=== PATIENT | male | born 1965 ===

== ENCOUNTER → 2020-06-17 10:59 | Outpatient (BNVA) | payer OTHER, SELFPAY | PROVIDERS: PCP Family Medicine; Visit Provider Surgery | DX: Z76.89 Persons encountering health services in other specified circumstances (principal) ==

== ENCOUNTER 2020-08-02 07:59 | Outpatient (RCR) | payer OTHER, SELFPAY ==
[2020-08-02 11:36] LABS: MANUAL DIFF FLAG NO
[2020-08-02 11:57] LABS: Anion Gap 15 (12-20); Blood Urea Nitrogen 18 mg/dL (9-16); C Reactive Protein 10.82 mg/dL (< or = 0.50); Calcium 9.8 mg/dL (8.4-10.2); Carbon Dioxide 27 mmol/L (22-29); Chloride 98 mmol/L (96-108); Estimated Glomerular Filt Rate > 60; Glucose Fasting 235 mg/dL (60-99); Potassium 5.6 mmol/l (3.3-5.1); Sodium 134 mmol/L (135-145)
[2020-08-02 12:23] LABS: Basophils Percent Auto 0.1 % (0-2); Eosinophils Percent Auto 0.1 % (0-4); Hematocrit 43.4 % (42-52); Imm Gran Pct Auto 0.5 % (0.0-0.4); Lymphocytes Absolute Auto 1.5 X10*3/uL (1.2-4.9); Mean Corpuscular HGB Conc 32.3 g/dl (31.0-36.0); Mean Corpuscular Hemoglobin 27.7 pg (27.0-33.0); Mean Corpuscular Volume 85.9 fL (80-98); Mean Platelet Volume 12.1 fL (9.4-12.4); Monocytes Absolute Auto 1.2 X10*3/uL (0.1-1.2); Monocytes Percent Auto 6.3 % (2-11); Neutrophils Absolute Auto 16.2 X10*3/uL (2.0-8.3); Platelet Count 342 X10*3/uL (160-400); Red Blood Count 5.05 X10*6/uL (4.60-5.80); Red Cell Distribution Width 12.3 % (11.0-16.0); White Blood Count 19.1 X10*3/uL (4.8-10.8)
[2020-08-02 12:36] LABS: Erythrocyte Sedimentation Rate 66 MM/HR (0-15)
== END 2021-06-10 12:26 | disposition home or self-care (01) ==
LOC: HO.WCC 07:59
PROVIDERS: PCP Family Medicine; Visit Provider Surgery
DX: E11.621 Type 2 diabetes mellitus with foot ulcer (principal); L97.512 Non-pressure chronic ulcer of other part of right foot with fat layer exposed; E11.40 Type 2 diabetes mellitus with diabetic neuropathy, unspecified; E11.610 Type 2 diabetes mellitus with diabetic neuropathic arthropathy; E11.69 Type 2 diabetes mellitus with other specified complication; M86.371 Chronic multifocal osteomyelitis, right ankle and foot; I10 Essential (primary) hypertension; Z89.421 Acquired absence of other right toe(s); Z79.2 Long term (current) use of antibiotics
CPT/HCPCS: 10061; 11042; 11043; 11044; 11045; 11046; 15275; 36415; 80048; 84134; 85025; 85652; 86140; 87071; 87077; 87147; 87186; 87205; 97605; 99183; 99212; 99213; 99214; Q4106

== ENCOUNTER 2020-08-02 10:05 | Outpatient (REF) | payer OTHER, SELFPAY ==
--- NOTE | 2020-08-02 10:40 | XR_ITS ---
EXAMINATION: XR FOOT, RIGHT CLINICAL INFORMATION: Fifth tarsal rule out osteomyelitis. Diabetic foot ulcer. COMPARISON: MRI of 02/17/2020 and plain film study of 02/16/2020. TECHNIQUE: AP, lateral, and oblique views of the right foot. FINDINGS: Since previous study, patient is status post transmetatarsal amputation of the 4th toe. There is large amount soft tissue swelling about the foot as well as ulceration along the lateral aspect of the tarsal bones. There appears to be progression in appearance of Charcot joint with more joint space narrowing and destruction involving the tarsometatarsal joints. There appears to be fracture/dislocation of the 2nd cuneiform. This can be seen with a combination of traumatic Charcot joint as well as osteomyelitis. There is now also noted to be increase in lucency with poorly seen joint space involving the 2nd tarsometatarsal joint. There appears to be more lucent region involving the lateral aspect of the cuboid as well as what appears to be dislocation base of the 5th tarsometatarsal joint. It is difficult to tell what may be gas within the soft tissues versus gas related to the ulcer. XR/XR foot RT min 3V IMPRESSION: Interval transmetatarsal amputation of the 4th toe. Progression of Charcot joint as described with what appears to be some superimposed osteomyelitis along the lateral aspect possibly involving the cuboid as well as possibly involving the 2nd cuneiform and base of the 2nd metatarsal.
== END 2020-08-02 10:06 | disposition home or self-care (01) ==
LOC: HO.XRAY 10:05
PROVIDERS: PCP Family Medicine; Visit Provider Physician Assistant
DX: E11.621 Type 2 diabetes mellitus with foot ulcer (principal)
CPT/HCPCS: 73630

== ENCOUNTER → 2020-08-09 10:54 | Outpatient (BNVA) | payer OTHER, SELFPAY | PROVIDERS: Visit Provider Internal Medicine | DX: Z76.89 Persons encountering health services in other specified circumstances (principal) ==

== ENCOUNTER → 2020-08-23 10:59 | Outpatient (BNVA) | payer OTHER, SELFPAY | PROVIDERS: Visit Provider Internal Medicine | DX: Z76.89 Persons encountering health services in other specified circumstances (principal) ==

== ENCOUNTER 2020-09-06 10:09 | Outpatient (REF) | payer OTHER, SELFPAY ==
[2020-09-06 11:58] LABS: MANUAL DIFF FLAG NO
[2020-09-06 12:22] LABS: Anion Gap 21 (12-20); Blood Urea Nitrogen 22 mg/dL (9-16); C Reactive Protein 0.99 mg/dL (< or = 0.50); Calcium 9.3 mg/dL (8.4-10.2); Carbon Dioxide 21 mmol/L (22-29); Chloride 100 mmol/L (96-108); Estimated Glomerular Filt Rate > 60; Glucose Random 250 mg/dL (60-115); Potassium 4.6 mmol/l (3.3-5.1); Sodium 137 mmol/L (135-145)
[2020-09-06 12:27] LABS: Estimated Average Glucose 174 mg/dL; Hemoglobin A1c % 7.7 %
[2020-09-06 12:40] LABS: Basophils Percent Auto 0.3 % (0-2); Eosinophils Percent Auto 0.2 % (0-4); Hematocrit 42.9 % (42-52); Hemoglobin 14.1 g/dl (14.0-18.0); Imm Gran Abs Auto 0.02 X10*3/uL (0.00-0.03); Imm Gran Pct Auto 0.2 % (0.0-0.4); Lymphocytes Absolute Auto 1.8 X10*3/uL (1.2-4.9); Lymphocytes Percent Auto 19.9 % (20-40); Mean Corpuscular HGB Conc 32.9 g/dl (31.0-36.0); Mean Corpuscular Hemoglobin 28.1 pg (27.0-33.0); Mean Corpuscular Volume 85.5 fL (80-98); Mean Platelet Volume 11.5 fL (9.4-12.4); Monocytes Absolute Auto 0.7 X10*3/uL (0.1-1.2); Monocytes Percent Auto 7.1 % (2-11); Neutrophils Absolute Auto 6.6 X10*3/uL (2.0-8.3); Neutrophils Percent Auto 72.3 % (45-73); Platelet Count 155 X10*3/uL (160-400); Red Blood Count 5.02 X10*6/uL (4.60-5.80); Red Cell Distribution Width 13.7 % (11.0-16.0); White Blood Count 9.2 X10*3/uL (4.8-10.8)
[2020-09-06 13:16] LABS: Erythrocyte Sedimentation Rate 14 MM/HR (0-15)
== END 2020-09-06 10:10 | disposition home or self-care (01) ==
LOC: HO.LAB 10:09
PROVIDERS: Absent Provider Physician Assistant; PCP Family Medicine; Visit Provider Internal Medicine
DX: Z01.812 Encounter for preprocedural laboratory examination (principal); Z87.39 Personal history of other diseases of the musculoskeletal system and connective tissue
CPT/HCPCS: 36415; 80048; 83036; 84134; 85025; 85652; 86140

== ENCOUNTER 2020-09-07 09:12 | Outpatient (REF) | payer OTHER, SELFPAY ==
--- NOTE | 2020-09-07 09:18 | XR_ITS ---
EXAMINATION: XR CHEST CLINICAL INFORMATION: Preprocedure. COMPARISON: None TECHNIQUE: 2 views of the chest were obtained. FINDINGS: The lungs are well-expanded and clear of acute process. The heart size and pulmonary vascularity is normal. There is moderate spondylosis dorsal spine. No lytic process. XR/XR chest 2V IMPRESSION: Unremarkable chest examination.
== END 2020-09-07 09:13 | disposition home or self-care (01) ==
LOC: HO.XRAY 09:12
PROVIDERS: PCP Family Medicine; Visit Provider Physician Assistant
DX: Z01.818 Encounter for other preprocedural examination (principal)
CPT/HCPCS: 71046

== ENCOUNTER 2020-10-14 10:37 | Outpatient (REF) | payer OTHER, SELFPAY ==
[2020-10-14 12:23] LABS: Blood Urea Nitrogen 32 mg/dL (9-16); Estimated Glomerular Filt Rate 50
== END 2020-10-14 10:38 | disposition home or self-care (01) ==
LOC: HO.LAB 10:37
PROVIDERS: PCP Family Medicine; Visit Provider Physician Assistant
DX: S91.301A Unspecified open wound, right foot, initial encounter (principal); X58.XXXA Exposure to other specified factors, initial encounter; Y93.9 Activity, unspecified; Y92.9 Unspecified place or not applicable; Y99.9 Unspecified external cause status
CPT/HCPCS: 36415; 82565; 84520

== ENCOUNTER 2020-11-05 09:35 | Outpatient (REF) | payer OTHER, SELFPAY ==
--- NOTE | ~2020-11-05 | CT_ITS ---
EXAMINATION: CT FOOT WITH CONTRAST, RIGHT CLINICAL INFORMATION: Abscess right foot. COMPARISON: Radiographs dated 08/02/2020 TECHNIQUE: Multidetector volumetric imaging was obtained through the right foot following intravenous administration of 85 mL Omnipaque 350. This CT examination was performed using dose optimization techniques as appropriate, variously including the following: *Automated exposure control *Adjustment of mA and/or kV according to patient size (this includes techniques or standardized protocols for targeted exams where dose is matched to indication/reason for exam; i.e. extremities or head) *Use of iterative reconstruction technique DLP: 152 mGy-cm FINDINGS: Marked Charcot arthropathy is again seen in the right midfoot centered at the tarsometatarsal joints with marked osseous fragmentation, articular cortical osteolysis, bone loss, and dorsal subluxation of the metatarsals relative to the cuneiforms. There is dorsal subluxation of the 1st metatarsal by 1.3 cm relative to the medial cuneiform. A prominent 2 cm bone fragment from the medial cuneiform projects dorsally toward the skin surface. There is an adjacent skin wound at the dorsomedial aspect of the midfoot near the 1st metatarsal base, filled with dense material and gas. The dense material is of uncertain etiology. There is a hypodense, peripherally enhancing collection within the medial soft tissues at the 1st TMT joint and medial cuneiform measuring 1.5 x 1 x 2 cm, concerning for abscess or septic arthritis. There is a prominent wound at the plantar aspect of the midfoot measuring 4.4 x 5 cm in area, deep to the cuboid and 4th and 5th metatarsals. No underlying fluid collections are identified. There is underlying cortical irregularity and osteolysis at the cuboid and 5th metatarsal which may be due to osteomyelitis, though is age-indeterminate. There is generalized soft tissue swelling, subcutaneous edema, and skin thickening at the foot. Additional wounds may be present at the dorsal/lateral aspect of the forefoot. The 4th and 5th toes are absent along with the majority of the 4th and 5th metatarsals. The talus and calcaneus are intact. There is [id number] osteoarthritis at the talonavicular joint. Enthesopathic spurs are present of the calcaneus. Ankle joint appears relatively well preserved. Subcutaneous edema and soft tissue swelling extend proximally into the ankle. The tibialis anterior tendon is thickened distally and likely torn or partially disrupted. Medial flexor and peroneal tendons are unremarkable on these images. CT/CT foot RT w con IMPRESSION: 1. Extensive changes of Charcot arthropathy at the midfoot. Superimposed osteomyelitis and septic arthritis are possible, particularly at the level of the cuboid and 4th and 5th metatarsal bases. 2. A skin wound at the dorsomedial aspect of the midfoot at the level of the 1st metatarsal base. Dense material and foci of gas are present within this wound and of uncertain etiology, potentially related to wound care. There is an adjacent fluid collection at the medial margin of the fragmented medial cuneiform, concerning for an abscess or septic arthritis. 3. Large wound at the plantar/lateral aspect of the midfoot without an appreciable underlying abscess.
== END 2020-11-05 09:36 | disposition home or self-care (01) ==
LOC: HO.CT 09:35
PROVIDERS: Visit Provider Physician Assistant
DX: M86.371 Chronic multifocal osteomyelitis, right ankle and foot (principal)
CPT/HCPCS: 73701; Q9967

== ENCOUNTER 2020-12-10 09:42 | Outpatient (REF) | payer OTHER, SELFPAY ==
[2020-12-10 10:24] LABS: MANUAL DIFF FLAG NO
[2020-12-10 10:45] LABS: Anion Gap 15 (12-20); Blood Urea Nitrogen 17 mg/dL (9-16); Calcium 9.6 mg/dL (8.4-10.2); Carbon Dioxide 24 mmol/L (22-29); Chloride 103 mmol/L (96-108); Estimated Average Glucose 134 mg/dL; Estimated Glomerular Filt Rate > 60; Glucose Random 213 mg/dL (60-115); Hemoglobin A1c % 6.3 %; Potassium 4.9 mmol/L (3.3-5.1); Sodium 137 mmol/L (135-145)
[2020-12-10 10:56] LABS: Basophils Percent Auto 0.2 % (0-2); Eosinophils Percent Auto 0.4 % (0-4); Hematocrit 44.6 % (42-52); Hemoglobin 14.4 g/dl (14.0-18.0); Imm Gran Abs Auto 0.03 X10*3/uL (0.00-0.03); Imm Gran Pct Auto 0.3 % (0.0-0.4); Lymphocytes Absolute Auto 1.9 X10*3/uL (1.2-4.9); Lymphocytes Percent Auto 18.9 % (20-40); Mean Corpuscular HGB Conc 32.3 g/dl (31.0-36.0); Mean Corpuscular Hemoglobin 28.1 pg (27.0-33.0); Mean Corpuscular Volume 86.9 fL (80-98); Mean Platelet Volume 11.5 fL (9.4-12.4); Monocytes Absolute Auto 0.7 X10*3/uL (0.1-1.2); Monocytes Percent Auto 6.9 % (2-11); Neutrophils Absolute Auto 7.3 X10*3/uL (2.0-8.3); Neutrophils Percent Auto 73.3 % (45-73); Platelet Count 230 X10*3/uL (160-400); Red Blood Count 5.13 X10*6/uL (4.60-5.80); Red Cell Distribution Width 14.8 % (11.0-16.0); White Blood Count 9.9 X10*3/uL (4.8-10.8)
[2020-12-10 11:09] LABS: Erythrocyte Sedimentation Rate 19 MM/HR (0-15)
== END 2020-12-10 09:43 | disposition home or self-care (01) ==
LOC: HO.LAB 09:42
PROVIDERS: PCP Family Medicine; Visit Provider Physician Assistant
DX: E11.621 Type 2 diabetes mellitus with foot ulcer (principal); L97.519 Non-pressure chronic ulcer of other part of right foot with unspecified severity; L02.611 Cutaneous abscess of right foot; Z79.899 Other long term (current) drug therapy; Z87.39 Personal history of other diseases of the musculoskeletal system and connective tissue
CPT/HCPCS: 36415; 80048; 83036; 84134; 85025; 85652; 86140

== ENCOUNTER → 2021-01-05 12:59 | Outpatient (BNVA) | payer OTHER, SELFPAY | PROVIDERS: PCP Family Medicine; Visit Provider Internal Medicine ==

== ENCOUNTER → 2021-01-18 10:22 | Outpatient (BNVA) | payer OTHER, SELFPAY | PROVIDERS: PCP Family Medicine; Visit Provider Internal Medicine ==

== ENCOUNTER 2021-03-15 08:04 | Inpatient (IN) | payer OTHER, SELFPAY ==
[2021-03-15] VITALS (13 sets, daily range): BP systolic 102–186; BP diastolic 35–75; PULSE 65–131; RESP 16–30; TEMP 35.9–39.6; O2SAT 96–99; BMI 47.5
--- NOTE | ~2021-03-15 | XR_ITS ---
EXAMINATION: XR CHEST CLINICAL INFORMATION: Fever. COMPARISON: None TECHNIQUE: Frontal view of the chest was obtained. FINDINGS: The lungs are well-expanded and clear. The heart size and pulmonary vascularity is normal. There is moderate spondylosis of dorsal spine. No lytic process. XR/XR chest 1V IMPRESSION: Unremarkable chest exam.
--- NOTE | ~2021-03-15 | CT_ITS ---
EXAMINATION: CT FOOT WITHOUT CONTRAST, RIGHT CLINICAL INFORMATION: Osteomyelitis versus abscess COMPARISON: Previous x-ray from earlier the same day and CT of the foot October 2020 TECHNIQUE: Axial images through the right foot without contrast. Sagittal and coronal reconstructions on the technologist workstation were performed. This CT examination was performed using dose optimization techniques as appropriate, variously including the following: *Automated exposure control *Adjustment of mA and/or kV according to patient size (this includes techniques or standardized protocols for targeted exams where dose is matched to indication/reason for exam; i.e. extremities or head) *Use of iterative reconstruction technique DLP: 127 mGy-cm FINDINGS: There are Charcot changes in the foot with fracture or dislocation tarsal metatarsal joints. There is are areas of osteomyelitis is bone destruction and fragmentation of the base of the first second third metatarsal bones, the cuneiform bone. This appears increased from previous exam. There is been prior metatarsal amputation of the fourth and fifth toes. There is collapse of the midfoot with rocker-bottom deformity. There is a large defect in the soft tissues over the lateral foot extending to the cuboid bone. There are small air pockets surrounding the cuboid bone and in the cuboid bone itself. There is increasing ostial lysis/bone destruction of the cuboid bone. Findings are suggestive of osteomyelitis. There is also increasing soft tissue swelling over the lateral foot at the tarsal metatarsal region with air air in the soft tissues adjacent to the remaining third metatarsal bone and lateral cuneiform bone, increasing ostial lysis and bone loss also questionable for osteomyelitis. There is increased soft tissue swelling and small amount of air adjacent to the remaining base of the third metatarsal bone and metatarsal cuneiform joint also worrisome for osteomyelitis. There is diffuse soft tissue swelling, subcutaneous edema and skin thickening. There are large calcaneal spurs. The hindfoot and ankle joint are unremarkable.. The previously identified small fluid collection adjacent to the first metatarsal cuneiform joint appears improved. CT/CT foot RT wo con IMPRESSION: Increasing Charcot changes/fracture or dislocation of the foot. Large soft tissue defect over the lateral plantar foot extending to the cuboid bone with air in the cuboid bone and around the cuboid bone suggestive of osteomyelitis. There is also increasing air in the soft tissues and soft tissue swelling adjacent to the base of the third metatarsal bone and cuneiform bone suggestive of soft tissue abscess and possible osteomyelitis. Findings on previous exam adjacent to the first MTP joint appears improved.
--- NOTE | ~2021-03-15 | XR_ITS ---
EXAMINATION: XR FOOT, RIGHT CLINICAL INFORMATION: Rule out osteomyelitis COMPARISON: Previous x-ray July 2020 TECHNIQUE: AP, lateral, and oblique views of the right foot. FINDINGS: There are Charcot changes of the foot with Lisfranc fracture dislocation at the tarsometatarsal joints. Compared to recent exam there is increasing ostial lysis and cortical thickening and sclerotic changes. There is rocker-bottom deformity. There are amputations of the fourth and fifth toes and metatarsal bones. There is a large plantar calcaneal spur. Soft tissues are otherwise unremarkable. XR/XR foot RT min 3V IMPRESSION: Increasing Charcot changes or Lisfranc fracture dislocation at the tarsometatarsal joints and bone osteolyses and cortical thickening. No definite evidence of osteomyelitis seen.
[2021-03-15 08:54] LABS: Basophils Percent Auto 0.1 % (0-2); Hematocrit 39.2 % (42-52); Hemoglobin 13.7 g/dl (14.0-18.0); Imm Gran Abs Auto 0.23 X10*3/uL (0.00-0.03); Imm Gran Pct Auto 0.8 % (0.0-0.4); Lymphocytes Absolute Auto 0.9 X10*3/uL (1.2-4.9); Lymphocytes Percent Auto 3.3 % (20-40); MANUAL DIFF FLAG SCAN; Mean Corpuscular HGB Conc 34.9 g/dl (31.0-36.0); Mean Corpuscular Hemoglobin 30.2 pg (27.0-33.0); Mean Corpuscular Volume 86.3 fL (80-98); Mean Platelet Volume 9.8 fL (9.4-12.4); Monocytes Absolute Auto 1.1 X10*3/uL (0.1-1.2); Monocytes Percent Auto 4.2 % (2-11); Neutrophils Absolute Auto 24.8 X10*3/uL (2.0-8.3); Neutrophils Percent Auto 91.6 % (45-73); Platelet Count 412 X10*3/uL (160-400); Red Blood Count 4.54 X10*6/uL (4.60-5.80); Red Cell Distribution Width 16.2 % (11.0-16.0); SCAN SMEAR FLAG 1; White Blood Count 27.1 X10*3/uL (4.8-10.8)
[2021-03-15 09:15] LABS: SLIDE REVIEW VERIFIED
[2021-03-15] MEDS: Acetaminophen 325 MG TABLET 650 MG PO (09:15)
[2021-03-15] MEDS: 0.9 % Sodium Chloride 1,000 ML 999 ML IVCONT ×2 (09:16→10:05)
[2021-03-15 09:25] LABS: Alanine Aminotransferase 91 U/L (0-40); Albumin Level 3.9 g/dL (3.5-5.0); Alkaline Phosphatase 154 U/L (39-117); Anion Gap 18 (12-20); Aspartate Amino Transferase 39 U/L (5-37); Bilirubin Total 1.5 mg/dL (0.0-1.0); Blood Urea Nitrogen 20 mg/dL (9-16); Calcium 9.7 mg/dL (8.4-10.2); Carbon Dioxide 19 mmol/L (22-29); Chloride 100 mmol/L (96-108); Creatinine Clr Calc Pharmacy 74.6; Estimated Glomerular Filt Rate 48; Glucose Random 212 mg/dL (60-115); Potassium 5.3 mmol/L (3.3-5.1); Sodium 132 mmol/L (135-145); Total Protein 8.1 g/dL (6.5-8.0)
[2021-03-15 09:27] LABS: Lactic Acid 4.1 mmol/L (0.5-2.0)
--- NOTE | 2021-03-15 09:28 | ED.GENADULT ---
HPI - General Adult General Chief complaint: Wound/Laceration Stated complaint: diabetic ulcer Time Seen by Provider: 03/15/21 08:48 History of Present Illness HPI narrative: 55-year-old male with past medical history of diabetes, diabetic foot ulcer, osteomyelitis, hypertension, morbid obesity, s/p amputation of bilateral toes, presenting to the ED complaining of worsening diabetic foot ulcer to right foot x1 week with malodorous drainage. [facility] by [facility], was started on Bactrim last week without improvement. Noted to be febrile today, also reports chills. Denies CP/SOB, abd pain, N/V Related Data Home Medications Medication Instructions Recorded Confirmed folic acid 0.8 mg capsule 0.8 mg PO DAILY 06/17/20 03/15/21 amlodipine 10 mg tablet 10 mg PO BEDTIME 03/15/21 03/15/21 cyanocobalamin (vitamin B-12) 500 500 mcg PO DAILY 03/15/21 03/15/21 mcg tablet (Vitamin B-12) insulin lispro 100 unit/mL 6 unit SUBCUT BIDAC 03/15/21 03/15/21 subcutaneous pen (Humalog KwikPen (U-100) Insulin) simvastatin 20 mg tablet 20 mg PO BEDTIME 03/15/21 03/15/21 sulfamethoxazole 800 1 tab PO BID 03/15/21 03/15/21 mg-trimethoprim 160 mg tablet Previous Rx's Medication Instructions Recorded clopidogrel 75 mg tablet 75 mg PO DAILY 90 Days #90 tab 05/30/20 lisinopril 40 mg tablet 40 mg PO DAILY #90 tab 07/19/20 insulin glargine 100 unit/mL 60 unit SUBCUT BID 30 Days #36 ml 10/15/20 subcutaneous solution (Lantus U-100 Insulin) blood sugar diagnostic (OneTouch 1 strip MISCELLANEOUS TID #100 03/03/21 Ultra Test) strip Allergies Allergy/AdvReac Type Severity Reaction Status Date / Time aspirin Allergy Severe ANAPHYLAXIS, Verified 01/18/21 10:30 eyes red,swollen Review of Systems Review of Systems: Constitutional: + Fever, + Chills, No Night Sweats, No Fatigue, No Malaise Cardiovascular: No Chest Pain, No SOB, No Edema, No Palpitations Respiratory: No Cough, No Dyspnea Gastrointestinal: No Nausea, No Vomiting, No Diarrhea, No Constipation, No Abdominal pain Musculoskeletal: No joint pain, + Joint Swelling Skin: + Skin Lesions, No rash Neuro: No Weakness, No Paresthesias Yes all other systems are reviewed and are negative [facility] Past Medical History Attestation statement: The following information was validated with the patient. Medical History Diabetes mellitus Diabetic foot History of osteomyelitis Hypertension Morbid obesity Surgical History History of amputation of toe (~02/23/20) History of amputation of toe (~06/2017) S/P debridement (~01/2017) Social History Social History Alcohol intake: never Use of substances other than those prescribed or required for medical reasons: No Advance Directives: No Advance Directives Information Provided: No Physical Exam Vital Signs: Vital Signs: Last Vital Signs Temp 99.7 F 03/15/21 11:14 Pulse 104 H 03/15/21 10:06 Resp 20 03/15/21 10:06 BP 122/60 03/15/21 10:06 Pulse Ox 98 03/15/21 10:06 Body Mass Index 47.5 Const: General: cooperative and no acute distress Orientation/consciousness: patient oriented x3 Limitations: no limitations HENMT: Head: Yes normal to inspection Ears: hearing grossly normal bilaterally General nose exam: Normal external nose present Face and sinus: Yes normal facial exam Eyes: General: appearance normal, both eyes and all related structures EOM: EOMs intact bilaterally Neck: Neck: Yes normal visual inspection Resp: Effort & Inspection: normal respiratory effort, not labored and no respiratory distress Cardio: Rate: regular rate Skin: Other: Refer to images above. Mild odorous discharge noted from the wound. No fluctuance or induration Rashes: no rashes Neuro: General: patient oriented x3 Gait exam (Neuro): Normal gait present Extrem: General: Yes normal to inspection Course Course Course Narrative: -0930--noted leukocytosis of 27,000, H&H stable, potassium slightly elevated 5.3, acute KATTY with creatinine 1.51, lactic acid 4.1 > 30 mg/ kg IVF ordered based on ideal body weight --patient's ideal body weight 68kg x 30mg/kg due to patient being obese = 2,040cc IVF (2,100cc ordered) Case discussed with ID IV Daptomycin recommended due to patient's MSSA with multiple resistantces -ALT/ALT elevated >> case discussed with surgery, will evaluate once out of the OR Plan to admit for further management. 1213-- CT foot RT wo con IMPRESSION: Increasing Charcot changes/fracture or dislocation of the foot. Large soft tissue defect over the lateral plantar foot extending to the cuboid bone with air in the cuboid bone and around the cuboid bone suggestive of osteomyelitis. There is also increasing air in the soft tissues and soft tissue swelling adjacent to the base of the third metatarsal bone and cuneiform bone suggestive of soft tissue abscess and possible osteomyelitis. Findings on previous exam adjacent to the first MTP joint appears improved. Medical Decision Making MDM Narrative Medical decision making narrative: 55-year-old male with past medical history of diabetes, diabetic foot ulcer, osteomyelitis, hypertension, morbid obesity, s/p amputation of bilateral toes, presenting to the ED complaining of worsening diabetic foot ulcer to right foot x1 week with malodorous drainage. On exam tachycardic, tachypneic, febrile 100.9, physical exam as above, for to images. Concern for osteomyelitis/infected foot ulcer vs septic arthritis. Lower concern for underlying abscess Plan: Labs, UA, x-ray, blood cultures, lactic, IV antibiotics Lab Data Result diagrams: 03/15/21 08:45 03/15/21 08:45 Labs: Lab Results 03/15/21 03/15/21 03/15/21 Range/Units 08:45 08:45 08:45 WBC 27.1 H (4.8-10.8) X10*3/uL RBC 4.54 L (4.60-5.80) X10*6/uL Hgb 13.7 L (14.0-18.0) g/dl Hct 39.2 L (42-52) % MCV 86.3 (80-98) fL MCH 30.2 (27.0-33.0) pg MCHC 34.9 (31.0-36.0) g/dl RDW 16.2 H (11.0-16.0) % Plt Count 412 H D (160-400) X10*3/uL MPV 9.8 (9.4-12.4) fL Immature Gran % (Auto) 0.8 H (0.0-0.4) % Neut % (Auto) 91.6 H (45-73) % Lymph % (Auto) 3.3 L (20-40) % [place] % (Auto) 4.2 (2-11) % Eos % (Auto) 0.0 (0-4) % Baso % (Auto) 0.1 (0-2) % Lymph # (Auto) 0.9 L (1.2-4.9) X10*3/uL [place] # (Auto) 1.1 (0.1-1.2) X10*3/uL Eos # (Auto) 0.0 (0.0-0.4) X10*3/uL Baso # (Auto) 0.0 (0.0-0.2) X10*3/uL Abs Immat Gran (auto) 0.23 H (0.00-0.03) X10*3/uL Absolute Neuts (auto) 24.8 H (2.0-8.3) X10*3/uL Absolute Nucleated RBC 0.000 (0.0-0.012) X10*3/uL Nucleated RBC % (auto) 0.0 (0.0-0.2) /100WBC Smear Tech's Comments VERIFIED ESR (0-15) MM/HR PT (9.9-13.0) SEC INR (0.9-1.1) APTT (24.1-38.0) SEC Sodium 132 L (135-145) mmol/L Potassium 5.3 H (3.3-5.1) mmol/L Chloride 100 (96-108) mmol/L Carbon Dioxide 19 L (22-29) mmol/L Anion Gap 18 (12-20) BUN 20 H (9-16) mg/dL Creatinine 1.51 H (0.5-1.4) mg/dL Estim Creat Clear Calc 74.6 Estimated GFR 48 Random Glucose 212 H (60-115) mg/dL Lactic Acid 4.1 H* (0.5-2.0) mmol/L Lactic Acid Fup @ 2Hr (0.5-2.0) mmol/L Calcium 9.7 (8.4-10.2) mg/dL Magnesium 1.4 L* (1.6-2.6) mg/dL Total Bilirubin 1.5 H (0.0-1.0) mg/dL AST 39 H (5-37) U/L ALT 91 H (0-40) U/L Alkaline Phosphatase 154 H (39-117) U/L C-Reactive Protein 11.30 H (< or = 0.50) mg/dL Total Protein 8.1 H (6.5-8.0) g/dL Albumin 3.9 (3.5-5.0) g/dL COVID-19 ([facility]) (Negative) COVID-19 Clin Com 03/15/21 03/15/21 03/15/21 Range/Units 08:45 09:29 09:29 WBC (4.8-10.8) X10*3/uL RBC (4.60-5.80) X10*6/uL Hgb (14.0-18.0) g/dl Hct (42-52) % MCV (80-98) fL MCH (27.0-33.0) pg MCHC (31.0-36.0) g/dl RDW (11.0-16.0) % Plt Count (160-400) X10*3/uL MPV (9.4-12.4) fL Immature Gran % (Auto) (0.0-0.4) % Neut % (Auto) (45-73) % Lymph % (Auto) (20-40) % [place] % (Auto) (2-11) % Eos % (Auto) (0-4) % Baso % (Auto) (0-2) % Lymph # (Auto) (1.2-4.9) X10*3/uL [place] # (Auto) (0.1-1.2) X10*3/uL Eos # (Auto) (0.0-0.4) X10*3/uL Baso # (Auto) (0.0-0.2) X10*3/uL Abs Immat Gran (auto) (0.00-0.03) X10*3/uL Absolute Neuts (auto) (2.0-8.3) X10*3/uL Absolute Nucleated RBC (0.0-0.012) X10*3/uL Nucleated RBC % (auto) (0.0-0.2) /100WBC Smear Tech's Comments ESR 62 H (0-15) MM/HR PT 13.9 H (9.9-13.0) SEC INR 1.2 H (0.9-1.1) APTT 27.9 (24.1-38.0) SEC Sodium (135-145) mmol/L Potassium (3.3-5.1) mmol/L Chloride (96-108) mmol/L Carbon Dioxide (22-29) mmol/L Anion Gap (12-20) BUN (9-16) mg/dL Creatinine (0.5-1.4) mg/dL Estim Creat Clear Calc Estimated GFR Random Glucose (60-115) mg/dL Lactic Acid (0.5-2.0) mmol/L Lactic Acid Fup @ 2Hr (0.5-2.0) mmol/L Calcium (8.4-10.2) mg/dL Magnesium (1.6-2.6) mg/dL Total Bilirubin (0.0-1.0) mg/dL AST (5-37) U/L ALT (0-40) U/L Alkaline Phosphatase (39-117) U/L C-Reactive Protein (< or = 0.50) mg/dL Total Protein (6.5-8.0) g/dL Albumin (3.5-5.0) g/dL COVID-19 ([facility]) Negative (Negative) COVID-19 Clin Com See Note 03/15/21 Range/Units 10:57 WBC (4.8-10.8) X10*3/uL RBC (4.60-5.80) X10*6/uL Hgb (14.0-18.0) g/dl Hct (42-52) % MCV (80-98) fL MCH (27.0-33.0) pg MCHC (31.0-36.0) g/dl RDW (11.0-16.0) % Plt Count (160-400) X10*3/uL MPV (9.4-12.4) fL Immature Gran % (Auto) (0.0-0.4) % Neut % (Auto) (45-73) % Lymph % (Auto) (20-40) % [place] % (Auto) (2-11) % Eos % (Auto) (0-4) % Baso % (Auto) (0-2) % Lymph # (Auto) (1.2-4.9) X10*3/uL [place] # (Auto) (0.1-1.2) X10*3/uL Eos # (Auto) (0.0-0.4) X10*3/uL Baso # (Auto) (0.0-0.2) X10*3/uL Abs Immat Gran (auto) (0.00-0.03) X10*3/uL Absolute Neuts (auto) (2.0-8.3) X10*3/uL Absolute Nucleated RBC (0.0-0.012) X10*3/uL Nucleated RBC % (auto) (0.0-0.2) /100WBC Smear Tech's Comments ESR (0-15) MM/HR PT (9.9-13.0) SEC INR (0.9-1.1) APTT (24.1-38.0) SEC Sodium (135-145) mmol/L Potassium (3.3-5.1) mmol/L Chloride (96-108) mmol/L Carbon Dioxide (22-29) mmol/L Anion Gap (12-20) BUN (9-16) mg/dL Creatinine (0.5-1.4) mg/dL Estim Creat Clear Calc Estimated GFR Random Glucose (60-115) mg/dL Lactic Acid (0.5-2.0) mmol/L Lactic Acid Fup @ 2Hr 1.4 (0.5-2.0) mmol/L Calcium (8.4-10.2) mg/dL Magnesium (1.6-2.6) mg/dL Total Bilirubin (0.0-1.0) mg/dL AST (5-37) U/L ALT (0-40) U/L Alkaline Phosphatase (39-117) U/L C-Reactive Protein (< or = 0.50) mg/dL Total Protein (6.5-8.0) g/dL Albumin (3.5-5.0) g/dL COVID-19 ([facility]) (Negative) COVID-19 Clin Com Discharge Plan Discharge Clinical Impression: Soft tissue abscess Osteomyelitis Qualifiers: Osteomyelitis type: other acute Osteomyelitis location: foot Laterality: right Qualified Code(s): M86.171 - Other acute osteomyelitis, right ankle and foot Patient Disposition: Admitted As Inpatient
--- NOTE | 2021-03-15 09:40 | PHA.MEDREC ---
Pharmacy Consult ? Medication Reconciliation Pharmacy has completed the medication reconciliation.
[2021-03-15] MEDS: cefEPime HCl 2 GM in 0.9 % Sodium Chloride 50 ML IV ×2 (09:41→17:08)
[2021-03-15 09:42] LABS: Magnesium 1.4 mg/dL (1.6-2.6)
[2021-03-15 09:49] LABS: INTERNATIONAL NORM RATIO 1.2 (0.9-1.1); Prothrombin Time 13.9 SEC (9.9-13.0)
[2021-03-15 09:52] LABS: Partial Thromboplastin Time 27.9 SEC (24.1-38.0)
[2021-03-15 10:06] LABS: COVID-19 Test Negative (Negative)
[2021-03-15] MEDS: Magnesium Sulfate/H2O 2 GM/50 ML PIGGYBACK IV (10:21)
[2021-03-15] MEDS: Ketorolac Tromethamine 15 MG/ML VIAL 30 MG IVPUSH (10:21)
[2021-03-15 10:49] LABS: Reflex Lactate? Lactic Acid Added
[2021-03-15 10:56] LABS: Erythrocyte Sedimentation Rate 62 MM/HR (0-15)
[2021-03-15] MEDS: DAPTOmycin 850 MG in 0.9 % Sodium Chloride 50 ML 99.96 MG IV (11:12)
[2021-03-15 11:26] LABS: ~Lactic Acid-LAB USE ONLY 1.4 mmol/L (0.5-2.0)
--- NOTE | 2021-03-15 13:08 | P.HPHOSP_ITS ---
History of Present Illness Date of Service: 03/15/21 Chief Complaint: Fevers and chills This is a 55 yo M with a PMH of DM, multiple toe amputations on the b/l LE, prior osteomyelitis with and chronic diabetic foot wounds with skin grafting / wound vac, HLD, Obesity, PAD who presents to the hospital after feeling unwell for about the last 1 week or so. He reports that he has been following up with the wound care to manage his chronic infection which was doing well in the past. He reports that 1 week ago, at the wound clinic it appeared to be worsening and so he was placed on Bactrim for this. He reports that since yesterday he started feeling fevers and chills with some foot pain (although not severe, as he has minimal sensation in the feet). He presented to the emergency room for further evaluation. In the ED -- his vitals were 186/71, RR 30, HR 131, temp 100.9 (increased to 103.2), SpO2 99 on RA. His blood work showed a WBC count of 27.1 (23 bands). His chem was significantly for SNa 132, K 5.3, bicarb 19, BUN 20, SCr 1.51, Lactate 4.1, Mag 1.4, T. Bili 1.5, CRP 11.3, ESR 62. A CT of the foot showed findings consistant with osteomyelitis. His case was d/w by the ED provider with ID who recommended IV daptomcyin and Cefepime. He was given these along with fluid bolus based on his ideal body weight and will now be admitted for further management. Review of Systems Review of Systems: General - +fevers, chills, generalized malaise HEENT -denies blurred vision, denies headache, denies sore throat Cardiovascular - denies chest pain or palpitations, denies edema Respiratory - denies shortness of breath, coughing, wheezing Gastrointestinal - denies abdominal pain, nausea, vomiting, diarrhea - denies flank pain, denies dysuria, denies frequency or urgency Musculoskeletal - denies back pain, denies hip pain, denies knee pain, denies shoulder pain Neurological - denies any focal weakness or numbness Skin - diabetic foot wound with drainage Psychiatric - denies any suicidal ideation, hallucinations, homicidal ideation Endocrinology - denies intolerance to hot / cold temperatures [facility] Medical History (Updated 03/15/21 @ 13:18 by Chintan Persaud MD) Diabetes mellitus Diabetic foot History of osteomyelitis Hypertension Morbid obesity PAD (peripheral artery disease) Pertinent family history: DM in his mother Surgical History History of amputation of toe (~02/23/20) History of amputation of toe (~06/2017) S/P debridement (~01/2017) Social History Alcohol intake: never Use of substances other than those prescribed or required for medical reasons: No Advance Directives: No Advance Directives Information Provided: No Meds Allergies Allergy/AdvReac Type Severity Reaction Status Date / Time aspirin Allergy Severe ANAPHYLAXIS, Verified 01/18/21 10:30 eyes red,swollen Active Medications: Current Medications Generic Name Dose Route Start Last Admin Trade Name Freq PRN Reason Stop Dose Admin Acetaminophen 650 mg 03/15/21 12:57 Acetaminophen 325 Mg Tablet PO Q6H PRN Fever Enoxaparin Sodium 40 mg 03/15/21 13:00 Enoxaparin Sodium 40 Mg/0.4 Ml Syringe SUBCUT Q24H [facility] Cefepime HCl 2 gm/ Sodium 50 mls @ 100 mls/hr 03/15/21 17:00 Chloride IV Q8H [facility] Daptomycin 851.844 mg/ Sodium 67.0369 mls @ 100 mls/hr 03/16/21 10:00 Chloride IV Q24H [facility] Oxycodone HCl 5 mg 03/15/21 12:57 Oxycodone Hcl Immed Release 5 Mg Tablet PO Q6H PRN Pain, Severe (Pain Scale 7-10) Pharmacy Consult 1 each 03/15/21 08:59 Consult Rx Perform Med Rec MISCELLANE ONCE PRN Consult order Sodium Chloride 3 ml 03/15/21 16:00 0.9 % Sodium Chloride Flush 3 Ml Syringe IVFLUSH QSHIFT [facility] Home Medications Medication Instructions Recorded Confirmed Last Taken Type folic acid 0.8 mg capsule 0.8 mg PO DAILY 06/17/20 03/15/21 03/14/21 History amlodipine 10 mg tablet 10 mg PO BEDTIME 03/15/21 03/15/21 03/14/21 History cyanocobalamin (vitamin B-12) 500 500 mcg PO DAILY 03/15/21 03/15/21 03/14/21 History mcg tablet (Vitamin B-12) insulin lispro 100 unit/mL 6 unit SUBCUT BIDAC 03/15/21 03/15/21 03/14/21 History subcutaneous pen (Humalog KwikPen (U-100) Insulin) simvastatin 20 mg tablet 20 mg PO BEDTIME 03/15/21 03/15/21 03/14/21 History sulfamethoxazole 800 1 tab PO BID 03/15/21 03/15/21 03/14/21 History mg-trimethoprim 160 mg tablet Physical Exam Vital Signs and Narrative: Vital Signs: Last Vital Signs Temp 99.7 F 03/15/21 11:14 Pulse 104 H 03/15/21 10:06 Resp 20 03/15/21 10:06 BP 122/60 03/15/21 10:06 Pulse Ox 98 03/15/21 10:06 Body Mass Index 47.5 Const: Other: Constitutional - Awake and Alert, No apparent distress Eyes - PERRLA, EOMI Cardiovascular - S1S2, RRR, No edema Respiratory - Normal lung expansion, Normal respiratory effort, No respiratory distress, CTA bilaterally Gastrointestinal - NT / ND; +BS; No rebound or guarding - No CVA tenderness Extremities - see picutres Musculoskeletal - Normal inspection, normal ROM Skin - see pictures below Neurological - Alert & oriented x3, No focal deficit Psychological - Appropriate affect Skin: Other: Refer to images above. Mild odorous discharge noted from the wound. No fluctuance or induration Results Labs CBC and Chem 7: 03/15/21 08:45 03/15/21 08:45 Labs: Laboratory Results - last 24 hr 03/15/21 03/15/21 03/15/21 08:45 08:45 08:45 MCV 86.3 MCH 30.2 MCHC 34.9 RDW 16.2 H Plt Count 412 H D MPV 9.8 Immature Gran % (Auto) 0.8 H Neut % (Auto) 91.6 H Lymph % (Auto) 3.3 L [place] % (Auto) 4.2 Eos % (Auto) 0.0 Baso % (Auto) 0.1 Lymph # (Auto) 0.9 L [place] # (Auto) 1.1 Eos # (Auto) 0.0 Baso # (Auto) 0.0 Abs Immat Gran (auto) 0.23 H Absolute Neuts (auto) 24.8 H Absolute Nucleated RBC 0.000 Nucleated RBC % (auto) 0.0 Smear Tech's Comments VERIFIED ESR PT INR APTT Anion Gap 18 Estim Creat Clear Calc 74.6 Estimated GFR 48 Random Glucose 212 H Lactic Acid 4.1 H* Lactic Acid Fup @ 2Hr Calcium 9.7 Magnesium 1.4 L* Total Bilirubin 1.5 H AST 39 H ALT 91 H Alkaline Phosphatase 154 H C-Reactive Protein 11.30 H Total Protein 8.1 H Albumin 3.9 COVID-19 ([facility]) COVID-19 Clin Com 03/15/21 03/15/21 03/15/21 08:45 09:29 09:29 MCV MCH MCHC RDW Plt Count MPV Immature Gran % (Auto) Neut % (Auto) Lymph % (Auto) [place] % (Auto) Eos % (Auto) Baso % (Auto) Lymph # (Auto) [place] # (Auto) Eos # (Auto) Baso # (Auto) Abs Immat Gran (auto) Absolute Neuts (auto) Absolute Nucleated RBC Nucleated RBC % (auto) Smear Tech's Comments ESR 62 H PT 13.9 H INR 1.2 H APTT 27.9 Anion Gap Estim Creat Clear Calc Estimated GFR Random Glucose Lactic Acid Lactic Acid Fup @ 2Hr Calcium Magnesium Total Bilirubin AST ALT Alkaline Phosphatase C-Reactive Protein Total Protein Albumin COVID-19 ([facility]) Negative COVID-[employer] See Note 03/15/21 10:57 MCV MCH MCHC RDW Plt Count MPV Immature Gran % (Auto) Neut % (Auto) Lymph % (Auto) [place] % (Auto) Eos % (Auto) Baso % (Auto) Lymph # (Auto) [place] # (Auto) Eos # (Auto) Baso # (Auto) Abs Immat Gran (auto) Absolute Neuts (auto) Absolute Nucleated RBC Nucleated RBC % (auto) Smear Tech's Comments ESR PT INR APTT Anion Gap Estim Creat Clear Calc Estimated GFR Random Glucose Lactic Acid Lactic Acid Fup @ 2Hr 1.4 Calcium Magnesium Total Bilirubin AST ALT Alkaline Phosphatase C-Reactive Protein Total Protein Albumin COVID-19 ([facility]) COVID-19 [employer] Com Imaging Radiologist's Impressions: Impressions Foot X-Ray 03/15/21 09:05 IMPRESSION: Increasing Charcot changes or Lisfranc fracture dislocation at the tarsometatarsal joints and bone osteolyses and cortical thickening. No definite evidence of osteomyelitis seen. Chest X-Ray 03/15/21 10:11 IMPRESSION: Unremarkable chest exam. Foot CT 03/15/21 10:57 IMPRESSION: Increasing Charcot changes/fracture or dislocation of the foot. Large soft tissue defect over the lateral plantar foot extending to the cuboid bone with air in the cuboid bone and around the cuboid bone suggestive of osteomyelitis. There is also increasing air in the soft tissues and soft tissue swelling adjacent to the base of the third metatarsal bone and cuneiform bone suggestive of soft tissue abscess and possible osteomyelitis. Findings on previous exam adjacent to the first MTP joint appears improved. Assessment and Plan (1) Severe sepsis: Status: Acute This is a 55 yo M with a PMHx of IDDM and previously diabetic foot i nfections / osteo who presents to the hospital with complaints of fevers and chills, drainage from his chronic diabetic foot wound. His ED work up is consistent with Severe sepsis secondary to a diabetic foot infection / osteomyelitis. 1. Severe sepsis due to Diabetic foot infection / osteomyelitis Meets sepsis criter with: Leukocytosis + fevers + tachycardia + tachypnea; severe features with elevated lactate received sepsis fluid bolus in the ED based on ideal body weight follow blood cultures, trend lactate 2. Diabetic Foot infection / osteomyelitis Limb at risk CT showing evidence of osteo + possible abscess General Surg consulted ID consulted IV Dapto + IV cefepime 3. KATTY, suspected due to ATN from sepsis baseline SCr is about 0.8-1.0 range; now presents with SCr 1.5 trend hydration with LR 4. HyperK - mild monitor 5. HypoMg repleted in ED 6. IDDM last A1C in December 01 - 6.3 continue with lantus + sliding scale; will decrease basal dose while in the hospital diabetic diet and poc QIDAC 7. Abnormal LFTs suspected due to sepsis trend 8. HTN continue norvasc 9. PAD on statin + plavix hold statin (trend LFTs + on Dapto) 10. Morbid obesity pt endorses that his chronic foot infection is prohibitive in getting the appropriate exercise. counseled on healthy diet Full Code DVT pptx - high risk, will use Lovenox Endorses his as HCP Quality Stroke Does the patient have a stroke diagnosis?: No VTE Prior VTE?: No VTE Risk Level:: Medical - moderate - high VTE Device Contraindication: Treatment Not Indicated VTE Drug Contraindication: N/A - Med Ordered
--- NOTE | 2021-03-15 14:45 | PC.NURSE ---
attempt to call for report, states no nurse was assigned to patient.
--- NOTE | 2021-03-15 14:52 | PC.NURSE ---
REPORT GIVEN TO SEMAJ ON MED SURG
--- NOTE | 2021-03-15 15:04 | P.CONGS_ITS ---
History of Present Illness Consult details Consult date: 03/15/21 Narrative: 55M with longstanding diabetes, who came to the ED for malaise this morning. He has a nonhealing wound on the right foot and is being followed at the Wound Clinic for several months. He has undergone multiple appligrafts in Wound Care. He says that he was supposed to be seen again tomorrow but he felt some body malaise this morning so he came to the ED. He had undergone amputation of the 4th and 5th toes for osteomyelitis last February 2020. The amputation site had healed before and he says this had been doing well for a while. Review of Systems Constitutional: Constitutional: Reports chills, Reports fever(s) and Reports malaise Cardiovascular: Cardiovascular: Denies chest pain, Denies dyspnea and Denies dyspnea on exertion Respiratory: Respiratory: Denies cough, Denies dyspnea and Denies dyspnea on exertion Gastrointestinal: Gastrointestinal: Denies hematochezia and Denies change in bowel habits Genitourinary: Genitourinary: Denies hematuria and Denies difficulty urinating Musculoskeletal: Musculoskeletal: Denies back pain and Denies limited range of motion Neurologic: Denies focal weakness and Denies convulsions Psychiatric: Psychiatric: Denies depression and Denies mood swings PMFSH Past Medical History Medical History Diabetes mellitus Diabetic foot History of osteomyelitis Hypertension Morbid obesity PAD (peripheral artery disease) Surgical History Surgical History History of amputation of toe (~02/23/20) History of amputation of toe (~06/2017) S/P debridement (~01/2017) Social History Social History Household Members: Spouse Housing: House Do you presently have visiting nurse or other home services: No Alcohol intake: never Patient Tobacco Use Status: Former Tobacco user Use of substances other than those prescribed or required for medical reasons: No Currently Displaying Signs/Symptoms of Drug Intoxication Withdrawal: No Have you been hit, kicked, punched, or otherwise hurt by someone within the past year? If so, by whom?: No Do you feel safe in your current relationship?: Yes Is there a partner from a previous relationship who is making you feel unsafe now?: No Are you made to feel afraid or neglected: No Are you DNR?: No Advance Directives: No Advance Directives Information Provided: No Do you have thoughts of harming others: None Do you have a plan to hurt others: No Plan Recently lost weight without trying: No Nutrition Risks: No Nutritional Risk Poor oral hygiene: No Current occupational status: employed Meds Allergies Allergy/AdvReac Type Severity Reaction Status Date / Time aspirin Allergy Severe ANAPHYLAXIS, Verified 01/18/21 10:30 eyes red,swollen Active Medications: Current Medications Generic Name Dose Route Start Last Admin Trade Name Freq PRN Reason Stop Dose Admin Acetaminophen 650 mg 03/15/21 12:57 Acetaminophen 325 Mg Tablet PO Q6H PRN Fever Enoxaparin Sodium 40 mg 03/15/21 16:00 Enoxaparin Sodium 40 Mg/0.4 Ml Syringe SUBCUT Q24H [facility] Cefepime HCl 2 gm/ Sodium 50 mls @ 100 mls/hr 03/15/21 17:00 Chloride IV Q8H [facility] Daptomycin 850 mg/ Sodium 67 mls @ 100 mls/hr 03/16/21 11:00 Chloride IV Q24H [facility] Lactated Ringer's 1,000 mls @ 125 mls/hr 03/15/21 15:00 Lr IVCONT .Q8H [facility] Insulin Glargine 40 unit 03/15/21 21:00 Insulin Glargine,Hum.Rec.Anlog 100 Unit/Ml 10 Ml Vial SUBCUT BID [facility] Insulin Human Lispro 0 unit 03/15/21 16:30 Insulin Lispro 100 Unit/Ml 3 Ml Vial SUBCUT QIDACHS [facility] Protocol Oxycodone HCl 5 mg 03/15/21 12:57 Oxycodone Hcl Immed Release 5 Mg Tablet PO Q6H PRN Pain, Severe (Pain Scale 7-10) Pharmacy Consult 1 each 03/15/21 08:59 Consult Rx Perform Med Rec MISCELLANE ONCE PRN Consult order Sodium Chloride 3 ml 03/15/21 16:00 0.9 % Sodium Chloride Flush 3 Ml Syringe IVFLUSH QSHIFT [facility] Home Medications Medication Instructions Recorded Confirmed Last Taken Type folic acid 0.8 mg capsule 0.8 mg PO DAILY 06/17/20 03/15/21 03/14/21 History amlodipine 10 mg tablet 10 mg PO BEDTIME 03/15/21 03/15/21 03/14/21 History cyanocobalamin (vitamin B-12) 500 500 mcg PO DAILY 03/15/21 03/15/21 03/14/21 History mcg tablet (Vitamin B-12) insulin lispro 100 unit/mL 6 unit SUBCUT BIDAC 03/15/21 03/15/21 03/14/21 History subcutaneous pen (Humalog KwikPen (U-100) Insulin) simvastatin 20 mg tablet 20 mg PO BEDTIME 03/15/21 03/15/21 03/14/21 History sulfamethoxazole 800 1 tab PO BID 03/15/21 03/15/21 03/14/21 History mg-trimethoprim 160 mg tablet Physical Exam Vital Signs: Vital Signs: Last Vital Signs Temp 99.7 F 03/15/21 11:14 Pulse 72 03/15/21 14:43 Resp 18 03/15/21 13:51 BP 104/47 L 03/15/21 14:43 Pulse Ox 98 03/15/21 11:35 Body Mass Index 47.5 Const: General: comfortable and no acute distress Orientation/consciousness: patient oriented x3 Neck: Neck: Yes no lymphadenopathy Resp: Auscultation: clear to auscultation bilaterally Cardio: Rhythm: regular rhythm GI: Palpation (GI): Soft to palpation, nontender and no guarding Neuro: General: patient oriented x3 Extrem: Other: edema, with chronic trophic changes of the right leg, right foot chronically swollen, the open wound, about 3.5 cm, with a deep ulcer, with palpable and visible bone; thick callous surrounding parts of the wound noted Results Labs Result diagrams: 03/17/21 05:39 03/17/21 05:39 Labs: Abnormal lab results 03/15/21 03/15/21 03/15/21 Range/Units 08:45 08:45 08:45 WBC 27.1 H (4.8-10.8) X10*3/uL RBC 4.54 L (4.60-5.80) X10*6/uL Hgb 13.7 L (14.0-18.0) g/dl Hct 39.2 L (42-52) % RDW 16.2 H (11.0-16.0) % Plt Count 412 H D (160-400) X10*3/uL Immature Gran % (Auto) 0.8 H (0.0-0.4) % Neut % (Auto) 91.6 H (45-73) % Lymph % (Auto) 3.3 L (20-40) % Lymph # (Auto) 0.9 L (1.2-4.9) X10*3/uL Abs Immat Gran (auto) 0.23 H (0.00-0.03) X10*3/uL Absolute Neuts (auto) 24.8 H (2.0-8.3) X10*3/uL ESR (0-15) MM/HR PT (9.9-13.0) SEC INR (0.9-1.1) Sodium 132 L (135-145) mmol/L Potassium 5.3 H (3.3-5.1) mmol/L Carbon Dioxide 19 L (22-29) mmol/L BUN 20 H (9-16) mg/dL Creatinine 1.51 H (0.5-1.4) mg/dL Random Glucose 212 H (60-115) mg/dL Lactic Acid 4.1 H* (0.5-2.0) mmol/L Magnesium 1.4 L* (1.6-2.6) mg/dL Total Bilirubin 1.5 H (0.0-1.0) mg/dL AST 39 H (5-37) U/L ALT 91 H (0-40) U/L Alkaline Phosphatase 154 H (39-117) U/L C-Reactive Protein 11.30 H (< or = 0.50) mg/dL Total Protein 8.1 H (6.5-8.0) g/dL 03/15/21 03/15/21 Range/Units 08:45 09:29 WBC (4.8-10.8) X10*3/uL RBC (4.60-5.80) X10*6/uL Hgb (14.0-18.0) g/dl Hct (42-52) % RDW (11.0-16.0) % Plt Count (160-400) X10*3/uL Immature Gran % (Auto) (0.0-0.4) % Neut % (Auto) (45-73) % Lymph % (Auto) (20-40) % Lymph # (Auto) (1.2-4.9) X10*3/uL Abs Immat Gran (auto) (0.00-0.03) X10*3/uL Absolute Neuts (auto) (2.0-8.3) X10*3/uL ESR 62 H (0-15) MM/HR PT 13.9 H (9.9-13.0) SEC INR 1.2 H (0.9-1.1) Sodium (135-145) mmol/L Potassium (3.3-5.1) mmol/L Carbon Dioxide (22-29) mmol/L BUN (9-16) mg/dL Creatinine (0.5-1.4) mg/dL Random Glucose (60-115) mg/dL Lactic Acid (0.5-2.0) mmol/L Magnesium (1.6-2.6) mg/dL Total Bilirubin (0.0-1.0) mg/dL AST (5-37) U/L ALT (0-40) U/L Alkaline Phosphatase (39-117) U/L C-Reactive Protein (< or = 0.50) mg/dL Total Protein (6.5-8.0) g/dL Short CBC 03/15/21 Range/Units 08:45 WBC 27.1 H (4.8-10.8) X10*3/uL Hgb 13.7 L (14.0-18.0) g/dl Hct 39.2 L (42-52) % Plt Count 412 H D (160-400) X10*3/uL BMP 03/15/21 08:45 Sodium 132 L Potassium 5.3 H Chloride 100 Carbon Dioxide 19 L BUN 20 H Creatinine 1.51 H Calcium 9.7 Liver Function 03/15/21 Range/Units 08:45 Total Bilirubin 1.5 H (0.0-1.0) mg/dL AST 39 H (5-37) U/L ALT 91 H (0-40) U/L Alkaline Phosphatase 154 H (39-117) U/L Albumin 3.9 (3.5-5.0) g/dL All other labs normal. Imaging Additional studies: CT of foot - report and images reviewed Assessment and Plan (1) Diabetic foot: Status: Acute He has an open wound with drainage on the right foot. I have reviewed his Ct scan and this shows a soft tissue defect on the area of the wound, possible abscess, and osteomyelitis of the 3rd metatarsal and cuboid bone. I have changed his dressings and wrapped his foot in Kerlix. He has been started on IV abx. His wound cultures should be followed. The wound is actually and draining, and the bone is visible through the wound. I plan to take him to the OR tomorrow for debridement of the wound and the bone. I explained this plan to him. He does state he is much better now after getting IVF. He appears to be hemodynamically stable as well. He has a large, chronic nonhealing wound with a deep ulcer that extends all the way to the bone. He came in with elevated lactate but this has improved. Furthermore, he feels much better now [facility] regards to connstitutional symptoms. The wound is open and seems to drain freely. However, I told the patient that I may bring him to the OR for debridement tomorrow and clean up all surfaces including exposed bone. He has been started on IV abx and now appears hemodynamically stable. I bluntly debrided the open wound and applied dressings and wrapped the foot with Kerlix roll. Procedures Date of Service Date of Service: 03/17/21
[2021-03-15] MEDS: Lactated Ringers 1,000 ML 125 ML IVCONT (15:39)
[2021-03-15] MEDS: Enoxaparin Sodium 40 MG/0.4 ML SYRINGE SUBCUT (15:39)
[2021-03-15 16:33] LABS: Glucose, Whole Blood 124 mg/dL (60-115)
[2021-03-15 20:22] LABS: Glucose, Whole Blood 237 mg/dL (60-115)
[2021-03-15] MEDS: Insulin Glargine,Hum.rec.anlog 100 UNIT/ML 10 ML VIAL 40 UNIT SUBCUT (20:33)
[2021-03-15] MEDS: Insulin Lispro 100 UNIT/ML 3 ML VIAL SUBCUT (20:34)
[2021-03-16] VITALS (8 sets, daily range): BP systolic 116–150; BP diastolic 56–77; PULSE 64–79; RESP 14–20; TEMP 36.2–36.4; O2SAT 97–100
[2021-03-16] MEDS: Lactated Ringers 1,000 ML 125 ML IVCONT ×3 (00:23→21:04)
[2021-03-16] MEDS: cefEPime HCl 2 GM in 0.9 % Sodium Chloride 50 ML IV ×3 (00:23→16:41)
[2021-03-16 07:10] LABS: Anion Gap 11 (12-20); Blood Urea Nitrogen 18 mg/dL (9-16); Calcium 8.7 mg/dL (8.4-10.2); Carbon Dioxide 23 mmol/L (22-29); Chloride 106 mmol/L (96-108); Creatinine Clr Calc Pharmacy 118.7; Estimated Glomerular Filt Rate > 60; Glucose Random 148 mg/dL (60-115); Potassium 5.2 mmol/L (3.3-5.1); Sodium 135 mmol/L (135-145)
[2021-03-16 07:12] LABS: Hematocrit 36.2 % (42-52); Hemoglobin 11.8 g/dl (14.0-18.0); Mean Corpuscular HGB Conc 32.6 g/dl (31.0-36.0); Mean Corpuscular Hemoglobin 27.4 pg (27.0-33.0); Mean Corpuscular Volume 84.2 fL (80-98); Mean Platelet Volume 11.1 fL (9.4-12.4); Platelet Count 279 X10*3/uL (160-400); Red Cell Distribution Width 15.8 % (11.0-16.0); White Blood Count 14.4 X10*3/uL (4.8-10.8)
--- NOTE | 2021-03-16 08:27 | PM.EVENT ---
Event Note Date of Service: 03/16/21 Event Note: Patient seen and examined Looks comfortable I have reviewed his CAT scan with the radiologist Dr. Naidu Note of erosion of the cuboid in the 3rd metatarsal - visible on the deep part of the ulcer A lot of inflammatory changes on this area the open wound Will do debridement in the OR today Explained him the technique of this procedure as well as the risks, benefits, and alternatives and he was given consent
[2021-03-16 08:42] LABS: Glucose, Whole Blood 161 mg/dL (60-115)
--- NOTE | 2021-03-16 09:40 | HO.ANESPROP2 ---
[facility] Active Problems Active Problems: All Active Problems (Updated 03/15/21 @ 13:18 by Chintan Persaud MD) Severe sepsis (Acute) Osteomyelitis (Acute) Soft tissue abscess (Acute) History of osteomyelitis (Acute) Diabetic foot (Acute) Morbid obesity (Acute) Hypertension (Acute) Diabetes mellitus (Acute) Past Medical History Medical History Diabetes mellitus Diabetic foot History of osteomyelitis Hypertension Morbid obesity PAD (peripheral artery disease) Surgical History Surgical History History of amputation of toe (~02/23/20) History of amputation of toe (~06/2017) S/P debridement (~01/2017) History of Problems with Anesthesia: No Social History Social History Household Members: Spouse Housing: House Do you presently have visiting nurse or other home services: No Alcohol intake: never Patient Tobacco Use Status: Former Tobacco user Use of substances other than those prescribed or required for medical reasons: No Currently Displaying Signs/Symptoms of Drug Intoxication Withdrawal: No Have you been hit, kicked, punched, or otherwise hurt by someone within the past year? If so, by whom?: No Do you feel safe in your current relationship?: Yes Is there a partner from a previous relationship who is making you feel unsafe now?: No Are you made to feel afraid or neglected: No Are you DNR?: No Advance Directives: No Advance Directives Information Provided: No Do you have thoughts of harming others: None Do you have a plan to hurt others: No Plan Recently lost weight without trying: No Nutrition Risks: No Nutritional Risk Poor oral hygiene: No Meds Allergies Allergy/AdvReac Type Severity Reaction Status Date / Time aspirin Allergy Severe ANAPHYLAXIS, Verified 01/18/21 10:30 eyes red,swollen Active Medications: Current Medications Generic Name Dose Route Start Last Admin Trade Name Freq PRN Reason Stop Dose Admin Acetaminophen 650 mg 03/15/21 12:57 Acetaminophen 325 Mg Tablet PO Q6H PRN Fever Enoxaparin Sodium 40 mg 03/15/21 16:00 03/15/21 15:39 Enoxaparin Sodium 40 Mg/0.4 Ml Syringe SUBCUT 40 mg Q24H JAMIE Administration Cefepime HCl 2 gm/ Sodium 50 mls @ 100 mls/hr 03/15/21 17:00 03/16/21 09:21 Chloride IV 100 mls/hr Q8H [facility] Administration Daptomycin 850 mg/ Sodium 67 mls @ 100 mls/hr 03/16/21 11:00 Chloride IV Q24H JAMIE Lactated Ringer's 1,000 mls @ 125 mls/hr 03/15/21 15:00 03/16/21 07:10 Lr IVCONT 125 mls/hr .Q8H [facility] Administration Insulin Glargine 40 unit 03/15/21 21:00 03/16/21 09:14 Insulin Glargine,Hum.Rec.Anlog 100 Unit/Ml 10 Ml Vial SUBCUT Not Given BID [facility] Insulin Human Lispro 0 unit 03/15/21 16:30 03/16/21 08:07 Insulin Lispro 100 Unit/Ml 3 Ml Vial SUBCUT Not Given QIDACHS [facility] Protocol Oxycodone HCl 5 mg 03/15/21 12:57 Oxycodone Hcl Immed Release 5 Mg Tablet PO Q6H PRN Pain, Severe (Pain Scale 7-10) Pharmacy Consult 1 each 03/15/21 08:59 Consult Rx Perform Med Rec MISCELLANE ONCE PRN Consult order Sodium Chloride 3 ml 03/15/21 16:00 03/16/21 07:12 0.9 % Sodium Chloride Flush 3 Ml Syringe IVFLUSH Not Given QSHIFT [facility] Home Medications Medication Instructions Recorded Confirmed Last Taken Type folic acid 0.8 mg capsule 0.8 mg PO DAILY 06/17/20 03/15/21 03/14/21 History amlodipine 10 mg tablet 10 mg PO BEDTIME 03/15/21 03/15/21 03/14/21 History cyanocobalamin (vitamin B-12) 500 500 mcg PO DAILY 03/15/21 03/15/21 03/14/21 History mcg tablet (Vitamin B-12) insulin lispro 100 unit/mL 6 unit SUBCUT BIDAC 03/15/21 03/15/21 03/14/21 History subcutaneous pen (Humalog KwikPen (U-100) Insulin) simvastatin 20 mg tablet 20 mg PO BEDTIME 03/15/21 03/15/21 03/14/21 History sulfamethoxazole 800 1 tab PO BID 03/15/21 03/15/21 03/14/21 History mg-trimethoprim 160 mg tablet Exam Exam Date and Time: March 16, 2021 0940 Height,Weight and Vital Signs: Height 5 ft 8 in Weight 141.974 kg Last Vital Signs Temp 97.6 F 03/16/21 07:37 Pulse 69 03/16/21 07:37 Resp 17 03/16/21 07:37 BP 147/65 H 03/16/21 07:37 Pulse Ox 98 03/16/21 07:37 Pertinent Lab Results Pertinent Lab Results: Laboratory Tests 03/15/21 03/15/21 03/15/21 08:45 08:45 08:45 WBC 27.1 H RBC 4.54 L Hgb 13.7 L Hct 39.2 L MCV 86.3 MCH 30.2 MCHC 34.9 RDW 16.2 H Plt Count 412 H D MPV 9.8 Immature Gran % (Auto) 0.8 H Neut % (Auto) 91.6 H Lymph % (Auto) 3.3 L Barry % (Auto) 4.2 Eos % (Auto) 0.0 Baso % (Auto) 0.1 Lymph # (Auto) 0.9 L Barry # (Auto) 1.1 Eos # (Auto) 0.0 Baso # (Auto) 0.0 Abs Immat Gran (auto) 0.23 H Absolute Neuts (auto) 24.8 H Absolute Nucleated RBC 0.000 Nucleated RBC % (auto) 0.0 Smear Tech's Comments VERIFIED ESR PT INR APTT Sodium 132 L Potassium 5.3 H Chloride 100 Carbon Dioxide 19 L Anion Gap 18 BUN 20 H Creatinine 1.51 H Estim Creat Clear Calc 74.6 Estimated GFR 48 POC Glucose Random Glucose 212 H Lactic Acid 4.1 H* Lactic Acid Fup @ 2Hr Calcium 9.7 Magnesium 1.4 L* Total Bilirubin 1.5 H AST 39 H ALT 91 H Alkaline Phosphatase 154 H C-Reactive Protein 11.30 H Total Protein 8.1 H Albumin 3.9 COVID-19 ([facility]) COVID-19 Clin Com 03/15/21 03/15/21 03/15/21 08:45 09:29 09:29 WBC RBC Hgb Hct MCV MCH MCHC RDW Plt Count MPV Immature Gran % (Auto) Neut % (Auto) Lymph % (Auto) Barry % (Auto) Eos % (Auto) Baso % (Auto) Lymph # (Auto) Barry # (Auto) Eos # (Auto) Baso # (Auto) Abs Immat Gran (auto) Absolute Neuts (auto) Absolute Nucleated RBC Nucleated RBC % (auto) Smear Tech's Comments ESR 62 H PT 13.9 H INR 1.2 H APTT 27.9 Sodium Potassium Chloride Carbon Dioxide Anion Gap BUN Creatinine Estim Creat Clear Calc Estimated GFR POC Glucose Random Glucose Lactic Acid Lactic Acid Fup @ 2Hr Calcium Magnesium Total Bilirubin AST ALT Alkaline Phosphatase C-Reactive Protein Total Protein Albumin COVID-19 ([facility]) Negative COVID-19 Clin Com See Note 03/15/21 03/15/21 03/15/21 10:57 16:26 20:15 WBC RBC Hgb Hct MCV MCH MCHC RDW Plt Count MPV Immature Gran % (Auto) Neut % (Auto) Lymph % (Auto) Barry % (Auto) Eos % (Auto) Baso % (Auto) Lymph # (Auto) Barry # (Auto) Eos # (Auto) Baso # (Auto) Abs Immat Gran (auto) Absolute Neuts (auto) Absolute Nucleated RBC Nucleated RBC % (auto) Smear Tech's Comments ESR PT INR APTT Sodium Potassium Chloride Carbon Dioxide Anion Gap BUN Creatinine Estim Creat Clear Calc Estimated GFR POC Glucose 124 H 237 H Random Glucose Lactic Acid Lactic Acid Fup @ 2Hr 1.4 Calcium Magnesium Total Bilirubin AST ALT Alkaline Phosphatase C-Reactive Protein Total Protein Albumin COVID-19 ([facility]) COVID-19 Clin AdvanDx 03/16/21 03/16/21 03/16/21 05:52 05:52 07:37 WBC 14.4 H RBC 4.30 L Hgb 11.8 L Hct 36.2 L MCV 84.2 MCH 27.4 MCHC 32.6 RDW 15.8 Plt Count 279 D MPV 11.1 Immature Gran % (Auto) Neut % (Auto) Lymph % (Auto) Barry % (Auto) Eos % (Auto) Baso % (Auto) Lymph # (Auto) Barry # (Auto) Eos # (Auto) Baso # (Auto) Abs Immat Gran (auto) Absolute Neuts (auto) Absolute Nucleated RBC 0.000 Nucleated RBC % (auto) 0.0 Smear Tech's Comments ESR PT INR APTT Sodium 135 Potassium 5.2 H Chloride 106 Carbon Dioxide 23 Anion Gap 11 L BUN 18 H Creatinine 0.95 Estim Creat Clear Calc 118.7 Estimated GFR > 60 POC Glucose 161 H Random Glucose 148 H Lactic Acid Lactic Acid Fup @ 2Hr Calcium 8.7 D Magnesium Total Bilirubin AST ALT Alkaline Phosphatase C-Reactive Protein Total Protein Albumin COVID-19 ([facility]) COVID-19 Clin Com Airway Mallampati Class: II TM Dist: >3cm Neck ROM: Full Loose/Missing/Broken Teeth: Yes, Upper and Lower Heart: RRR Lungs: CTA Assessment and Plan Assessment Anesthesia Assessment: Anesthesia Plan Discussed and Chart Reviewed Final Anesthetic Review History of Problems with Anesthesia: No NPO: Yes ASA Class: III Final Preanesthetic Review: Meds/Allgs Chart Reviewed, Consent Obtained/Reviewed and Anes Risks/Benef Reviewed Patient Risk: Intermediate Procedure Risk: Low Anesthetic Plan Anesthetic Plan: MAC: Disposition: Standard PACU
--- NOTE | 2021-03-16 09:43 | HO.PM.IMPN ---
Subjective Subjective Date of Service: 03/16/21 Interval History: seen and examined feeling much better denies fevers and chills leg feels better Review of Systems General - no fevers or chills Cardiovascular - no chest pain Respiratory - no shortness of breath or cough Abdominal- no abdominal pain, nausea, vomiting, diarrhea Physical Exam Vital Signs: Vital Signs: Last Vital Signs Temp 97.6 F 03/16/21 07:37 Pulse 69 03/16/21 07:37 Resp 17 03/16/21 07:37 BP 147/65 H 03/16/21 07:37 Pulse Ox 98 03/16/21 07:37 Body Mass Index 47.5 Const: Other: Constitutional - Awake and Alert, No apparent distress Eyes - PERRLA, EOMI Cardiovascular - S1S2, RRR, No edema Respiratory - Normal lung expansion, Normal respiratory effort, No respiratory distress, CTA bilaterally Gastrointestinal - NT / ND; +BS; No rebound or guarding - No CVA tenderness Extremities - dressing in place Musculoskeletal - Normal inspection, normal ROM Neurological - Alert & oriented x3, No focal deficit Psychological - Appropriate affect Objective Data Current Medications Generic Name Dose Route Start Last Admin Trade Name Freq PRN Reason Stop Dose Admin Acetaminophen 650 mg 03/15/21 12:57 Acetaminophen 325 Mg Tablet PO Q6H PRN Fever Enoxaparin Sodium 40 mg 03/15/21 16:00 03/15/21 15:39 Enoxaparin Sodium 40 Mg/0.4 Ml Syringe SUBCUT 40 mg Q24H JAMIE Administration Cefepime HCl 2 gm/ Sodium 50 mls @ 100 mls/hr 03/15/21 17:00 03/16/21 09:21 Chloride IV 100 mls/hr Q8H [facility] Administration Daptomycin 850 mg/ Sodium 67 mls @ 100 mls/hr 03/16/21 11:00 Chloride IV Q24H JAMIE Lactated Ringer's 1,000 mls @ 125 mls/hr 03/15/21 15:00 03/16/21 07:10 Lr IVCONT 125 mls/hr .Q8H [facility] Administration Insulin Glargine 40 unit 03/15/21 21:00 03/16/21 09:14 Insulin Glargine,Hum.Rec.Anlog 100 Unit/Ml 10 Ml Vial SUBCUT Not Given BID [facility] Insulin Human Lispro 0 unit 03/15/21 16:30 08/04/21 08:07 Insulin Lispro 100 Unit/Ml 3 Ml Vial SUBCUT Not Given QIDACHS [facility] Protocol Oxycodone HCl 5 mg 03/15/21 12:57 Oxycodone Hcl Immed Release 5 Mg Tablet PO Q6H PRN Pain, Severe (Pain Scale 7-10) Pharmacy Consult 1 each 03/15/21 08:59 Consult Rx Perform Med Rec MISCELLANE ONCE PRN Consult order Sodium Chloride 3 ml 03/15/21 16:00 03/16/21 07:12 0.9 % Sodium Chloride Flush 3 Ml Syringe IVFLUSH Not Given QSHIFT [facility] Labs CBC & Chem 7: 03/16/21 05:52 03/16/21 05:52 Labs: Laboratory Results - last 24 hr 03/15/21 03/15/21 03/15/21 08:45 08:45 08:45 MCV MCH MCHC RDW Plt Count MPV Absolute Nucleated RBC Nucleated RBC % (auto) Smear Tech's Comments VERIFIED ESR 62 H PT INR APTT Anion Gap Estim Creat Clear Calc Estimated GFR POC Glucose Random Glucose Lactic Acid Fup @ 2Hr Calcium Magnesium 1.4 L* C-Reactive Protein 11.30 H COVID-19 ([facility]) [facility] 03/15/21 03/15/21 03/15/21 09:29 09:29 10:57 MCV MCH MCHC RDW Plt Count MPV Absolute Nucleated RBC Nucleated RBC % (auto) Smear Tech's Comments ESR PT 13.9 H INR 1.2 H APTT 27.9 Anion Gap Estim Creat Clear Calc Estimated GFR POC Glucose Random Glucose Lactic Acid Fup @ 2Hr 1.4 Calcium Magnesium C-Reactive Protein COVID-19 ([facility]) Negative [facility] Com See Note 03/15/21 03/15/21 03/16/21 16:26 20:15 05:52 MCV 84.2 MCH 27.4 MCHC 32.6 RDW 15.8 Plt Count 279 D MPV 11.1 Absolute Nucleated RBC 0.000 Nucleated RBC % (auto) 0.0 Smear Tech's Comments ESR PT INR APTT Anion Gap Estim Creat Clear Calc Estimated GFR POC Glucose 124 H 237 H Random Glucose Lactic Acid Fup @ 2Hr Calcium Magnesium C-Reactive Protein COVID-19 ([facility]) [facility] Com 03/16/21 03/16/21 05:52 07:37 MCV MCH MCHC RDW Plt Count MPV Absolute Nucleated RBC Nucleated RBC % (auto) Smear Tech's Comments ESR PT INR APTT Anion Gap 11 L Estim Creat Clear Calc 118.7 Estimated GFR > 60 POC Glucose 161 H Random Glucose 148 H Lactic Acid Fup @ 2Hr Calcium 8.7 D Magnesium C-Reactive Protein COVID-19 ([facility]) COVID-19 Clin Com Microbiology Microbiology Results: Microbiology 03/15/21 09:29 Blood Culture - Preliminary Blood - Venous 03/15/21 08:45 Blood Culture - Preliminary Blood - Venous Prelim: GNCB Gram Stain only 03/15/21 09:30 Gram Stain - Final Foot - Right Assessment and Plan (1) Osteomyelitis: Status: Acute Assessment and Plan: This is a 55 yo M with a PMHx of IDDM and previously diabetic foot infections / osteo who presents to the hospital with complaints of fevers and chills, drainage from his chronic diabetic foot wound. His ED work up is consistent with Severe sepsis secondary to a diabetic foot infection / osteomyelitis. 1. Severe sepsis due to Diabetic foot infection / osteomyelitis improving f/u cultures 2. Diabetic Foot infection / osteomyelitis cefepime + vancomycin Gen Surg input appreciated -plan for OR wash out today ID consulted 3. KATTY, suspected due to ATN from sepsis improving with antibitoics / hydration 4. HyperK - mild monitor 5. HypoMg repleted in ED 6. IDDM last A1C in December 01 - 6.3 continue with lantus + sliding scale; will decrease basal dose while in the hospital diabetic diet and poc QIDAC 7. Abnormal LFTs suspected due to sepsis add to AM labs from today 8. HTN will restart norvasc today if BP remains stable 9. PAD on statin + plavix hold statin (trend LFTs + on Dapto) 10. Morbid obesity pt endorses that his chronic foot infection is prohibitive in getting the appropriate exercise. counseled on healthy diet Full Code DVT pptx - high risk, will use Lovenox Endorses his as HCP Quality Stroke Does the patient have a stroke diagnosis?: No VTE Prior VTE?: No VTE Risk Level:: Medical - moderate - high VTE Device Contraindication: Treatment Not Indicated VTE Drug Contraindication: N/A - Med Ordered
[2021-03-16 10:17] LABS: Alanine Aminotransferase 66 U/L (0-40); Albumin Level 3.1 g/dL (3.5-5.0); Alkaline Phosphatase 125 U/L (39-117); Aspartate Amino Transferase 29 U/L (5-37); Bilirubin Direct 0.4 mg/dL (0.0-0.5); Bilirubin Total 0.7 mg/dL (0.0-1.0); Total Protein 6.5 g/dL (6.5-8.0)
[2021-03-16 12:01] LABS: Glucose, Whole Blood 147 mg/dL (60-115)
--- NOTE | 2021-03-16 12:41 | W.PM.OPN ---
Operative Note Operative Note Date of Service: 03/16/21 Narrative: Preop diagnosis: Nonhealing diabetic wound, with exposed bone, osteomyelitis Postop diagnosis: As above Procedure: Sharp excisional Debridement of wound with debridement of exposed bone Surgeon: Coonr Elizondo MD The patient is a 55 year male known diabetic, with a chronic wound on the right foot. He came in yesterday by the ER because of mildly that suggested sepsis from his infection. Review of his CT scan showed a large open wound, severe inflammatory changes with note of fluid and osteomyelitis of the 3rd metatarsal as well as the cuboid. I therefore explained to with best to proceed with debridement of this wound. He understood technique procedure as well as the risks, benefits, and alternatives He was brought to the operating placed supine on the table under monitored anesthesia care. The right foot was prepped in the usual sterile fashion. A surgical time-out was done. The patient received cefazolin preoperatively Examination of the right foot showed a large open wound, about 7 cm in widest diameter, gently well granulating, with note of an ulcer about 3 cm across. This deep ulcer actually extends all the way to the bone. There was note of some necrotic callus surrounding the wound. There was note of severe chronic edema as well. A proceeded to do sharp excisional debridement of the nonviable tissue surrounding the wound using curved Lozano scissors. I excised as much of this as possible. I then proceeded to debride the exposed bone using a rongeur. I removed as much of the exposed area as possible. I probed this surrounding soft tissue for any fluid collection using hemostat but there was no fluid collection that could be seen. Cultures of the bone was also sent for pathology. I used electrocautery to achieve hemostasis on the soft tissue. I did copious irrigation on the open wound. I then applied a out the form packing and wrapped the foot with dressings and a Kerlix roll. The procedure was then completed He tolerated the procedure well. There were no complications noted. Initial and final counts of sponges instruments were correct. Estimated blood loss about 3 cc The patient was then transferred to the recovery room with stable vital signs.
--- NOTE | 2021-03-16 12:46 | P.BOP_ITS ---
Brief Operative Note Date of Service: 03/16/21 Pre-op diagnosis: Open wound right foot with osteomyelitis Post-op diagnosis: same Procedure: Sharp excisional debridement of the open wound, debridement of exposed bone Surgeon: Conor Elizondo MD Anesthesia: MAC Was an Plan Examiner used for this Procedure?: No Estimated blood loss (mL): 3 Pathology: other (Culture , debrided tissue) Condition: stable Disposition: PACU
[2021-03-16 13:17] LABS: Glucose, Whole Blood 156 mg/dL (60-115)
--- NOTE | 2021-03-16 13:17 | W.PM.IDCN ---
History of Present Illness Data of Consult Service Date: 03/16/21 Requesting physician: Chintan Persaud Primary Care Provider: Reece Ann MD HPI Reason for consult: right diabetic foot infection He presents to hospital with right foot pain and swelling for a week He has malodorous discharge He was given po Bactrim by [facility] last week He has had jasvir debridment by Dr Elizondo today He has gram negative coccobacilli today Review of Systems Review of Systems: Yes all other systems are reviewed and are negative PMFSH Past Medical History Medical History Diabetes mellitus Diabetic foot History of osteomyelitis Hypertension Morbid obesity PAD (peripheral artery disease) Surgical History Surgical History History of amputation of toe (~02/23/20) History of amputation of toe (~06/2017) S/P debridement (~01/2017) Social History Social History Household Members: Spouse Housing: House Do you presently have visiting nurse or other home services: No Alcohol intake: never Patient Tobacco Use Status: Former Tobacco user Use of substances other than those prescribed or required for medical reasons: No Currently Displaying Signs/Symptoms of Drug Intoxication Withdrawal: No Have you been hit, kicked, punched, or otherwise hurt by someone within the past year? If so, by whom?: No Do you feel safe in your current relationship?: Yes Is there a partner from a previous relationship who is making you feel unsafe now?: No Are you made to feel afraid or neglected: No Are you DNR?: No Advance Directives: No Advance Directives Information Provided: No Do you have thoughts of harming others: None Do you have a plan to hurt others: No Plan Recently lost weight without trying: No Nutrition Risks: No Nutritional Risk Poor oral hygiene: No Meds Allergies Allergy/AdvReac Type Severity Reaction Status Date / Time aspirin Allergy Severe ANAPHYLAXIS, Verified 01/18/21 10:30 eyes red,swollen Active Medications: Current Medications Generic Name Dose Route Start Last Admin Trade Name Freq PRN Reason Stop Dose Admin Acetaminophen 650 mg 03/15/21 12:57 Acetaminophen 325 Mg Tablet PO Q6H PRN Fever Albuterol Sulfate 2.5 mg 03/16/21 11:50 Albuterol Sulfate (0.083%) 2.5 Mg/3 Ml Vial.Neb INHALE ONCE PRN Wheezing Enoxaparin Sodium 40 mg 03/15/21 16:00 03/15/21 15:39 Enoxaparin Sodium 40 Mg/0.4 Ml Syringe SUBCUT 40 mg Q24H JAMIE Administration Fentanyl 50 mcg 03/16/21 11:50 Fentanyl Citrate/Pf 100 Mcg/2 Ml Vial IVPUSH Q5M PRN Pain, Severe (Pain Scale 7-10) Fentanyl 25 mcg 03/16/21 11:50 Fentanyl Citrate/Pf 100 Mcg/2 Ml Vial IVPUSH Q5M PRN Pain, Moderate (Pain Scale 4-6 Cefepime HCl 2 gm/ Sodium 50 mls @ 100 mls/hr 03/15/21 17:00 03/16/21 09:54 Chloride IV Infused Q8H JAMIE Infusion Daptomycin 850 mg/ Sodium 67 mls @ 100 mls/hr 03/16/21 11:00 Chloride IV Q24H JAMIE Lactated Ringer's 1,000 mls @ 125 mls/hr 03/15/21 15:00 03/16/21 07:10 Lr IVCONT 125 mls/hr .Q8H [facility] Administration Insulin Glargine 40 unit 03/15/21 21:00 03/16/21 09:14 Insulin Glargine,Hum.Rec.Anlog 100 Unit/Ml 10 Ml Vial SUBCUT Not Given BID [facility] Insulin Human Lispro 0 unit 03/15/21 16:30 03/16/21 08:07 Insulin Lispro 100 Unit/Ml 3 Ml Vial SUBCUT Not Given QIDACHS [facility] Protocol Ondansetron HCl 4 mg 03/16/21 11:50 Ondansetron Hcl 4 Mg/2 Ml Vial IVPUSH ONCE PRN Nausea and Vomiting Oxycodone HCl 5 mg 03/15/21 12:57 Oxycodone Hcl Immed Release 5 Mg Tablet PO Q6H PRN Pain, Severe (Pain Scale 7-10) Oxycodone HCl 10 mg 03/16/21 11:50 Oxycodone Hcl Immed Release 5 Mg Tablet PO ONCE PRN Pain, Severe (Pain Scale 7-10) Oxycodone HCl 5 mg 03/16/21 11:50 Oxycodone Hcl Immed Release 5 Mg Tablet PO ONCE PRN Pain, Severe (Pain Scale 7-10) Pharmacy Consult 1 each 03/15/21 08:59 Consult Rx Perform Med Rec MISCELLANE ONCE PRN Consult order Sodium Chloride 3 ml 03/15/21 16:00 03/16/21 07:12 0.9 % Sodium Chloride Flush 3 Ml Syringe IVFLUSH Not Given QSHIFT [facility] Home Medications Medication Instructions Recorded Confirmed Last Taken Type folic acid 0.8 mg capsule 0.8 mg PO DAILY 06/17/20 03/15/21 03/14/21 History amlodipine 10 mg tablet 10 mg PO BEDTIME 03/15/21 03/15/21 03/14/21 History cyanocobalamin (vitamin B-12) 500 500 mcg PO DAILY 03/15/21 03/15/21 03/14/21 History mcg tablet (Vitamin B-12) insulin lispro 100 unit/mL 6 unit SUBCUT BIDAC 03/15/21 03/15/21 03/14/21 History subcutaneous pen (Humalog KwikPen (U-100) Insulin) simvastatin 20 mg tablet 20 mg PO BEDTIME 03/15/21 03/15/21 03/14/21 History sulfamethoxazole 800 1 tab PO BID 03/15/21 03/15/21 03/14/21 History mg-trimethoprim 160 mg tablet Physical Exam Vital Signs: Vital Signs: Last Vital Signs Temp 97.4 F 03/16/21 12:38 Pulse 71 03/16/21 12:54 Resp 18 03/16/21 12:54 BP 148/77 H 03/16/21 12:54 Pulse Ox 98 03/16/21 12:54 Body Mass Index 47.5 Const: General: cooperative HENMT: Head: Yes normal to inspection Mouth: Normal oral and palatal mucosa present Resp: Effort & Inspection: normal respiratory effort Cardio: Rate: regular rate Rhythm: regular rhythm GI: Palpation (GI): Soft to palpation and nontender Skin: General skin exam: no rashes or lesions noted Extrem: Other: right foot swollen,discharge Results Labs CBC & Chem 7: 03/16/21 05:52 03/16/21 05:52 Labs: Short CBC 03/16/21 Range/Units 05:52 WBC 14.4 H (4.8-10.8) X10*3/uL Hgb 11.8 L (14.0-18.0) g/dl Hct 36.2 L (42-52) % Plt Count 279 D (160-400) X10*3/uL BMP 03/16/21 05:52 Sodium 135 Potassium 5.2 H Chloride 106 Carbon Dioxide 23 BUN 18 H Creatinine 0.95 Calcium 8.7 D Liver Function 03/16/21 Range/Units 05:52 Total Bilirubin 0.7 (0.0-1.0) mg/dL Direct Bilirubin 0.4 (0.0-0.5) mg/dL AST 29 (5-37) U/L ALT 66 H (0-40) U/L Alkaline Phosphatase 125 H (39-117) U/L Albumin 3.1 L D (3.5-5.0) g/dL Microbiology Microbiology Results: Microbiology 03/15/21 09:30 Foot - Right Gram Stain - Final 03/15/21 09:30 Foot - Right Routine Culture - Preliminary Culture in progress. 03/15/21 08:45 Blood - Venous Blood Culture - Preliminary Prelim: GNCB Gram Stain only 03/15/21 09:29 Blood - Venous Blood Culture - Preliminary Assessment and Plan (1) Osteomyelitis: Qualifiers: Laterality: right Osteomyelitis location: foot Osteomyelitis type: other acute Qualified Code(s): M86.171 - Other acute osteomyelitis, right ankle and foot Status: Acute (2) Severe sepsis: Status: Acute Possible Pseudomonas,hemophilus bacteremia No MRSA found so far Would continue Cefepime Adjust antibiotics based on blood culture 6 weeks IV likely based on osteomyelitis Stop Daptomycin Await blood culture Echo (3) Soft tissue abscess: Status: Acute
[2021-03-16] MEDS: Insulin Lispro 100 UNIT/ML 3 ML VIAL SUBCUT ×3 (13:19→21:01)
--- NOTE | 2021-03-16 14:08 | MHC.CLN ---
NUTRITION DIET CHANGED TO DIABETIC 2200 KCAL FROM DIABETIC 2000 KCAL. 2200 KCAL DIET PROVIDES 24.9 KCAL/KG CMW.
--- NOTE | 2021-03-16 14:59 | MHC.CM.PN ---
CM MET WITH PT WHO REPORTS HE LIVES WITH HIS AND IS INDEPENDENT AT BASELINE. PT REPORTS THE ONLY DME HE USES IS HIS [employer], HE HAS NO HOME OR COMMUNITY SERVICES. PT CONFIRMS HIS PCP IS MAURICE LAUREN. PT BELIEVES HE HAS A HCP COMPLETED ALREADY THAT MAY BE ON FILE. CM WILL CONFIRM. CURRENT DC PLAN IS HOME WITH NO SERVICES. FAMILY TO TRANSPORT
[2021-03-16 16:11] LABS: Glucose, Whole Blood 211 mg/dL (60-115)
[2021-03-16] MEDS: Enoxaparin Sodium 40 MG/0.4 ML SYRINGE SUBCUT (16:36)
[2021-03-16 20:13] LABS: Glucose, Whole Blood 255 mg/dL (60-115)
[2021-03-16] MEDS: Insulin Glargine,Hum.rec.anlog 100 UNIT/ML 10 ML VIAL 40 UNIT SUBCUT (21:01)
[2021-03-17] VITALS (8 sets, daily range): BP systolic 151–163; BP diastolic 68–76; PULSE 61–72; RESP 16–18; TEMP 35.9–36.7; O2SAT 96–98
[2021-03-17] MEDS: cefEPime HCl 2 GM in 0.9 % Sodium Chloride 50 ML IV ×4 (00:50→23:27)
[2021-03-17] MEDS: Lactated Ringers 1,000 ML 125 ML IVCONT (05:18)
[2021-03-17 07:20] LABS: Anion Gap 11 (12-20); Blood Urea Nitrogen 13 mg/dL (9-16); Calcium 8.8 mg/dL (8.4-10.2); Carbon Dioxide 26 mmol/L (22-29); Chloride 105 mmol/L (96-108); Creatinine Clr Calc Pharmacy 132.6; Estimated Glomerular Filt Rate > 60; Glucose Random 137 mg/dL (60-115); Sodium 137 mmol/L (135-145)
[2021-03-17 07:21] LABS: Mean Corpuscular HGB Conc 32.4 g/dl (31.0-36.0); Mean Corpuscular Hemoglobin 27.3 pg (27.0-33.0); Mean Corpuscular Volume 84.1 fL (80-98); Mean Platelet Volume 11.2 fL (9.4-12.4); Platelet Count 273 X10*3/uL (160-400); Red Cell Distribution Width 15.3 % (11.0-16.0); White Blood Count 8.9 X10*3/uL (4.8-10.8)
[2021-03-17 07:24] LABS: Glucose, Whole Blood 158 mg/dL (60-115)
--- NOTE | 2021-03-17 07:30 | CA_ITS ---
Transthoracic Echocardiogram Patient (Last, First, Middle): Sincere Hodges, Gender: Male Date of : 1965 Age: 55 Procedure Date: 03/17/2021 Procedure Type: Transthoracic Echocardiogram Location: S3W Height: 172.72 cm Weight: 141.98 kg BSA: 2.47 m2 Heart Rate: bpm BP: 156 / 76 mmHg Letterer: JUANPABLO Referring MD: Chintan Persaud MD Symptoms: gram positive bacteremia, to eval for endocarditis Study Quality: Technically Difficult Conclusions: - Normal biventricular function. - 2D assessment of valves is somewhat limited. - Consider a POLI if clinically appropriate. Findings Procedure Information Contrast agent, definity, is being given per protocol without apparent complications. Left Ventricle Normal left ventricular size, thickness, systolic function, and wall motion. The visually estimated ejection fraction is between 55-60%. Diastolic function is normal for age. Right Ventricle Normal right ventricular cavity size and systolic function. Atria The left atrium is mildly dilated. The right atrium was not well visualized. Aortic Valve The aortic valve was not well visualized. There is no aortic valve stenosis. There is no aortic valve regurgitation. Mitral Valve There is mild mitral annular calcification. There is no mitral valve regurgitation. There is no mitral valve stenosis. Pulmonic Valve The pulmonic valve is likely normal. Tricuspid Valve The tricuspid valve was not well visualized. Normal right atrial pressure. There is no evidence of pulmonary hypertension. Great Vessels All visible segments of the aorta are normal in size. The pulmonary artery was not well visualized. Venous The inferior vena cava is normal in size and collapses greater than 50% with inspiration. Pericardium/Pleural There is no evidence of pericardial effusion. Prior Study Comparison No prior study available for comparison. Recommendations, Care & Conclusions Consider a POLI if clinically appropriate. Measurements 2D Linear Measurements IVSd: 1.03 0.6-0.9/0.6-1.0 cm LVIDd: 5.64 3.9-5.3/4.2-5.9 cm LVIDd Index: 2.28 2.4-3.2/2.2-3.1 cm/m2 LVIDs: 4.28 2.0-3.6 cm LVPWd: 1.04 0.7-1.1 cm Ao Root: 3.10 2.1-3.5 cm LA Diam: 3.80 2.7-3.8/3.0-4.0 cm LAIDs Index: 1.54 1.5-2.3 cm/m2 LV Mass: 290.06 67-162/88-224 g LV Mass Index: 117.43 43-95/49-115 g/m2 LVOT Diam: 2.00 3.0+(-)1.3 cm Mitral Valve MV Pk E: 1.42 MV PK A: 1.51 MV Decel Time: 252.00 E/A: 0.90 E'Lateral: 10.60 E'Medial: 7.18 E/E' Med: 19.80 E/E' Lat: 13.40 PHT: 74.00 MVA PHT: 2.97 Decel [place]: 5.61 Aortic Valve AoV Pk Harmeet: 1.26 AoV Mn Harmeet: 0.86 AoV VTI: 0.29 AoV Pk Grad: 6.00 Aov Mn Grad: 3.00 SUN Cont.VTI: 2.54 LVOT LVOT Pk Harmeet: 0.99 LVOT Mn Harmeet: 0.67 LVOT VTI: 0.24 LVOT Pk Grad: 4.00 LVOT Mn Grad: 2.00 LVOT Diam: 2.00 LVOT Area: 3.14 Diastolic Function MV Pk E: 1.42 MV Pk A: 1.51 E/A: 0.90 E'Medial: 7.18 E/E' Med: 19.80 E' Laterial: 10.60 E/E' Lat: 13.40 Right Ventricle TAPSE (mm): 2.25 Tricuspid Valve TR Pk Harmeet: 2.40 TR Pk Grad: 23.00 RA Press: 8.00 RVSP: 31.00 Great Vessels Aorta Ao Root-2D: 3.10 2.0-3.7 cm Ao Asc: 3.40 2.1-3.4 cm Ao Arch: 3.10 Updated in Other Vendor System with Status of Final Jose Carlos Whitfield MD electronically signed on 03/17/2021 4:55:21 PM with status of Final
[2021-03-17] MEDS: Insulin Lispro 100 UNIT/ML 3 ML VIAL SUBCUT ×4 (07:31→21:29)
--- NOTE | 2021-03-17 08:36 | PM.PNGS ---
Subjective Subjective Date of Service: 03/17/21 Interval history: Denies complaints Feels well No events overnight Physical Exam Vital Signs: Vital Signs: Last Vital Signs Temp 97.0 F 03/17/21 07:24 Pulse 61 03/17/21 07:24 Resp 17 03/17/21 07:24 BP 155/68 H 03/17/21 07:24 Pulse Ox 98 03/17/21 07:24 Body Mass Index 47.5 Const: General: comfortable and no acute distress Resp: Effort & Inspection: normal respiratory effort Extrem: Other: Right foot - surgical site checked, packing removed; looks clean, viable, some serosanguineous fluid Procedures Date of Service Date of Service: 03/17/21 Progress Note: A&P Assessment and plan (1) Osteomyelitis: Status: Acute Assessment and Plan: Status post debridement of the wound and the exposed bone yesterday Dressings changed Light packing applied with wet to dry Foot wrapped in Kerlix Leg elevation IV antibiotics Follow up on cultures May need PICC line - ID following Fall Risk Details Current Medications: Current Medications Generic Name Dose Route Start Last Admin Trade Name Freq PRN Reason Stop Dose Admin Acetaminophen 650 mg 03/15/21 12:57 Acetaminophen 325 Mg Tablet PO Q6H PRN Fever Albuterol Sulfate 2.5 mg 03/16/21 11:50 Albuterol Sulfate (0.083%) 2.5 Mg/3 Ml Vial.Neb INHALE ONCE PRN Wheezing Enoxaparin Sodium 40 mg 03/15/21 16:00 03/16/21 16:36 Enoxaparin Sodium 40 Mg/0.4 Ml Syringe SUBCUT 40 mg Q24H JAMIE Administration Fentanyl 50 mcg 03/16/21 11:50 Fentanyl Citrate/Pf 100 Mcg/2 Ml Vial IVPUSH Q5M PRN Pain, Severe (Pain Scale 7-10) Fentanyl 25 mcg 03/16/21 11:50 Fentanyl Citrate/Pf 100 Mcg/2 Ml Vial IVPUSH Q5M PRN Pain, Moderate (Pain Scale 4-6 Cefepime HCl 2 gm/ Sodium 50 mls @ 100 mls/hr 03/15/21 17:00 03/17/21 01:23 Chloride IV Infused Q8H JAMIE Infusion Lactated Ringer's 1,000 mls @ 125 mls/hr 03/15/21 15:00 03/17/21 05:18 Lr IVCONT 125 mls/hr .Q8H JAMIE Administration Insulin Glargine 40 unit 03/15/21 21:00 03/16/21 21:01 Insulin Glargine,Hum.Rec.Anlog 100 Unit/Ml 10 Ml Vial SUBCUT 40 unit BID JAMIE Administration Insulin Human Lispro 0 unit 03/15/21 16:30 03/17/21 07:31 Insulin Lispro 100 Unit/Ml 3 Ml Vial SUBCUT 2 unit QIDACHS JAMIE Administration Protocol Ondansetron HCl 4 mg 03/16/21 11:50 Ondansetron Hcl 4 Mg/2 Ml Vial IVPUSH ONCE PRN Nausea and Vomiting Oxycodone HCl 5 mg 03/15/21 12:57 Oxycodone Hcl Immed Release 5 Mg Tablet PO Q6H PRN Pain, Severe (Pain Scale 7-10) Oxycodone HCl 10 mg 03/16/21 11:50 Oxycodone Hcl Immed Release 5 Mg Tablet PO ONCE PRN Pain, Severe (Pain Scale 7-10) Oxycodone HCl 5 mg 03/16/21 11:50 Oxycodone Hcl Immed Release 5 Mg Tablet PO ONCE PRN Pain, Severe (Pain Scale 7-10) Pharmacy Consult 1 each 03/15/21 08:59 Consult Rx Perform Med Rec MISCELLANE ONCE PRN Consult order Sodium Chloride 3 ml 03/15/21 16:00 03/17/21 07:33 0.9 % Sodium Chloride Flush 3 Ml Syringe IVFLUSH Not Given QSHIFT [facility] Time Spent With Patient Time: Total time spent is greater than 50% in coordination of care (as documented) at patient's floor/unit and/or counseling patient: Time with patient: 15 - 24 minutes Quality Stroke Does the patient have a stroke diagnosis?: No VTE Prior VTE?: No VTE Risk Level:: Medical - moderate - high VTE Device Contraindication: Treatment Not Indicated VTE Drug Contraindication: N/A - Med Ordered
[2021-03-17] MEDS: Insulin Glargine,Hum.rec.anlog 100 UNIT/ML 10 ML VIAL 40 UNIT SUBCUT ×2 (09:14→21:28)
--- NOTE | 2021-03-17 09:55 | MHC.CM.PN ---
EMR REVIEWED, PER ID PT WILL LIKELY NEED 6WKS OF IV ABX, CM MET W/PT TO DISCUSS DCP, PT REPORTS HE'S HAD OSTEOMYELITIS AND IV ABX 2 OTHER TIMES AND WOULD LIKE TO STAY W/[facility] AND [facility] HE USED LAST SUMMER, PER PT RECORDS PT USED [facility] AND [facility], PT REPORTS HE HAD IV ABX TID LAST YEAR AND HIS WAS ABLE TO ASSIST AND ADMINISTERED THE IV MEDS FOR PT. REFERRALS MADE TO [facility] AND [facility]. CM TO CONT TO MONITOR D/C NEEDS. D/C PLAN: HOME W/[facility] & [facility], FAMILY FOR TRANSPORT
[2021-03-17 11:27] LABS: Glucose, Whole Blood 237 mg/dL (60-115)
--- NOTE | 2021-03-17 11:34 | HO.PM.IMPN ---
Subjective Subjective Date of Service: 03/17/21 Interval History: seen and examined this AM continues to feel better daily denies fevers or chills Review of Systems General - no fevers or chills Cardiovascular - no chest pain Respiratory - no shortness of breath or cough Abdominal- no abdominal pain, nausea, vomiting, diarrhea Physical Exam Vital Signs: Vital Signs: Last Vital Signs Temp 97.0 F 03/17/21 07:24 Pulse 61 03/17/21 07:24 Resp 17 03/17/21 07:24 BP 155/68 H 03/17/21 07:24 Pulse Ox 98 03/17/21 07:24 Body Mass Index 47.5 Const: Other: Constitutional - Awake and Alert, No apparent distress Eyes - PERRLA, EOMI Cardiovascular - S1S2, RRR, No edema Respiratory - Normal lung expansion, Normal respiratory effort, No respiratory distress, CTA bilaterally Gastrointestinal - NT / ND; +BS; No rebound or guarding - No CVA tenderness Extremities - dressing in place Musculoskeletal - Normal inspection, normal ROM Neurological - Alert & oriented x3, No focal deficit Psychological - Appropriate affect Objective Data Current Medications Generic Name Dose Route Start Last Admin Trade Name Freq PRN Reason Stop Dose Admin Acetaminophen 650 mg 03/15/21 12:57 Acetaminophen 325 Mg Tablet PO Q6H PRN Fever Albuterol Sulfate 2.5 mg 03/16/21 11:50 Albuterol Sulfate (0.083%) 2.5 Mg/3 Ml Vial.Neb INHALE ONCE PRN Wheezing Clopidogrel Bisulfate 75 mg 03/17/21 11:20 Clopidogrel Bisulfate 75 Mg Tablet PO DAILY [facility] Cyanocobalamin 500 mcg 03/18/21 09:00 Cyanocobalamin (Vitamin B-12) 500 Mcg Tablet PO DAILY [facility] Enoxaparin Sodium 40 mg 03/15/21 16:00 03/16/21 16:36 Enoxaparin Sodium 40 Mg/0.4 Ml Syringe SUBCUT 40 mg Q24H [facility] Administration Fentanyl 50 mcg 03/16/21 11:50 Fentanyl Citrate/Pf 100 Mcg/2 Ml Vial IVPUSH Q5M PRN Pain, Severe (Pain Scale 7-10) Fentanyl 25 mcg 03/16/21 11:50 Fentanyl Citrate/Pf 100 Mcg/2 Ml Vial IVPUSH Q5M PRN Pain, Moderate (Pain Scale 4-6 Cefepime HCl 2 gm/ Sodium 50 mls @ 100 mls/hr 03/15/21 17:00 03/17/21 09:52 Chloride IV Infused Q8H [facility] Infusion Insulin Glargine 40 unit 03/15/21 21:00 03/17/21 09:14 Insulin Glargine,Hum.Rec.Anlog 100 Unit/Ml 10 Ml Vial SUBCUT 40 unit BID [facility] Administration Insulin Human Lispro 0 unit 03/15/21 16:30 03/17/21 07:31 Insulin Lispro 100 Unit/Ml 3 Ml Vial SUBCUT 2 unit QIDACHS [facility] Administration Protocol Lisinopril 40 mg 03/17/21 11:20 Lisinopril 40 Mg Tablet PO DAILY [facility] Protocol Non-Formulary Medication 1 mg 03/18/21 09:00 Folic Acid PO DAILY [facility] Ondansetron HCl 4 mg 03/16/21 11:50 Ondansetron Hcl 4 Mg/2 Ml Vial IVPUSH ONCE PRN Nausea and Vomiting Oxycodone HCl 5 mg 03/15/21 12:57 Oxycodone Hcl Immed Release 5 Mg Tablet PO Q6H PRN Pain, Severe (Pain Scale 7-10) Oxycodone HCl 10 mg 03/16/21 11:50 Oxycodone Hcl Immed Release 5 Mg Tablet PO ONCE PRN Pain, Severe (Pain Scale 7-10) Oxycodone HCl 5 mg 03/16/21 11:50 Oxycodone Hcl Immed Release 5 Mg Tablet PO ONCE PRN Pain, Severe (Pain Scale 7-10) Pharmacy Consult 1 each 03/15/21 08:59 Consult Rx Perform Med Rec MISCELLANE ONCE PRN Consult order Sodium Chloride 3 ml 03/15/21 16:00 03/17/21 07:33 0.9 % Sodium Chloride Flush 3 Ml Syringe IVFLUSH Not Given QSHIFT [facility] Labs CBC & Chem 7: 03/17/21 05:39 03/17/21 05:39 Labs: Laboratory Results - last 24 hr 03/16/21 03/16/21 03/16/21 11:18 13:13 16:05 MCV MCH MCHC RDW Plt Count MPV Absolute Nucleated RBC Nucleated RBC % (auto) Anion Gap Estim Creat Clear Calc Estimated GFR POC Glucose 147 H 156 H 211 H Random Glucose Calcium 03/16/21 03/17/21 03/17/21 19:59 05:39 05:39 MCV 84.1 MCH 27.3 MCHC 32.4 RDW 15.3 Plt Count 273 MPV 11.2 Absolute Nucleated RBC 0.000 Nucleated RBC % (auto) 0.0 Anion Gap 11 L Estim Creat Clear Calc 132.6 Estimated GFR > 60 POC Glucose 255 H Random Glucose 137 H Calcium 8.8 03/17/21 03/17/21 07:19 11:22 MCV MCH MCHC RDW Plt Count MPV Absolute Nucleated RBC Nucleated RBC % (auto) Anion Gap Estim Creat Clear Calc Estimated GFR POC Glucose 158 H 237 H Random Glucose Calcium Microbiology Microbiology Results: Microbiology 03/16/21 Unknown Gram Stain - Final Foot Right Routine Culture - Preliminary Culture in progress. Anaerobic Culture - Preliminary No growth to date. 03/15/21 09:29 Blood Culture - Preliminary Blood - Venous 03/15/21 09:30 Gram Stain - Final Foot - Right Routine Culture - Preliminary Staphylococcus aureus 03/15/21 08:45 Blood Culture - Preliminary Blood - Venous Prelim: GNCB Gram Stain only Assessment and Plan (1) Severe sepsis: Status: Acute (2) Osteomyelitis: Status: Acute Assessment and Plan: This is a 55 yo M with a PMHx of IDDM and previously diabetic foot infections / osteo who presents to the hospital with complaints of fevers and chills, drainage from his chronic diabetic foot wound. His ED work up is consistent with Severe sepsis secondary to a diabetic foot infection / osteomyelitis. 1. Severe sepsis sepsis resolved due to Diabetic foot infection / osteomyelitis improving f/u cultures 2. Diabetic Foot infection / osteomyelitis 2a. Gram neg bactermia cefepime (superficial cx from ED growing staph + others, to d/w ID about this as. Wound Cx OR pending) Cefepime (dapto d/c per ID for now) 3. KATTY, suspected due to ATN from sepsis resovled stop IVF 4. HyperK - mild resolved 5. HypoMg add to AM labs 6. IDDM last A1C in December 01 - 6.3 continue with lantus + sliding scale; will decrease basal dose while in the hospital diabetic diet and poc QIDAC 7. Abnormal LFTs improved, due to sepsis 8. HTN BP rebounding restart antihypertensvies (including lisinopril, will monitor K tomorrow) 9. PAD restart plavix and statin 10. Morbid obesity pt endorses that his chronic foot infection is prohibitive in getting the appropriate exercise. counseled on healthy diet Full Code DVT pptx - high risk, will use Lovenox Endorses his as HCP Quality Stroke Does the patient have a stroke diagnosis?: No VTE Prior VTE?: No VTE Risk Level:: Medical - moderate - high VTE Device Contraindication: Treatment Not Indicated VTE Drug Contraindication: N/A - Med Ordered
[2021-03-17] MEDS: Clopidogrel Bisulfate 75 MG TABLET PO (11:53)
[2021-03-17 12:07] LABS: Magnesium 1.9 mg/dL (1.6-2.6)
--- NOTE | 2021-03-17 15:50 | HO.POSTANES ---
Post Anesthesia Evaluation Post Anesthesia Evaluation Vital Signs: Vital Signs Temp Pulse Resp BP Pulse Ox 03/17/21 15:15 97.0 F 63 18 155/69 H 98 03/17/21 11:50 98 03/17/21 11:41 97.8 F 63 17 163/76 H 98 03/17/21 07:24 97.0 F 61 17 155/68 H 98 03/17/21 04:00 97.2 F 72 16 159/76 H 96 Anesthesia: Monitored Mental Status: Awake Pain Control: Satisfactory Nausea/Vomiting: None Hydration: Adequate Anesthesia-Related Issues: No Anes. Related Issues
[2021-03-17 16:25] LABS: Glucose, Whole Blood 221 mg/dL (60-115)
[2021-03-17] MEDS: Enoxaparin Sodium 40 MG/0.4 ML SYRINGE SUBCUT (16:28)
[2021-03-17] MEDS: 0.9 % Sodium Chloride Flush 3 ML SYRINGE IVFLUSH ×2 (16:29→21:30)
[2021-03-17 20:29] LABS: Glucose, Whole Blood 181 mg/dL (60-115)
[2021-03-17] MEDS: Atorvastatin Calcium 10 MG TABLET PO (21:28)
[2021-03-18 03:50] VITALS: BP 163/77; PULSE 65; RESP 16; TEMP 36.6; O2SAT 97
[2021-03-18 07:27] LABS: Glucose, Whole Blood 168 mg/dL (60-115)
[2021-03-18 07:36] VITALS: BP 162/72; PULSE 57; RESP 17; TEMP 36.4; O2SAT 98
[2021-03-18] MEDS: Insulin Lispro 100 UNIT/ML 3 ML VIAL SUBCUT ×4 (07:54→21:27)
[2021-03-18 07:55] LABS: Anion Gap 15 (12-20); Blood Urea Nitrogen 14 mg/dL (9-16); Calcium 9.6 mg/dL (8.4-10.2); Carbon Dioxide 25 mmol/L (22-29); Chloride 102 mmol/L (96-108); Creatinine Clr Calc Pharmacy 131.1; Estimated Glomerular Filt Rate > 60; Glucose Random 170 mg/dL (60-115); Potassium 5.4 mmol/L (3.3-5.1); Sodium 137 mmol/L (135-145)
[2021-03-18] MEDS: Clopidogrel Bisulfate 75 MG TABLET PO (07:55)
[2021-03-18] MEDS: Cyanocobalamin (Vitamin B-12) 500 MCG TABLET PO (07:55)
[2021-03-18] MEDS: Folic Acid 1 MG TABLET PO (07:55)
[2021-03-18] MEDS: 0.9 % Sodium Chloride Flush 3 ML SYRINGE IVFLUSH ×3 (09:25→21:30)
[2021-03-18] MEDS: cefEPime HCl 2 GM in 0.9 % Sodium Chloride 50 ML IV ×2 (09:25→16:46)
[2021-03-18] MEDS: Insulin Glargine,Hum.rec.anlog 100 UNIT/ML 10 ML VIAL 40 UNIT SUBCUT ×2 (09:25→21:26)
--- NOTE | 2021-03-18 10:32 | HO.PM.IMPN ---
Subjective Subjective Date of Service: 03/18/21 Interval History: seen and examined this AM feels fine Review of Systems General - no fevers or chills Cardiovascular - no chest pain Respiratory - no shortness of breath or cough Abdominal- no abdominal pain, nausea, vomiting, diarrhea Physical Exam Vital Signs: Vital Signs: Last Vital Signs Temp 97.6 F 03/18/21 07:36 Pulse 57 03/18/21 07:36 Resp 17 03/18/21 07:36 BP 162/72 H 03/18/21 07:36 Pulse Ox 98 03/18/21 07:36 Body Mass Index 47.5 Const: Other: Constitutional - Awake and Alert, No apparent distress Eyes - PERRLA, EOMI Cardiovascular - S1S2, RRR, No edema Respiratory - Normal lung expansion, Normal respiratory effort, No respiratory distress, CTA bilaterally Gastrointestinal - NT / ND; +BS; No rebound or guarding - No CVA tenderness Extremities - dressing in place Musculoskeletal - Normal inspection, normal ROM Neurological - Alert & oriented x3, No focal deficit Psychological - Appropriate affect Objective Data Current Medications Generic Name Dose Route Start Last Admin Trade Name Freq PRN Reason Stop Dose Admin Acetaminophen 650 mg 03/15/21 12:57 Acetaminophen 325 Mg Tablet PO Q6H PRN Fever Albuterol Sulfate 2.5 mg 03/16/21 11:50 Albuterol Sulfate (0.083%) 2.5 Mg/3 Ml Vial.Neb INHALE ONCE PRN Wheezing Atorvastatin Calcium 10 mg 03/17/21 21:00 03/17/21 21:28 Atorvastatin Calcium 10 Mg Tablet PO 10 mg BEDTIME JAMIE Administration Clopidogrel Bisulfate 75 mg 03/17/21 11:20 03/18/21 07:55 Clopidogrel Bisulfate 75 Mg Tablet PO 75 mg DAILY JAMIE Administration Cyanocobalamin 500 mcg 03/18/21 09:00 03/18/21 07:55 Cyanocobalamin (Vitamin B-12) 500 Mcg Tablet PO 500 mcg DAILY JAMIE Administration Enoxaparin Sodium 40 mg 03/15/21 16:00 03/17/21 16:28 Enoxaparin Sodium 40 Mg/0.4 Ml Syringe SUBCUT 40 mg Q24H JAMIE Administration Fentanyl 50 mcg 03/16/21 11:50 Fentanyl Citrate/Pf 100 Mcg/2 Ml Vial IVPUSH Q5M PRN Pain, Severe (Pain Scale 7-10) Fentanyl 25 mcg 03/16/21 11:50 Fentanyl Citrate/Pf 100 Mcg/2 Ml Vial IVPUSH Q5M PRN Pain, Moderate (Pain Scale 4-6 Folic Acid 1 mg 03/18/21 09:00 03/18/21 07:55 Folic Acid 1 Mg Tablet PO 1 mg DAILY [facility] Administration Cefepime HCl 2 gm/ Sodium 50 mls @ 100 mls/hr 03/15/21 17:00 03/18/21 10:02 Chloride IV Infused Q8H JAMIE Infusion Insulin Glargine 40 unit 03/15/21 21:00 03/18/21 09:25 Insulin Glargine,Hum.Rec.Anlog 100 Unit/Ml 10 Ml Vial SUBCUT 40 unit BID [facility] Administration Insulin Human Lispro 0 unit 03/15/21 16:30 03/18/21 07:54 Insulin Lispro 100 Unit/Ml 3 Ml Vial SUBCUT 2 unit QIDACHS [facility] Administration Protocol Lisinopril 40 mg 03/17/21 11:20 03/18/21 07:56 Lisinopril 40 Mg Tablet PO 40 mg DAILY [facility] Administration Protocol Ondansetron HCl 4 mg 03/16/21 11:50 Ondansetron Hcl 4 Mg/2 Ml Vial IVPUSH ONCE PRN Nausea and Vomiting Oxycodone HCl 5 mg 03/15/21 12:57 Oxycodone Hcl Immed Release 5 Mg Tablet PO Q6H PRN Pain, Severe (Pain Scale 7-10) Oxycodone HCl 10 mg 03/16/21 11:50 Oxycodone Hcl Immed Release 5 Mg Tablet PO ONCE PRN Pain, Severe (Pain Scale 7-10) Oxycodone HCl 5 mg 03/16/21 11:50 Oxycodone Hcl Immed Release 5 Mg Tablet PO ONCE PRN Pain, Severe (Pain Scale 7-10) Pharmacy Consult 1 each 03/15/21 08:59 Consult Rx Perform Med Rec MISCELLANE ONCE PRN Consult order Sodium Chloride 3 ml 03/15/21 16:00 03/18/21 09:25 0.9 % Sodium Chloride Flush 3 Ml Syringe IVFLUSH 3 ml QSHIFT [facility] Administration Labs CBC & Chem 7: 03/17/21 05:39 03/18/21 06:22 Labs: Laboratory Results - last 24 hr 03/17/21 03/17/2121 05:39 11:22 16:20 Anion Gap Estim Creat Clear Calc Estimated GFR POC Glucose 237 H 221 H Random Glucose Calcium Magnesium 1.9 03/17/21 03/18/21 03/18/21 20:25 06:22 07:22 Anion Gap 15 Estim Creat Clear Calc 131.1 Estimated GFR > 60 POC Glucose 181 H 168 H Random Glucose 170 H Calcium 9.6 D Magnesium Microbiology Microbiology Results: Microbiology 03/15/21 08:45 Blood Culture - Preliminary Blood - Venous Streptococcus mitis/oralis Enterococcus faecalis 03/15/21 09:29 Blood Culture - Preliminary Blood - Venous 03/15/21 09:30 Gram Stain - Final Foot - Right Routine Culture - Preliminary Staphylococcus aureus 03/16/21 Unknown Gram Stain - Final Foot Right Routine Culture - Preliminary Culture in progress. Anaerobic Culture - Preliminary No growth to date. Assessment and Plan (1) Severe sepsis: Status: Acute Assessment and Plan: This is a 55 yo M with a PMHx of IDDM and previously diabetic foot infections / osteo who presents to the hospital with complaints of fevers and chills, drainage from his chronic diabetic foot wound. His ED work up is consistent with Severe sepsis secondary to a diabetic foot infection / osteomyelitis. 1. Severe sepsis sepsis resolved due to Diabetic foot infection / osteomyelitis improving f/u cultures 2. Diabetic Foot infection / osteomyelitis 2a. Enterococcus / Strep Mitis bacteremia (gram stain initially reported to be Gram negative) will await ID input to change antibiotics 3. KATTY, suspected due to ATN from sepsis resovled stop IVF 4. HyperK - 5.4 today stop lisinopril 5. HypoMg add to AM labs 6. IDDM last A1C in December 01 - 6.3 continue with lantus + sliding scale; will decrease basal dose while in the hospital diabetic diet and poc QIDAC 7. Abnormal LFTs improved, due to sepsis 8. HTN Norvasc 10mg (stop lisinopril due to hyperK) 9. PAD restart plavix and statin 10. Morbid obesity pt endorses that his chronic foot infection is prohibitive in getting the appropriate exercise. counseled on healthy diet Full Code DVT pptx - high risk, will use Lovenox Endorses his as HCP Quality Stroke Does the patient have a stroke diagnosis?: No VTE Prior VTE?: No VTE Risk Level:: Medical - moderate - high VTE Device Contraindication: Treatment Not Indicated VTE Drug Contraindication: N/A - Med Ordered
[2021-03-18 11:19] LABS: Glucose, Whole Blood 206 mg/dL (60-115)
[2021-03-18 11:34] VITALS: BP 171/76; PULSE 64; RESP 18; TEMP 36.7; O2SAT 95
[2021-03-18] MEDS: amLODIPine Besylate 10 MG TABLET PO (12:41)
--- NOTE | 2021-03-18 12:49 | PM.IDPN ---
Subjective Subjective Date of Service: 03/18/21 Critical Care Time (minutes): 15 Comment: He has enterococcus and MSSA likely from right wound He has chronic right foot osteomyelitis Objective Data Labs CBC & Chem 7: 03/20/21 06:24 03/20/21 06:24 Labs: Laboratory Results - last 24 hr 03/17/21 03/17/21 03/18/21 16:20 20:25 06:22 Sodium 137 Potassium 5.4 H Chloride 102 Carbon Dioxide 25 Anion Gap 15 BUN 14 Creatinine 0.86 Estim Creat Clear Calc 131.1 Estimated GFR > 60 POC Glucose 221 H 181 H Random Glucose 170 H Calcium 9.6 D 03/18/21 03/18/21 07:22 11:16 Sodium Potassium Chloride Carbon Dioxide Anion Gap BUN Creatinine Estim Creat Clear Calc Estimated GFR POC Glucose 168 H 206 H Random Glucose Calcium Microbiology Microbiology Results: Microbiology 03/17/21 10:37 Blood - Venous Blood Culture - Preliminary No growth after 24 hours. 03/17/21 10:32 Blood - Venous Blood Culture - Preliminary No growth after 24 hours. 03/15/21 09:29 Blood - Venous Blood Culture - Preliminary Gram positive cocci Enterococcus/Streptococcus sp 03/15/21 08:45 Blood - Venous Blood Culture - Preliminary Streptococcus mitis/oralis Enterococcus faecalis 03/15/21 09:30 Foot - Right Gram Stain - Final 03/15/21 09:30 Foot - Right Routine Culture - Preliminary Staphylococcus aureus 03/16/21 Unknown Foot Right Gram Stain - Final 03/16/21 Unknown Foot Right Routine Culture - Preliminary Culture in progress. 03/16/21 Unknown Foot Right Anaerobic Culture - Preliminary No growth to date. Physical Exam Vital Signs: Vital Signs: Last Vital Signs Temp 98.1 F 03/18/21 11:34 Pulse 64 03/18/21 11:34 Resp 18 03/18/21 11:34 BP 171/76 H 03/18/21 11:34 Pulse Ox 95 03/18/21 11:34 Body Mass Index 47.5 Const: General: cooperative HENMT: Head: Yes normal to inspection Mouth: Normal oral and palatal mucosa present Resp: Effort & Inspection: normal respiratory effort Cardio: Rate: regular rate Rhythm: regular rhythm GI: Palpation (GI): Soft to palpation and nontender Extrem: Other: right foot wrapped Assessment and Plan Assessment and plan (1) Osteomyelitis: Status: Acute Assessment and Plan: He has chronic osteomyelitis He has MSSA and enterococcu Assessment and Plan: Would give IV Daptomycin for four weeks but patient usually declines and wishes po Linezolid for four weeks and this has worked temporarily for him He will likely have recurrence acute on chronic osteomyelitis and this is incurable and he realizes this I dont believe IV or po will give any lasting benefit and this will recur Time Spent With Patient Time: Total time spent is greater than 50% in coordination of care (as documented) at patient's floor/unit and/or counseling patient: Time with patient: 15 - 24 minutes
--- NOTE | 2021-03-18 14:16 | P.PNGS_ITS ---
Subjective Subjective Date of Service: 03/18/21 Interval history: no new complaints Denies significant pain Physical Exam Vital Signs: Vital Signs: Last Vital Signs Temp 98.1 F 03/18/21 11:34 Pulse 64 03/18/21 11:34 Resp 18 03/18/21 11:34 BP 171/76 H 03/18/21 11:34 Pulse Ox 95 03/18/21 11:34 Body Mass Index 47.5 Const: Other: Laboratory Results WBC 8.9 X10*3/uL (4.8 -10.8) 03/17/21 05:39 RBC 4.40 X10*6/uL (4. 60-5.80) L 03/17/21 05:39 Hgb 12.0 g/dl (14.0-1 8.0) L 03/17/21 05:39 Hct 37.0 % (42-52) L 03/17/21 05:39 MCV 84.1 fL (80-98) 03/17/21 05:39 MCH 27.3 pg (27.0-33. 0) 03/17/21 05:39 MCHC 32.4 g/dl (31.0-3 6.0) 03/17/21 05:39 RDW 15.3 % (11.0-16.0 ) 03/17/21 05:39 Plt Count 273 X10*3/uL (160 -400) 03/17/21 05:39 MPV 11.2 fL (9.4-12.4 ) 03/17/21 05:39 Immature Gran % (A uto) 0.8 % (0.0-0.4) H 03/15/21 08:45 Neut % (Auto) 91.6 % (45-73) H 03/15/21 08:45 Lymph % (Auto) 3.3 % (20-40) L 03/15/21 08:45 [place] % (Auto) 4.2 % (2-11) 03/15/21 08:45 Eos % (Auto) 0.0 % (0-4) 03/15/21 08:45 Baso % (Auto) 0.1 % (0-2) 03/15/21 08:45 Lymph # (Auto) 0.9 X10*3/uL (1.2 -4.9) L 03/15/21 08:45 [place] # (Auto) 1.1 X10*3/uL (0.1 -1.2) 03/15/21 08:45 Eos # (Auto) 0.0 X10*3/uL (0.0 -0.4) 03/15/21 08:45 Baso # (Auto) 0.0 X10*3/uL (0.0 -0.2) 03/15/21 08:45 Abs Immat Gran (au to) 0.23 X10*3/uL (0. 00-0.03) H 03/15/21 08:45 Absolute Neuts (au to) 24.8 X10*3/uL (2. 0-8.3) H 03/15/21 08:45 Absolute Nucleated RBC 0.000 X10*3/uL (0 .0-0.012) 03/17/21 05:39 Nucleated RBC % (a uto) 0.0 /100WBC (0.0- 0.2) 03/17/21 05:39 Smear Tech's Comme nts VERIFIED 03/15/21 08:45 ESR 62 MM/HR (0-15) H 03/15/21 08:45 PT 13.9 SEC (9.9-13. 0) H 03/15/21 09:29 INR 1.2 (0.9-1.1) H 03/15/21 09:29 APTT 27.9 SEC (24.1-38 .0) 03/15/21 09:29 Sodium 137 mmol/L (135-1 45) 03/18/21 06:22 Potassium 5.4 mmol/L (3.3-5 .1) H 03/18/21 06:22 Chloride 102 mmol/L (96-10 8) 03/18/21 06:22 Carbon Dioxide 25 mmol/L (22-29) 03/18/21 06:22 Anion Gap 15 (12-20) 03/18/21 06:22 BUN 14 mg/dL (9-16) 03/18/21 06:22 Creatinine 0.86 mg/dL (0.5-1 .4) 03/18/21 06:22 Estim Creat Clear Calc 131.1 03/18/21 06:22 Estimated GFR > 60 03/18/21 06:22 POC Glucose 206 mg/dL (60-115 ) H 03/18/21 11:16 Random Glucose 170 mg/dL (60-115 ) H 03/18/21 06:22 Lactic Acid 4.1 mmol/L (0.5-2 .0) H* 03/15/21 08:45 Lactic Acid Fup @ 2Hr 1.4 mmol/L (0.5-2 .0) 03/15/21 10:57 Calcium 9.6 mg/dL (8.4-10 .2) D 03/18/21 06:22 Magnesium 1.9 mg/dL (1.6-2. 6) 03/17/21 05:39 Total Bilirubin 0.7 mg/dL (0.0-1. 0) 03/16/21 05:52 Direct Bilirubin 0.4 mg/dL (0.0-0. 5) 03/16/21 05:52 AST 29 U/L (5-37) 03/16/21 05:52 ALT 66 U/L (0-40) H 03/16/21 05:52 Alkaline Phosphata se 125 U/L (39-117) H 03/16/21 05:52 C-Reactive Protein 11.30 mg/dL (< or = 0.50) H 03/15/21 08:45 Total Protein 6.5 g/dL (6.5-8.0 ) 03/16/21 05:52 Albumin 3.1 g/dL (3.5-5.0 ) L D 03/16/21 05:52 COVID-19 (CIRO) Negative (Negati ve) 03/15/21 09:29 COVID-19 Clin Com See Note 03/15/21 09:29 Impressions Foot X-Ray 03/15/21 09:05 IMPRESSION: Increasing Charcot changes or Lisfranc fracture dislocation at the tarsometatarsal joints and bone osteolyses and cortical thickening. No definite evidence of osteomyelitis seen. Chest X-Ray 03/15/21 10:11 IMPRESSION: Unremarkable chest exam. Foot CT 03/15/21 10:57 IMPRESSION: Increasing Charcot changes/fracture or dislocation of the foot. Large soft tissue defect over the lateral plantar foot extending to the cuboid bone with air in the cuboid bone and around the cuboid bone suggestive of osteomyelitis. There is also increasing air in the soft tissues and soft tissue swelling adjacent to the base of the third metatarsal bone and cuneiform bone suggestive of soft tissue abscess and possible osteomyelitis. Findings on previous exam adjacent to the first MTP joint appears improved. General: comfortable and no acute distress Resp: Effort & Inspection: normal respiratory effort GI: Palpation (GI): Soft to palpation and nontender Extrem: Other: Right foot open wound on the plantar aspect with a deep ulcer all the way to the bone, currently clean, with drainage Procedures Date of Service Date of Service: 03/18/21 Progress Note: A&P Assessment and plan (1) Osteomyelitis: Status: Acute Assessment and Plan: Status post debridement in the OR Dressings changed - wet to dry applied but okay to start alginate dressings daily Foot wrapped in Kerlix Await culture reports Antibiotics May need PICC line Wound care daily Path report shows osteomyelitis, osteonecrosis as expected Fall Risk Details Current Medications: Current Medications Generic Name Dose Route Start Last Admin Trade Name Freq PRN Reason Stop Dose Admin Acetaminophen 650 mg 03/15/21 12:57 Acetaminophen 325 Mg Tablet PO Q6H PRN Fever Albuterol Sulfate 2.5 mg 03/16/21 11:50 Albuterol Sulfate (0.083%) 2.5 Mg/3 Ml Vial.Neb INHALE ONCE PRN Wheezing Amlodipine Besylate 10 mg 03/19/21 09:00 Amlodipine Besylate 10 Mg Tablet PO DAILY [facility] Protocol Atorvastatin Calcium 10 mg 03/17/21 21:00 03/17/21 21:28 Atorvastatin Calcium 10 Mg Tablet PO 10 mg BEDTIME JAMIE Administration Clopidogrel Bisulfate 75 mg 03/17/21 11:20 03/18/21 07:55 Clopidogrel Bisulfate 75 Mg Tablet PO 75 mg DAILY JAMIE Administration Cyanocobalamin 500 mcg 03/18/21 09:00 03/18/21 07:55 Cyanocobalamin (Vitamin B-12) 500 Mcg Tablet PO 500 mcg DAILY JAMIE Administration Enoxaparin Sodium 40 mg 03/15/21 16:00 03/17/21 16:28 Enoxaparin Sodium 40 Mg/0.4 Ml Syringe SUBCUT 40 mg Q24H JAMIE Administration Fentanyl 50 mcg 03/16/21 11:50 Fentanyl Citrate/Pf 100 Mcg/2 Ml Vial IVPUSH Q5M PRN Pain, Severe (Pain Scale 7-10) Fentanyl 25 mcg 03/16/21 11:50 Fentanyl Citrate/Pf 100 Mcg/2 Ml Vial IVPUSH Q5M PRN Pain, Moderate (Pain Scale 4-6 Folic Acid 1 mg 03/18/21 09:00 03/18/21 07:55 Folic Acid 1 Mg Tablet PO 1 mg DAILY JAMIE Administration Cefepime HCl 2 gm/ Sodium 50 mls @ 100 mls/hr 03/15/21 17:00 03/18/21 10:02 Chloride IV Infused Q8H JAMIE Infusion Insulin Glargine 40 unit 03/15/21 21:00 03/18/21 09:25 Insulin Glargine,Hum.Rec.Anlog 100 Unit/Ml 10 Ml Vial SUBCUT 40 unit BID JAMIE Administration Insulin Human Lispro 0 unit 03/15/21 16:30 03/18/21 11:41 Insulin Lispro 100 Unit/Ml 3 Ml Vial SUBCUT 4 unit QIDACHS [facility] Administration Protocol Ondansetron HCl 4 mg 03/16/21 11:50 Ondansetron Hcl 4 Mg/2 Ml Vial IVPUSH ONCE PRN Nausea and Vomiting Oxycodone HCl 5 mg 03/15/21 12:57 Oxycodone Hcl Immed Release 5 Mg Tablet PO Q6H PRN Pain, Severe (Pain Scale 7-10) Oxycodone HCl 10 mg 03/16/21 11:50 Oxycodone Hcl Immed Release 5 Mg Tablet PO ONCE PRN Pain, Severe (Pain Scale 7-10) Oxycodone HCl 5 mg 03/16/21 11:50 Oxycodone Hcl Immed Release 5 Mg Tablet PO ONCE PRN Pain, Severe (Pain Scale 7-10) Pharmacy Consult 1 each 03/15/21 08:59 Consult Rx Perform Med Rec MISCELLANE ONCE PRN Consult order Sodium Chloride 3 ml 03/15/21 16:00 03/18/21 09:25 0.9 % Sodium Chloride Flush 3 Ml Syringe IVFLUSH 3 ml QSHIFT [facility] Administration Time Spent With Patient Time: Total time spent is greater than 50% in coordination of care (as documented) at patient's floor/unit and/or counseling patient: Time with patient: 15 - 24 minutes Quality Stroke Does the patient have a stroke diagnosis?: No VTE Prior VTE?: No VTE Risk Level:: Medical - moderate - high VTE Device Contraindication: Treatment Not Indicated VTE Drug Contraindication: N/A - Med Ordered
[2021-03-18 15:25] VITALS: BP 147/75; PULSE 72; RESP 18; TEMP 35.9; O2SAT 98
--- NOTE | 2021-03-18 16:22 | MHC.CM.PN ---
EMR REVIEWED, PER SURGICAL NOT READY FRO D/C TODAY, PER ID NOTE PT MAY BE ABLE TO D/C ON PO MEDS INSTEAD OF IV MEDS. CM WILL CONT TO FOLLOW D/C NEEDS. [facility] FOLLOWING.
[2021-03-18 16:27] LABS: Glucose, Whole Blood 224 mg/dL (60-115)
[2021-03-18] MEDS: Enoxaparin Sodium 40 MG/0.4 ML SYRINGE SUBCUT (16:47)
[2021-03-18 19:21] VITALS: BP 147/69; PULSE 60; RESP 16; TEMP 36.2; O2SAT 97
[2021-03-18 20:52] LABS: Glucose, Whole Blood 163 mg/dL (60-115)
[2021-03-18] MEDS: Atorvastatin Calcium 10 MG TABLET PO (21:26)
[2021-03-18 23:29] VITALS: BP 125/58; PULSE 60; RESP 16; TEMP 36.2; O2SAT 98
[2021-03-19] VITALS (7 sets, daily range): BP systolic 130–162; BP diastolic 60–77; PULSE 64–86; RESP 16–20; TEMP 36.1–36.5; O2SAT 93–99
[2021-03-19] MEDS: cefEPime HCl 2 GM in 0.9 % Sodium Chloride 50 ML IV ×3 (00:16→17:34)
[2021-03-19 08:21] LABS: Glucose, Whole Blood 124 mg/dL (60-115)
[2021-03-19] MEDS: Clopidogrel Bisulfate 75 MG TABLET PO (08:24)
[2021-03-19] MEDS: Cyanocobalamin (Vitamin B-12) 500 MCG TABLET PO (08:24)
[2021-03-19] MEDS: Folic Acid 1 MG TABLET PO (08:25)
[2021-03-19] MEDS: Insulin Glargine,Hum.rec.anlog 100 UNIT/ML 10 ML VIAL 40 UNIT SUBCUT ×2 (08:25→20:55)
[2021-03-19] MEDS: amLODIPine Besylate 10 MG TABLET PO (08:25)
[2021-03-19] MEDS: 0.9 % Sodium Chloride Flush 3 ML SYRINGE IVFLUSH ×3 (08:26→21:08)
[2021-03-19 09:16] LABS: Creatinine Clr Calc Pharmacy 118.7; Estimated Glomerular Filt Rate > 60
[2021-03-19 11:35] LABS: Glucose, Whole Blood 180 mg/dL (60-115)
[2021-03-19] MEDS: Insulin Lispro 100 UNIT/ML 3 ML VIAL SUBCUT ×3 (11:42→20:55)
[2021-03-19] MEDS: vancomycin HCL 1,250 MG in 0.9 % Sodium Chloride 250 ML 166.67 MG IV (13:20)
--- NOTE | 2021-03-19 13:45 | PM.IMPN ---
Progress Note: A&P (1) History of osteomyelitis: Status: Acute Assessment and Plan: This is a 55 yo M with a PMHx of IDDM and previously diabetic foot infections / osteo who presents to the hospital with complaints of fevers and chills, drainage from his chronic diabetic foot wound. His ED work up is consistent with Severe sepsis secondary to a diabetic foot infection / osteomyelitis. Severe sepsis. sepsis resolved Secondary to Diabetic foot infection / osteomyelitis Enterococcus / Strep Mitis bacteremia (gram stain initially reported to be Gram negative wound cx with MRSA Daptomycin and Rocephin for 6 weeks will need picc line ID following KATTY, suspected due to ATN from sepsis resolved Hyperkalemia Lisinopril held follow BMP HypoMg repleted IDDM last A1C in December 01 - .3 continue with lantus + sliding scale; will decrease basal dose while in the hospital diabetic diet and poc QIDAC Abnormal LFTs improved, due to sepsis HTN Norvasc 10mg (stop lisinopril due to hyperK) PAD restart plavix and statin 1Morbid obesity pt endorses that his chronic foot infection is prohibitive in getting the appropriate exercise. counseled on healthy diet Full Code DVT pptx - high risk, will use Lovenox Endorses his as HCP Attending Dr Aldana Subjective Subjective Date of Service: 03/19/21 Interval History: Follow up foot wound no pain Physical Exam Vital Signs: Vital Signs: Last Vital Signs Temp 97.7 F 03/19/21 11:54 Pulse 75 03/19/21 11:54 Resp 18 03/19/21 11:54 BP 162/77 H 03/19/21 11:54 Pulse Ox 97 03/19/21 11:54 Body Mass Index 47.5 Appearing in no acute distress lung sounds are clear to auscultation heart regular rate rhythm, clear S1, S2 positive bowel sounds, abdomen is soft, nontender neuro patient is alert x3, no focal deficits Objective Data Current Medications Generic Name Dose Route Start Last Admin Trade Name Freq PRN Reason Stop Dose Admin Acetaminophen 650 mg 03/15/21 12:57 Acetaminophen 325 Mg Tablet PO Q6H PRN Fever Albuterol Sulfate 2.5 mg 03/16/21 11:50 Albuterol Sulfate (0.083%) 2.5 Mg/3 Ml Vial.Neb INHALE ONCE PRN Wheezing Amlodipine Besylate 10 mg 03/19/21 09:00 03/19/21 08:25 Amlodipine Besylate 10 Mg Tablet PO 10 mg DAILY JAMIE Administration Protocol Atorvastatin Calcium 10 mg 03/17/21 21:00 03/18/21 21:26 Atorvastatin Calcium 10 Mg Tablet PO 10 mg BEDTIME JAMIE Administration Clopidogrel Bisulfate 75 mg 03/17/21 11:20 03/19/21 08:24 Clopidogrel Bisulfate 75 Mg Tablet PO 75 mg DAILY JAMIE Administration Cyanocobalamin 500 mcg 03/18/21 09:00 03/19/21 08:24 Cyanocobalamin (Vitamin B-12) 500 Mcg Tablet PO 500 mcg DAILY JAMIE Administration Enoxaparin Sodium 40 mg 03/15/21 16:00 03/18/21 16:47 Enoxaparin Sodium 40 Mg/0.4 Ml Syringe SUBCUT 40 mg Q24H JAMIE Administration Fentanyl 50 mcg 03/16/21 11:50 Fentanyl Citrate/Pf 100 Mcg/2 Ml Vial IVPUSH Q5M PRN Pain, Severe (Pain Scale 7-10) Fentanyl 25 mcg 03/16/21 11:50 Fentanyl Citrate/Pf 100 Mcg/2 Ml Vial IVPUSH Q5M PRN Pain, Moderate (Pain Scale 4-6 Folic Acid 1 mg 03/18/21 09:00 03/19/21 08:25 Folic Acid 1 Mg Tablet PO 1 mg DAILY JAMIE Administration Cefepime HCl 2 gm/ Sodium 50 mls @ 100 mls/hr 03/15/21 17:00 03/19/21 10:07 Chloride IV Infused Q8H JAMIE Infusion Vancomycin HCl 1,250 mg/ 250 mls @ 166.667 mls/hr 03/19/21 12:00 03/19/21 13:20 Sodium Chloride IV 166.67 mls/hr Q12H JAMIE Administration Insulin Glargine 40 unit 03/15/21 21:00 03/19/21 08:25 Insulin Glargine,Hum.Rec.Anlog 100 Unit/Ml 10 Ml Vial SUBCUT 40 unit BID JAMIE Administration Insulin Human Lispro 0 unit 03/15/21 16:30 03/19/21 11:42 Insulin Lispro 100 Unit/Ml 3 Ml Vial SUBCUT 2 unit QIDACHS JAMIE Administration Protocol Ondansetron HCl 4 mg 03/16/21 11:50 Ondansetron Hcl 4 Mg/2 Ml Vial IVPUSH ONCE PRN Nausea and Vomiting Oxycodone HCl 5 mg 03/15/21 12:57 Oxycodone Hcl Immed Release 5 Mg Tablet PO Q6H PRN Pain, Severe (Pain Scale 7-10) Oxycodone HCl 10 mg 03/16/21 11:50 Oxycodone Hcl Immed Release 5 Mg Tablet PO ONCE PRN Pain, Severe (Pain Scale 7-10) Oxycodone HCl 5 mg 03/16/21 11:50 Oxycodone Hcl Immed Release 5 Mg Tablet PO ONCE PRN Pain, Severe (Pain Scale 7-10) Pharmacy Consult 1 each 03/15/21 08:59 Consult Rx Perform Med Rec MISCELLANE ONCE PRN Consult order Pharmacy Consult 1 each 03/19/21 08:09 Consult Rx Vancomycin Dosing MISCELLANE DAILY PRN Consult order Sodium Chloride 3 ml 03/15/21 16:00 03/19/21 08:26 0.9 % Sodium Chloride Flush 3 Ml Syringe IVFLUSH 3 ml QSHIFT JAMIE Administration Labs CBC & Chem 7: 03/17/21 05:39 03/19/21 08:50 Labs: Laboratory Results - last 24 hr 03/18/21 03/18/21 03/19/21 16:23 20:45 07:15 Estim Creat Clear Calc Estimated GFR POC Glucose 224 H 163 H 124 H 03/19/21 03/19/21 08:50 11:30 Estim Creat Clear Calc 118.7 Estimated GFR > 60 POC Glucose 180 H Microbiology Microbiology Results: Microbiology 03/17/21 10:37 Blood - Venous Blood Culture - Preliminary No growth after 48 hours. 03/17/21 10:32 Blood - Venous Blood Culture - Preliminary No growth after 48 hours. 03/16/21 Unknown Foot Right Gram Stain - Final 03/16/21 Unknown Foot Right Routine Culture - Final 03/16/21 Unknown Foot Right Anaerobic Culture - Preliminary Culture in progress. 03/15/21 09:29 Blood - Venous Blood Culture - Final Gemella haemolysans Enterococcus faecalis 03/15/21 08:45 Blood - Venous Blood Culture - Final Streptococcus mitis/oralis Enterococcus faecalis 03/15/21 09:30 Foot - Right Gram Stain - Final 03/15/21 09:30 Foot - Right Routine Culture - Final Methicillin Res Staph Aureus Quality Stroke Does the patient have a stroke diagnosis?: No VTE Prior VTE?: No VTE Risk Level:: Medical - moderate - high VTE Device Contraindication: Treatment Not Indicated VTE Drug Contraindication: N/A - Med Ordered
[2021-03-19 16:23] LABS: Glucose, Whole Blood 256 mg/dL (60-115)
[2021-03-19] MEDS: Enoxaparin Sodium 40 MG/0.4 ML SYRINGE SUBCUT (17:34)
[2021-03-19] MEDS: cefTRIAXone sodium 1 GM in 0.9 % Sodium Chloride 50 ML IV (20:14)
[2021-03-19 20:17] LABS: Glucose, Whole Blood 191 mg/dL (60-115)
[2021-03-19] MEDS: DAPTOmycin 600 MG in 0.9 % Sodium Chloride 50 ML 100 MG IV (20:53)
[2021-03-19] MEDS: Atorvastatin Calcium 10 MG TABLET PO (20:54)
[2021-03-20 03:36] VITALS: BP 141/65; PULSE 68; RESP 16; TEMP 36.4; O2SAT 99
[2021-03-20 07:04] LABS: Anion Gap 14 (12-20); Blood Urea Nitrogen 16 mg/dL (9-16); Calcium 9.4 mg/dL (8.4-10.2); Carbon Dioxide 20 mmol/L (22-29); Chloride 106 mmol/L (96-108); Creatinine Clr Calc Pharmacy 139.2; Estimated Glomerular Filt Rate > 60; Glucose Random 88 mg/dL (60-115); Potassium 5.1 mmol/L (3.3-5.1); Sodium 135 mmol/L (135-145)
[2021-03-20 07:14] LABS: Hematocrit 41.1 % (42-52); Hemoglobin 13.8 g/dl (14.0-18.0); Mean Corpuscular Hemoglobin 28.2 pg (27.0-33.0); Mean Corpuscular Volume 83.9 fL (80-98); Mean Platelet Volume 10.3 fL (9.4-12.4); Platelet Count 322 X10*3/uL (160-400); Red Cell Distribution Width 14.9 % (11.0-16.0); White Blood Count 13.5 X10*3/uL (4.8-10.8)
[2021-03-20 07:15] LABS: Mean Corpuscular HGB Conc 33.6 g/dl (31.0-36.0)
[2021-03-20 07:21] VITALS: BP 147/73; PULSE 67; RESP 17; TEMP 36.2; O2SAT 97
[2021-03-20 07:31] LABS: Glucose, Whole Blood 95 mg/dL (60-115)
[2021-03-20] MEDS: 0.9 % Sodium Chloride Flush 3 ML SYRINGE IVFLUSH ×2 (09:44→16:54)
[2021-03-20] MEDS: Folic Acid 1 MG TABLET PO (09:45)
[2021-03-20] MEDS: Cyanocobalamin (Vitamin B-12) 500 MCG TABLET PO (09:45)
[2021-03-20] MEDS: Insulin Glargine,Hum.rec.anlog 100 UNIT/ML 10 ML VIAL 40 UNIT SUBCUT ×2 (09:45→21:11)
[2021-03-20] MEDS: Clopidogrel Bisulfate 75 MG TABLET PO (09:45)
[2021-03-20] MEDS: amLODIPine Besylate 10 MG TABLET PO (09:45)
[2021-03-20 11:41] LABS: Glucose, Whole Blood 159 mg/dL (60-115)
[2021-03-20] MEDS: Insulin Lispro 100 UNIT/ML 3 ML VIAL SUBCUT ×3 (11:58→21:10)
[2021-03-20 12:00] VITALS: BP 153/73; PULSE 75; RESP 18; TEMP 36.4; O2SAT 97
--- NOTE | 2021-03-20 13:50 | PM.IMPN ---
Progress Note: A&P (1) Osteomyelitis: Status: Acute Assessment and Plan: This is a 55 yo M with a PMHx of IDDM and previously diabetic foot infections / osteo who presents to the hospital with complaints of fevers and chills, drainage from his chronic diabetic foot wound. His ED work up is consistent with Severe sepsis secondary to a diabetic foot infection / osteomyelitis. Severe sepsis. sepsis resolved Secondary to Diabetic foot infection / osteomyelitis Enterococcus / Strep Mitis bacteremia (gram stain initially reported to be Gram negative wound cx with MRSA Daptomycin and Rocephin for 6 weeks will need picc line, Ordered for tomorrow ID following KATTY, suspected due to ATN from sepsis resolved Hyperkalemia. Resolved restart Lisinopril follow BMP HypoMg repleted IDDM last A1C in December 01 - .3 continue with lantus + sliding scale; will decrease basal dose while in the hospital diabetic diet and poc QIDAC Abnormal LFTs improved, due to sepsis HTN Norvasc 10mg Lisinopril PAD restart plavix and statin Morbid obesity pt endorses that his chronic foot infection is prohibitive in getting the appropriate exercise. counseled on healthy diet Full Code DVT pptx - high risk, will use Lovenox Endorses his as HCP Attending Dr Aldana Subjective Subjective Date of Service: 03/20/21 Interval History: Follow up foot wound Physical Exam Vital Signs: Vital Signs: Last Vital Signs Temp 97.5 F 03/20/21 12:00 Pulse 75 03/20/21 12:00 Resp 18 03/20/21 12:00 BP 153/73 H 03/20/21 12:00 Pulse Ox 97 03/20/21 12:00 Body Mass Index 47.5 Appearing in no acute distress lung sounds are clear to auscultation heart regular rate rhythm, clear S1, S2 positive bowel sounds, abdomen is soft, nontender neuro patient is alert x3, no focal deficits Objective Data Current Medications Generic Name Dose Route Start Last Admin Trade Name Freq PRN Reason Stop Dose Admin Acetaminophen 650 mg 03/15/21 12:57 Acetaminophen 325 Mg Tablet PO Q6H PRN Fever Albuterol Sulfate 2.5 mg 03/16/21 11:50 Albuterol Sulfate (0.083%) 2.5 Mg/3 Ml Vial.Neb INHALE ONCE PRN Wheezing Amlodipine Besylate 10 mg 03/19/21 09:00 03/20/21 09:45 Amlodipine Besylate 10 Mg Tablet PO 10 mg DAILY JAMIE Administration Protocol Atorvastatin Calcium 10 mg 03/17/21 21:00 03/19/21 20:54 Atorvastatin Calcium 10 Mg Tablet PO 10 mg BEDTIME JAMIE Administration Clopidogrel Bisulfate 75 mg 03/17/21 11:20 03/20/21 09:45 Clopidogrel Bisulfate 75 Mg Tablet PO 75 mg DAILY JAMIE Administration Cyanocobalamin 500 mcg 03/18/21 09:00 03/20/21 09:45 Cyanocobalamin (Vitamin B-12) 500 Mcg Tablet PO 500 mcg DAILY JAMIE Administration Enoxaparin Sodium 40 mg 03/15/21 16:00 03/19/21 17:34 Enoxaparin Sodium 40 Mg/0.4 Ml Syringe SUBCUT 40 mg Q24H JAMIE Administration Fentanyl 50 mcg 03/16/21 11:50 Fentanyl Citrate/Pf 100 Mcg/2 Ml Vial IVPUSH Q5M PRN Pain, Severe (Pain Scale 7-10) Fentanyl 25 mcg 03/16/21 11:50 Fentanyl Citrate/Pf 100 Mcg/2 Ml Vial IVPUSH Q5M PRN Pain, Moderate (Pain Scale 4-6 Folic Acid 1 mg 03/18/21 09:00 03/20/21 09:45 Folic Acid 1 Mg Tablet PO 1 mg DAILY JAMIE Administration Ceftriaxone Sodium 1 gm/ 50 mls @ 100 mls/hr 03/19/21 19:00 03/19/21 21:15 Sodium Chloride IV Infused Q24H JAMIE Infusion Daptomycin 600 mg/ Sodium 62 mls @ 100 mls/hr 03/19/21 20:00 03/19/21 21:38 Chloride IV Infused Q24H JAMIE Infusion Insulin Glargine 40 unit 03/15/21 21:00 03/20/21 09:45 Insulin Glargine,Hum.Rec.Anlog 100 Unit/Ml 10 Ml Vial SUBCUT 40 unit BID JAMIE Administration Insulin Human Lispro 0 unit 03/15/21 16:30 03/20/21 11:58 Insulin Lispro 100 Unit/Ml 3 Ml Vial SUBCUT 2 unit QIDACHS JAMIE Administration Protocol Ondansetron HCl 4 mg 03/16/21 11:50 Ondansetron Hcl 4 Mg/2 Ml Vial IVPUSH ONCE PRN Nausea and Vomiting Oxycodone HCl 10 mg 03/16/21 11:50 Oxycodone Hcl Immed Release 5 Mg Tablet PO ONCE PRN Pain, Severe (Pain Scale 7-10) Oxycodone HCl 5 mg 03/16/21 11:50 Oxycodone Hcl Immed Release 5 Mg Tablet PO ONCE PRN Pain, Severe (Pain Scale 7-10) Pharmacy Consult 1 each 03/15/21 08:59 Consult Rx Perform Med Rec MISCELLANE ONCE PRN Consult order Pharmacy Consult 1 each 03/19/21 08:09 Consult Rx Vancomycin Dosing MISCELLANE DAILY PRN Consult order Sodium Chloride 3 ml 03/15/21 16:00 03/20/21 09:44 0.9 % Sodium Chloride Flush 3 Ml Syringe IVFLUSH 3 ml QSHIFT JAMIE Administration Labs CBC & Chem 7: 03/20/21 06:24 03/20/21 06:24 Labs: Laboratory Results - last 24 hr 03/19/21 03/19/21 03/20/21 16:18 20:14 06:24 MCV 83.9 MCH 28.2 MCHC 33.6 RDW 14.9 Plt Count 322 MPV 10.3 Absolute Nucleated RBC 0.000 Nucleated RBC % (auto) 0.0 Anion Gap Estim Creat Clear Calc Estimated GFR POC Glucose 256 H 191 H Random Glucose Calcium 03/20/21 03/20/21 03/20/21 06:24 07:19 11:36 MCV MCH MCHC RDW Plt Count MPV Absolute Nucleated RBC Nucleated RBC % (auto) Anion Gap 14 Estim Creat Clear Calc 139.2 Estimated GFR > 60 POC Glucose 95 159 H Random Glucose 88 D Calcium 9.4 Microbiology Microbiology Results: Microbiology 03/16/21 Unknown Foot Right Gram Stain - Final 03/16/21 Unknown Foot Right Routine Culture - Final 03/16/21 Unknown Foot Right Anaerobic Culture - Preliminary Culture in progress. 03/17/21 10:37 Blood - Venous Blood Culture - Preliminary No growth after 48 hours. 03/17/21 10:32 Blood - Venous Blood Culture - Preliminary No growth after 48 hours. 03/15/21 09:29 Blood - Venous Blood Culture - Final Gemella haemolysans Enterococcus faecalis 03/15/21 08:45 Blood - Venous Blood Culture - Final Streptococcus mitis/oralis Enterococcus faecalis 03/15/21 09:30 Foot - Right Gram Stain - Final 03/15/21 09:30 Foot - Right Routine Culture - Final Methicillin Res Staph Aureus Quality Stroke Does the patient have a stroke diagnosis?: No VTE Prior VTE?: No VTE Risk Level:: Medical - moderate - high VTE Device Contraindication: Treatment Not Indicated VTE Drug Contraindication: N/A - Med Ordered
[2021-03-20 15:40] VITALS: BP 143/69; PULSE 78; RESP 20; TEMP 36.4; O2SAT 98
[2021-03-20 16:07] LABS: Glucose, Whole Blood 230 mg/dL (60-115)
[2021-03-20] MEDS: Enoxaparin Sodium 40 MG/0.4 ML SYRINGE SUBCUT (16:53)
[2021-03-20] MEDS: cefTRIAXone sodium 1 GM in 0.9 % Sodium Chloride 50 ML IV (18:44)
[2021-03-20 19:30] VITALS: BP 158/73; PULSE 66; RESP 20; TEMP 36.3; O2SAT 96
[2021-03-20 20:29] LABS: Glucose, Whole Blood 221 mg/dL (60-115)
[2021-03-20] MEDS: DAPTOmycin 600 MG in 0.9 % Sodium Chloride 50 ML 100 MG IV (21:10)
[2021-03-20] MEDS: Atorvastatin Calcium 10 MG TABLET PO (21:10)
[2021-03-20 23:49] VITALS: BP 151/67; PULSE 72; RESP 18; TEMP 36.2; O2SAT 98
[2021-03-21] MEDS: 0.9 % Sodium Chloride Flush 3 ML SYRINGE IVFLUSH ×3 (00:59→16:00)
[2021-03-21 03:43] VITALS: BP 124/50; PULSE 75; RESP 16; TEMP 36.1; O2SAT 98
[2021-03-21 07:31] VITALS: BP 154/78; PULSE 66; RESP 18; TEMP 36.1; O2SAT 98
[2021-03-21 07:36] LABS: Glucose, Whole Blood 135 mg/dL (60-115)
[2021-03-21] MEDS: Cyanocobalamin (Vitamin B-12) 500 MCG TABLET PO (08:55)
[2021-03-21] MEDS: Folic Acid 1 MG TABLET PO (08:55)
[2021-03-21] MEDS: amLODIPine Besylate 10 MG TABLET PO (08:55)
[2021-03-21] MEDS: Clopidogrel Bisulfate 75 MG TABLET PO (08:55)
[2021-03-21] MEDS: Insulin Glargine,Hum.rec.anlog 100 UNIT/ML 10 ML VIAL 40 UNIT SUBCUT (08:56)
--- NOTE | 2021-03-21 10:43 | P.PICC_ITS ---
PICC Line Insertion NPICC Diagnosis: OSTEOMYELITIS Indication: CORRECTION IV ANTIBIOTICS Pertinent Labs: REVIEWED Technique: Following informed consent including risks, benefits and alternatives and using sterile technique including cap and mask, sterile gown, glove and drape, the RIGHT arm was prepped and draped in the usual sterile fashion of full barrier technique with CHG. Following completion of [place] Protocol the skin and soft tissues were anesthetized with 1% Lidocaine plain. Using ultrasound guidance, BASILIC vein access was obtained IN SINGLE ATTEMPT BY THIS RN. Over an 0.018 wire through peel-away sheath, a 4-FIJIAN, PASV, SINGLE LUMEN PICC line was positioned. Catheter length is 44 CM internal length, 0 CM external length, for a total trimmed length of 44 CM. The procedure was performed in S-272. Tip verification was performed by Todd Riggs with Makayla 3CG. Tip located in SVC. Ultrasound was used to document vein patency and for needle entry. A formal ultrasound picture and cardiac rhythm strip was recorded. Vascular Insulator Technician has released the line for use and it is currently dressed with a StatLock, Tegaderm, and CHG disc. Verification has been performed for blood return and line patency. Arm Circumference: 41 CM Equipment: [employer] POWERPICC SOLO Catheter Type: 4-FIJIAN, PASV, SINGLE LUMEN Lot #: [id number]
[2021-03-21 11:42] VITALS: BP 158/79; PULSE 75; RESP 18; TEMP 36.2; O2SAT 98
[2021-03-21 11:56] LABS: Glucose, Whole Blood 180 mg/dL (60-115)
[2021-03-21] MEDS: Insulin Lispro 100 UNIT/ML 3 ML VIAL SUBCUT (11:57)
--- NOTE | 2021-03-21 12:15 | P.DS_ITS ---
DS: Providers Provider Date of Service: 03/21/21 Date of admission: 03/15/21 12:58 Date of discharge: 03/21/21 Primary care physician: Reece Ann MD Admitting clinician: Chintan Persaud Attending physician on admission: Chintan Persaud Consults: 03/15/21 09:33 Consult to Infectious Diseases Routine Consulting Provider: Carmen Arevalo Reason for consultation: diabetic foot wound Has provider been notified: Yes 03/15/21 12:57 Consult to General Surgery Routine Consulting Provider: Conor Elizondo Reason for consultation: diabetic foot infection Attending physician on discharge: Chintan Persaud Discharging clinician: Chintan Persaud DS: Diagnosis Discharge Diagnosis (1) Osteomyelitis: Status: Acute DS: Medications Discharge Medications Home Medications: Home Medications Medication Instructions Recorded Confirmed folic acid 0.8 mg capsule 0.8 mg PO DAILY 06/17/20 03/15/21 amlodipine 10 mg tablet 10 mg PO BEDTIME 03/15/21 03/15/21 cyanocobalamin (vitamin B-12) 500 500 mcg PO DAILY 03/15/21 03/15/21 mcg tablet (Vitamin B-12) insulin lispro 100 unit/mL 6 unit SUBCUT BIDAC 03/15/21 03/15/21 subcutaneous pen (Humalog KwikPen (U-100) Insulin) simvastatin 20 mg tablet 20 mg PO BEDTIME 03/15/21 03/15/21 Previous Rx's Medication Instructions Recorded clopidogrel 75 mg tablet 75 mg PO DAILY 90 Days #90 tab 05/30/20 lisinopril 40 mg tablet 40 mg PO DAILY #90 tab 07/19/20 insulin glargine 100 unit/mL 60 unit SUBCUT BID 30 Days #36 ml 10/15/20 subcutaneous solution (Lantus U-100 Insulin) blood sugar diagnostic (OneTouch 1 strip MISCELLANEOUS TID #100 03/03/21 Ultra Test) strip ceftriaxone 1 gram solution for 1 g IV Q24H 42 Days ea 03/21/21 injection daptomycin 350 mg intravenous 600 mg IV Q24H 42 Days ea 03/21/21 solution DS: Summary Hospital Course Hospital Course: HP as per admitting provider This is a 55 yo M with a PMH of DM, multiple toe amputations on the b/l LE, prior osteomyelitis with and chronic diabetic foot wounds with skin grafting / wound vac, HLD, Obesity, PAD who presents to the hospital after feeling unwell for about the last 1 week or so. He reports that he has been following up with the wound care to manage his chronic infection wh ich was doing well in the past. He reports that 1 week ago, at the wound clinic it appeared to be worsening and so he was placed on Bactrim for this. He reports that since yesterday he started feeling fevers and chills with some foot pain (although not severe, as he has minimal sensation in the feet). He presented to the emergency room for further evaluation. In the ED -- his vitals were 186/71, RR 30, HR 131, temp 100.9 (increased to 103.2), SpO2 99 on RA. His blood work showed a WBC count of 27.1 (23 bands). His chem was significantly for SNa 132, K 5.3, bicarb 19, BUN 20, SCr 1.51, Lactate 4.1, Mag 1.4, T. Bili 1.5, CRP 11.3, ESR 62. A CT of the foot showed findings consistant with osteomyelitis. His case was d/w by the ED provider with ID who recommended IV daptomcyin and Cefepime. He was given these along with fluid bolus based on his ideal body weight and will now be admitted for further management . Osteomyelitis . Longstanding history of right foot wound. Has had multiple tr eatments including hyperbaric therapy. He was noted to be bacteremic and wound culture was positive for MRSA. He had a PICC line placed and will be sent home with 6 weeks of IV daptomycin and IV Rocephin. He should follow up with the [facility] and infectious disease provider as an outpatient. Severe sepsis. Resolved. Secondary to osteomyelitis /diabetic foot infection. Blood culture showed Enterococcus / which strep mitis bacteremia. Wound culture with MRSA. Treated with daptomycin, Rocephin. osteomyelitis Time Spent with Patient Time attestation: Total time spent providing and/or coordinating discharge services: Discharge coordination time: Less than 30 minutes Quality: Stroke Does the patient have a stroke diagnosis?: No Physical Exam Vital Signs: Vital Signs: Last Vital Signs Temp 97.1 F 03/21/21 11:42 Pulse 75 03/21/21 11:42 Resp 18 03/21/21 11:42 BP 158/79 H 03/21/21 11:42 Pulse Ox 98 03/21/21 11:42 Body Mass Index 47.5 Appearing in no acute distress lung sounds are clear to auscultation heart regular rate rhythm, clear S1, S2 positive bowel sounds, abdomen is soft, nontender neuro patient is alert x3, no focal deficits Right diabetic foot wound, with surrounding pink skin with no drainage and large open wound. DS: Data Data Completed and Pending Completed studies during hospitalization [Text1]: Pending at discharge 03/16/21 12:44 Surgical [PTH] Routine Labs on day of discharge: Laboratory Results - last 24 hr 03/20/21 03/20/21 03/21/21 16:03 20:16 07:30 POC Glucose 230 H 221 H 135 H 03/21/21 11:41 POC Glucose 180 H Preliminary micro results at discharge 03/17/21 10:37 Blood Culture - Preliminary Blood - Venous No growth after 48 hours. 03/17/21 10:32 Blood Culture - Preliminary Blood - Venous No growth after 48 hours. Discharge Plan Discharge Anticipated Discharge Date/Time: 03/21/21 11:39 Patient Disposition: Home Health Service Discharge Diagnosis: Osteomyelitis Bacteremia MRSA in the wound Referrals: Reece Ann MD [Primary Care Provider] - 1 Week Discharge Medications: New ceftriaxone 1 gram Recon Soln 1 g IV Q24H 42 Days RF: 0 daptomycin 350 mg Recon Soln 600 mg IV Q24H 42 Days RF: 0 Continued clopidogrel 75 mg tablet 75 mg PO DAILY 90 Days Qty: 90 RF: 3 lisinopril 40 mg tablet 40 mg PO DAILY Qty: 90 RF: 2 Lantus U-100 Insulin 100 unit/mL solution 60 unit subcut BID 30 Days Qty: 36 RF: 6 blood sugar diagnostic [OneTouch Ultra Test] Strip 1 strip miscellaneous TID Qty: 100 RF: 3 cyanocobalamin (vitamin B-12) [Vitamin B-12] 500 mcg Tablet 500 mcg PO DAILY RF: 0 amlodipine 10 mg tablet 10 mg PO BEDTIME RF: 0 simvastatin 20 mg tablet 20 mg PO BEDTIME RF: 0 insulin lispro [Humalog KwikPen Insulin] 100 unit/mL insulin pen 6 unit subcut BIDAC RF: 0 folic acid 0.8 mg capsule 0.8 mg PO DAILY RF: 0 Discontinued sulfamethoxazole-trimethoprim 800-160 mg tablet 1 tab PO BID RF: 0 Discharge Orders: Discharge Order (Routine); Ordered 03/21/21 Ordered By: Sharita Wiggins Diet: advance to usual diet Activity on Discharge: As tolerated Stand Alone Forms: Patient Portal Discharge page Care Plan Goals: Resolution of MRSA/osteomyelitis Health Concerns: Osteomyelitis Bacteremia MRSA in the wound Plan of Treatment: Follow up with primary care provider as needed Follow up with wound care clinic Assessment: See discharge summary
--- NOTE | 2021-03-21 13:24 | MHC.CM.PN ---
PT DISCHARGING TODAY, PICC LINE PLACED THIS AM, ABX SCHED FOR 1500 & 1600 AND PT WILL THEN D/C HOME W/[facility] AND [facility], DTR FOR TRANPSORT. NSG,UNIT AND HOSPITALIST AWARE. ABX: DAPTOMYCIN 600MG IV Q24HR X 6WKS AND CEFTRIAXONE 1GM IV Q24HRS X 6WKS
[2021-03-21] MEDS: DAPTOmycin 600 MG in 0.9 % Sodium Chloride 50 ML 100 MG IV (14:31)
[2021-03-21 15:34] VITALS: BP 172/73; PULSE 73; RESP 18; TEMP 36.2; O2SAT 99
--- NOTE | 2021-03-21 15:44 | W.MHC.F2F ---
Service Date Service Date: 03/21/21 Encounter Date of encounter: 03/21/21 Reasons for Services Reason for senior care: administration of IV, SQ, or IM injection MD Overseeing Care: Reece Ann Homebound: Leaving the home is medically contraindicated at this time without the asist of a device and/or another person due th the listed conditions above and below. Reason homebound: poor balance / fall risk and immunosuppression / infection risk Certification: Based on the above findings, I certify that this patient is confined to the home and needs intermittent senior care care, physical therapy and/or speech therapy, or continues to need occupational therapy. The patient is under my care, and I have initiated the establishment of the plan of care. The patient will be followed by a physician who will periodically review the plan of care.
[2021-03-21] MEDS: cefTRIAXone sodium 1 GM in 0.9 % Sodium Chloride 50 ML IV (16:00)
[2021-03-21] MEDS: Enoxaparin Sodium 40 MG/0.4 ML SYRINGE SUBCUT (16:00)
== END 2021-03-21 17:10 | disposition home health service (06) | DRG 710 ==
LOC: HO.ED 12:18 → HO.EDOVER 14:19 → HO.S3 14:22
PROVIDERS: Internal Medicine; Nurse Practitioner Acute Care; Physician Assistant; Surgery; Admitting Provider Family Medicine; Emergency Provider Emergency Medicine; PCP Family Medicine; Visit Provider Family Medicine
PROC: 0QBG0ZZ Excision of Right Tibia, Open Approach (ICD-10-PCS; principal; 2021-03-16 12:00)
DX: A41.9 Sepsis, unspecified organism (principal); N17.0 Acute kidney failure with tubular necrosis; E11.69 Type 2 diabetes mellitus with other specified complication; M86.171 Other acute osteomyelitis, right ankle and foot; R65.20 Severe sepsis without septic shock; E11.51 Type 2 diabetes mellitus with diabetic peripheral angiopathy without gangrene; E66.01 Morbid (severe) obesity due to excess calories; Z68.42 Body mass index [BMI] 45.0-49.9, adult; E83.42 Hypomagnesemia; E87.5 Hyperkalemia; E11.621 Type 2 diabetes mellitus with foot ulcer; B95.62 Methicillin resistant Staphylococcus aureus infection as the cause of diseases classified elsewhere; L97.416 Non-pressure chronic ulcer of right heel and midfoot with bone involvement without evidence of necrosis; Z20.822 Contact with and (suspected) exposure to COVID-19; Z79.02 Long term (current) use of antithrombotics/antiplatelets; Z79.4 Long term (current) use of insulin; Z79.899 Other long term (current) drug therapy
CPT/HCPCS: 36415; 36573; 71045; 73630; 73700; 80048; 80053; 80076; 82565; 82947; 83605; 83735; 85025; 85027; 85610; 85652; 85730; 86140; 87040; 87071; 87073; 87076; 87077; 87185; 87186; 87205; 87635; 88304; 88311; 93306; 96361; 96365; 96366; 96367; 96375; 99024; 99285; C1751; J0690; J0692; J0696; J0878; J1650; J1885; J2250; J3010; J3370; J3475; Q9957

== ENCOUNTER 2021-03-28 15:40 | Outpatient (REF) | payer OTHER, SELFPAY ==
[2021-03-28 16:08] LABS: Blood Urea Nitrogen 13 mg/dL (9-16); Estimated Glomerular Filt Rate > 60
== END 2021-03-28 15:41 | disposition home or self-care (01) ==
LOC: HO.LNP 15:40
PROVIDERS: Visit Provider Internal Medicine
DX: E11.69 Type 2 diabetes mellitus with other specified complication (principal)
CPT/HCPCS: 82550; 82565; 84520

== ENCOUNTER 2021-03-29 11:01 | Inpatient (IN) | payer OTHER, SELFPAY ==
--- NOTE | ~2021-03-29 | XR_ITS ---
EXAMINATION: XR FOOT, RIGHT CLINICAL INFORMATION: Worsening diabetic foot ulcer. COMPARISON: None. TECHNIQUE: AP, lateral, and oblique views of the right foot. FINDINGS: The 4th of the 5th metatarsal and the digits have been amputated. There is heterogeneous bony changes seen along the proximal 1st through 3rd metatarsals and the tarsal bones. No bony erosive changes or periosteal thickening seen along the base of the right midfoot region to suspect osteomyelitis. There is a moderate size calcaneal heel enthesophyte with fracture. The soft tissues are normal. XR/XR foot RT min 3V IMPRESSION: Heterogeneous bone along the proximal metatarsals 1st-3rd digits and the tarsal bones. The findings are consistent with Charcot changes. There are no bony erosive changes, suspicious. There is mild soft tissue swelling along the lateral midfoot region. The ankle mortise and subtalar joints are normal. The 4th and 5th metatarsals and the digits have been surgically removed.
--- NOTE | ~2021-03-29 | CT_ITS ---
EXAMINATION: CT FOOT WITH CONTRAST, RIGHT CLINICAL INFORMATION: New abscess. COMPARISON: None TECHNIQUE: Helical scanning was performed with submillimeter collimation in the axial plane during bolus intravenous injection of 85 mL of Omnipaque 350, with multiplanar 2-D reconstructions. This CT examination was performed using dose optimization techniques as appropriate, variously including the following: *Automated exposure control *Adjustment of mA and/or kV according to patient size (this includes techniques or standardized protocols for targeted exams where dose is matched to indication/reason for exam; i.e. extremities or head) *Use of iterative reconstruction technique DLP: 120 mGy-cm FINDINGS: The severe destructive/erosive changes in the midfoot with fragmentation and subluxations are again noted. The large wound plantar to the cuboid, extending to the cuboid is again seen. There are worsening destructive changes and osteolysis within the cuboid consistent with worsening osteomyelitis. There is worsening multiloculated air and fluid extending dorsal to the cuboid and 5th TMT joint. This is not well-defined but measures approximately 1.4 x 2.3 x 5.2 cm (CC x TRV x AP). This is suspicious for a worsening abscess. There is mild enhancement of the wall of this abscess. Diffuse subcutaneous edema is again noted. CT/CT foot RT w con IMPRESSION: There is a persistent large wound plantar to the cuboid with worsening destructive changes of the cuboid consistent with worsening osteomyelitis. There is an enlarging multiloculated air and fluid-filled abscess dorsal to the cuboid and 5th TMT joint.
[2021-03-29 11:48] VITALS: BP 152/70; PULSE 88; RESP 18; TEMP 37.1; O2SAT 99; BMI 43.2
--- NOTE | 2021-03-29 15:17 | PHA.MEDREC ---
Pharmacy Consult ? Medication Reconciliation Pharmacy has completed the medication reconciliation. There are no remarkable issue to report. Patient did not receive any of his IV antibiotics yet today. Aletha Gilliland, PharmD
[2021-03-29] MEDS: 0.9 % Sodium Chloride 1,000 ML 999 ML IVCONT (15:50)
[2021-03-29 16:13] LABS: MANUAL DIFF FLAG NO
[2021-03-29 16:20] LABS: INTERNATIONAL NORM RATIO 1.2 (0.9-1.1); Prothrombin Time 13.6 SEC (9.9-13.0)
[2021-03-29 16:27] VITALS: BP 151/63; PULSE 71; RESP 16; TEMP 37.4; O2SAT 98
--- NOTE | 2021-03-29 16:27 | ED.WOUNDLAC ---
HPI - Wound/Laceration General Chief Complaint: Wound/Laceration Stated Complaint: wound care Time Seen by Provider: 03/29/21 14:07 Source: patient Mode of arrival: ambulatory Limitations: no limitations History of Present Illness HPI narrative: 55-year-old male with a past medical history of diabetes, diabetic foot ulcer complicated with osteomyelitis, hypertension, morbid obesity, status post amputation of the 4th and 5th toes of the right foot who was recently admitted on 03/15/2021- 03/21/2021 for diabetic foot ulcer complicated with osteomyelitis he had a PICC line placed and was being followed by infectious disease placed on Rocephin 1 g IV infusion every 24 hours and Daptomycin Related Data Home Medications Medication Instructions Recorded Confirmed amlodipine 10 mg tablet 10 mg PO BEDTIME 03/15/21 03/29/21 cyanocobalamin (vitamin B-12) 500 500 mcg PO DAILY 03/15/21 03/29/21 mcg tablet (Vitamin B-12) insulin lispro 100 unit/mL 6 unit SUBCUT QIDACHS 03/15/21 03/29/21 subcutaneous pen (Humalog KwikPen (U-100) Insulin) simvastatin 20 mg tablet 20 mg PO BEDTIME 03/15/21 03/29/21 ceftriaxone 1 gram solution for 1 g IV DAILY@1500 03/29/21 03/29/21 injection daptomycin 350 mg intravenous 600 mg IV DAILY@1530 03/29/21 03/29/21 solution Previous Rx's Medication Instructions Recorded clopidogrel 75 mg tablet 75 mg PO DAILY 90 Days #90 tab 05/30/20 insulin glargine 100 unit/mL 60 unit SUBCUT BID 30 Days #36 ml 10/15/20 subcutaneous solution (Lantus U-100 Insulin) lisinopril 40 mg tablet 40 mg PO DAILY #90 tab 03/28/21 Allergies Allergy/AdvReac Type Severity Reaction Status Date / Time aspirin Allergy Severe ANAPHYLAXIS, Verified 01/18/21 10:30 eyes red,swollen PMFSH Past Medical History Medical History (Updated 03/29/21 @ 16:35 by JENIFER Newell) Diabetes mellitus History of wound infection Hypertension Morbid obesity PAD (peripheral artery disease) Surgical History History of amputation of toe (~02/23/20) History of amputation of toe (~06/2017) S/P debridement (~01/2017) Social History Social History Household Members: Spouse Housing: House Do you presently have visiting nurse or other home services: No Alcohol intake: never Patient Tobacco Use Status: Former Tobacco user Advance Directives: No Advance Directives Information Provided: No Current occupational status: employed Physical Exam Vital Signs: Vital Signs: Last Vital Signs Temp 99.3 F 03/29/21 16:27 Pulse 71 03/29/21 16:27 Resp 16 03/29/21 16:27 BP 151/63 H 03/29/21 16:27 Pulse Ox 98 03/29/21 16:27 Body Mass Index 43.2 MDM - Wound/Laceration Lab Data Result diagrams: 03/29/21 16:05 03/29/21 16:05 Labs: Lab Results 03/29/21 03/29/21 Range/Units 15:59 16:05 PT 13.6 H (9.9-13.0) SEC INR 1.2 H (0.9-1.1) Lactic Acid 0.8 (0.5-2.0) mmol/L Discharge Plan Discharge Clinical Impression: Osteomyelitis, Diabetic foot ulcer Patient Disposition: Admitted As Inpatient
[2021-03-29 16:32] LABS: Lactic Acid 0.8 mmol/L (0.5-2.0)
[2021-03-29 16:39] LABS: Basophils Percent Auto 0.1 % (0-2); Eosinophils Percent Auto 0.3 % (0-4); Imm Gran Abs Auto 0.05 X10*3/uL (0.00-0.03); Imm Gran Pct Auto 0.4 % (0.0-0.4); Lymphocytes Absolute Auto 1.5 X10*3/uL (1.2-4.9); Lymphocytes Percent Auto 11.3 % (20-40); Mean Corpuscular HGB Conc 32.4 g/dl (31.0-36.0); Mean Corpuscular Hemoglobin 27.2 pg (27.0-33.0); Mean Corpuscular Volume 83.9 fL (80-98); Monocytes Absolute Auto 0.7 X10*3/uL (0.1-1.2); Monocytes Percent Auto 5.4 % (2-11); Neutrophils Absolute Auto 10.6 X10*3/uL (2.0-8.3); Neutrophils Percent Auto 82.5 % (45-73); Platelet Count 286 X10*3/uL (160-400); Red Blood Count 4.41 X10*6/uL (4.60-5.80); Red Cell Distribution Width 15.1 % (11.0-16.0); White Blood Count 12.9 X10*3/uL (4.8-10.8)
[2021-03-29 16:43] LABS: Anion Gap 16 (12-20); Blood Urea Nitrogen 15 mg/dL (9-16); Calcium 9.9 mg/dL (8.4-10.2); Carbon Dioxide 21 mmol/L (22-29); Chloride 105 mmol/L (96-108); Creatinine Clr Calc Pharmacy 127.1; Estimated Glomerular Filt Rate > 60; Glucose Random 143 mg/dL (60-115); Sodium 137 mmol/L (135-145)
[2021-03-29 16:44] LABS: C Reactive Protein 9.68 mg/dL (< or = 0.50)
--- NOTE | 2021-03-29 16:47 | ED.RECABL ---
HPI - Recheck/Abnormal Lab/Rx General Chief Complaint: Wound/Laceration Stated Complaint: wound care Time Seen by Provider: 03/29/21 14:07 Source: patient Mode of arrival: ambulatory Limitations: no limitations History of Present Illness HPI narrative: 55-year-old male with a past medical history of diabetes, diabetic foot ulcer complicated with osteomyelitis, HTN, HLD, PAD, morbid obesity, status post multiple toe amputations of b/l feet and skin grafts/wound Vac who was recently admitted on 03/15/2021- 03/21/2021 for diabetic foot ulcer complicated with osteomyelitis he had a PICC line placed and was being followed by infectious disease placed on Rocephin 1 g IV infusion every 24 hours and Daptomycin 600mg every 24 hours presenting to the ED with complaints of worsening swelling/drainage/foul smell to the diabetic foot ulcer of the right foot that is complicated with osteomyelitis for 5 days and sent here from [facility] after being seen by wound clinic for further evaluation treatment and admission. He reports his blood glucose levels have been within normal limits. He denies any fevers or chills. He denies any other symptoms complaints concerns or injuries at this time. complaint: wound re-check and needs IV antibiotics Initial visit (ago): week(s) (2 weeks ago) Initial visit for: other (Diabetic foot ulcer/osteomyelitis/sepsis) Returns today for: wound recheck and needs IV antibiotics Symptoms since prior visit: worsening pain, worsening swelling and worsening discharge Context: other (Sent by the wound clinic) Associated symptoms: none Treatments prior to arrival: given antibiotics on (03/15/2021 still taking antibiotics as prescribed) Related Data Home Medications Medication Instructions Recorded Confirmed amlodipine 10 mg tablet 10 mg PO BEDTIME 03/15/21 03/29/21 cyanocobalamin (vitamin B-12) 500 500 mcg PO DAILY 03/15/21 03/29/21 mcg tablet (Vitamin B-12) insulin lispro 100 unit/mL 6 unit SUBCUT QIDACHS 03/15/21 03/29/21 subcutaneous pen (Humalog KwikPen (U-100) Insulin) simvastatin 20 mg tablet 20 mg PO BEDTIME 03/15/21 03/29/21 ceftriaxone 1 gram solution for 1 g IV DAILY@1500 03/29/21 03/29/21 injection daptomycin 350 mg intravenous 600 mg IV DAILY@1530 03/29/21 03/29/21 solution Previous Rx's Medication Instructions Recorded clopidogrel 75 mg tablet 75 mg PO DAILY 90 Days #90 tab 05/30/20 insulin glargine 100 unit/mL 60 unit SUBCUT BID 30 Days #36 ml 10/15/20 subcutaneous solution (Lantus U-100 Insulin) lisinopril 40 mg tablet 40 mg PO DAILY #90 tab 03/28/21 Allergies Allergy/AdvReac Type Severity Reaction Status Date / Time aspirin Allergy Severe ANAPHYLAXIS, Verified 01/18/21 10:30 eyes red,swollen Review of Systems Review of Systems: Constitutional : No Weight loss, No Fever, No Chills, No Night Sweats, No Fatigue, No Malaise ENT/Mouth : No Hearing loss, No Ear Pain, No Nasal Congestion, No Sinus Pain, No Hoarseness, No sore throat, No Rhinorrhea, No Swallowing Difficulty Eyes: No Eye Pain, No Swelling, No Redness, No Foreign Body, No Discharge, No Vision Changes Cardiovascular : No Chest Pain, No SOB, No Dyspnea on Exertion, No Orthopnea, No Edema, No Palpitations Respiratory : No Cough, No Sputum, No Wheezing, No Smoke Exposure, No Dyspnea Gastrointestinal : No Nausea, No Vomiting, No Diarrhea, No Constipation, No abdominal Pain, No Hematochezia, No Melena Genitourinary : no irregular bleeding, No Dysuria, No Urinary Frequency, No Hematuria, No Urinary Incontinence, No Urgency, No Flank Pain, No Urinary Flow Changes, No Hesitancy Musculoskeletal : No Myalgias, Skin : Positive right foot pain/swelling/purulent drainage/foul smell Neuro : No Weakness, No Numbness, No Paresthesias, No Loss of Consciousness, No Dizziness, No Headache Psych : No Anxiety/Panic, No Depression, No SI/HI/AH/VH, No Social Issues, Heme/Lymph: No Bruising, No Bleeding,No Lymphadenopathy Endocrine : No Polyuria, No Polydipsia, No Temperature Intolerance Yes all other systems are reviewed and are negative [facility]LY [facility] Past Medical History Attestation statement: The following information was validated with the patient. Medical History Diabetes mellitus History of wound infection Hypertension Morbid obesity PAD (peripheral artery disease) Surgical History History of amputation of toe (~02/23/20) History of amputation of toe (~06/2017) S/P debridement (~01/2017) Social History Social History Household Members: Spouse Housing: House Do you presently have visiting nurse or other home services: No Alcohol intake: never Patient Tobacco Use Status: Former Tobacco user Smoked in Last 30 Days: No Use of substances other than those prescribed or required for medical reasons: No Advance Directives: No Advance Directives Information Provided: No Current occupational status: employed Physical Exam Vital Signs: Vital Signs: Last Vital Signs Temp 99.3 F 03/29/21 16:27 Pulse 71 03/29/21 16:27 Resp 16 03/29/21 16:27 BP 151/63 H 03/29/21 16:27 Pulse Ox 98 03/29/21 16:27 Body Mass Index 43.2 vital signs have been reviewed as normal and appeared to be correct. Blood pressure normal. Heart rate normal. Respiration rate normal. Temperature normal. Oxygen saturation normal. Appearance: Alert. Oriented X3. No acute distress. Head: Normal external exam. Normocephalic. Atraumatic. Eyes: PERRLA. EOMI. Conjunctiva and sclera normal. Eyelids normal. ENT: Pharynx normal. Uvula midline. Moist mucous membranes. Neck: Normal inspection. Neck supple. FROM. No adenopathy. No meningeal signs. CVS: Normal heart rate and rhythm. Heart sound normal. Pulses normal throughout. No murmurs/rales/gallops. Respiratory: No respiratory distress. Painless inspiration. Breath sounds normal. No wheezes/rales/rhonchi noted. Chest nontender. No accessory muscle usage noted or decreased air movement noted. Back: Full range of motion noted. No rashes/lesion/induration/fluctuance or signs of infection noted. Extremities: No lower extremity edema. Extremities exhibit normal range of motion. Extremities nontender. Neuro: Oriented X 3. No motor deficit. No sensory deficit. Reflexes normal. Normal steady gait. No focal neuro deficits noted. Vascular: + radial pulses/+ 2 distal pedal pulses/+2 dorsalis pedis b/l. Normal cap refill. No cyanosis noted to upper extremity nails and lower extremity toes nails. Skin: Skin warm and dry. Normal skin color. Normal skin turgor. See below for right foot diabetic foot wound with osteomyelitis appears to have purulent mal-odorous drainage. No additional rashes/lesions/lacerations noted. Course Course Course Narrative: 14:40pm - 55-year-old male with a past medical history of diabetes, diabetic foot ulcer complicated with osteomyelitis, HTN, HLD, PAD, morbid obesity, status post multiple toe amputations of b/l feet and skin grafts/wound Vac who was recently admitted on 03/15/2021- 03/21/2021 for diabetic foot ulcer complicated with osteomyelitis he had a PICC line placed and was being followed by infectious disease placed on Rocephin 1 g IV infusion every 24 hours and Daptomycin 600mg every 24 hours presenting to the ED with complaints of worsening swelling/drainage/foul smell to the diabetic foot ulcer of the right foot that is complicated with osteomyelitis for 5 days and sent here from Wound Clinic after being seen by wound clinic for further evaluation treatment and admission. He reports his blood glucose levels have been within normal limits. Plan: Labs, blood cultures, lactic acid, x-ray of right foot. Provide IV fluids 30mg/kg protocol, restart the patient on IV 2 gm of Rocephin and 600 mg of Daptomycin and plan will be to admit for worsening diabetic foot ulcer complicated with osteomyelitis requiring debridement possible amputation. Patient understands and agrees with this plan. Reevaluation(s) Reevaluation #1: - Elevated WBC/leukocytosis at 12,000. - baseline anemia similar when compared to prior. - ESR 78. - PT/INR 13.6/1.2. - carbon dioxide 21. - random glucose 143. - CRP 9.68. - otherwise all other labs are within normal limits. - COVID/RSV/flu negative. 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 Elizondo the general surgeon and he reported that the patient can be admitted to the hospitalist service and he will see the patient while he is admitted - patient understands agrees with this plan. Time: 17:26 Reevaluation #2: - Dr. Metzger was consulted by [facility] and he reported that the patient will be admitted by the turn machine operator provider. Time: 17:46 MDM - Recheck/Abnormal Lab/Rx Medical Records Attestation: I reviewed the patient's medical records. Lab Data Attestation: I reviewed the patient's lab results. Result diagrams: 03/29/21 16:05 03/29/21 16:05 Labs: Lab Results 03/29/21 03/29/21 03/29/21 Range/Units 15:58 15:59 16:05 WBC 12.9 H (4.8-10.8) X10*3/uL RBC 4.41 L (4.60-5.80) X10*6/uL Hgb 12.0 L (14.0-18.0) g/dl Hct 37.0 L (42-52) % MCV 83.9 (80-98) fL MCH 27.2 (27.0-33.0) pg MCHC 32.4 (31.0-36.0) g/dl RDW 15.1 (11.0-16.0) % Plt Count 286 (160-400) X10*3/uL MPV 11.0 (9.4-12.4) fL Immature Gran % (Auto) 0.4 (0.0-0.4) % Neut % (Auto) 82.5 H (45-73) % Lymph % (Auto) 11.3 L (20-40) % [place] % (Auto) 5.4 (2-11) % Eos % (Auto) 0.3 (0-4) % Baso % (Auto) 0.1 (0-2) % Lymph # (Auto) 1.5 (1.2-4.9) X10*3/uL [place] # (Auto) 0.7 (0.1-1.2) X10*3/uL Eos # (Auto) 0.0 (0.0-0.4) X10*3/uL Baso # (Auto) 0.0 (0.0-0.2) X10*3/uL Abs Immat Gran (auto) 0.05 H (0.00-0.03) X10*3/uL Absolute Neuts (auto) 10.6 H (2.0-8.3) X10*3/uL Absolute Nucleated RBC 0.000 (0.0-0.012) X10*3/uL Nucleated RBC % (auto) 0.0 (0.0-0.2) /100WBC ESR (0-15) MM/HR PT 13.6 H (9.9-13.0) SEC INR 1.2 H (0.9-1.1) Sodium (135-145) mmol/L Potassium (3.3-5.1) mmol/L Chloride (96-108) mmol/L Carbon Dioxide (22-29) mmol/L Anion Gap (12-20) BUN (9-16) mg/dL Creatinine (0.5-1.4) mg/dL Estim Creat Clear Calc Estimated GFR Random Glucose (60-115) mg/dL Lactic Acid (0.5-2.0) mmol/L Calcium (8.4-10.2) mg/dL Magnesium (1.6-2.6) mg/dL C-Reactive Protein (< or = 0.50) mg/dL Coronavirus (PCR) NEGATIVE (Negative) Influenza Type A (PCR) NEGATIVE (Negative) Influenza Type B (PCR) NEGATIVE (Negative) RSV RNA Qual (PCR) NEGATIVE (Negative) 03/29/21 03/29/21 03/29/21 Range/Units 16:05 16:05 16:05 WBC (4.8-10.8) X10*3/uL RBC (4.60-5.80) X10*6/uL Hgb (14.0-18.0) g/dl Hct (42-52) % MCV (80-98) fL MCH (27.0-33.0) pg MCHC (31.0-36.0) g/dl RDW (11.0-16.0) % Plt Count (160-400) X10*3/uL MPV (9.4-12.4) fL Immature Gran % (Auto) (0.0-0.4) % Neut % (Auto) (45-73) % Lymph % (Auto) (20-40) % [place] % (Auto) (2-11) % Eos % (Auto) (0-4) % Baso % (Auto) (0-2) % Lymph # (Auto) (1.2-4.9) X10*3/uL [place] # (Auto) (0.1-1.2) X10*3/uL Eos # (Auto) (0.0-0.4) X10*3/uL Baso # (Auto) (0.0-0.2) X10*3/uL Abs Immat Gran (auto) (0.00-0.03) X10*3/uL Absolute Neuts (auto) (2.0-8.3) X10*3/uL Absolute Nucleated RBC (0.0-0.012) X10*3/uL Nucleated RBC % (auto) (0.0-0.2) /100WBC ESR (0-15) MM/HR PT (9.9-13.0) SEC INR (0.9-1.1) Sodium 137 (135-145) mmol/L Potassium 5.0 (3.3-5.1) mmol/L Chloride 105 (96-108) mmol/L Carbon Dioxide 21 L (22-29) mmol/L Anion Gap 16 (12-20) BUN 15 (9-16) mg/dL Creatinine 0.84 (0.5-1.4) mg/dL Estim Creat Clear Calc 127.1 Estimated GFR > 60 Random Glucose 143 H D (60-115) mg/dL Lactic Acid 0.8 (0.5-2.0) mmol/L Calcium 9.9 (8.4-10.2) mg/dL Magnesium 2.0 (1.6-2.6) mg/dL C-Reactive Protein (< or = 0.50) mg/dL Coronavirus (PCR) (Negative) Influenza Type A (PCR) (Negative) Influenza Type B (PCR) (Negative) RSV RNA Qual (PCR) (Negative) 03/29/21 03/29/21 Range/Units 16:05 16:05 WBC (4.8-10.8) X10*3/uL RBC (4.60-5.80) X10*6/uL Hgb (14.0-18.0) g/dl Hct (42-52) % MCV (80-98) fL MCH (27.0-33.0) pg MCHC (31.0-36.0) g/dl RDW (11.0-16.0) % Plt Count (160-400) X10*3/uL MPV (9.4-12.4) fL Immature Gran % (Auto) (0.0-0.4) % Neut % (Auto) (45-73) % Lymph % (Auto) (20-40) % [place] % (Auto) (2-11) % Eos % (Auto) (0-4) % Baso % (Auto) (0-2) % Lymph # (Auto) (1.2-4.9) X10*3/uL [place] # (Auto) (0.1-1.2) X10*3/uL Eos # (Auto) (0.0-0.4) X10*3/uL Baso # (Auto) (0.0-0.2) X10*3/uL Abs Immat Gran (auto) (0.00-0.03) X10*3/uL Absolute Neuts (auto) (2.0-8.3) X10*3/uL Absolute Nucleated RBC (0.0-0.012) X10*3/uL Nucleated RBC % (auto) (0.0-0.2) /100WBC ESR 78 H (0-15) MM/HR PT (9.9-13.0) SEC INR (0.9-1.1) Sodium (135-145) mmol/L Potassium (3.3-5.1) mmol/L Chloride (96-108) mmol/L Carbon Dioxide (22-29) mmol/L Anion Gap (12-20) BUN (9-16) mg/dL Creatinine (0.5-1.4) mg/dL Estim Creat Clear Calc Estimated GFR Random Glucose (60-115) mg/dL Lactic Acid (0.5-2.0) mmol/L Calcium (8.4-10.2) mg/dL Magnesium (1.6-2.6) mg/dL C-Reactive Protein 9.68 H (< or = 0.50) mg/dL Coronavirus (PCR) (Negative) Influenza Type A (PCR) (Negative) Influenza Type B (PCR) (Negative) RSV RNA Qual (PCR) (Negative) Imaging Data X-ray of right foot: Attestation: I personally reviewed and interpreted this imaging study as follows: Radiologist's impression: FINDINGS: The 4th of the 5th metatarsal and the digits have been amputated. There is heterogeneous bony changes seen along the proximal 1st through 3rd metatarsals and the tarsal bones. No bony erosive changes or periosteal thickening seen along the base of the right midfoot region to suspect osteomyelitis. There is a moderate size calcaneal heel enthesophyte with fracture. The soft tissues are normal. XR/XR foot RT min 3V IMPRESSION: Heterogeneous bone along the proximal metatarsals 1st-3rd digits and the tarsal bones. The findings are consistent with Charcot changes. There are no bony erosive changes, suspicious. There is mild soft tissue swelling along the lateral midfoot region. The ankle mortise and subtalar joints are normal. ? The 4th and 5th metatarsals and the digits have been surgically removed. Critical Care Time Critical Care Time Critical Care Time: Yes Total Critical Care Time: 60 Attestation: I personally attest to this time spent taking care of the patient Discharge Plan Discharge Clinical Impression: Osteomyelitis, Diabetic foot ulcer Patient Disposition: Admitted As Inpatient
[2021-03-29 16:49] LABS: Influenza A PCR NEGATIVE (Negative); Influenza B PCR NEGATIVE (Negative); Resp Syncy Virus RNA Qual PCR NEGATIVE (Negative); SARS COV2 PCR INHOUSE NEGATIVE (Negative)
[2021-03-29] MEDS: 0.9 % Sodium Chloride 2,052 ML 2052 ML IV (16:54)
[2021-03-29] MEDS: cefTRIAXone sodium 2 GM in 0.9 % Sodium Chloride 50 ML IV (16:54)
[2021-03-29 17:03] LABS: Erythrocyte Sedimentation Rate 78 MM/HR (0-15)
[2021-03-29] MEDS: DAPTOmycin 600 MG in 0.9 % Sodium Chloride 50 ML 100 MG IV (17:50)
[2021-03-29 20:00] VITALS: BP 147/60; PULSE 65; RESP 15; TEMP 37.4; O2SAT 98
--- NOTE | 2021-03-29 21:16 | PM.IMHP ---
History of Present Illness Date of Service: 03/29/21 Chief Complaint: Right foot pain and drainage 55-year-old male with recent history of hospitalization here (was discharged from this hospital on 03/21/2021 after being diagnosed with right foot infected chronic ulcer positive for MRSA, treated with IV daptomycin and IV ceftriaxone); also has history of diabetes mellitus (insulin dependent), hypertension, morbid obesity, peripheral artery disease, who presents with right foot pain and swelling and drainage. History is from the patient and from ED notes. Patient states that after he was discharged from this hospital on 03/21/2021, he continued treatment with IV daptomycin and IV ceftriaxone, and states that he was compliant on these treatments. He was also compliant with following up with his infectious disease doctor as well as with wound care center. Patient endorses that 6 days ago, he started having slight pain on the lateral right foot as well as his ankle joint, and his began to notice increased drainage from the right foot wound (drainage was initially pink/clear, but starts to turn brown in color). Afterwards, he started experiencing worsening swelling on the right lateral foot, when he went to his wound care appointment today, he was encouraged to go to the ED for further workup. Otherwise, he denies fever, chills, nausea, vomiting, chest pain, shortness of breath. In the ED, the patient was treated with 3 L IV fluids, IV daptomycin and IV ceftriaxone. Review of Systems Constitutional: Constitutional: Denies chills, Denies fatigue, Denies fever(s), Denies headache(s), Denies weakness and Denies weight loss Eyes: Eyes: Denies blurry vision, Denies change in vision, Denies diplopia and Denies loss of vision ENT: Denies dysphagia, Denies vertigo, Denies dizziness, Denies headache(s), Denies hearing loss, Denies lip swelling and Denies sore throat Cardiovascular: Cardiovascular: Denies chest pain, Denies leg edema, Denies lightheadedness, Denies palpitations and Denies dyspnea Respiratory: Respiratory: Denies no additional respiratory complaints, Denies cough, Denies dyspnea and Denies wheezing Gastrointestinal: Gastrointestinal: Denies coffee ground emesis, Denies constipation, Denies dysphagia, Denies diarrhea, Denies nausea and Denies vomiting Genitourinary: Genitourinary: Denies dysuria Musculoskeletal: Musculoskeletal: Reports arthralgias, Reports joint swelling, Denies muscle weakness, Denies numbness, Denies tingling and Reports other (Drainage from right foot wound) Integumentary/Breasts: Skin/Breast: Denies bleeding lesions, Denies new lesions, Denies rash and Reports skin ulcer Neurologic: Denies vertigo, Denies dizziness, Denies headache(s), Denies loss of vision, Denies numbness, Denies tingling and Denies weakness Psychiatric: Psychiatric: Denies anxiety and Denies depression Endocrine: Endocrine: Denies cold intolerance, Denies fatigue, Denies heat intolerance and Denies palpitations Hematologic/Lymphatic: Hematologic/Lymphatic: Denies easy bleeding, Denies easy bruising and Denies lymphadenopathy Allergic/Immunologic: Allergic/Immunologic: Denies lip swelling and Denies wheezing PMFSH Medical History Diabetes mellitus History of wound infection Hypertension Morbid obesity PAD (peripheral artery disease) Pertinent family history: Father with history of hypertension. Mother with history of diabetes mellitus. Family history: reviewed and not pertinent Surgical History History of amputation of toe (~02/23/20) History of amputation of toe (~06/2017) S/P debridement (~01/2017) Social History Household Members: Spouse Housing: House Do you presently have visiting nurse or other home services: No Alcohol intake: never Patient Tobacco Use Status: Former Tobacco user Smoked in Last 30 Days: No Use of substances other than those prescribed or required for medical reasons: No Advance Directives: No Advance Directives Information Provided: No Current occupational status: employed Meds Allergies Allergy/AdvReac Type Severity Reaction Status Date / Time aspirin Allergy Severe ANAPHYLAXIS, Verified 01/18/21 10:30 eyes red,swollen Active Medications: Current Medications Generic Name Dose Route Start Last Admin Trade Name Freq PRN Reason Stop Dose Admin Acetaminophen 650 mg 03/29/21 21:07 Acetaminophen 325 Mg Tablet PO Q6H PRN Pain, Mild (Pain Scale 1-3) Enoxaparin Sodium 40 mg 03/29/21 21:15 Enoxaparin Sodium 40 Mg/0.4 Ml Syringe SUBCUT Q24H JAMIE Sodium Chloride 1,000 mls @ 100 mls/hr 03/29/21 23:55 Ns IVCONT 03/30/21 09:54 .Q10H [facility] Pharmacy Consult 1 each 03/29/21 14:34 Consult Rx Perform Med Rec MISCELLANE ONCE PRN Consult order Sodium Chloride 3 ml 03/30/21 00:00 0.9 % Sodium Chloride Flush 3 Ml Syringe IVFLUSH QSHIFT [facility] Home Medications Medication Instructions Recorded Confirmed Last Taken Type amlodipine 10 mg tablet 10 mg PO BEDTIME 03/15/21 03/29/21 03/29/21 History cyanocobalamin (vitamin B-12) 500 500 mcg PO DAILY 03/15/21 03/29/21 03/29/21 History mcg tablet (Vitamin B-12) insulin lispro 100 unit/mL 6 unit SUBCUT QIDACHS 03/15/21 03/29/21 03/29/21 History subcutaneous pen (Humalog KwikPen (U-100) Insulin) simvastatin 20 mg tablet 20 mg PO BEDTIME 03/15/21 03/29/21 03/29/21 History ceftriaxone 1 gram solution for 1 g IV DAILY@1500 03/29/21 03/29/21 03/28/21 History injection daptomycin 350 mg intravenous 600 mg IV DAILY@1530 03/29/21 03/29/21 03/28/21 History solution Physical Exam Vital Signs and Narrative: Vital Signs: Last Vital Signs Temp 99.3 F 03/29/21 16:27 Pulse 71 03/29/21 16:27 Resp 16 03/29/21 16:27 BP 151/63 H 03/29/21 16:27 Pulse Ox 98 03/29/21 16:27 Body Mass Index 43.2 Const: General: no acute distress, well developed and alert HENMT: Face and sinus: Yes normal facial exam and Yes face symmetric Mouth: Normal oral and palatal mucosa present and moist mucous membranes Throat: Yes posterior oropharynx normal and Yes tonsils normal Eyes: General: appearance normal, both eyes and all related structures Alignment and Position: alignment normal and position normal Sclerae: sclerae normal Pupils: Equal, round and reactive pupils present EOM: EOMs intact bilaterally Neck: Yes normal visual inspection, Yes full ROM and Yes no lymphadenopathy Lymphatic: no lymphadenopathy noted Chest: Chest palpation & inspection: normal inspection of the chest, no tenderness and No rash Resp: Effort & Inspection: normal respiratory effort and able to speak in complete sentences Auscultation: clear to auscultation bilaterally, no crackles, no rales, no rhonchi and no wheezes Cardio: Rate: regular rate Rhythm: regular rhythm Heart sounds: S1 normal heart sound present, S2 normal heart sound present, no murmurs and no rubs GI: Inspection: No distended Palpation (GI): Soft to palpation and nontender Percussion: No tympanic to percussion Auscultation: normal bowel sounds Skin: Rashes: no rashes Trauma: no lacerations or abrasions Wounds: no wounds Neuro: Cranial nerves: Yes CN's II-XII intact bilaterally, Yes Equal, round and reactive pupils present and Yes Bilaterally intact EOM present Extrem: Other: Large chronic ulcer on her right foot; per picture appears to be about 5-7 cm in diameter. General: Yes full ROM Right lower extremity: edema and foot (Large chronic ulcer noted on the right foot) Psych: Appearance: grossly normal Mental Status: mental status grossly normal Speech and movement: Normal speech and movement present Affect: normal affect Thought process: Normal thought process present Results Labs CBC and Chem 7: 03/29/21 16:05 03/29/21 16:05 Labs: Laboratory Results - last 24 hr 03/29/21 03/29/21 03/29/21 15:58 15:59 16:05 MCV 83.9 MCH 27.2 MCHC 32.4 RDW 15.1 Plt Count 286 MPV 11.0 Immature Gran % (Auto) 0.4 Neut % (Auto) 82.5 H Lymph % (Auto) 11.[address] [place] % (Auto) 5.4 Eos % (Auto) 0.3 Baso % (Auto) 0.1 Lymph # (Auto) 1.5 [place] # (Auto) 0.7 Eos # (Auto) 0.0 Baso # (Auto) 0.0 Abs Immat Gran (auto) 0.05 H Absolute Neuts (auto) 10.6 H Absolute Nucleated RBC 0.000 Nucleated RBC % (auto) 0.0 ESR PT 13.6 H INR 1.2 H Anion Gap Estim Creat Clear Calc Estimated GFR Random Glucose Lactic Acid Calcium Magnesium C-Reactive Protein Coronavirus (PCR) NEGATIVE Influenza Type A (PCR) NEGATIVE Influenza Type B (PCR) NEGATIVE RSV RNA Qual (PCR) NEGATIVE 03/29/21 03/29/21 03/29/21 16:05 16:05 16:05 MCV MCH MCHC RDW Plt Count MPV Immature Gran % (Auto) Neut % (Auto) Lymph % (Auto) [place] % (Auto) Eos % (Auto) Baso % (Auto) Lymph # (Auto) [place] # (Auto) Eos # (Auto) Baso # (Auto) Abs Immat Gran (auto) Absolute Neuts (auto) Absolute Nucleated RBC Nucleated RBC % (auto) ESR PT INR Anion Gap 16 Estim Creat Clear Calc 127.1 Estimated GFR > 60 Random Glucose 143 H D Lactic Acid 0.8 Calcium 9.9 Magnesium 2.0 C-Reactive Protein Coronavirus (PCR) Influenza Type A (PCR) Influenza Type B (PCR) RSV RNA Qual (PCR) 03/29/21 03/29/21 16:05 16:05 MCV MCH MCHC RDW Plt Count MPV Immature Gran % (Auto) Neut % (Auto) Lymph % (Auto) [place] % (Auto) Eos % (Auto) Baso % (Auto) Lymph # (Auto) [place] # (Auto) Eos # (Auto) Baso # (Auto) Abs Immat Gran (auto) Absolute Neuts (auto) Absolute Nucleated RBC Nucleated RBC % (auto) ESR 78 H PT INR Anion Gap Estim Creat Clear Calc Estimated GFR Random Glucose Lactic Acid Calcium Magnesium C-Reactive Protein 9.68 H Coronavirus (PCR) Influenza Type A (PCR) Influenza Type B (PCR) RSV RNA Qual (PCR) Imaging Radiologist's Impressions: Impressions Foot X-Ray 03/29/21 14:34 IMPRESSION: Heterogeneous bone along the proximal metatarsals 1st-3rd digits and the tarsal bones. The findings are consistent with Charcot changes. There are no bony erosive changes, suspicious. There is mild soft tissue swelling along the lateral midfoot region. The ankle mortise and subtalar joints are normal. The 4th and 5th metatarsals and the digits have been surgically removed. Assessment and Plan (1) Diabetic foot ulcer: Status: Acute -patient with chronic right foot ulcer, was discharged on 03/21/2021 after being diagnosed with MRSA infection, was continued on IV daptomycin and IV ceftriaxone as an outpatient, returns because of worsening pain/swelling/drainage on the right foot (concerning for worsening infection/possible osteomyelitis) -imaging does not suggest osteomyelitis at this point -general surgery consult placed -infectious disease consult placed -continue IV daptomycin and IV ceftriaxone for now (ID to suggest antibiotics) -NPO after midnight (think a general surgeon needs to do any procedures) (2) Right foot pain: Status: Acute -secondary to above, workup and treatment as per above (3) Morbid obesity: Status: Acute -noted (4) Hypertension: Status: Acute -continue home medications (5) Diabetes mellitus: Status: Acute -at home, patient takes Lantus 60 units b.i.d.; will hold this for now given NPO status -starting patient on the following: Lantus 20 units b.i.d., insulin sliding scale with blood sugar checks FEN: NPO after midnight; IVF at 100 cc/hr x 1 L total CODE STATUS: FULL CODE DISPO: Admit to Inpatient. Quality Stroke Does the patient have a stroke diagnosis?: No VTE Prior VTE?: No VTE Risk Level:: Medical - moderate - high VTE Device Contraindication: Procedure Contraindicated VTE Drug Contraindication: N/A - Med Ordered
[2021-03-29 21:28] LABS: Glucose, Whole Blood 82 mg/dL (60-115)
[2021-03-29 22:27] VITALS: BP 138/66; PULSE 94; RESP 16; TEMP 36.8; O2SAT 97
[2021-03-29 22:30] LABS: Glucose Urine UA NEG (NEG); Leukocyte Esterase Urine NEG (NEG); Nitrite Urine NEG (NEG); Specific Gravity - Urine 1.025 (1.005-1.025); Urine Blood NEG (NEG); Urine Ketones NEG (NEG); Urine Protein NEG (NEG-TRACE)
[2021-03-29 22:32] LABS: Appearance Urine CLEAR; Color Urine YELLOW
--- NOTE | 2021-03-29 23:37 | PC.NURSE ---
Patient's insulin held due to blood sugar of 82. Patient given a sandwich as well as juice. Hospitalist aware
[2021-03-30 00:25] VITALS: BP 156/60; PULSE 80; RESP 18; TEMP 37.1; O2SAT 96
[2021-03-30] MEDS: Enoxaparin Sodium 40 MG/0.4 ML SYRINGE SUBCUT ×2 (00:28→22:32)
[2021-03-30] MEDS: 0.9 % Sodium Chloride 1,000 ML 100 ML IVCONT (00:28)
[2021-03-30 00:30] LABS: Glucose, Whole Blood 134 mg/dL (60-115)
[2021-03-30 00:52] VITALS: BMI 43.2
[2021-03-30 06:22] LABS: Glucose, Whole Blood 76 mg/dL (60-115)
[2021-03-30 06:28] LABS: MANUAL DIFF FLAG NO
[2021-03-30 07:10] LABS: Basophils Percent Auto 0.2 % (0-2); Eosinophils Absolute Auto 0.1 X10*3/uL (0.0-0.4); Eosinophils Percent Auto 1.1 % (0-4); Hematocrit 38.1 % (42-52); Hemoglobin 12.3 g/dl (14.0-18.0); Imm Gran Abs Auto 0.04 X10*3/uL (0.00-0.03); Imm Gran Pct Auto 0.5 % (0.0-0.4); Lymphocytes Absolute Auto 1.7 X10*3/uL (1.2-4.9); Mean Corpuscular Hemoglobin 27.2 pg (27.0-33.0); Mean Corpuscular Volume 84.1 fL (80-98); Mean Platelet Volume 12.1 fL (9.4-12.4); Monocytes Absolute Auto 0.6 X10*3/uL (0.1-1.2); Monocytes Percent Auto 7.4 % (2-11); Neutrophils Absolute Auto 6.3 X10*3/uL (2.0-8.3); Neutrophils Percent Auto 71.8 % (45-73); Platelet Count 238 X10*3/uL (160-400); Red Blood Count 4.53 X10*6/uL (4.60-5.80); Red Cell Distribution Width 15.4 % (11.0-16.0); White Blood Count 8.7 X10*3/uL (4.8-10.8)
[2021-03-30 07:15] VITALS: BP 139/68; PULSE 62; RESP 18; TEMP 36.8; O2SAT 98
[2021-03-30 07:18] LABS: Mean Corpuscular HGB Conc 32.3 g/dl (31.0-36.0)
[2021-03-30 07:20] LABS: Anion Gap 17 (12-20); Blood Urea Nitrogen 13 mg/dL (9-16); Calcium 9.1 mg/dL (8.4-10.2); Carbon Dioxide 18 mmol/L (22-29); Chloride 107 mmol/L (96-108); Creatinine Clr Calc Pharmacy 142.3; Estimated Glomerular Filt Rate > 60; Glucose Random 71 mg/dL (60-115); Sodium 137 mmol/L (135-145)
--- NOTE | 2021-03-30 08:35 | P.CONGS_ITS ---
History of Present Illness Consult details Consult date: 03/30/21 Narrative: 55-year-old male, well known to me, admitted last night because of a diabetic foot ulcer. He has longstanding diabetes. He had amputation of 1st and 2nd toes last year. He was admitted to the hospital last March 14, 2021 because of the diabetic foot ulcer on the plantar aspect. His CAT scan had shown osteomyelitis of the cuboid bone and possibly the 3rd metatarsal. I had brought him to the OR for debridement of exposed bone. He was discharged last March 21, 2021. However, he says that he had pain again for the past 2 days on the dorsal lateral aspect. He denies any fever. He has noticed significant drainage so he came back to the ER last night. He says his blood sugars have been ?okay?. Review of Systems Constitutional: Constitutional: Denies chills and Denies fever(s) Cardiovascular: Cardiovascular: Denies chest pain, Denies dyspnea and Denies dyspnea on exertion Respiratory: Respiratory: Denies cough, Denies dyspnea and Denies dyspnea on exertion Gastrointestinal: Gastrointestinal: Denies hematochezia and Denies change in bowel habits Genitourinary: Genitourinary: Denies hematuria and Denies difficulty urinating Musculoskeletal: Musculoskeletal: Denies back pain and Denies limited range of motion Neurologic: Denies focal weakness and Denies convulsions Psychiatric: Psychiatric: Denies depression and Denies mood swings PMFSH Past Medical History Medical History Diabetes mellitus History of wound infection Hypertension Morbid obesity PAD (peripheral artery disease) Family History Family history: reviewed and not pertinent Surgical History Surgical History History of amputation of toe (~02/23/20) History of amputation of toe (~06/2017) S/P debridement (~01/2017) Social History Social History Household Members: Spouse Housing: House Do you presently have visiting nurse or other home services: No Alcohol intake: never Patient Tobacco Use Status: Former Tobacco user Smoked in Last 30 Days: No Use of substances other than those prescribed or required for medical reasons: No Advance Directives: No Advance Directives Information Provided: No Current occupational status: employed Meds Allergies Allergy/AdvReac Type Severity Reaction Status Date / Time aspirin Allergy Severe ANAPHYLAXIS, Verified 01/18/21 10:30 eyes red,swollen Active Medications: Current Medications Generic Name Dose Route Start Last Admin Trade Name Freq PRN Reason Stop Dose Admin Acetaminophen 650 mg 03/29/21 21:07 Acetaminophen 325 Mg Tablet PO Q6H PRN Pain, Mild (Pain Scale 1-3) Dextrose 25 gm 03/29/21 21:34 Dextrose 50 % 25 Gm/50 Ml Vial IVPUSH Q15M PRN per Hypoglycemia Standing Ord. Protocol Enoxaparin Sodium 40 mg 03/29/21 22:00 03/30/21 00:28 Enoxaparin Sodium 40 Mg/0.4 Ml Syringe SUBCUT 40 mg Q24H JAMIE Administration Glucose 15 gm 03/29/21 21:34 Glucose Gel 15 Gm Gel..Gram. PO Q15M PRN per Hypoglycemia Standing Ord. Protocol Sodium Chloride 1,000 mls @ 100 mls/hr 03/29/21 23:55 03/30/21 00:28 Ns IVCONT 03/30/21 09:54 100 mls/hr .Q10H JAMIE Administration Daptomycin 600 mg/ Sodium 62 mls @ 100 mls/hr 03/30/21 17:00 Chloride IV Q24H JAMIE Ceftriaxone Sodium 2 gm/ 50 mls @ 100 mls/hr 03/30/21 16:00 Sodium Chloride IV Q24H [facility] Insulin Glargine 20 unit 03/30/21 21:33 Insulin Glargine,Hum.Rec.Anlog 100 Unit/Ml 10 Ml Vial SUBCUT BID [facility] Insulin Human Lispro 0 unit 03/30/21 00:00 03/30/21 06:19 Insulin Lispro 100 Unit/Ml 3 Ml Vial SUBCUT Not Given Q6H [facility] Protocol Pharmacy Consult 1 each 03/29/21 14:34 Consult Rx Perform Med Rec MISCELLANE ONCE PRN Consult order Sodium Chloride 3 ml 03/30/21 00:00 03/30/21 08:10 0.9 % Sodium Chloride Flush 3 Ml Syringe IVFLUSH Not Given QSHIFT [facility] Home Medications Medication Instructions Recorded Confirmed Last Taken Type amlodipine 10 mg tablet 10 mg PO BEDTIME 03/15/21 03/29/21 03/29/21 History cyanocobalamin (vitamin B-12) 500 500 mcg PO DAILY 0803/29/21 03/29/21 History mcg tablet (Vitamin B-12) insulin lispro 100 unit/mL 6 unit SUBCUT QIDACHS 03/15/21 03/29/21 03/29/21 History subcutaneous pen (Humalog KwikPen (U-100) Insulin) simvastatin 20 mg tablet 20 mg PO BEDTIME 03/15/21 03/29/21 03/29/21 History ceftriaxone 1 gram solution for 1 g IV DAILY@1500 03/29/21 03/29/21 03/28/21 History injection daptomycin 350 mg intravenous 600 mg IV DAILY@1530 03/29/21 03/29/21 03/28/21 History solution Physical Exam 2 Vital Signs: Vital Signs: Last Vital Signs Temp 98.2 F 03/30/21 07:15 Pulse 62 03/30/21 07:15 Resp 18 03/30/21 07:15 BP 139/68 03/30/21 07:15 Pulse Ox 98 03/30/21 07:15 Body Mass Index 43.2 Const: Other: Chemistry 03/29/21 03/30/21 16:05 05:34 Sodium 137 137 Potassium 5.0 5.0 Carbon Dioxide 21 L 18 L BUN 15 13 Creatinine 0.84 0.75 Calcium 9.9 9.1 D Hematology 03/29/21 03/30/21 16:05 05:34 WBC 12.9 H 8.7 Hgb 12.0 L 12.3 L Plt Count 286 238 Urinalysis 03/29/21 22:21 Urine Color YELLOW Urine Appearance CLEAR Urine pH 6.0 Ur Specific Gravit y 1.025 Urine Protein NEG Urine Glucose (UA) NEG Urine Ketones NEG Urine Blood NEG Urine Nitrite NEG Ur Leukocyte Elisha ase NEG General: comfortable and no acute distress Orientation/consciousness: pa tient oriented x3 Neck: Neck: Yes no lymphadenopathy Resp: Auscultation: clear to auscultation bilaterally Cardio: Rhythm: regular rhythm GI: Palpation (GI): Soft to palpation, nontender and no guarding Neuro: General: patient oriented x3 Extrem: Other: edema, with chroni c trophic changes of the right leg, right foot chronic ally swollen, the open wound, about 4.0 cm, with a myron p ulcer, with palp able and visible b one; thick callous surrounding parts of the wound note d, Redness on the dorsal lateral are a, with induration Results Labs Result diagrams: 03/30/21 05:34 03/30/21 05:34 Labs: Abnormal lab results 03/29/21 03/29/21 03/29/21 Range/Units 15:59 16:05 16:05 WBC 12.9 H (4.8-10.8) X10*3/uL RBC 4.41 L (4.60-5.80) X10*6/uL Hgb 12.0 L (14.0-18.0) g/dl Hct 37.0 L (42-52) % Immature Gran % (Auto) (0.0-0.4) % Neut % (Auto) 82.5 H (45-73) % Lymph % (Auto) 11.3 L (20-40) % Abs Immat Gran (auto) 0.05 H (0.00-0.03) X10*3/uL Absolute Neuts (auto) 10.6 H (2.0-8.3) X10*3/uL ESR (0-15) MM/HR PT 13.6 H (9.9-13.0) SEC INR 1.2 H (0.9-1.1) Carbon Dioxide 21 L (22-29) mmol/L POC Glucose (60-115) mg/dL Random Glucose 143 H D (60-115) mg/dL C-Reactive Protein (< or = 0.50) mg/dL 03/29/21 03/29/21 03/30/21 Range/Units 16:05 16:05 00:27 WBC (4.8-10.8) X10*3/uL RBC (4.60-5.80) X10*6/uL Hgb (14.0-18.0) g/dl Hct (42-52) % Immature Gran % (Auto) (0.0-0.4) % Neut % (Auto) (45-73) % Lymph % (Auto) (20-40) % Abs Immat Gran (auto) (0.00-0.03) X10*3/uL Absolute Neuts (auto) (2.0-8.3) X10*3/uL ESR 78 H (0-15) MM/HR PT (9.9-13.0) SEC INR (0.9-1.1) Carbon Dioxide (22-29) mmol/L POC Glucose 134 H (60-115) mg/dL Random Glucose (60-115) mg/dL C-Reactive Protein 9.68 H (< or = 0.50) mg/dL 03/30/21 03/30/21 Range/Units 05:34 05:34 WBC (4.8-10.8) X10*3/uL RBC 4.53 L (4.60-5.80) X10*6/uL Hgb 12.3 L (14.0-18.0) g/dl Hct 38.1 L (42-52) % Immature Gran % (Auto) 0.5 H (0.0-0.4) % Neut % (Auto) (45-73) % Lymph % (Auto) 19.0 L (20-40) % Abs Immat Gran (auto) 0.04 H (0.00-0.03) X10*3/uL Absolute Neuts (auto) (2.0-8.3) X10*3/uL ESR (0-15) MM/HR PT (9.9-13.0) SEC INR (0.9-1.1) Carbon Dioxide 18 L (22-29) mmol/L POC Glucose (60-115) mg/dL Random Glucose (60-115) mg/dL C-Reactive Protein (< or = 0.50) mg/dL Short CBC 03/29/21 03/30/21 Range/Units 16:05 05:34 WBC 12.9 H 8.7 (4.8-10.8) X10*3/uL Hgb 12.0 L 12.3 L (14.0-18.0) g/dl Hct 37.0 L 38.1 L (42-52) % Plt Count 286 238 (160-400) X10*3/uL BMP 03/29/21 03/30/21 16:05 05:34 Sodium 137 137 Potassium 5.0 5.0 Chloride 105 107 Carbon Dioxide 21 L 18 L BUN 15 13 Creatinine 0.84 0.75 Calcium 9.9 9.1 D Urine 03/29/21 Range/Units 22:21 Urine Color YELLOW Urine Appearance CLEAR Urine pH 6.0 (5.0-8.0) Ur Specific [place] 1.025 (1.005-1.025) Urine Protein NEG (NEG-TRACE) MG/DL Urine Glucose (UA) NEG (NEG) MG/DL All other labs normal. Assessment and Plan (1) Diabetic foot ulcer: Status: Acute (2) Osteomyelitis: Status: Acute He has osteomyelitis of the cuboid bone on a CAT scan from 2 weeks ago. I debrided this in the OR. He describes new redness on the dorsal lateral aspect with pain. I would repeat the CT scan to rule out any abscess that may need to be drained at this time. We can continue with IV antibiotics. I did explain to him that if his infection is not controlled, he may need to undergo BKA down the line. Procedures Date of Service Date of Service: 03/30/21
[2021-03-30 10:30] LABS: Glucose, Whole Blood 87 mg/dL (60-115)
[2021-03-30 12:00] VITALS: BP 160/73; PULSE 74; RESP 18; TEMP 36.7; O2SAT 97
[2021-03-30] MEDS: iohexoL 350 MG/ML 100 ML INFUS..BTL 85 ML IV (12:09)
--- NOTE | 2021-03-30 13:08 | MHC.CM.PN ---
pt states he is active with [facility] who comes 1 x weekly to change dsgs for his picc line pt has own transportaion home when he is dcd
--- NOTE | 2021-03-30 13:58 | P.PNIM_ITS ---
Subjective Subjective Date of Service: 03/30/21 Interval History: Right foot pain and drainage Review of Systems still has right foot pain. Denies any chest pain or shortness of breath or abdominal pain or fever chills. Physical Exam Vital Signs: Vital Signs: Last Vital Signs Temp 98.0 F 03/30/21 12:00 Pulse 74 03/30/21 12:00 Resp 18 03/30/21 12:00 BP 160/73 H 03/30/21 12:00 Pulse Ox 97 03/30/21 12:00 Body Mass Index 43.2 Physical exam: Constitutional: Not in acute distress. Cvs: rrr, [id number] , no murmur res: clear to auscultation ,no rhonchii or wheezing abd: no rebound or guarding ,nt, bs present. ext: right foot ulcer -appears to have purulent mal-odorous drainage. neuro: axo3 , nonfocal. Objective Data Current Medications Generic Name Dose Route Start Last Admin Trade Name Freq PRN Reason Stop Dose Admin Acetaminophen 650 mg 03/29/21 21:07 Acetaminophen 325 Mg Tablet PO Q6H PRN Pain, Mild (Pain Scale 1-3) Dextrose 25 gm 03/29/21 21:34 Dextrose 50 % 25 Gm/50 Ml Vial IVPUSH Q15M PRN per Hypoglycemia Standing Ord. Protocol Enoxaparin Sodium 40 mg 03/29/21 22:00 03/30/21 00:28 Enoxaparin Sodium 40 Mg/0.4 Ml Syringe SUBCUT 40 mg Q24H [facility] Administration Glucose 15 gm 03/29/21 21:34 Glucose Gel 15 Gm Gel..Gram. PO Q15M PRN per Hypoglycemia Standing Ord. Protocol Daptomycin 600 mg/ Sodium 62 mls @ 100 mls/hr 03/30/21 17:00 Chloride IV Q24H [facility] Ceftriaxone Sodium 2 gm/ 50 mls @ 100 mls/hr 03/30/21 16:00 Sodium Chloride IV Q24H [facility] Insulin Glargine 20 unit 03/30/21 21:33 Insulin Glargine,Hum.Rec.Anlog 100 Unit/Ml 10 Ml Vial SUBCUT BID [facility] Insulin Human Lispro 0 unit 03/30/21 00:00 03/30/21 11:25 Insulin Lispro 100 Unit/Ml 3 Ml Vial SUBCUT Not Given Q6H [facility] Protocol Pharmacy Consult 1 each 03/29/21 14:34 Consult Rx Perform Med Rec MISCELLANE ONCE PRN Consult order Sodium Chloride 3 ml 03/30/21 00:00 03/30/21 08:10 0.9 % Sodium Chloride Flush 3 Ml Syringe IVFLUSH Not Given QSHIFT [facility] Labs CBC & Chem 7: 03/30/21 05:34 03/30/21 05:34 Labs: Laboratory Results - last 24 hr 03/29/21 03/29/21 03/29/21 15:58 15:59 16:05 MCV 83.9 MCH 27.2 MCHC 32.4 RDW 15.1 Plt Count 286 MPV 11.0 Immature Gran % (Auto) 0.4 Neut % (Auto) 82.5 H Lymph % (Auto) 11.3 L [place] % (Auto) 5.4 Eos % (Auto) 0.3 Baso % (Auto) 0.1 Lymph # (Auto) 1.5 [place] # (Auto) 0.7 Eos # (Auto) 0.0 Baso # (Auto) 0.0 Abs Immat Gran (auto) 0.05 H Absolute Neuts (auto) 10.6 H Absolute Nucleated RBC 0.000 Nucleated RBC % (auto) 0.0 ESR PT 13.6 H INR 1.2 H Anion Gap Estim Creat Clear Calc Estimated GFR POC Glucose Random Glucose Lactic Acid Calcium Magnesium C-Reactive Protein Urine Color Urine Appearance Urine pH Ur Specific [place] Urine Protein Urine Glucose (UA) Urine Ketones Urine Blood Urine Nitrite Ur Leukocyte Esterase Coronavirus (PCR) NEGATIVE Influenza Type A (PCR) NEGATIVE Influenza Type B (PCR) NEGATIVE RSV RNA Qual (PCR) NEGATIVE 03/29/21 03/29/21 03/29/21 16:05 16:05 16:05 MCV MCH MCHC RDW Plt Count MPV Immature Gran % (Auto) Neut % (Auto) Lymph % (Auto) [place] % (Auto) Eos % (Auto) Baso % (Auto) Lymph # (Auto) [place] # (Auto) Eos # (Auto) Baso # (Auto) Abs Immat Gran (auto) Absolute Neuts (auto) Absolute Nucleated RBC Nucleated RBC % (auto) ESR PT INR Anion Gap 16 Estim Creat Clear Calc 127.1 Estimated GFR > 60 POC Glucose Random Glucose 143 H D Lactic Acid 0.8 Calcium 9.9 Magnesium 2.0 C-Reactive Protein Urine Color Urine Appearance Urine pH Ur Specific [place] Urine Protein Urine Glucose (UA) Urine Ketones Urine Blood Urine Nitrite Ur Leukocyte Esterase Coronavirus (PCR) Influenza Type A (PCR) Influenza Type B (PCR) RSV RNA Qual (PCR) 03/29/21 03/29/21 03/29/21 16:05 16:05 21:16 MCV MCH MCHC RDW Plt Count MPV Immature Gran % (Auto) Neut % (Auto) Lymph % (Auto) [place] % (Auto) Eos % (Auto) Baso % (Auto) Lymph # (Auto) [place] # (Auto) Eos # (Auto) Baso # (Auto) Abs Immat Gran (auto) Absolute Neuts (auto) Absolute Nucleated RBC Nucleated RBC % (auto) ESR 78 H PT INR Anion Gap Estim Creat Clear Calc Estimated GFR POC Glucose 82 Random Glucose Lactic Acid Calcium Magnesium C-Reactive Protein 9.68 H Urine Color Urine Appearance Urine pH Ur Specific [place] Urine Protein Urine Glucose (UA) Urine Ketones Urine Blood Urine Nitrite Ur Leukocyte Esterase Coronavirus (PCR) Influenza Type A (PCR) Influenza Type B (PCR) RSV RNA Qual (PCR) 03/29/21 03/30/21 03/30/21 22:21 00:27 05:34 MCV 84.1 MCH 27.2 MCHC 32.3 RDW 15.4 Plt Count 238 MPV 12.1 Immature Gran % (Auto) 0.5 H Neut % (Auto) 71.8 Lymph % (Auto) 19.0 L [place] % (Auto) 7.4 Eos % (Auto) 1.1 Baso % (Auto) 0.2 Lymph # (Auto) 1.7 [place] # (Auto) 0.6 Eos # (Auto) 0.1 Baso # (Auto) 0.0 Abs Immat Gran (auto) 0.04 H Absolute Neuts (auto) 6.3 Absolute Nucleated RBC 0.000 Nucleated RBC % (auto) 0.0 ESR PT INR Anion Gap Estim Creat Clear Calc Estimated GFR POC Glucose 134 H Random Glucose Lactic Acid Calcium Magnesium C-Reactive Protein Urine Color YELLOW Urine Appearance CLEAR Urine pH 6.0 Ur Specific [place] 1.025 Urine Protein NEG Urine Glucose (UA) NEG Urine Ketones NEG Urine Blood NEG Urine Nitrite NEG Ur Leukocyte Esterase NEG Coronavirus (PCR) Influenza Type A (PCR) Influenza Type B (PCR) RSV RNA Qual (PCR) 03/30/21 03/30/21 03/30/21 05:34 06:17 10:27 MCV MCH MCHC RDW Plt Count MPV Immature Gran % (Auto) Neut % (Auto) Lymph % (Auto) [place] % (Auto) Eos % (Auto) Baso % (Auto) Lymph # (Auto) [place] # (Auto) Eos # (Auto) Baso # (Auto) Abs Immat Gran (auto) Absolute Neuts (auto) Absolute Nucleated RBC Nucleated RBC % (auto) ESR PT INR Anion Gap 17 Estim Creat Clear Calc 142.3 Estimated GFR > 60 POC Glucose 76 87 Random Glucose 71 D Lactic Acid Calcium 9.1 D Magnesium C-Reactive Protein Urine Color Urine Appearance Urine pH Ur Specific [place] Urine Protein Urine Glucose (UA) Urine Ketones Urine Blood Urine Nitrite Ur Leukocyte Esterase Coronavirus (PCR) Influenza Type A (PCR) Influenza Type B (PCR) RSV RNA Qual (PCR) Assessment and Plan (1) Diabetic foot ulcer: Status: Acute (2) Right foot pain: Status: Acute Assessment and Plan: 1.Diabetic foot ulcer:patient with chronic right foot ulcer, was discharged on 03/21/2021 after being diagnosed with MRSA infection, continued on IV daptomycin and IV ceftriaxone as an outpatient, added flagyl ct scan foot continue IV daptomycin and IV ceftriaxone for now (ID to suggest antibiotics) d/w surgery-started diet , we will keep npo in am (2) Right foot pain: ? ? ? -secondary to above, workup and treatment as per above. (3) Morbid obesity:-noted, oupatient barietric fu. (4) Hypertension: continue home medications (5) Diabetes mellitus: fs controlled ?fs with coverage and lantus . Quality Stroke Does the patient have a stroke diagnosis?: No VTE Prior VTE?: No VTE Risk Level:: Medical - moderate - high VTE Device Contraindication: Procedure Contraindicated VTE Drug Contraindication: N/A - Med Ordered
[2021-03-30] MEDS: metroNIDAZOLE/NS 500 MG/100 ML PIGGYBACK 100 MG IV ×2 (14:17→22:33)
[2021-03-30 16:00] VITALS: BP 156/70; PULSE 68; RESP 18; TEMP 37.1; O2SAT 98
[2021-03-30 16:36] LABS: Glucose, Whole Blood 182 mg/dL (60-115)
--- NOTE | 2021-03-30 16:41 | PM.EVENT ---
Event Note Date of Service: 03/30/21 Event Note: CT reviewed with the radiologist persistent osteomyelitis, inflammatory process, around cuboid air/fluid, ?abscess dorsum of cuboid plan I and D, debridement in OR under anesthesia tomorrow explained to pt planned procedure as well as risks, benefits and alternatives I had a long discussion with him about this - I am not optimistic about likelihood of healing I told him he will benefit from BKA He is not ready to chose this option at this time but does state he is aware he may have no option down the line he says he will contemplate on option of BKA, and says he eventually will go for this NPO post THONY castellano
[2021-03-30] MEDS: cefTRIAXone sodium 2 GM in 0.9 % Sodium Chloride 50 ML IV (17:24)
[2021-03-30] MEDS: 0.9 % Sodium Chloride Flush 3 ML SYRINGE IVFLUSH (17:25)
[2021-03-30] MEDS: DAPTOmycin 600 MG in 0.9 % Sodium Chloride 50 ML 100 MG IV (18:08)
[2021-03-30 18:45] LABS: Glucose, Whole Blood 173 mg/dL (60-115)
[2021-03-30] MEDS: Insulin Lispro 100 UNIT/ML 3 ML VIAL SUBCUT (18:46)
[2021-03-30 20:00] VITALS: BP 173/74; PULSE 78; RESP 18; TEMP 36.8; O2SAT 99
[2021-03-30 21:13] LABS: Glucose, Whole Blood 182 mg/dL (60-115)
--- NOTE | 2021-03-30 22:02 | P.CNID_ITS ---
History of Present Illness Data of Consult Service Date: 03/30/21 Requesting physician: Madison Martines Primary Care Provider: Reece Ann MD HPI Reason for consult: diabetic foot infection He presents to hospital with five days right foot odor and drainage,yellowish brwon. I had just seen him in hospital 03/15-03/21 when he had right foot infection and given IV Rocephin and Daptomycin. He has had ulcer with osteomyelitis He is week 2 of Rocephin and Daptomycin He has no fever or chills at this time Review of Systems Review of Systems: Yes all other systems are reviewed and are negative [facility] Past Medical History Medical History Diabetes mellitus History of wound infection Hypertension Morbid obesity PAD (peripheral artery disease) Family History Family history: reviewed and not pertinent Surgical History Surgical History History of amputation of toe (~02/23/20) History of amputation of toe (~06/2017) S/P debridement (~01/2017) Social History Social History Household Members: Spouse Housing: House Do you presently have visiting nurse or other home services: No Alcohol intake: never Patient Tobacco Use Status: Former Tobacco user Smoked in Last 30 Days: No Use of substances other than those prescribed or required for medical reasons: No Advance Directives: No Advance Directives Information Provided: No service: No Current occupational status: employed Meds Allergies Allergy/AdvReac Type Severity Reaction Status Date / Time aspirin Allergy Severe ANAPHYLAXIS, Verified 01/18/21 10:30 eyes red,swollen Active Medications: Current Medications Generic Name Dose Route Start Last Admin Trade Name Freq PRN Reason Stop Dose Admin Acetaminophen 650 mg 03/29/21 21:07 Acetaminophen 325 Mg Tablet PO Q6H PRN Pain, Mild (Pain Scale 1-3) Dextrose 25 gm 03/29/21 21:34 Dextrose 50 % 25 Gm/50 Ml Vial IVPUSH Q15M PRN per Hypoglycemia Standing Ord. Protocol Enoxaparin Sodium 40 mg 03/29/21 22:00 03/30/21 00:28 Enoxaparin Sodium 40 Mg/0.4 Ml Syringe SUBCUT 40 mg Q24H [facility] Administration Glucose 15 gm 03/29/21 21:34 Glucose Gel 15 Gm Gel..Gram. PO Q15M PRN per Hypoglycemia Standing Ord. Protocol Daptomycin 600 mg/ Sodium 62 mls @ 100 mls/hr 03/30/21 17:00 03/30/21 18:50 Chloride IV Infused Q24H [facility] Ceftriaxone Sodium 2 gm/ 50 mls @ 100 mls/hr 03/30/21 16:00 03/30/21 18:09 Sodium Chloride IV Infused Q24H [facility] Metronidazole 500 mg in 100 mls @ 100 mls/hr 03/30/21 15:00 03/30/21 15:30 Flagyl IV Infused Q8H [facility] Insulin Glargine 20 unit 03/30/21 21:33 Insulin Glargine,Hum.Rec.Anlog 100 Unit/Ml 10 Ml Vial SUBCUT BID [facility] Insulin Human Lispro 0 unit 03/30/21 00:00 03/30/21 18:46 Insulin Lispro 100 Unit/Ml 3 Ml Vial SUBCUT 2 unit Q6H [facility] Administration Protocol Pharmacy Consult 1 each 03/29/21 14:34 Consult Rx Perform Med Rec MISCELLANE ONCE PRN Consult order Sodium Chloride 3 ml 03/30/21 00:00 03/30/21 17:25 0.9 % Sodium Chloride Flush 3 Ml Syringe IVFLUSH 3 ml QSHIFT [facility] Administration Home Medications Medication Instructions Recorded Confirmed Last Taken Type amlodipine 10 mg tablet 10 mg PO BEDTIME 03/15/21 03/29/21 03/29/21 History cyanocobalamin (vitamin B-12) 500 500 mcg PO DAILY 03/15/21 03/29/21 03/29/21 History mcg tablet (Vitamin B-12) insulin lispro 100 unit/mL 6 unit SUBCUT QIDACHS 03/15/21 03/29/21 03/29/21 His tory subcutaneous pen (Humalog KwikPen (U-100) Insulin) simvastatin 20 mg tablet 20 mg PO BEDTIME 03/15/21 03/29/21 03/29/21 History ceftriaxone 1 gram solution for 1 g IV DAILY@1500 03/29/21 03/29/21 03/28/21 History injection daptomycin 350 mg intravenous 600 mg IV DAILY@1530 03/29/21 03/29/21 03/28/21 History solution Physical Exam Vital Signs: Vital Signs: Last Vital Signs Temp 98.3 F 03/30/21 20:00 Pulse 78 03/30/21 20:00 Resp 18 03/30/21 20:00 BP 173/74 H 03/30/21 20:00 Pulse Ox 99 03/30/21 20:00 Body Mass Index 43.2 Const: General: cooperative HENMT: Head: Yes normal to inspection Mouth: Normal oral and palatal mucosa present Resp: Effort & Inspection: normal respiratory effort Cardio: Rate: regular rate Rhythm: regular rhythm GI: Palpation (GI): Soft to palpation and nontender Skin: General skin exam: no rashes or lesions noted Extrem: Other: necrotic right foot infection ,worsening Results Labs CBC & Chem 7: 03/30/21 05:34 03/30/21 05:34 Labs: Short CBC 03/30/21 Range/Units 05:34 WBC 8.7 (4.8-10.8) X10*3/uL Hgb 12.3 L (14.0-18.0) g/dl Hct 38.1 L (42-52) % Plt Count 238 (160-400) X10*3/uL BMP 03/30/21 05:34 Sodium 137 Potassium 5.0 Chloride 107 Carbon Dioxide 18 L BUN 13 Creatinine 0.75 Calcium 9.1 D Urine 03/29/21 Range/Units 22:21 Urine Color YELLOW Urine Appearance CLEAR Urine pH 6.0 (5.0-8.0) Ur Specific [place] 1.025 (1.005-1.025) Urine Protein NEG (NEG-TRACE) MG/DL Urine Glucose (UA) NEG (NEG) MG/DL Microbiology Microbiology Results: Microbiology 03/29/21 16:04 Blood - Venous Blood Culture - Preliminary No growth after 24 hours. 03/29/21 15:58 Blood - Venous Blood Culture - Preliminary No growth after 24 hours. Assessment and Plan (1) Diabetic foot ulcer: Status: Acute He has ongoing worsening foot infection despite antibiotic therapy He has likely incurable osteomyelitis (2) Right foot pain: Status: Acute (3) Diabetes mellitus: Status: Acute Would continue Ceftriaxone and Daptomycin Add Flagyl cover possible anerobes. Follow with surgery,may not heal without amputation
[2021-03-30] MEDS: Insulin Glargine,Hum.rec.anlog 100 UNIT/ML 10 ML VIAL 20 UNIT SUBCUT (22:30)
[2021-03-30 23:39] VITALS: BP 156/72; PULSE 89; RESP 18; TEMP 36.8; O2SAT 98
[2021-03-31] VITALS (10 sets, daily range): BP systolic 107–144; BP diastolic 52–70; PULSE 70–103; RESP 15–20; TEMP 36.5–37.2; O2SAT 93–98
[2021-03-31 00:24] LABS: Glucose, Whole Blood 174 mg/dL (60-115)
[2021-03-31 05:45] LABS: Glucose, Whole Blood 198 mg/dL (60-115)
[2021-03-31] MEDS: metroNIDAZOLE/NS 500 MG/100 ML PIGGYBACK 100 MG IV ×3 (06:09→22:05)
[2021-03-31 07:06] LABS: Anion Gap 15 (12-20); Blood Urea Nitrogen 14 mg/dL (9-16); Carbon Dioxide 21 mmol/L (22-29); Chloride 101 mmol/L (96-108); Creatinine Clr Calc Pharmacy 113.6; Estimated Glomerular Filt Rate > 60; Glucose Random 190 mg/dL (60-115); Potassium 4.4 mmol/L (3.3-5.1); Sodium 133 mmol/L (135-145)
[2021-03-31 07:46] LABS: Hematocrit 34.5 % (42-52); Hemoglobin 11.5 g/dl (14.0-18.0); Mean Corpuscular HGB Conc 33.3 g/dl (31.0-36.0); Mean Corpuscular Hemoglobin 27.8 pg (27.0-33.0); Mean Corpuscular Volume 83.5 fL (80-98); Platelet Count 280 X10*3/uL (160-400); Red Blood Count 4.13 X10*6/uL (4.60-5.80)
--- NOTE | 2021-03-31 10:20 | HO.ANESPROP2 ---
[facility] Active Problems Active Problems: All Active Problems (Updated 03/29/21 @ 16:35 by JENIFER Newell) Diabetic foot ulcer (Acute) Right foot pain (Acute) Osteomyelitis (Acute) Soft tissue abscess (Acute) Morbid obesity (Acute) Hypertension (Acute) Diabetes mellitus (Acute) Past Medical History Medical History Diabetes mellitus History of wound infection Hypertension Morbid obesity PAD (peripheral artery disease) Family History Family history of problems with anesthesia: No Surgical History Surgical History History of amputation of toe (~02/23/20) History of amputation of toe (~06/2017) S/P debridement (~01/2017) History of Problems with Anesthesia: No Social History Social History Household Members: Spouse Housing: House Do you presently have visiting nurse or other home services: No Alcohol intake: never Patient Tobacco Use Status: Former Tobacco user Smoked in Last 30 Days: No Use of substances other than those prescribed or required for medical reasons: No Are you DNR?: No Advance Directives: No Advance Directives Information Provided: No Recently lost weight without trying: No Nutrition Risks: No Nutritional Risk service: No Current occupational status: employed Meds Allergies Allergy/AdvReac Type Severity Reaction Status Date / Time aspirin Allergy Severe ANAPHYLAXIS, Verified 01/18/21 10:30 eyes red,swollen Active Medications: Current Medications Generic Name Dose Route Start Last Admin Trade Name Freq PRN Reason Stop Dose Admin Acetaminophen 650 mg 03/29/21 21:07 Acetaminophen 325 Mg Tablet PO Q6H PRN Pain, Mild (Pain Scale 1-3) Dextrose 25 gm 03/29/21 21:34 Dextrose 50 % 25 Gm/50 Ml Vial IVPUSH Q15M PRN per Hypoglycemia Standing Ord. Protocol Enoxaparin Sodium 40 mg 03/29/21 22:00 03/30/21 22:32 Enoxaparin Sodium 40 Mg/0.4 Ml Syringe SUBCUT 40 mg Q24H JAMIE Administration Glucose 15 gm 03/29/21 21:34 Glucose Gel 15 Gm Gel..Gram. PO Q15M PRN per Hypoglycemia Standing Ord. Protocol Daptomycin 600 mg/ Sodium 62 mls @ 100 mls/hr 03/30/21 17:00 03/30/21 18:50 Chloride IV Infused Q24H JAMIE Infusion Ceftriaxone Sodium 2 gm/ 50 mls @ 100 mls/hr 03/30/21 16:00 03/30/21 18:09 Sodium Chloride IV Infused Q24H JAMIE Infusion Metronidazole 500 mg in 100 mls @ 100 mls/hr 03/30/21 15:00 03/31/21 07:22 Flagyl IV Infused Q8H [facility] Infusion Insulin Glargine 20 unit 03/30/21 21:33 03/31/21 09:40 Insulin Glargine,Hum.Rec.Anlog 100 Unit/Ml 10 Ml Vial SUBCUT Not Given BID [facility] Insulin Human Lispro 0 unit 03/30/21 00:00 03/31/21 07:22 Insulin Lispro 100 Unit/Ml 3 Ml Vial SUBCUT Not Given Q6H [facility] Protocol Pharmacy Consult 1 each 03/29/21 14:34 Consult Rx Perform Med Rec MISCELLANE ONCE PRN Consult order Sodium Chloride 3 ml 03/30/21 00:00 03/31/21 09:40 0.9 % Sodium Chloride Flush 3 Ml Syringe IVFLUSH Not Given QSHIFT [facility] Home Medications Medication Instructions Recorded Confirmed Last Taken Type amlodipine 10 mg tablet 10 mg PO BEDTIME 03/15/21 03/29/21 03/29/21 History cyanocobalamin (vitamin B-12) 500 500 mcg PO DAILY 03/15/21 03/29/21 03/29/21 History mcg tablet (Vitamin B-12) insulin lispro 100 unit/mL 6 unit SUBCUT QIDACHS 03/15/21 03/29/21 03/29/21 History subcutaneous pen (Humalog KwikPen (U-100) Insulin) simvastatin 20 mg tablet 20 mg PO BEDTIME 03/15/21 03/29/21 03/29/21 History ceftriaxone 1 gram solution for 1 g IV DAILY@1500 03/29/21 03/29/21 03/28/21 History injection daptomycin 350 mg intravenous 600 mg IV DAILY@1530 03/29/21 03/29/21 03/28/21 History solution Exam Exam Date and Time: March 31, 2021 1020 Height,Weight and Vital Signs: Height 5 ft 8 in Weight 284 lb 6.341 oz Last Vital Signs Temp 98.9 F 03/31/21 08:54 Pulse 87 03/31/21 08:54 Resp 18 03/31/21 08:54 BP 124/60 03/31/21 08:54 Pulse Ox 96 03/31/21 08:54 Pertinent Lab Results Pertinent Lab Results: Laboratory Tests 03/29/21 03/29/21 03/29/21 15:58 15:59 16:05 WBC 12.9 H RBC 4.41 L Hgb 12.0 L Hct 37.0 L MCV 83.9 MCH 27.2 MCHC 32.4 RDW 15.1 Plt Count 286 MPV 11.0 Immature Gran % (Auto) 0.4 Neut % (Auto) 82.5 H Lymph % (Auto) 11.[address] [place] % (Auto) 5.4 Eos % (Auto) 0.3 Baso % (Auto) 0.1 Lymph # (Auto) 1.5 [place] # (Auto) 0.7 Eos # (Auto) 0.0 Baso # (Auto) 0.0 Abs Immat Gran (auto) 0.05 H Absolute Neuts (auto) 10.6 H Absolute Nucleated RBC 0.000 Nucleated RBC % (auto) 0.0 ESR PT 13.6 H INR 1.2 H Sodium Potassium Chloride Carbon Dioxide Anion Gap BUN Creatinine Estim Creat Clear Calc Estimated GFR POC Glucose Random Glucose Lactic Acid Calcium Magnesium C-Reactive Protein Urine Color Urine Appearance Urine pH Ur Specific [place] Urine Protein Urine Glucose (UA) Urine Ketones Urine Blood Urine Nitrite Ur Leukocyte Esterase Coronavirus (PCR) NEGATIVE Influenza Type A (PCR) NEGATIVE Influenza Type B (PCR) NEGATIVE RSV RNA Qual (PCR) NEGATIVE 03/29/21 03/29/21 03/29/21 16:05 16:05 16:05 WBC RBC Hgb Hct MCV MCH MCHC RDW Plt Count MPV Immature Gran % (Auto) Neut % (Auto) Lymph % (Auto) [place] % (Auto) Eos % (Auto) Baso % (Auto) Lymph # (Auto) [place] # (Auto) Eos # (Auto) Baso # (Auto) Abs Immat Gran (auto) Absolute Neuts (auto) Absolute Nucleated RBC Nucleated RBC % (auto) ESR PT INR Sodium 137 Potassium 5.0 Chloride 105 Carbon Dioxide 21 L Anion Gap 16 BUN 15 Creatinine 0.84 Estim Creat Clear Calc 127.1 Estimated GFR > 60 POC Glucose Random Glucose 143 H D Lactic Acid 0.8 Calcium 9.9 Magnesium 2.0 C-Reactive Protein Urine Color Urine Appearance Urine pH Ur Specific [place] Urine Protein Urine Glucose (UA) Urine Ketones Urine Blood Urine Nitrite Ur Leukocyte Esterase Coronavirus (PCR) Influenza Type A (PCR) Influenza Type B (PCR) RSV RNA Qual (PCR) 03/29/21 03/29/21 03/29/21 16:05 16:05 21:16 WBC RBC Hgb Hct MCV MCH MCHC RDW Plt Count MPV Immature Gran % (Auto) Neut % (Auto) Lymph % (Auto) [place] % (Auto) Eos % (Auto) Baso % (Auto) Lymph # (Auto) [place] # (Auto) Eos # (Auto) Baso # (Auto) Abs Immat Gran (auto) Absolute Neuts (auto) Absolute Nucleated RBC Nucleated RBC % (auto) ESR 78 H PT INR Sodium Potassium Chloride Carbon Dioxide Anion Gap BUN Creatinine Estim Creat Clear Calc Estimated GFR POC Glucose 82 Random Glucose Lactic Acid Calcium Magnesium C-Reactive Protein 9.68 H Urine Color Urine Appearance Urine pH Ur Specific [place] Urine Protein Urine Glucose (UA) Urine Ketones Urine Blood Urine Nitrite Ur Leukocyte Esterase Coronavirus (PCR) Influenza Type A (PCR) Influenza Type B (PCR) RSV RNA Qual (PCR) 03/29/21 03/30/21 03/30/21 22:21 00:27 05:34 WBC 8.7 RBC 4.53 L Hgb 12.3 L Hct 38.1 L MCV 84.1 MCH 27.2 MCHC 32.3 RDW 15.4 Plt Count 238 MPV 12.1 Immature Gran % (Auto) 0.5 H Neut % (Auto) 71.8 Lymph % (Auto) 19.[address] % (Auto) 7.4 Eos % (Auto) 1.1 Baso % (Auto) 0.2 Lymph # (Auto) 1.7 [place] # (Auto) 0.6 Eos # (Auto) 0.1 Baso # (Auto) 0.0 Abs Immat Gran (auto) 0.04 H Absolute Neuts (auto) 6.3 Absolute Nucleated RBC 0.000 Nucleated RBC % (auto) 0.0 ESR PT INR Sodium Potassium Chloride Carbon Dioxide Anion Gap BUN Creatinine Estim Creat Clear Calc Estimated GFR POC Glucose 134 H Random Glucose Lactic Acid Calcium Magnesium C-Reactive Protein Urine Color YELLOW Urine Appearance CLEAR Urine pH 6.0 Ur Specific [place] 1.025 Urine Protein NEG Urine Glucose (UA) NEG Urine Ketones NEG Urine Blood NEG Urine Nitrite NEG Ur Leukocyte Esterase NEG Coronavirus (PCR) Influenza Type A (PCR) Influenza Type B (PCR) RSV RNA Qual (PCR) 03/30/21 03/30/21 03/30/21 05:34 06:17 10:27 WBC RBC Hgb Hct MCV MCH MCHC RDW Plt Count MPV Immature Gran % (Auto) Neut % (Auto) Lymph % (Auto) [place] % (Auto) Eos % (Auto) Baso % (Auto) Lymph # (Auto) [place] # (Auto) Eos # (Auto) Baso # (Auto) Abs Immat Gran (auto) Absolute Neuts (auto) Absolute Nucleated RBC Nucleated RBC % (auto) ESR PT INR Sodium 137 Potassium 5.0 Chloride 107 Carbon Dioxide 18 L Anion Gap 17 BUN 13 Creatinine 0.75 Estim Creat Clear Calc 142.3 Estimated GFR > 60 POC Glucose 76 87 Random Glucose 71 D Lactic Acid Calcium 9.1 D Magnesium C-Reactive Protein Urine Color Urine Appearance Urine pH Ur Specific [place] Urine Protein Urine Glucose (UA) Urine Ketones Urine Blood Urine Nitrite Ur Leukocyte Esterase Coronavirus (PCR) Influenza Type A (PCR) Influenza Type B (PCR) RSV RNA Qual (PCR) 03/30/21 03/30/21 03/30/21 16:15 18:41 21:08 WBC RBC Hgb Hct MCV MCH MCHC RDW Plt Count MPV Immature Gran % (Auto) Neut % (Auto) Lymph % (Auto) [place] % (Auto) Eos % (Auto) Baso % (Auto) Lymph # (Auto) [place] # (Auto) Eos # (Auto) Baso # (Auto) Abs Immat Gran (auto) Absolute Neuts (auto) Absolute Nucleated RBC Nucleated RBC % (auto) ESR PT INR Sodium Potassium Chloride Carbon Dioxide Anion Gap BUN Creatinine Estim Creat Clear Calc Estimated GFR POC Glucose 182 H 173 H 182 H Random Glucose Lactic Acid Calcium Magnesium C-Reactive Protein Urine Color Urine Appearance Urine pH Ur Specific [place] Urine Protein Urine Glucose (UA) Urine Ketones Urine Blood Urine Nitrite Ur Leukocyte Esterase Coronavirus (PCR) Influenza Type A (PCR) Influenza Type B (PCR) RSV RNA Qual (PCR) 03/31/21 03/31/21 03/31/21 00:21 05:29 05:29 WBC 20.0 H RBC 4.13 L Hgb 11.5 L Hct 34.5 L MCV 83.5 MCH 27.8 MCHC 33.3 RDW 15.0 Plt Count 280 MPV 12.0 Immature Gran % (Auto) Neut % (Auto) Lymph % (Auto) [place] % (Auto) Eos % (Auto) Baso % (Auto) Lymph # (Auto) [place] # (Auto) Eos # (Auto) Baso # (Auto) Abs Immat Gran (auto) Absolute Neuts (auto) Absolute Nucleated RBC 0.000 Nucleated RBC % (auto) 0.0 ESR PT INR Sodium 133 L Potassium 4.4 Chloride 101 Carbon Dioxide 21 L Anion Gap 15 BUN 14 Creatinine 0.94 Estim Creat Clear Calc 113.6 Estimated GFR > 60 POC Glucose 174 H Random Glucose 190 H D Lactic Acid Calcium 9.0 Magnesium C-Reactive Protein Urine Color Urine Appearance Urine pH Ur Specific [place] Urine Protein Urine Glucose (UA) Urine Ketones Urine Blood Urine Nitrite Ur Leukocyte Esterase Coronavirus (PCR) Influenza Type A (PCR) Influenza Type B (PCR) RSV RNA Qual (PCR) 03/31/21 05:41 WBC RBC Hgb Hct MCV MCH MCHC RDW Plt Count MPV Immature Gran % (Auto) Neut % (Auto) Lymph % (Auto) [place] % (Auto) Eos % (Auto) Baso % (Auto) Lymph # (Auto) [place] # (Auto) Eos # (Auto) Baso # (Auto) Abs Immat Gran (auto) Absolute Neuts (auto) Absolute Nucleated RBC Nucleated RBC % (auto) ESR PT INR Sodium Potassium Chloride Carbon Dioxide Anion Gap BUN Creatinine Estim Creat Clear Calc Estimated GFR POC Glucose 198 H Random Glucose Lactic Acid Calcium Magnesium C-Reactive Protein Urine Color Urine Appearance Urine pH Ur Specific [place] Urine Protein Urine Glucose (UA) Urine Ketones Urine Blood Urine Nitrite Ur Leukocyte Esterase Coronavirus (PCR) Influenza Type A (PCR) Influenza Type B (PCR) RSV RNA Qual (PCR) Airway Mallampati Class: I TM Dist: >3cm Neck ROM: Full Loose/Missing/Broken Teeth: Yes Assessment and Plan Assessment Anesthesia Assessment: Anesthesia Plan Discussed and Chart Reviewed Final Anesthetic Review Family History of Problems with Anesthesia: No History of Problems with Anesthesia: No NPO: Yes ASA Class: III Final Preanesthetic Review: No Changes in Pt Med Stat, Meds/Allgs Chart Reviewed, Consent Obtained/Reviewed and Anes Risks/Benef Reviewed Patient Risk: High Procedure Risk: Low Anesthetic Plan Anesthetic Plan: MAC: Disposition: Standard PACU
--- NOTE | 2021-03-31 11:24 | W.PM.OPN ---
Operative Note Operative Note Date of Service: 03/31/21 Narrative: Preop diagnosis: osteomyelitis, right foot, with abscess Postop diagnosis: The same Procedure: I and D of a right foot abscess, with sharp excisional debridement of bone and wound Surgeon: Conor Elizondo MD The patient is a 55-year-old male, longstanding diabetic, with an open wound on the plantar aspect, exposed bone, with osteomyelitis of the cuboid, and a new abscess on the dorsum of the right foot laterally just above the cuboid. I therefore explained to him that it is best to proceed with I and D of this abscess. I also planned on for for further debriding the bone because of osteomyelitis. I reviewed with him the technique of the procedure as well as the risks, benefits, and alternatives and had given consent He was brought to the operating room and placed supine on the stretcher under monitored anesthesia care. A surgical time-out was done. The right foot all the way to the leg was prepped and draped in the usual sterile fashion. I then proceeded to make a generous cruciate incision on the dorsal lateral aspect of the midfoot at the area of the cuboid using blade 15 and this was carried down through the full-thickness of the skin until an abscess cavity was entered. Large amounts of purulent fluid was drained. I proceeded to then gently debrided the abscess cavity using my finger. I then proceeded to debride the area of the large open wound on the plantar aspect using Lozano scissors to remove nonviable rim of tissue. I then used a rongeur to aggressively debride the bone exposed through the deep wound in view of the presence of osteomyelitis on the imaging studies. I then copies irrigated both the open wound on the dorsum as well the plantar aspect using normal saline. I then applied iodoform packing 1 in to both open wounds. I placed thick dressings and wrapped the foot with Kerlix. The procedure was then completed. The patient tolerated procedure well. There were no complication noted. Initial and final counts of sponges and instruments were correct. Estimated blood loss about 25 cc The patient was then transferred to the recovery room with stable vital signs.
--- NOTE | 2021-03-31 11:29 | PM.OP ---
Brief Operative Note Date of Service: 03/31/21 Pre-op diagnosis: Osteomyelitis, right foot, with abscess Post-op diagnosis: same Procedure: I and D of right foot abscess on the dorsal lateral aspect of right foot, with debridement of the wound and the bone Surgeon: Conor Elizondo MD Anesthesia: MAC Was an Nailer Operator used for this Procedure?: No Estimated blood loss (mL): 25 Pathology: other (Debrided bone) Condition: stable Disposition: PACU
[2021-03-31 12:09] LABS: Glucose, Whole Blood 187 mg/dL (60-115)
[2021-03-31] MEDS: Insulin Lispro 100 UNIT/ML 3 ML VIAL SUBCUT ×3 (12:30→23:33)
[2021-03-31] MEDS: 0.9 % Sodium Chloride Flush 3 ML SYRINGE IVFLUSH ×2 (15:14→23:35)
[2021-03-31 16:15] LABS: Glucose, Whole Blood 187 mg/dL (60-115)
[2021-03-31] MEDS: cefTRIAXone sodium 2 GM in 0.9 % Sodium Chloride 50 ML IV (16:35)
[2021-03-31] MEDS: DAPTOmycin 600 MG in 0.9 % Sodium Chloride 50 ML 100 MG IV (17:10)
--- NOTE | 2021-03-31 18:12 | P.PNIM_ITS ---
Subjective Subjective Date of Service: 04/01/21 Interval History: Right foot pain status post drainage of right foot abscess and debridement of the wound Review of Systems General no headache, no dizziness, no fever . CVS no chest pain, no palpitation. Respiratory no cough, no sob. Gastrointestinal no nausea, no vomiting, no abdominal pain Physical Exam Vital Signs: Vital Signs: Last Vital Signs Temp 98.8 F 03/31/21 15:41 Pulse 90 03/31/21 15:41 Resp 18 03/31/21 15:41 BP 114/70 03/31/21 15:41 Pulse Ox 93 03/31/21 15:41 Body Mass Index 43.2 General no acute distress. Neck supple no JVD. CVS regular rate rhythm, Respiratory lungs clear to auscultation, no respiratory distress Gastrointestinal abdomen soft, nontender, bowel sounds audible Right foot dressing in place Neuro nonfocal Skin no rash Objective Data Current Medications Generic Name Dose Route Start Last Admin Trade Name Freq PRN Reason Stop Dose Admin Acetaminophen 650 mg 03/29/21 21:07 Acetaminophen 325 Mg Tablet PO Q6H PRN Pain, Mild (Pain Scale 1-3) Acetaminophen 975 mg 03/31/21 10:21 Acetaminophen 325 Mg Tablet PO ONCE PRN Pain, Mild (Pain Scale 1-3) Dextrose 25 gm 03/29/21 21:34 Dextrose 50 % 25 Gm/50 Ml Vial IVPUSH Q15M PRN per Hypoglycemia Standing Ord. Protocol Enoxaparin Sodium 40 mg 03/29/21 22:00 03/30/21 22:32 Enoxaparin Sodium 40 Mg/0.4 Ml Syringe SUBCUT 40 mg Q24H JAMIE Administration Glucose 15 gm 03/29/21 21:34 Glucose Gel 15 Gm Gel..Gram. PO Q15M PRN per Hypoglycemia Standing Ord. Protocol Daptomycin 600 mg/ Sodium 62 mls @ 100 mls/hr 03/30/21 17:00 03/31/21 17:59 Chloride IV Infused Q24H J[facility]IE Infusion Ceftriaxone Sodium 2 gm/ 50 mls @ 100 mls/hr 03/30/21 16:00 03/31/21 17:09 Sodium Chloride IV Infused Q24H J[facility]IE Infusion Metronidazole 500 mg in 100 mls @ 100 mls/hr 03/30/21 15:00 03/31/21 16:20 Flagyl IV Infused Q8H [facility] Infusion Insulin Glargine 20 unit 03/30/21 21:33 03/31/21 09:40 Insulin Glargine,Hum.Rec.Anlog 100 Unit/Ml 10 Ml Vial SUBCUT Not Given BID [facility] Insulin Human Lispro 0 unit 03/30/21 00:00 03/31/21 16:36 Insulin Lispro 100 Unit/Ml 3 Ml Vial SUBCUT 2 unit Q6H [facility] Administration Protocol Morphine Sulfate 2 mg 03/31/21 11:22 Morphine Sulfate 2 Mg/Ml Cartridge IVPUSH Q3H PRN Pain, Severe (Pain Scale 7-10) Protocol Ondansetron HCl 4 mg 03/31/21 10:21 Ondansetron Hcl 4 Mg/2 Ml Vial IVPUSH ONCE PRN Nausea and Vomiting Oxycodone HCl 5 mg 03/31/21 10:21 Oxycodone Hcl Immed Release 5 Mg Tablet PO ONCE PRN Pain, Severe (Pain Scale 7-10) Pharmacy Consult 1 each 03/29/21 14:34 Consult Rx Perform Med Rec MISCELLANE ONCE PRN Consult order Sodium Chloride 3 ml 03/30/21 00:00 03/31/21 15:14 0.9 % Sodium Chloride Flush 3 Ml Syringe IVFLUSH 3 ml QSHIFT [facility] Administration Labs CBC & Chem 7: 03/31/21 05:29 03/31/21 05:29 Labs: Laboratory Results - last 24 hr 03/30/21 03/30/21 03/31/21 18:41 21:08 00:21 MCV MCH MCHC RDW Plt Count MPV Absolute Nucleated RBC Nucleated RBC % (auto) Anion Gap Estim Creat Clear Calc Estimated GFR POC Glucose 173 H 182 H 174 H Random Glucose Calcium 03/31/21 03/31/21 03/31/21 05:29 05:29 05:41 MCV 83.5 MCH 27.8 MCHC 33.3 RDW 15.0 Plt Count 280 MPV 12.0 Absolute Nucleated RBC 0.000 Nucleated RBC % (auto) 0.0 Anion Gap 15 Estim Creat Clear Calc 113.6 Estimated GFR > 60 POC Glucose 198 H Random Glucose 190 H D Calcium 9.0 03/31/21 03/31/21 12:05 16:07 MCV MCH MCHC RDW Plt Count MPV Absolute Nucleated RBC Nucleated RBC % (auto) Anion Gap Estim Creat Clear Calc Estimated GFR POC Glucose 187 H 187 H Random Glucose Calcium Microbiology Microbiology Results: Microbiology 03/29/21 15:58 Blood Culture - Preliminary Blood - Venous No growth after 48 hours. 03/29/21 16:04 Blood Culture - Preliminary Blood - Venous No growth after 24 hours. Assessment and Plan (1) Diabetic foot ulcer: Status: Acute (2) Right foot pain: Status: Acute (3) Osteomyelitis: Status: Acute (4) Hypertension: Status: Acute (5) Diabetes mellitus: Status: Acute (6) Morbid obesity: Status: Acute (7) Soft tissue abscess: Status: Acute Assessment and Plan: (1) diabetic foot infection and osteomyelitis ? ? ?Patient recently discharged on 03/21/2021 after being diagnosed with MRSA infection, was continued on IV daptomycin and IV ceftriaxone as an outpatient, returns because of worsening pain /swelling/drainage on the right foot (concerning for worsening infection/possible osteomyelitis) Patient underwent I&D this a.m. by Dr. Elizondo, patient not ready for BKA continue IV daptomycin and IV ceftriaxone, Flagyl added as per Dr. Arevalo to cover anaerobes CT foot showed changes consistent with worsening osteomyelitis and enlarging multiloculated air and fluid-filled abscess dorsal to the cuboid and 5th tarsometatarsal joint. (3) Morbid obesity: ? ? ?Low-calorie diet recommended, (4) Hypertension: ? ? ?BP stable,bp meds on hold follow BP closely and resume home medication if noted to have elevated blood pressure (5) Diabetes mellitus: ? ? ?Blood sugar less than 200 continue Lantus 20 units b.i.d. home dose 60 un its b.i.d. Continue diabetic diet And insulin sliding scale ? ? ? CODE STATUS: FULL CODE Quality Stroke Does the patient have a stroke diagnosis?: No VTE Prior VTE?: No VTE Risk Level:: Medical - moderate - high VTE Device Contraindication: Procedure Contraindicated VTE Drug Contraindication: N/A - Med Ordered
--- NOTE | 2021-03-31 19:10 | PC.NURSE ---
Pt returned to unit around 1200 from [facility]. Patient denied pain, in recliner with right foot elevated. Patient's drsg began to leak; changed with sponge drsg and wrapped with kerlix. No complaints at this time.
[2021-03-31 20:21] LABS: Glucose, Whole Blood 201 mg/dL (60-115)
[2021-03-31] MEDS: Insulin Glargine,Hum.rec.anlog 100 UNIT/ML 10 ML VIAL 20 UNIT SUBCUT (21:14)
[2021-03-31] MEDS: Enoxaparin Sodium 40 MG/0.4 ML SYRINGE SUBCUT (21:20)
[2021-03-31 23:34] LABS: Glucose, Whole Blood 200 mg/dL (60-115)
[2021-04-01] VITALS (7 sets, daily range): BP systolic 138–163; BP diastolic 65–73; PULSE 62–86; RESP 18–20; TEMP 36.2–37.2; O2SAT 96–98
[2021-04-01 05:49] LABS: Glucose, Whole Blood 172 mg/dL (60-115)
[2021-04-01] MEDS: Insulin Lispro 100 UNIT/ML 3 ML VIAL SUBCUT ×3 (05:57→16:32)
[2021-04-01] MEDS: metroNIDAZOLE/NS 500 MG/100 ML PIGGYBACK 100 MG IV ×3 (06:01→20:39)
[2021-04-01] MEDS: Insulin Glargine,Hum.rec.anlog 100 UNIT/ML 10 ML VIAL 20 UNIT SUBCUT ×2 (07:37→20:38)
[2021-04-01] MEDS: Atorvastatin Calcium 10 MG TABLET PO (07:37)
[2021-04-01] MEDS: Cyanocobalamin (Vitamin B-12) 500 MCG TABLET PO (07:38)
[2021-04-01] MEDS: 0.9 % Sodium Chloride Flush 3 ML SYRINGE IVFLUSH ×3 (07:49→20:38)
[2021-04-01 11:17] LABS: Glucose, Whole Blood 189 mg/dL (60-115)
--- NOTE | 2021-04-01 12:11 | HO.POSTANES ---
Post Anesthesia Evaluation Post Anesthesia Evaluation Vital Signs: Vital Signs Temp Pulse Resp BP Pulse Ox 04/01/21 11:33 97.2 F 63 19 152/70 H 98 04/01/21 08:00 98.5 F 68 20 140/65 H 97 04/01/21 04:00 97.4 F 77 20 142/65 H 97 Anesthesia: Monitored Mental Status: Awake Pain Control: Satisfactory Nausea/Vomiting: None Hydration: Adequate Anesthesia-Related Issues: No Anes. Related Issues
--- NOTE | 2021-04-01 13:07 | PM.PNGS ---
Subjective Subjective Date of Service: 04/01/21 Interval history: feels well denies new complaints says he really does not have a lot of pain on foot Physical Exam Vital Signs: Vital Signs: Last Vital Signs Temp 97.2 F 04/01/21 11:33 Pulse 63 04/01/21 11:33 Resp 19 04/01/21 11:33 BP 152/70 H 04/01/21 11:33 Pulse Ox 98 04/01/21 11:33 Body Mass Index 43.2 Const: Other: sitting comfortably General: comfortable and no acute distress GI: Palpation (GI): Soft to palpation Extrem: Other: right foot - open wound from I and D on dorsolateral,clean, no residual fluctuance; open wound on plantar aspect clean, deep; both with good hemostasis; no spreading cellulitis Procedures Date of Service Date of Service: 04/01/21 Progress Note: A&P Assessment and plan (1) Osteomyelitis: Status: Acute Assessment and Plan: S/P derbidement of bone, I and D of foot I have changed the dressings - light packing, moist on both open wounds pt currently on 3 abx as per ID recommendations long discussions done with pt - he says his can do same care at home as she is familiar with method OK to continue daily dressing changes, moist packing into both wounds, wrap foot in Kerlix IV via PICC line I have explained to pt that I am not optimistic re: half-way success without proximal amputation he says he wants to give abx a try Fall Risk Details Current Medications: Current Medications Generic Name Dose Route Start Last Admin Trade Name Darrius PRN Reason Stop Dose Admin Acetaminophen 650 mg 03/29/21 21:07 Acetaminophen 325 Mg Tablet PO Q6H PRN Pain, Mild (Pain Scale 1-3) Acetaminophen 975 mg 03/31/21 10:21 Acetaminophen 325 Mg Tablet PO ONCE PRN Pain, Mild (Pain Scale 1-3) Atorvastatin Calcium 10 mg 04/01/21 09:00 04/01/21 07:37 Atorvastatin Calcium 10 Mg Tablet PO 10 mg DAILY JAMIE Administration Cyanocobalamin 500 mcg 04/01/21 09:00 04/01/21 07:38 Cyanocobalamin (Vitamin B-12) 500 Mcg Tablet PO 500 mcg DAILY JAMIE Administration Dextrose 25 gm 03/29/21 21:34 Dextrose 50 % 25 Gm/50 Ml Vial IVPUSH Q15M PRN per Hypoglycemia Standing Ord. Protocol Enoxaparin Sodium 40 mg 03/29/21 22:00 03/31/21 21:20 Enoxaparin Sodium 40 Mg/0.4 Ml Syringe SUBCUT 40 mg Q24H JAMIE Administration Glucose 15 gm 03/29/21 21:34 Glucose Gel 15 Gm Gel..Gram. PO Q15M PRN per Hypoglycemia Standing Ord. Protocol Daptomycin 600 mg/ Sodium 62 mls @ 100 mls/hr 03/30/21 17:00 03/31/21 17:59 Chloride IV Infused Q24H JAMIE Infusion Ceftriaxone Sodium 2 gm/ 50 mls @ 100 mls/hr 03/30/21 16:00 03/31/21 17:09 Sodium Chloride IV Infused Q24H JAMIE Infusion Metronidazole 500 mg in 100 mls @ 100 mls/hr 03/30/21 15:00 04/01/21 07:07 Flagyl IV Infused Q8H JAMIE Infusion Insulin Glargine 20 unit 03/30/21 21:33 04/01/21 07:37 Insulin Glargine,Hum.Rec.Anlog 100 Unit/Ml 10 Ml Vial SUBCUT 20 unit BID JAMIE Administration Insulin Human Lispro 0 unit 03/30/21 00:00 04/01/21 11:43 Insulin Lispro 100 Unit/Ml 3 Ml Vial SUBCUT 2 unit Q6H JAMIE Administration Protocol Morphine Sulfate 2 mg 03/31/21 11:22 Morphine Sulfate 2 Mg/Ml Cartridge IVPUSH Q3H PRN Pain, Severe (Pain Scale 7-10) Protocol Ondansetron HCl 4 mg 03/31/21 10:21 Ondansetron Hcl 4 Mg/2 Ml Vial IVPUSH ONCE PRN Nausea and Vomiting Oxycodone HCl 5 mg 03/31/21 10:21 Oxycodone Hcl Immed Release 5 Mg Tablet PO ONCE PRN Pain, Severe (Pain Scale 7-10) Pharmacy Consult 1 each 03/29/21 14:34 Consult Rx Perform Med Rec MISCELLANE ONCE PRN Consult order Sodium Chloride 3 ml 03/30/21 00:00 04/01/21 07:49 0.9 % Sodium Chloride Flush 3 Ml Syringe IVFLUSH 3 ml QSHIFT JAMIE Administration Time Spent With Patient Time: Total time spent is greater than 50% in coordination of care (as documented) at patient's floor/unit and/or counseling patient: Time with patient: 15 - 24 minutes Quality Stroke Does the patient have a stroke diagnosis?: No VTE Prior VTE?: No VTE Risk Level:: Medical - moderate - high VTE Device Contraindication: Procedure Contraindicated VTE Drug Contraindication: N/A - Med Ordered
--- NOTE | 2021-04-01 14:46 | HO.PM.IMPN ---
Subjective Subjective Date of Service: 04/01/21 Interval History: No acute complaints, no fever chills, noted to have significant drainage from right foot wounds. Review of Systems General - no fevers or chills Cardiovascular - no chest pain Respiratory - no shortness of breath or cough Abdominal- no abdominal pain, nausea, vomiting, diarrhea Physical Exam Vital Signs: Vital Signs: Last Vital Signs Temp 97.2 F 04/01/21 11:33 Pulse 63 04/01/21 11:33 Resp 19 04/01/21 11:33 BP 152/70 H 04/01/21 11:33 Pulse Ox 98 04/01/21 11:33 Body Mass Index 43.2 Constitutional - Awake and Alert, No apparent distress Neck is supple no JVD Cardiovascular -? S1S2, RRR, No edema Respiratory - Normal lung expansion, Normal respiratory effort, No respiratory distress, CTA bilaterally Gastrointestinal -? NT / ND; +BS; No rebound or guarding - No CVA tenderness Extremities - right lower extremity dressing in place Neurological -? Alert & oriented x3, No focal deficit Psychological - Appropriate affect Objective Data Current Medications Generic Name Dose Route Start Last Admin Trade Name Freq PRN Reason Stop Dose Admin Acetaminophen 650 mg 03/29/21 21:07 Acetaminophen 325 Mg Tablet PO Q6H PRN Pain, Mild (Pain Scale 1-3) Acetaminophen 975 mg 03/31/21 10:21 Acetaminophen 325 Mg Tablet PO ONCE PRN Pain, Mild (Pain Scale 1-3) Atorvastatin Calcium 10 mg 04/01/21 09:00 04/01/21 07:37 Atorvastatin Calcium 10 Mg Tablet PO 10 mg DAILY JAMIE Administration Cyanocobalamin 500 mcg 04/01/21 09:00 04/01/21 07:38 Cyanocobalamin (Vitamin B-12) 500 Mcg Tablet PO 500 mcg DAILY JAMIE Administration Dextrose 25 gm 03/29/21 21:34 Dextrose 50 % 25 Gm/50 Ml Vial IVPUSH Q15M PRN per Hypoglycemia Standing Ord. Protocol Enoxaparin Sodium 40 mg 03/29/21 22:00 03/31/21 21:20 Enoxaparin Sodium 40 Mg/0.4 Ml Syringe SUBCUT 40 mg Q24H JAMIE Administration Glucose 15 gm 03/29/21 21:34 Glucose Gel 15 Gm Gel..Gram. PO Q15M PRN per Hypoglycemia Standing Ord. Protocol Daptomycin 600 mg/ Sodium 62 mls @ 100 mls/hr 03/30/21 17:00 03/31/21 17:59 Chloride IV Infused Q24H JAMIE Infusion Ceftriaxone Sodium 2 gm/ 50 mls @ 100 mls/hr 03/30/21 16:00 03/31/21 17:09 Sodium Chloride IV Infused Q24H JAMIE Infusion Metronidazole 500 mg in 100 mls @ 100 mls/hr 03/30/21 15:00 04/01/21 14:04 Flagyl IV 100 mls/hr Q8H JAMIE Administration Insulin Glargine 20 unit 03/30/21 21:33 04/01/21 07:37 Insulin Glargine,Hum.Rec.Anlog 100 Unit/Ml 10 Ml Vial SUBCUT 20 unit BID JAMIE Administration Insulin Human Lispro 0 unit 03/30/21 00:00 04/01/21 11:43 Insulin Lispro 100 Unit/Ml 3 Ml Vial SUBCUT 2 unit Q6H JAMIE Administration Protocol Morphine Sulfate 2 mg 03/31/21 11:22 Morphine Sulfate 2 Mg/Ml Cartridge IVPUSH Q3H PRN Pain, Severe (Pain Scale 7-10) Protocol Ondansetron HCl 4 mg 03/31/21 10:21 Ondansetron Hcl 4 Mg/2 Ml Vial IVPUSH ONCE PRN Nausea and Vomiting Oxycodone HCl 5 mg 03/31/21 10:21 Oxycodone Hcl Immed Release 5 Mg Tablet PO ONCE PRN Pain, Severe (Pain Scale 7-10) Pharmacy Consult 1 each 03/29/21 14:34 Consult Rx Perform Med Rec MISCELLANE ONCE PRN Consult order Sodium Chloride 3 ml 03/30/21 00:00 04/01/21 07:49 0.9 % Sodium Chloride Flush 3 Ml Syringe IVFLUSH 3 ml QSHIFT [facility] Administration Labs CBC & Chem 7: 03/31/21 05:29 03/31/21 05:29 Labs: Laboratory Results - last 24 hr 03/31/21 03/31/21 03/31/21 16:07 20:15 23:31 POC Glucose 187 H 201 H 200 H 04/01/21 04/01/21 05:43 10:57 POC Glucose 172 H 189 H Microbiology Microbiology Results: Microbiology 03/31/21 Unknown Gram Stain - Final Foot Right Routine Culture - Preliminary Culture in progress. 03/29/21 16:04 Blood Culture - Preliminary Blood - Venous No growth after 48 hours. 03/29/21 15:58 Blood Culture - Preliminary Blood - Venous No growth after 48 hours. Assessment and Plan (1) Diabetic foot ulcer: Status: Acute (2) Right foot pain: Status: Acute (3) Osteomyelitis: Status: Acute (4) Soft tissue abscess: Status: Acute (5) Morbid obesity: Status: Acute (6) Hypertension: Status: Acute (7) Diabetes mellitus: Status: Acute Assessment and Plan: (1) diabetic foot infection and osteomyelitis ? ? ?Patient recently discharged on 03/21/2021 after being diagnosed with MRSA infection, was on IV daptomycin and IV ceftriaxone as an outpatient, returns because of worsening pain ?? ? /swelling/drainage on the right foot (concerning for worsening infection/possible osteomyelitis) ?? ? Patient underwent I&D 03/[address] Elizondo, patient not ready for BKA Noted to have significant drainage from both wounds requiring multiple dressing change overnight continue IV daptomycin ,IV ceftriaxone, and Flagyl as per Dr. Arevalo to cover anaerobes ?? ? CT foot showed changes consistent with worsening osteomyelitis and enlarging multiloculated air and fluid-filled abscess dorsal to the cuboid and 5th tarsometatarsal joint. Case discussed with general surgery they are not optimistic about good healing but patient is not ready for surgical intervention, will discharge home on IV antibiotics daily dressing changes patient will do dressings patient declined VNA services. (3) Morbid obesity: ? ? ?Low-calorie diet recommended, (4) Hypertension: ? ? ?BP trending up will resume home medication. (5) Diabetes mellitus: ? ? ?Blood sugar less than 200 continue Lantus 20 units b.i.d. home dose 60 units b.i.d. ?? ? Continue diabetic diet And insulin sliding scale ? ? ? CODE STATUS: FULL CODE Quality Stroke Does the patient have a stroke diagnosis?: No VTE Prior VTE?: No VTE Risk Level:: Medical - moderate - high VTE Device Contraindication: Procedure Contraindicated VTE Drug Contraindication: N/A - Med Ordered
[2021-04-01] MEDS: cefTRIAXone sodium 2 GM in 0.9 % Sodium Chloride 50 ML IV (15:08)
[2021-04-01 16:16] LABS: Glucose, Whole Blood 246 mg/dL (60-115)
[2021-04-01] MEDS: DAPTOmycin 600 MG in 0.9 % Sodium Chloride 50 ML 100 MG IV (16:32)
--- NOTE | 2021-04-01 19:24 | PC.NURSE ---
Patient OOB to recliner all day. Dressing changed x 3 due to drainage after patient ambulates to bathroom. Patient denies pain to post I+D site.
[2021-04-01 20:21] LABS: Glucose, Whole Blood 257 mg/dL (60-115)
[2021-04-01] MEDS: Enoxaparin Sodium 40 MG/0.4 ML SYRINGE SUBCUT (20:38)
[2021-04-01 23:57] LABS: Glucose, Whole Blood 212 mg/dL (60-115)
[2021-04-02] MEDS: Insulin Lispro 100 UNIT/ML 3 ML VIAL SUBCUT ×5 (00:03→20:55)
[2021-04-02 03:45] VITALS: BP 154/69; PULSE 65; RESP 18; TEMP 36.6; O2SAT 98
[2021-04-02 05:35] LABS: Glucose, Whole Blood 191 mg/dL (60-115)
[2021-04-02] MEDS: metroNIDAZOLE/NS 500 MG/100 ML PIGGYBACK 100 MG IV ×2 (06:16→13:52)
[2021-04-02 07:52] VITALS: BP 146/81; PULSE 63; RESP 18; TEMP 36.7; O2SAT 96
[2021-04-02] MEDS: 0.9 % Sodium Chloride Flush 3 ML SYRINGE IVFLUSH ×3 (07:56→20:56)
[2021-04-02] MEDS: Cyanocobalamin (Vitamin B-12) 500 MCG TABLET PO (08:07)
[2021-04-02] MEDS: Insulin Glargine,Hum.rec.anlog 100 UNIT/ML 10 ML VIAL 20 UNIT SUBCUT ×2 (08:07→20:55)
[2021-04-02] MEDS: Atorvastatin Calcium 10 MG TABLET PO (08:07)
[2021-04-02 11:23] LABS: Glucose, Whole Blood 213 mg/dL (60-115)
--- NOTE | 2021-04-02 11:37 | MHC.CM.PN ---
PT CLEARED TO DC HOME TODAY WITH [facility].
[2021-04-02 11:48] VITALS: BP 138/82; PULSE 63; RESP 18; TEMP 36.3; O2SAT 97
--- NOTE | 2021-04-02 12:24 | MHC.CM.PN ---
Addendum entered by Ely Acosta 04/02/21 13:10: CM RECEIVED A RETURN CALL FROM [facility] PHARMACIST, JONAH, WHO REPORTS THEY ARE OUT OF DAPTOMYCIN COMPLETELY AND DO NOT EXPECT MORE UNTIL SUNDAY. SHE REPORTS AT THIS TIME THEY PLAN TO DELIVER PTS MEDS ON SUNDAY HOWEVER SHE IS CONCERNED THAT THIS MAY BE HELD UP DUE TO THE SEVERE WEATHER THAT IS EXPECTED SUNDAY INTO SUNDAY. SHE REPORTS THEY SHOULD BE ABLE TO DELIVER SUNDAY OR WORST CASE Sunday IF THE WEATHER IS BAD EXPECTED. Addendum entered by Ely Acosta 04/02/21 13:07: CM LEFT MESSAGES FOR [facility] PH[facility]IST THROUGH THE [employer]LECT[employer]IC REFERRAL SYSTEM AND BY CALLING THEIR ANSWERING SERVICE ([phone]). CM HAS NOT YET RECEIVED A RESPONSE. Original Note: CM INFORMED BY PTS NURSE THAT HIS TRIED TO HAVE HIS HOME ABX REFILLED VIA [facility] AND THEY TOLD HER THEY WOULD NOT BE ABLE TO DELIVER PRIOR TO SUNDAY. CM CALLED PTS , SHELLIE ([phone]) WHO CONFIRMED THIS REPORT. CM WILL CONTACT [facility] TO DETERMINE IF IT CAN BE ARRANGED ANY SOONER. CM WILL INFORM SHELLIE OF OUTCOME. IF PT IS UNABLE TO GET ABX DELIVERED OVER THE WEEKEND, CM WILL CONFIRM DELIVERY FOR SUNDAY AND PT CAN POSSIBLY DC AFTER HIS MEDICATIONS ARE ADMINISTERED TOMORROW.
--- NOTE | 2021-04-02 13:30 | P.PNIM_ITS ---
Subjective Subjective Date of Service: 04/02/21 Interval History: No acute complaints this morning, no fever no chills no significant drainage from foot wound. Review of Systems General - no fevers or chills Cardiovascular - no chest pain Respiratory - no shortness of breath or cough Abdominal- no abdominal pain, nausea, vomiting, diarrhea Physical Exam Vital Signs: Vital Signs: Last Vital Signs Temp 97.3 F 04/02/21 11:48 Pulse 63 04/02/21 11:48 Resp 18 04/02/21 11:48 BP 138/82 04/02/21 11:48 Pulse Ox 97 04/02/21 11:48 Body Mass Index 43.2 Constitutional - A wake and Alert, No apparent distress Neck is supple no JVD Cardiovascula r -? S1, S2, RRR, No edema Respirato ry - Normal lung e xpansion, Normal r espiratory effort, No respiratory di stress, CTA bilate rally Gastrointest inal -?non tender, bowel sounds brad ble, No rebound or guarding - No CVA tenderness Ext remities - right f oot dressing in pl karissa, no drainage,s welling lower leg Neurological -? Al ert & oriented x3, No focal deficit Psychological - Ap propriate affect Objective Data Current Medications Generic Name Dose Route Start Last Admin Trade Name Freq PRN Reason Stop Dose Admin Acetaminophen 650 mg 03/29/21 21:07 Acetaminophen 325 Mg Tablet PO Q6H PRN Pain, Mild (Pain Scale 1-3) Acetaminophen 975 mg 03/31/21 10:21 Acetaminophen 325 Mg Tablet PO ONCE PRN Pain, Mild (Pain Scale 1-3) Atorvastatin Calcium 10 mg 04/01/21 09:00 04/02/21 08:07 Atorvastatin Calcium 10 Mg Tablet PO 10 mg DAILY JAMIE Administration Cyanocobalamin 500 mcg 04/01/21 09:00 04/02/21 08:07 Cyanocobalamin (Vitamin B-12) 500 Mcg Tablet PO 500 mcg DAILY JAMIE Administration Dextrose 25 gm 03/29/21 21:34 Dextrose 50 % 25 Gm/50 Ml Vial IVPUSH Q15M PRN per Hypoglycemia Standing Ord. Protocol Enoxaparin Sodium 40 mg 03/29/21 22:00 04/01/21 20:38 Enoxaparin Sodium 40 Mg/0.4 Ml Syringe SUBCUT 40 mg Q24H JAMIE Administration Glucose 15 gm 03/29/21 21:34 Glucose Gel 15 Gm Gel..Gram. PO Q15M PRN per Hypoglycemia Standing Ord. Protocol Daptomycin 600 mg/ Sodium 62 mls @ 100 mls/hr 03/30/21 17:00 04/01/21 17:12 Chloride IV Infused Q24H JAMIE Infusion Ceftriaxone Sodium 2 gm/ 50 mls @ 100 mls/hr 03/30/21 16:00 04/01/21 15:50 Sodium Chloride IV Infused Q24H JAMIE Infusion Metronidazole 500 mg in 100 mls @ 100 mls/hr 03/30/21 15:00 04/02/21 07:45 Flagyl IV Infused Q8H JAMIE Infusion Insulin Glargine 20 unit 03/30/21 21:33 04/02/21 08:07 Insulin Glargine,Hum.Rec.Anlog 100 Unit/Ml 10 Ml Vial SUBCUT 20 unit BID JAMIE Administration Insulin Human Lispro 0 unit 03/30/21 00:00 04/02/21 11:58 Insulin Lispro 100 Unit/Ml 3 Ml Vial SUBCUT 4 unit Q6H JAMIE Administration Protocol Morphine Sulfate 2 mg 03/31/21 11:22 Morphine Sulfate 2 Mg/Ml Cartridge IVPUSH Q3H PRN Pain, Severe (Pain Scale 7-10) Protocol Ondansetron HCl 4 mg 03/31/21 10:21 Ondansetron Hcl 4 Mg/2 Ml Vial IVPUSH ONCE PRN Nausea and Vomiting Oxycodone HCl 5 mg 03/31/21 10:21 Oxycodone Hcl Immed Release 5 Mg Tablet PO ONCE PRN Pain, Severe (Pain Scale 7-10) Pharmacy Consult 1 each 03/29/21 14:34 Consult Rx Perform Med Rec MISCELLANE ONCE PRN Consult order Sodium Chloride 3 ml 03/30/21 00:00 04/02/21 07:56 0.9 % Sodium Chloride Flush 3 Ml Syringe IVFLUSH 3 ml QSHIFT [facility] Administration Labs CBC & Chem 7: 03/31/21 05:29 03/31/21 05:29 Labs: Laboratory Results - last 24 hr 04/01/21 04/01/21 04/01/21 15:51 20:17 23:53 POC Glucose 246 H 257 H 212 H 04/02/21 04/02/21 05:32 11:19 POC Glucose 191 H 213 H Microbiology Microbiology Results: Microbiology 03/31/21 Unknown Gram Stain - Final Foot Right Routine Culture - Final Assessment and Plan (1) Diabetic foot ulcer: Status: Acute (2) Right foot pain: Status: Acute (3) Osteomyelitis: Status: Acute (4) Morbid obesity: Status: Acute (5) Hypertension: Status: Acute (6) Diabetes mellitus: Status: Acute Assessment and Plan: (1) diabetic foot infection and osteomyelitis ? ? ?Patient recently discharged on 03/21/2021 after being diagnosed with MRSA infection, was on IV daptomycin and IV ceftriaxone as an outpatient, returns because of worsening pain ?? ? /swelling/drainage on the right foot (concerning for worsening infection/possible osteomyelitis) ?? ? Patient underwent I&D 03/[address] Elizondo, dressing dry this morning, patient wishes to continue with IV antibiotic therapy, not ready for BKA ?? ? continue IV daptomycin , and ceftriaxone, will DC IV Flagyl ?? ? CT foot showed changes consistent with worsening osteomyelitis and enlarging multiloculated air and fluid-filled abscess dorsal to the cuboid and 5th tarsometatarsal joint. ?? ? Case discussed with general surgery they are not optimistic about good healing but patient is not ready for surgical intervention, will discharge home on IV antibiotics daily dressing changes ?? ? patient will do dressings . (3) Morbid obesity: ? ? ?Low-calorie diet recommended, (4) Hypertension: ? ? ?BP trending up is on amlodipine 10 mg and lisinopril 40 mg at home, will follow BP and resume meds gradually (5) Diabetes mellitus: ? ? ?Blood sugar less than 200 continue Lantus 20 units b.i.d. home dose 60 units b.i.d. ?? ? Continue diabetic diet And insulin sliding scale ? ? ? CODE STATUS: FULL CODE Quality Stroke Does the patient have a stroke diagnosis?: No VTE Prior VTE?: No VTE Risk Level:: Medical - moderate - high VTE Device Contraindication: Procedure Contraindicated VTE Drug Contraindication: N/A - Med Ordered
[2021-04-02] MEDS: cefTRIAXone sodium 2 GM in 0.9 % Sodium Chloride 50 ML IV (15:44)
[2021-04-02 15:53] VITALS: BP 136/64; PULSE 62; RESP 18; TEMP 36.6; O2SAT 98
[2021-04-02 16:25] LABS: Glucose, Whole Blood 217 mg/dL (60-115)
[2021-04-02] MEDS: DAPTOmycin 600 MG in 0.9 % Sodium Chloride 50 ML 100 MG IV (16:33)
[2021-04-02 19:31] VITALS: BP 161/72; PULSE 60; RESP 18; TEMP 37.1; O2SAT 96
[2021-04-02 20:47] LABS: Glucose, Whole Blood 197 mg/dL (60-115)
[2021-04-02] MEDS: Enoxaparin Sodium 40 MG/0.4 ML SYRINGE SUBCUT (20:55)
[2021-04-02 23:59] VITALS: BP 155/67; PULSE 58; RESP 18; TEMP 37.3; O2SAT 97
[2021-04-03 03:29] VITALS: BP 154/68; PULSE 84; RESP 18; TEMP 36.7; O2SAT 97
--- NOTE | 2021-04-03 06:23 | PC.NURSE ---
Right foot dressing changed. Small amount of serous drainage. Pt has no complaints of pain.
[2021-04-03 07:21] LABS: Glucose, Whole Blood 165 mg/dL (60-115)
[2021-04-03 07:37] VITALS: BP 162/72; PULSE 59; RESP 20; TEMP 36.6; O2SAT 96
[2021-04-03] MEDS: Insulin Lispro 100 UNIT/ML 3 ML VIAL SUBCUT ×2 (08:58→12:10)
[2021-04-03] MEDS: amLODIPine Besylate 5 MG TABLET PO (08:59)
[2021-04-03] MEDS: 0.9 % Sodium Chloride Flush 3 ML SYRINGE IVFLUSH (08:59)
[2021-04-03] MEDS: Insulin Glargine,Hum.rec.anlog 100 UNIT/ML 10 ML VIAL 20 UNIT SUBCUT (08:59)
[2021-04-03] MEDS: Atorvastatin Calcium 10 MG TABLET PO (08:59)
[2021-04-03] MEDS: Cyanocobalamin (Vitamin B-12) 500 MCG TABLET PO (08:59)
--- NOTE | 2021-04-03 10:11 | PM.DS ---
DS: Providers Provider Date of Service: 04/03/21 Date of admission: 03/31/21 11:30 Primary care physician: Reece Ann MD Consults: 03/29/21 16:32 Consult to Infectious Diseases Routine Consulting Provider: Carmen Arevalo Reason for consultation: Diabetic foot ulcer/osteomyelitis Has provider been notified: Yes 03/29/21 21:11 Consult to General Surgery Routine Consulting Provider: Conor Elizondo Reason for consultation: Right foot ulcer, ? infected, ? osteomyelitis Has provider been notified: No DS: Diagnosis Discharge Diagnosis (1) Diabetic foot ulcer: Status: Acute (2) Right foot pain: Status: Acute (3) Osteomyelitis: Status: Acute (4) Morbid obesity: Status: Acute (5) Hypertension: Status: Acute (6) Diabetes mellitus: Status: Acute DS: Summary Hospital Course Hospital Course: History of presenting illness Chief Complaint: Right foot pain and drainage 55-year-old male with recent history of hospitalization here (was discharged from this hospital on 03/21/2021 after being diagnosed with right foot infected chronic ulcer positive for MRSA, treated with IV daptomycin and IV ceftriaxone); also has history of diabetes mellitus (insulin dependent), hypertension, morbid obesity, peripheral artery disease, who presents with right foot pain and swelling and drainage.? History is from the patient and from ED notes. Patient states that after he was discharged from this hospital on 03/21/2021, he continued treatment with IV daptomycin and IV ceftriaxone, and states that he was compliant on these treatments.? He was also compliant with following up with his infectious disease doctor as well as with wound care center.? Patient endorses that 6 days ago, he started having slight pain on the lateral right foot as well as his ankle joint, and his began to notice increased drainage from the right foot wound (drainage was initially pink/clear, but starts to turn brown in color).? Afterwards, he started experiencing worsening swelling on the right lateral foot, when he went to his wound care appointment today, he was encouraged to go to the ED for further workup.? Otherwise, he denies fever, chills, nausea, vomiting, chest pain, shortness of breath. In the ED, the patient was treated with 3 L IV fluids, IV daptomycin and IV ceftriaxone. Hospital course diabetic foot infection and osteomyelitis,patient recently discharged on 03/21/2021 after being diagnosed with MRSA infection, was on IV daptomycin and IV ceftriaxone as an outpatient, returns because of worsening pain swelling/drainage on the right foot (concerning for worsening infection/possible osteomyelitis) got admitted to medical floor and underwent I&D 03/[address] Elizondo,he wishes to continue with IV antibiotic therapy, not ready for BKA, general surgery is not optimistic about good healing patient will be discharged home on IV daptomycin and ceftriaxone as before, patient declined VNA his will continue dressing change In regard to hypertension his medications has been adjusted for better blood pressure control, he has been strongly recommended to continue diabetic diet and insulin in regard to morbid obesity has been recommended low-calorie diet Time Spent with Patient Time attestation: Total time spent providing and/or coordinating discharge services: Discharge coordination time: Greater than 30 minutes Quality: Stroke Does the patient have a stroke diagnosis?: No Physical Exam Vital Signs: Vital Signs: Last Vital Signs Temp 97.9 F 04/03/21 07:37 Pulse 59 04/03/21 07:37 Resp 20 04/03/21 07:37 BP 162/72 H 04/03/21 07:37 Pulse Ox 96 04/03/21 07:37 Body Mass Index 43.2 Constitutional - Awake and Alert, No apparent distress Neck is supple no JVD Cardiovascular -? S1S2, RRR, No edema Respiratory - Normal lung expansion, Normal respiratory effort, No respiratory distress, CTA bilaterally Gastrointestinal -? NT / ND; +BS; No rebound or guarding - No CVA tenderness Extremities - right lower extremity dressing in place Neurological -? Alert & oriented x3, No focal deficit Psychological - Appropriate affect DS: Data Data Completed and Pending Completed studies during hospitalization [Text1]: Procedures Excision of Right Tibia, Open Approach (03/15/21) Insertion of Infusion Device into Superior Vena Cava, Percutaneous Approach (03/15/21) Pending studies at discharge: Pending at discharge 03/31/21 11:26 Surgical [PTH] Routine Labs on day of discharge: Laboratory Results - last 24 hr 04/02/21 04/02/21 04/02/21 11:19 16:18 20:40 POC Glucose 213 H 217 H 197 H 04/03/21 06:55 POC Glucose 165 H Preliminary micro results at discharge 03/29/21 16:04 Blood Culture - Preliminary Blood - Venous No growth after 48 hours. 03/29/21 15:58 Blood Culture - Preliminary Blood - Venous No growth after 48 hours. Discharge Plan Discharge Patient Disposition: Home, Self-Care Discharge Diagnosis: Diabetic foot infection and osteomyelitis Morbid obesity Referrals: [facility] [Other] - 1 Week ([facility] ) [facility] [Outside] - 1 Week Reece Ann MD [Primary Care Provider] - 1 Week Discharge Medications: Continued clopidogrel 75 mg tablet 75 mg PO DAILY 90 Days Qty: 90 RF: 3 cyanocobalamin (vitamin B-12) [Vitamin B-12] 500 mcg Tablet 500 mcg PO DAILY RF: 0 amlodipine 10 mg tablet 10 mg PO BEDTIME RF: 0 simvastatin 20 mg tablet 20 mg PO BEDTIME RF: 0 insulin lispro [Humalog KwikPen Insulin] 100 unit/mL insulin pen 6 unit subcut QIDACHS RF: 0 ceftriaxone 1 gram recon soln 1 g IV DAILY@1500 RF: 0 daptomycin 350 mg recon soln 600 mg IV DAILY@1530 RF: 0 Changed Lantus U-100 Insulin 100 unit/mL solution 30 unit subcut BID 30 Days Qty: 36 RF: 6 Discontinued lisinopril 40 mg tablet 40 mg PO DAILY Qty: 90 RF: 2 No Action metronidazole [Flagyl] 500 mg tablet 500 mg PO BID 7 Days Qty: 14 RF: 0 Discharge Orders: Discharge Order (Routine); Ordered 04/02/21 Ordered By: Migue Samayoa Diet: diabetic diet Activity on Discharge: As tolerated Stand Alone Forms: Patient Portal Discharge page Care Plan Goals: Continue IV antibiotic as before continue daily dressing with moist packing covered with Kerlix, and follow up with [facility] Health Concerns: Diabetes myelitis keep blood sugars around 150 for better healing, continue Lantus dose reduced to 30 u twice daily at home take Lantus 60 units twice daily increase dose of Lantus if noted to have high blood sugars, follow blood sugar closely, hold lisinopril and continue Norvasc if noted to have elevated blood pressure than resume lisinopril Plan of Treatment: Outpatient follow-up with primary care physician, [facility], Dr. lEizondo in 1-2 weeks, Dr. Zoie Arevalo prior to finishing antibiotics Assessment: As above Discharge Date/Time: 04/03/21 13:53
[2021-04-03] MEDS: cefTRIAXone sodium 2 GM in 0.9 % Sodium Chloride 50 ML IV (11:13)
[2021-04-03 11:43] LABS: Glucose, Whole Blood 211 mg/dL (60-115)
[2021-04-03 12:00] VITALS: BP 149/77; PULSE 71; RESP 20; TEMP 36.6; O2SAT 97
[2021-04-03] MEDS: DAPTOmycin 600 MG in 0.9 % Sodium Chloride 50 ML 100 MG IV (12:10)
--- NOTE | 2021-04-03 12:18 | MHC.CM.PN ---
PT WILL DC HOME TODAY WITH [facility]. [facility] IS SCHEDULED TO DELIVER PTS MEDS TOMORROW [facility] NOTIFIED OF PT DC VIA [facility] WILL TRANSPORT
== END 2021-04-03 13:53 | disposition home or self-care (01) | DRG 314 ==
LOC: HO.ED 17:48 → HO.EDOVER 21:54 → HO.IMC 21:55
PROVIDERS: Internal Medicine; Physician Assistant Medical; Surgery; Admitting Provider Internal Medicine; Emergency Provider Emergency Medicine; PCP Family Medicine; Visit Provider Hospitalist
PROC: 0QBL0ZZ Excision of Right Tarsal, Open Approach (ICD-10-PCS; principal; 2021-03-31 10:50)
DX: E11.69 Type 2 diabetes mellitus with other specified complication (principal); M86.9 Osteomyelitis, unspecified; E11.621 Type 2 diabetes mellitus with foot ulcer; L97.516 Non-pressure chronic ulcer of other part of right foot with bone involvement without evidence of necrosis; E66.01 Morbid (severe) obesity due to excess calories; L02.611 Cutaneous abscess of right foot; I10 Essential (primary) hypertension; Z20.822 Contact with and (suspected) exposure to COVID-19; Z68.41 Body mass index [BMI] 40.0-44.9, adult; Z87.891 Personal history of nicotine dependence; Z88.6 Allergy status to analgesic agent; Z79.4 Long term (current) use of insulin; Z79.02 Long term (current) use of antithrombotics/antiplatelets; Z79.899 Other long term (current) drug therapy
CPT/HCPCS: 0241U; 36415; 73630; 73701; 80048; 81003; 82947; 83605; 83735; 85025; 85027; 85610; 85652; 86140; 87040; 87071; 87205; 88305; 88311; 96361; 96365; 96367; 96375; 99223; 99285; 99291; J0690; J0696; J0878; J1650; J2250; J3010; Q9967

== ENCOUNTER 2021-04-08 10:37 | Outpatient (REF) | payer OTHER, SELFPAY ==
[2021-04-08 11:07] LABS: Blood Urea Nitrogen 18 mg/dL (9-16); Estimated Glomerular Filt Rate > 60
== END 2021-04-08 10:38 | disposition home or self-care (01) ==
LOC: HO.HVNA 10:37
PROVIDERS: Visit Provider Internal Medicine
DX: M86.171 Other acute osteomyelitis, right ankle and foot (principal)
CPT/HCPCS: 36415; 82550; 82565; 84520

== ENCOUNTER → 2021-04-12 13:06 | Outpatient (BNVA) | payer OTHER, SELFPAY | PROVIDERS: PCP Family Medicine; Visit Provider Internal Medicine ==

== ENCOUNTER 2021-04-15 11:06 | Outpatient (REF) | payer OTHER, SELFPAY ==
[2021-04-15 11:58] LABS: Blood Urea Nitrogen 15 mg/dL (9-16); Estimated Glomerular Filt Rate > 60
== END 2021-04-15 11:07 | disposition home or self-care (01) ==
LOC: HO.HVNA 11:06
PROVIDERS: Visit Provider Internal Medicine
DX: M86.171 Other acute osteomyelitis, right ankle and foot (principal)
CPT/HCPCS: 36415; 82550; 82565; 84520

== ENCOUNTER 2021-04-22 11:41 | Outpatient (REF) | payer OTHER, SELFPAY ==
[2021-04-22 12:07] LABS: Blood Urea Nitrogen 13 mg/dL (9-16); Estimated Glomerular Filt Rate > 60
== END 2021-04-22 11:42 | disposition home or self-care (01) ==
LOC: HO.LNP 11:41
PROVIDERS: Visit Provider Internal Medicine
DX: M86.171 Other acute osteomyelitis, right ankle and foot (principal)
CPT/HCPCS: 82550; 82565; 84520

== ENCOUNTER → 2021-04-25 11:19 | Outpatient (BNVA) | payer OTHER, SELFPAY | PROVIDERS: Visit Provider Internal Medicine ==

== ENCOUNTER → 2021-05-03 14:59 | Outpatient (BNVA) | payer OTHER, SELFPAY | PROVIDERS: PCP Family Medicine; Visit Provider Surgery Vascular Surgery ==

== ENCOUNTER 2021-05-06 08:25 | Outpatient (REF) | payer OTHER, SELFPAY ==
--- NOTE | ~2021-05-06 | US_ITS ---
EXAMINATION: NONINVASIVE ASSESSMENT OF THE ARTERIES OF BOTH LOWER EXTREMITIES INCLUDING PVR EXAM AND BILATERAL LOWER EXTREMITY DUPLEX. CLINICAL INFORMATION: Peripheral vascular disease, nonhealing wound COMPARISON: Bilateral lower extremity duplex and CHANELL on 02/17/2020 TECHNIQUE: Ankle pulse volume recordings, ankle pressure measurements and ankle brachial indices were obtained of the lower extremity arterial system bilaterally in addition to duplex Doppler techniques with wave form analysis and measurement of velocities in the common femoral, profunda femoral, superficial femoral, popliteal, tibial and peroneal arteries. The study was performed only at rest. FINDINGS: RIGHT LEG 1. THE RIGHT ANKLE-BRACHIAL INDEX IS: 1.01 >0.97-1.25 = normal - no significant arterial disease 0.75-0.96 = mild peripheral arterial disease 0.5-0.74 = moderate peripheral arterial disease <0.50 = severe peripheral arterial disease <0.30 = critical arterial disease 2. SEGMENTAL PRESSURES (mmHg): Ankle: PT 148, DP inaudible 3. PVR WAVEFORMS: Ankle: Biphasic 4. DIRECT DUPLEX: Common femoral artery: 119 cm/s, Multiphasic Profunda femoris artery: 54 cm/s, Multiphasic Superficial femoral artery (proximal): 130 cm/s, Multiphasic Superficial femoral artery (mid): 492 cm/s, monophasic Superficial femoral artery (distal): 153 cm/s, monophasic Popliteal artery: 143 cm/s, monophasic Posterior tibial artery: 160 cm/s, monophasic LEFT LE. THE LEFT ANKLE-BRACHIAL INDEX IS: 1.38 (higher of the DP/PT) >0.97-1.25 = normal - no significant arterial disease 0.75-0.96 = mild peripheral arterial disease 0.5-0.74 = moderate peripheral arterial disease <0.50 = severe peripheral arterial disease <0.30 = critical arterial disease 2. SEGMENTAL PRESSURES: Ankle: PT 201, DP 200 3. PVR WAVEFORMS: Ankle: Biphasic 4. DIRECT DUPLEX: Common femoral artery: 113 cm/s, Multiphasic Profunda femoris artery: 112 cm/s, Multiphasic Superficial femoral artery (proximal): 237 cm/s, Multiphasic Superficial femoral artery (mid): 190 cm/s, Multiphasic Superficial femoral artery (distal): 159 cm/s, Multiphasic Popliteal artery: 216 cm/s, Multiphasic Posterior tibial artery: 116 cm/s, Multiphasic Bilateral inguinal lymph nodes. US/US arterial duplex LE BI IMPRESSION: 1. Severe stenosis at the right mid superficial femoral artery with monophasic flow through the distal right lower extremity. 2. Mild-moderate atherosclerotic disease throughout the left lower extremity. 3. Progression of disease in the right lower extremity compared to 02/17/2020.
== END 2021-05-06 08:26 | disposition home or self-care (01) ==
LOC: HO.US 08:25
PROVIDERS: Visit Provider Surgery Vascular Surgery
DX: I70.213 Atherosclerosis of native arteries of extremities with intermittent claudication, bilateral legs (principal)
CPT/HCPCS: 93923; 93925

== ENCOUNTER → 2021-05-10 09:39 | Outpatient (BNVA) | payer OTHER, MEDICAID, SELFPAY | PROVIDERS: PCP Family Medicine; Visit Provider Surgery Vascular Surgery ==

== ENCOUNTER 2021-05-11 07:16 | Day surgery (SDC) | payer OTHER, SELFPAY ==
[2021-05-11 07:36] VITALS: BMI 43.2
[2021-05-11 08:24] LABS: MANUAL DIFF FLAG NO
[2021-05-11 08:38] LABS: INTERNATIONAL NORM RATIO 1.1 (0.9-1.1); Prothrombin Time 12.4 SEC (9.9-13.0)
[2021-05-11 08:41] LABS: Partial Thromboplastin Time 34.4 SEC (24.1-38.0)
[2021-05-11 08:54] LABS: Anion Gap 15 (12-20); Basophils Percent Auto 0.2 % (0-2); Blood Urea Nitrogen 19 mg/dL (9-16); Calcium 9.5 mg/dL (8.4-10.2); Carbon Dioxide 21 mmol/L (22-29); Chloride 106 mmol/L (96-108); Creatinine Clr Calc Pharmacy 103.9; Eosinophils Percent Auto 0.2 % (0-4); Estimated Glomerular Filt Rate > 60; Glucose Random 113 mg/dL (60-115); Hematocrit 41.3 % (42-52); Hemoglobin 13.5 g/dl (14.0-18.0); Imm Gran Abs Auto 0.03 X10*3/uL (0.00-0.03); Imm Gran Pct Auto 0.3 % (0.0-0.4); Lymphocytes Percent Auto 17.3 % (20-40); Mean Corpuscular HGB Conc 32.7 g/dl (31.0-36.0); Mean Corpuscular Hemoglobin 28.2 pg (27.0-33.0); Mean Corpuscular Volume 86.2 fL (80-98); Mean Platelet Volume 10.9 fL (9.4-12.4); Monocytes Absolute Auto 0.9 X10*3/uL (0.1-1.2); Monocytes Percent Auto 7.6 % (2-11); Neutrophils Absolute Auto 8.7 X10*3/uL (2.0-8.3); Neutrophils Percent Auto 74.4 % (45-73); Platelet Count 274 X10*3/uL (160-400); Potassium 4.4 mmol/L (3.3-5.1); Red Blood Count 4.79 X10*6/uL (4.60-5.80); Red Cell Distribution Width 15.4 % (11.0-16.0); Sodium 138 mmol/L (135-145); White Blood Count 11.7 X10*3/uL (4.8-10.8)
[2021-05-11 10:50] VITALS: BP 142/58; PULSE 77; RESP 18; TEMP 36.7; O2SAT 99
[2021-05-11 11:05] VITALS: BP 154/58; PULSE 77; RESP 18; O2SAT 99
--- NOTE | 2021-05-11 11:12 | P.OP_ITS ---
Operative Note Operative Note Date of Service: 05/11/21 Narrative: Angiogram report from [facility] Preoperative diagnosis: Atherosclerosis of right lower extremity with nonhealing ulcer Postoperative diagnosis: Same Procedure: 1. Ultrasound-guided left common femoral access 2. Aortogram with right lower extremity runoff 3. Right SFA atherectomy and stent Surgeon:Alvaro Ramírez M.D., FACS, RPVI Insulation Cupola Operator:None Anesthesia: Local with moderate conscious sedation. Total intraservice moderate sedation time was 60 minutes. I monitored the patient's level of consciousness and physiologic status continuously throughout the procedure. Specimens:none Drains:none Estimated blood loss: Less than 10 ml Implant: Ev 3 Everflex 6x40 Indications: 55-year-old gentleman with longstanding diabetes nonhealing right lower extremity ulcer presents for endovascular intervention. Preprocedure ultrasound demonstrated SFA disease. The patient has signed the informed consent after reviewing risks, complications, benefits, and alternatives previously discussed with the patient. The patient was given the opportunity to ask any additional questions or voice any concerns. All questions were answered to the patient's satisfaction. Procedure in detail: Patient was brought to the angiography suite prior to which a time-out was called for patient identification and site verification. Bilateral groins were prepped and draped in the standard surgical fashion. Under ultrasound guidance leftcommon femoral was punctured with micro puncture needle and wire. Subsequently a precision 4 Palestinian sheath was then placed. Bentson wire was advanced to the level of the aorta. 4 Palestinian Flush catheter was brought up and parked at the level of the renal arteries. Aortogram was then undertaken. Catheter was brought down to the level of the iliac bifurcation. Iliacs were subsequently imaged. Catheter was then brought in up and over to the right side SFA. Runoff study was then undertaken. At this time it was noted that there was mid to distal SFA disease. 8000 units of systemic heparin was administered. Up and over 6 Palestinian sheath was then placed. We were able to traverse the lesion with a Glidewire Advantage. We followed this with a trail Blazer catheter and confirmed true lumen by instilling contrast. Once this was accomplished we then exchanged out for a spider wire. Hawk 1 atherectomy was done in that location in the mid to distal SFA. Several unidirectional passes were undertaken. Once this was accomplished we then followed this up with a 5 x 40 balloon. There was still a fair amount of residual stenosis. A 6 x 40 stent was then placed. And good apposition was obtained with a 6 x 40 plasty with balloon. Once this was accomplished completion angiogram demonstrated excellent result. Catheter wire sheath was brought back to the ipsilateral side. StarClose closure device was then deployed. Interpretation of films: 1. Ultrasound demonstrates appropriate femoral puncture. Image of which was saved. 2. Aortogram demonstrates appropriate caliber aorta. Minimal disease. Appropriate take-off of the renals. 3. Iliac images demonstrate minimal disease 4. Right Leg Common femoral artery: No significant disease Profundus Femoris: No significant disease Superficial femoral artery: Disease at Tramaine's canal which was a high-grade stenosis immediate reconstitution Popliteal artery (p1,p2,p3): No significant disease Anterior tibial artery: Mild disease at the origin but full runoff Peroneal artery: No significant disease Posterior tibial artery: No significant disease Dorsalis pedis/plantar arch: Incomplete arch difficult to image 5. Completion angiogram demonstrated excellent flow down the right leg post atherectomy and stent Conclusion: 1. Successful atherectomy and stent of right SFA 2. Anticoagulation status: Will remain on Plavix This note is constructed using voice recognition software. While every effort has been made to ensure accuracy, drafter landscape errors may have been included. Thank you for allowing me to participate in the care of your patient. Yours sincerely, Alvaro Ramírez MD, FACS, R.P.V.I.
[2021-05-11 11:20] VITALS: BP 143/70; PULSE 78; RESP 18; O2SAT 98
[2021-05-11 11:35] VITALS: BP 135/66; PULSE 81; RESP 20; O2SAT 98
[2021-05-11 11:50] VITALS: BP 162/70; PULSE 88; RESP 20; O2SAT 98
[2021-05-11 12:50] VITALS: BP 149/70; PULSE 87; RESP 20; O2SAT 98
== END 2021-05-11 13:21 | disposition home or self-care (01) ==
PROVIDERS: PCP Family Medicine; Visit Provider Surgery Vascular Surgery
DX: I70.238 Atherosclerosis of native arteries of right leg with ulceration of other part of lower leg (principal); E11.621 Type 2 diabetes mellitus with foot ulcer; L97.519 Non-pressure chronic ulcer of other part of right foot with unspecified severity; I10 Essential (primary) hypertension; Z79.02 Long term (current) use of antithrombotics/antiplatelets
CPT/HCPCS: 36415; 37227; 76937; 80048; 85025; 85610; 85730; 99152; 99153; C1714; C1725; C1760; C1769; C1876; C1884; C1887; J2250; J3010; Q9967

== ENCOUNTER → 2021-05-25 15:56 | Outpatient (BNVA) | payer OTHER, MEDICAID, SELFPAY | PROVIDERS: PCP Family Medicine; Referring Provider Family Medicine; Visit Provider Surgery ==

== ENCOUNTER → 2021-05-26 09:42 | Outpatient (BNVA) | payer OTHER, MEDICAID, SELFPAY | PROVIDERS: PCP Family Medicine; Visit Provider Surgery Vascular Surgery ==

== ENCOUNTER 2021-06-13 05:55 | Inpatient (IN) | payer OTHER, SELFPAY ==
[2021-06-09 14:42] VITALS: BMI 42.7
--- NOTE | 2021-06-10 12:06 | HO.ANESPROP2 ---
Documented by User: Estephania Murphy NP 06/10/21 12:23 HPI - Anesthesia Eval Consult details Narrative: 55yo M for Right Leg Amputation Below Knee Plavix for PAD s/p right SFA atherectomy and stent 05/11/2021 s/p R foot debridement with TIVA 03/2021 [facility] Active Problems Active Problems: All Active Problems (Updated 06/09/21 @ 14:42 by Corrie Garcia RN) Osteomyelitis (Acute) Diabetic foot ulcer (Acute) Diabetes mellitus (Acute) PAD (peripheral artery disease) (Acute) Past Medical History Medical History Diabetes mellitus History of wound infection Hypertension Morbid obesity PAD (peripheral artery disease) Peripheral neuropathy Family History Family history of problems with anesthesia: No Surgical History Surgical History History of amputation of toe (~02/23/20) History of amputation of toe (~06/2017) S/P debridement (~01/2017) History of Problems with Anesthesia: No Social History Social History Household Members: Spouse Housing: House Do you presently have visiting nurse or other home services: Yes ([facility]) Patient Tobacco Use Status: Never used Tobacco Use of substances other than those prescribed or required for medical reasons: No Have you been hit, kicked, punched, or otherwise hurt by someone within the past year? If so, by whom?: No Are you DNR?: No Advance Directives: No Advance Directives Information Provided: Yes Advance Directives on File: No Recently lost weight without trying: No service: No Current occupational status: employed Meds Allergies Allergy/AdvReac Type Severity Reaction Status Date / Time aspirin Allergy Severe ANAPHYLAXIS, Verified 06/09/21 14:41 eyes red,swollen Home Medications Medication Instructions Recorded Confirmed Last Taken Type cyanocobalamin (vitamin B-12) 500 500 mcg PO DAILY 03/15/21 06/09/21 03/29/21 History mcg tablet (Vitamin B-12) folic acid 0.8 mg capsule 0.8 mg PO DAILY 06/09/21 06/09/21 Unknown History insulin lispro 100 unit/mL 5 unit SUBCUT TID 06/09/21 06/09/21 Unknown History subcutaneous pen (Humalog KwikPen (U-100) Insulin) Exam Exam Date and Time: June 10, 2021 1206 Height,Weight and Vital Signs: Height 5 ft 9 in Weight 131.088 kg Pertinent Lab Results Pertinent Lab Results: Laboratory Tests 05/11/21 05/11/21 08:13 08:13 WBC 11.7 H Hgb 13.5 L Hct 41.3 L Plt Count 274 Sodium 138 Potassium 4.4 Chloride 106 Carbon Dioxide 21 L BUN 19 H Creatinine 1.06 Narrative Narrative: EKG 03/2021 appears NSR ECHO 03/2021 Conclusions: - ? Normal biventricular function. ? - ? 2D assessment of valves is somewhat limited. ? - Consider a POLI if clinically appropriate.? ? Assessment and Plan Assessment Anesthesia Assessment: Chart Reviewed Final Anesthetic Review Family History of Problems with Anesthesia: No History of Problems with Anesthesia: No Documented by User: Anat Mcallister MD 06/13/21 07:58 [facility] Past Medical History Medical History Diabetes mellitus History of wound infection Hypertension Morbid obesity PAD (peripheral artery disease) Peripheral neuropathy Surgical History Surgical History History of amputation of toe (~02/23/20) History of amputation of toe (~06/2017) S/P debridement (~01/2017) Social History Social History Household Members: Spouse Housing: House Do you presently have visiting nurse or other home services: Yes ([facility]) Patient Tobacco Use Status: Never used Tobacco Use of substances other than those prescribed or required for medical reasons: No Have you been hit, kicked, punched, or otherwise hurt by someone within the past year? If so, by whom?: No Are you DNR?: No Advance Directives: No Advance Directives Information Provided: Yes Advance Directives on File: No Recently lost weight without trying: No service: No Current occupational status: employed Meds Allergies Allergy/AdvReac Type Severity Reaction Status Date / Time aspirin Allergy Severe ANAPHYLAXIS, Verified 06/09/21 14:41 eyes red,swollen Home Medications Medication Instructions Recorded Confirmed Last Taken Type cyanocobalamin (vitamin B-12) 500 500 mcg PO DAILY 03/15/21 06/09/21 03/29/21 History mcg tablet (Vitamin B-12) folic acid 0.8 mg capsule 0.8 mg PO DAILY 06/09/21 06/09/21 Unknown History insulin lispro 100 unit/mL 5 unit SUBCUT TID 06/09/21 06/09/21 Unknown History subcutaneous pen (Humalog KwikPen (U-100) Insulin) Exam Airway Mallampati Class: III TM Dist: >3cm Neck ROM: Full Loose/Missing/Broken Teeth: No Heart: RRR Lungs: CTA Assessment and Plan Assessment Anesthesia Assessment: Anesthesia Plan Discussed Final Anesthetic Review NPO: Yes ASA Class: III Final Preanesthetic Review: Meds/Allgs Chart Reviewed, Consent Obtained/Reviewed and Anes Risks/Benef Reviewed Patient Risk: Intermediate Procedure Risk: Low Anesthetic Plan Anesthetic Plan: GA Disposition: Standard PACU
[2021-06-13] VITALS (26 sets, daily range): BP systolic 122–173; BP diastolic 37–79; PULSE 65–84; RESP 14–20; TEMP 36.3–37; O2SAT 94–99
[2021-06-13 06:54] LABS: Glucose, Whole Blood 182 mg/dL (60-115)
[2021-06-13 07:00] LABS: Anion Gap 13 (12-20); Blood Urea Nitrogen 13 mg/dL (9-16); Calcium 9.4 mg/dL (8.4-10.2); Carbon Dioxide 25 mmol/L (22-29); Chloride 105 mmol/L (96-108); Creatinine Clr Calc Pharmacy 121.4; Estimated Glomerular Filt Rate > 60; Glucose Random 207 mg/dL (60-115); Potassium 5.1 mmol/L (3.3-5.1); Sodium 138 mmol/L (135-145)
[2021-06-13] MEDS: Lactated Ringers 1,000 ML 100 ML IVCONT (07:01)
[2021-06-13 07:02] LABS: Prothrombin Time 11.3 SEC (9.9-13.0)
[2021-06-13 07:03] LABS: Hematocrit 43.8 % (42.0-52.0); Hemoglobin 14.3 g/dl (14.0-18.0); Mean Corpuscular Hemoglobin 28.5 pg (27.0-33.0); Mean Corpuscular Volume 87.4 fL (80.0-98.0); Mean Platelet Volume 10.8 fL (9.4-12.4); Platelet Count 239 X10*3/uL (160-400); Red Blood Count 5.01 X10*6/uL (4.60-5.80); Red Cell Distribution Width 15.1 % (11.0-16.0); White Blood Count 9.3 X10*3/uL (4.8-10.8)
[2021-06-13 07:04] LABS: Mean Corpuscular HGB Conc 32.6 g/dl (31.0-36.0)
[2021-06-13 07:05] LABS: Partial Thromboplastin Time 33.5 SEC (24.1-38.0)
[2021-06-13 07:13] LABS: COVID-19 Test Negative (Negative); IDNOW Serial# 9DD0AD1C
--- NOTE | 2021-06-13 09:30 | W.PM.OPN ---
Operative Note Operative Note Date of Service: 06/13/21 Narrative: Operative note by [facility] Preoperative diagnosis: Nonhealing right lower extremity ulcer Postoperative diagnosis: Same Procedure: Right below-knee amputation Surgeon:Alvaro Ramírez M.D. Flight Operations Manager: Sonu Anesthesia: General Specimens: 1 Drains: None Estimated blood loss: 100 mL Indications: 55-year-old diabetic gentleman with a Charcot right foot has a nonhealing ulcer. Multiple attempts at conservative management were tried. [facility] He now presents for right below-knee amputation. The patient has signed the informed consent after reviewing risks, complications, benefits, and alternatives previously discussed with the patient. The patient was given the opportunity to ask any additional questions or voice any concerns. All questions were answered to the patient's satisfaction. Procedure in detail: Patient was brought to the operating room prior to which a time-out was called for patient identification site verification. Right lower extremity was prepped and draped in standard surgical fashion. Approximately 10 cm below the tibial tuberosity curvilinear incision was carried out over the pretibial surface. We created a posterior flap as well. Once down to the tibia. This was encircled with a lap pad. Reverse hockey stick cut was made on the bone. And then we transected the fibula. We dissected out the posterior flap using electrocautery. This was removed off the table as specimen. Once this was accomplished all bleeders were tied off with 2-0 silk ties. In addition to 0 silk stitches had to be used for the peroneal artery stump. Once this was all accomplished bony edges were filed down. Copious irrigation was undertaken. Once cleared the flap was trimmed down to appropriate size. Deep layer was reapproximated using 2 0 poly Sorb. Superficial layer with 3-0 poly Sorb. Finally skin was closed with 2 0 nylon in a mattress fashion. In addition skin clips were used. Xeroform and a sterile dressing were applied. At the end of the case sponge instrument counts were correct. Patient tolerated the procedure well. Returned to recovery with stable vitals. This note is constructed using voice recognition software. While every effort has been made to ensure accuracy, education professional errors may have been included. Thank you for allowing me to participate in the care of your patient. Yours sincerely, Alvaro Ramírez MD, FACS, R.P.V.I.
[2021-06-13 09:38] LABS: Glucose, Whole Blood 170 mg/dL (60-115)
[2021-06-13] MEDS: fentaNYL citrate/PF 100 MCG/2 ML VIAL 50 MCG IVPUSH ×4 (09:38→10:14)
[2021-06-13] MEDS: oxyCODONE HCl Immed Release 5 MG TABLET 10 MG PO (09:39)
[2021-06-13] MEDS: Acetaminophen 325 MG TABLET 650 MG PO (09:40)
[2021-06-13] MEDS: HYDROmorphone HCl 0.5 MG/0.5 ML SYRINGE 0.25 MG IVPUSH ×2 (10:58→11:15)
--- NOTE | 2021-06-13 11:25 | PM.IMCN ---
History of Present Illness Data of Consult Service Date: 06/13/21 Primary Care Provider: Reece Ann MD HPI Reason for consult: Diabetes control 55-year-old male with history of Charcot right foot and nonhealing ulcer, was admitted for elective right below-knee amputation. Hospice consult was requested for diabetes management. Patient has diabetes type 2, is usually on glargine 60 units b.i.d. and sliding scale insulin. Postoperatively patient has some pain at surgical site, states he has no appetite. Denies any chest pain, shortness of breath, fever, chills. Review of Systems Review of Systems: Constitutional: Denies fever, denies Chills Eyes: denies blurry vision ENT: denies sore throat CVS: denies chest pain Respiratory: Denies dyspnea GI: no abdominal pain : denies dysuria MSK: denies neck pain Skin: denies rash Neuro: denies specific motor weakness Psych: denies suicidal ideation Endocrine: denies heat/cold intolerance Hematologic: denies easy bleeding Allergy: denies hives [facility] Medical History Diabetes mellitus History of wound infection Hypertension Morbid obesity PAD (peripheral artery disease) Peripheral neuropathy Pertinent family history: denies cad in parents Surgical History History of amputation of toe (~02/23/20) History of amputation of toe (~06/2017) S/P debridement (~01/2017) Social History Household Members: Spouse Housing: House Do you presently have visiting nurse or other home services: Yes ([facility]) Patient Tobacco Use Status: Never used Tobacco Use of substances other than those prescribed or required for medical reasons: No Have you been hit, kicked, punched, or otherwise hurt by someone within the past year? If so, by whom?: No Are you DNR?: No Advance Directives: No Advance Directives Information Provided: Yes Advance Directives on File: No Recently lost weight without trying: No service: No Current occupational status: employed Meds Allergies Allergy/AdvReac Type Severity Reaction Status Date / Time aspirin Allergy Severe ANAPHYLAXIS, Verified 06/09/21 14:41 eyes red,swollen Active Medications: Current Medications Albuterol Sulfate (Albuterol Sulfate (0.083%) 2.5 Mg/3 Ml Vial.Neb) 2.5 mg INHALE ONCE PRN PRN Reason: Wheezing Dextrose (Dextrose 50 % 25 Gm/50 Ml Vial) 25 gm IVPUSH Q15M PRN; Protocol PRN Reason: per Hypoglycemia Standing Ord. Fentanyl (Fentanyl Citrate/Pf 100 Mcg/2 Ml Vial) 25 mcg IVPUSH Q5M PRN; Protocol PRN Reason: Pain, Moderate (Pain Scale 4-6 Glucose (Glucose Gel 15 Gm Gel..Gram.) 15 gm PO Q15M PRN; Protocol PRN Reason: per Hypoglycemia Standing Ord. Heparin Sodium (Porcine) (Heparin Sodium,Porcine 5,000 Unit/Ml Vial) 5,000 unit SUBCUT Q8H [facility] Hydromorphone HCl (Hydromorphone Hcl 0.5 Mg/0.5 Ml Syringe) 0.5 mg IVPUSH Q5M PRN; Protocol PRN Reason: Pain, Severe (Pain Scale 7-10) Hydromorphone HCl (Hydromorphone Hcl 0.5 Mg/0.5 Ml Syringe) 0.25 mg IVPUSH Q5M PRN; Protocol PRN Reason: Pain, Severe (Pain Scale 7-10) Last Admin: 06/13/21 11:15 Dose: 0.25 mg Documented by: Lactated Ringer's (Lr) 1,000 mls @ 100 mls/hr IVCONT .Q10H [facility] Last Admin: 06/13/21 07:01 Dose: 100 mls/hr Documented by: Sodium Chloride (Ns) 1,000 mls @ 80 mls/hr IVCONT .[id number] [facility] Cefazolin Sodium/Dextrose (Ancef) 2 gm in 50 mls @ 100 mls/hr IV POSTOP@1400 ONE Stop: 06/13/21 14:29 Insulin Glargine (Insulin Glargine,Hum.Rec.Anlog 100 Unit/Ml 10 Ml Vial) 30 unit SUBCUT BID [facility] Insulin Human Lispro (Insulin Lispro 100 Unit/Ml 3 Ml Vial) 0 unit SUBCUT QIDACHS [facility]; Protocol Morphine Sulfate (Morphine Sulfate 2 Mg/Ml Cartridge) 2 mg IVPUSH Q4H PRN; Protocol PRN Reason: Pain, Severe (Pain Scale 7-10) Ondansetron HCl (Ondansetron Hcl 4 Mg/2 Ml Vial) 4 mg IVPUSH ONCE PRN PRN Reason: Nausea and Vomiting Oxycodone HCl (Oxycodone Hcl Immed Release 5 Mg Tablet) 5 mg PO Q4H PRN PRN Reason: Pain, Moderate (Pain Scale 4-6 Sodium Chloride (0.9 % Sodium Chloride Flush 3 Ml Syringe) 3 ml IVFLUSH QSHIFT [facility] Home Medications Medication Instructions Recorded Confirmed Last Taken Type cyanocobalamin (vitamin B-12) 500 500 mcg PO DAILY 03/15/21 06/09/21 03/29/21 History mcg tablet (Vitamin B-12) folic acid 0.8 mg capsule 0.8 mg PO DAILY 06/09/21 06/09/21 Unknown History insulin lispro 100 unit/mL 5 unit SUBCUT TID 06/09/21 06/09/21 Unknown History subcutaneous pen (Humalog KwikPen (U-100) Insulin) Physical Exam Vital Signs and Narrative: Vital Signs: Last Vital Signs Temp 97.8 F 06/13/21 09:31 Pulse 70 06/13/21 11:15 Resp 16 06/13/21 11:15 BP 137/51 L 06/13/21 11:15 Pulse Ox 98 06/13/21 11:15 Body Mass Index 42.7 General: no acute distress HEENT: atraumatic Neck: normal to visual inspection CVS: S1, S2, RRR Resp: CTA bilateral Chest: non tender GI: soft, non tender, non distended : no CVA tenderness Skin: no rashes Extremities: right bka Neuro: Oriented X3, grossly intact Psych: cooperative Results Labs CBC and Chem 7: 06/13/21 06:35 06/13/21 06:35 Labs: Laboratory Results - last 24 hr 06/13/21 06/13/21 06/13/21 06:29 06:35 06:35 MCV 87.4 MCH 28.5 MCHC 32.6 RDW 15.1 Plt Count 239 MPV 10.8 Absolute Nucleated RBC 0.000 Nucleated RBC % (auto) 0.0 PT 11.3 INR 1.0 APTT 33.5 Anion Gap Estim Creat Clear Calc Estimated GFR POC Glucose Random Glucose Calcium COVID-19 ([facility]) Negative COVID-19 Clin Com See Note Blood Type Antibody Screen 06/13/21 06/13/21 06/13/21 06:35 06:35 06:49 MCV MCH MCHC RDW Plt Count MPV Absolute Nucleated RBC Nucleated RBC % (auto) PT INR APTT Anion Gap 13 Estim Creat Clear Calc 121.4 Estimated GFR > 60 POC Glucose 182 H Random Glucose 207 H D Calcium 9.4 COVID-19 ([facility]) COVID-19 Clin Com Blood Type B Positive Antibody Screen NEGATIVE 06/13/21 09:33 MCV MCH MCHC RDW Plt Count MPV Absolute Nucleated RBC Nucleated RBC % (auto) PT INR APTT Anion Gap Estim Creat Clear Calc Estimated GFR POC Glucose 170 H Random Glucose Calcium COVID-19 ([facility]) COVID-19 Clin Com Blood Type Antibody Screen Assessment and Plan (1) Diabetic foot ulcer: Status: Acute (2) Diabetes mellitus: Status: Acute 55M presented for elective right BKA right bka management per vascular DM will decrease glargine form 60 units bid to 30 units bid for now while appetitie decreased, will monitor closely and adjust as needed. sliding scale short acting HTN will monitor for now postop, if bp persistently elevated will restart amlodipine, lisinopril
[2021-06-13] MEDS: 0.9 % Sodium Chloride 1,000 ML 80 ML IVCONT (12:39)
[2021-06-13] MEDS: oxyCODONE HCl Immed Release 5 MG TABLET PO ×2 (12:39→17:47)
[2021-06-13] MEDS: Insulin Lispro 100 UNIT/ML 3 ML VIAL SUBCUT ×3 (12:40→20:53)
[2021-06-13 12:42] LABS: Glucose, Whole Blood 219 mg/dL (60-115)
[2021-06-13 12:59] LABS: Anion Gap 14 (12-20); Blood Urea Nitrogen 14 mg/dL (9-16); Calcium 8.4 mg/dL (8.4-10.2); Carbon Dioxide 22 mmol/L (22-29); Chloride 106 mmol/L (96-108); Creatinine Clr Calc Pharmacy 113.9; Estimated Glomerular Filt Rate > 60; Glucose Random 231 mg/dL (60-115); Sodium 137 mmol/L (135-145)
[2021-06-13] MEDS: ceFAZolin Sodium/Dextrose,Iso 2 GM/50 ML PIGGYBACK IV (13:29)
[2021-06-13 16:24] LABS: Glucose, Whole Blood 215 mg/dL (60-115)
[2021-06-13 20:16] LABS: Glucose, Whole Blood 259 mg/dL (60-115)
[2021-06-13] MEDS: Insulin Glargine,Hum.rec.anlog 100 UNIT/ML 10 ML VIAL 30 UNIT SUBCUT (20:52)
[2021-06-13] MEDS: amLODIPine Besylate 10 MG TABLET PO (20:52)
[2021-06-13] MEDS: 0.9 % Sodium Chloride Flush 3 ML SYRINGE IVFLUSH (23:54)
[2021-06-13] MEDS: Morphine Sulfate 2 MG/ML CARTRIDGE IVPUSH (23:55)
[2021-06-14] MEDS: 0.9 % Sodium Chloride 1,000 ML 80 ML IVCONT (00:03)
[2021-06-14 03:16] VITALS: BP 153/74; PULSE 78; RESP 17; TEMP 37; O2SAT 94
[2021-06-14 06:22] LABS: MANUAL DIFF FLAG NO
[2021-06-14 07:07] LABS: Basophils Percent Auto 0.1 % (0-2); Eosinophils Percent Auto 0.1 % (0-4); Hematocrit 37.4 % (42.0-52.0); Hemoglobin 12.1 g/dl (14.0-18.0); Imm Gran Abs Auto 0.04 X10*3/uL (0.00-0.03); Imm Gran Pct Auto 0.3 % (0.0-0.4); Lymphocytes Absolute Auto 1.3 X10*3/uL (1.2-4.9); Lymphocytes Percent Auto 8.9 % (20-40); Mean Corpuscular Hemoglobin 28.3 pg (27.0-33.0); Mean Corpuscular Volume 87.4 fL (80.0-98.0); Mean Platelet Volume 11.7 fL (9.4-12.4); Monocytes Absolute Auto 0.9 X10*3/uL (0.1-1.2); Neutrophils Absolute Auto 12.72 x10*3/uL (2.0-8.3); Neutrophils Percent Auto 84.6 % (45-73); Platelet Count 203 X10*3/uL (160-400); Red Blood Count 4.28 X10*6/uL (4.60-5.80); Red Cell Distribution Width 15.2 % (11.0-16.0); White Blood Count 15.1 X10*3/uL (4.8-10.8)
[2021-06-14 07:12] LABS: Mean Corpuscular HGB Conc 32.4 g/dl (31.0-36.0)
[2021-06-14 07:19] VITALS: BP 155/70; PULSE 82; RESP 18; TEMP 37.1; O2SAT 94
[2021-06-14 07:37] LABS: Glucose, Whole Blood 195 mg/dL (60-115)
[2021-06-14] MEDS: Insulin Lispro 100 UNIT/ML 3 ML VIAL SUBCUT ×5 (07:51→21:25)
[2021-06-14] MEDS: lisinopriL 40 MG TABLET PO (07:52)
[2021-06-14] MEDS: Clopidogrel Bisulfate 75 MG TABLET PO (07:52)
[2021-06-14] MEDS: Cyanocobalamin (Vitamin B-12) 500 MCG TABLET PO (07:52)
--- NOTE | 2021-06-14 08:51 | MHC.CM.PN ---
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
[2021-06-14] MEDS: Heparin Sodium,Porcine 5,000 UNIT/ML VIAL 5000 UNIT SUBCUT ×2 (09:18→17:15)
[2021-06-14] MEDS: Insulin Glargine,Hum.rec.anlog 100 UNIT/ML 10 ML VIAL 50 UNIT SUBCUT (09:19)
--- NOTE | 2021-06-14 09:32 | HO.PM.IMPN ---
Subjective Subjective Date of Service: 06/14/21 Interval History: cc: elective right bka interval history: pain controlled Cardiovascular Cardiovascular: Reports no additional cardiovascular complaints Respiratory Respiratory: Reports no additional respiratory complaints Physical Exam Vital Signs: Vital Signs: Last Vital Signs Temp 98.7 F 06/14/21 07:19 Pulse 82 06/14/21 07:19 Resp 18 06/14/21 07:19 BP 155/70 H 06/14/21 07:19 Pulse Ox 94 06/14/21 07:19 Body Mass Index 42.7 General: AO X 3, no acute distress Resp: CTA bilateral, no accessory muscles used CVS: S1,S2,RRR GI: soft, non tender, non distended Neuro: motor grossly intact, alert Psych: appropriate affect, appropriate insight right bka Objective Data Active Medications Amlodipine Besylate (Amlodipine Besylate 10 Mg Tablet) 10 mg PO BEDTIME [facility]; Protocol Last Admin: 06/13/21 20:52 Dose: 10 mg Documented by: RENY Clopidogrel Bisulfate (Clopidogrel Bisulfate 75 Mg Tablet) 75 mg PO DAILY [facility] Last Admin: 06/14/21 07:52 Dose: 75 mg Documented by: YASMIN Cyanocobalamin (Cyanocobalamin (Vitamin B-12) 500 Mcg Tablet) 500 mcg PO DAILY [facility] Last Admin: 06/14/21 07:52 Dose: 500 mcg Documented by: YASMIN Dextrose (Dextrose 50 % 25 Gm/50 Ml Vial) 25 gm IVPUSH Q15M PRN; Protocol PRN Reason: per Hypoglycemia Standing Ord. Glucose (Glucose Gel 15 Gm Gel..Gram.) 15 gm PO Q15M PRN; Protocol PRN Reason: per Hypoglycemia Standing Ord. Heparin Sodium (Porcine) (Heparin Sodium,Porcine 5,000 Unit/Ml Vial) 5,000 unit SUBCUT Q8H [facility] Last Admin: 06/14/21 09:18 Dose: 5,000 unit Documented by: YASMIN Hydromorphone HCl (Hydromorphone Hcl 0.5 Mg/0.5 Ml Syringe) 0.5 mg IVPUSH Q5M PRN; Protocol PRN Reason: Pain, Severe (Pain Scale 7-10) Hydromorphone HCl (Hydromorphone Hcl 0.5 Mg/0.5 Ml Syringe) 0.25 mg IVPUSH Q5M PRN; Protocol PRN Reason: Pain, Severe (Pain Scale 7-10) Last Admin: 06/13/21 11:15 Dose: 0.25 mg Documented by: NATALIA Sodium Chloride (Ns) 1,000 mls @ 80 mls/hr IVCONT .[id number] [facility] Last Admin: 06/14/21 00:03 Dose: 80 mls/hr Documented by: KRISTINE Insulin Glargine (Insulin Glargine,Hum.Rec.Anlog 100 Unit/Ml 10 Ml Vial) 50 unit SUBCUT BID [facility] Last Admin: 06/14/21 09:19 Dose: 50 unit Documented by: YASMIN Insulin Human Lispro (Insulin Lispro 100 Unit/Ml 3 Ml Vial) 0 unit SUBCUT QIDACHS [facility]; Protocol Last Admin: 06/14/21 07:51 Dose: 2 unit Documented by: YASMIN Insulin Human Lispro (Insulin Lispro 100 Unit/Ml 3 Ml Vial) 5 unit SUBCUT TIDAC [facility] Last Admin: 06/14/21 07:52 Dose: 5 unit Documented by: YASMIN Lisinopril (Lisinopril 40 Mg Tablet) 40 mg PO DAILY [facility]; Protocol Last Admin: 06/14/21 07:52 Dose: 40 mg Documented by: YASMIN Morphine Sulfate (Morphine Sulfate 2 Mg/Ml Cartridge) 2 mg IVPUSH Q4H PRN; Protocol PRN Reason: Pain, Severe (Pain Scale 7-10) Last Admin: 06/13/21 23:55 Dose: 2 mg Documented by: KRISTINE Oxycodone HCl (Oxycodone Hcl Immed Release 5 Mg Tablet) 5 mg PO Q4H PRN PRN Reason: Pain, Moderate (Pain Scale 4-6 Last Admin: 06/13/21 17:47 Dose: 5 mg Documented by: RENY Sodium Chloride (0.9 % Sodium Chloride Flush 3 Ml Syringe) 3 ml IVFLUSH QSHIFT [facility] Last Admin: 06/14/21 07:56 Dose: Not Given Documented by: YASMIN Non-Admin Reason: IV Running Labs CBC & Chem 7: 06/14/21 05:56 06/13/21 12:36 Labs: Laboratory Results - last 24 hr 06/13/21 06/13/21 06/13/21 06:35 09:33 12:13 MCV MCH MCHC RDW Plt Count MPV Immature Gran % (Auto) Neut % (Auto) Lymph % (Auto) [place] % (Auto) Eos % (Auto) Baso % (Auto) Lymph # (Auto) [place] # (Auto) Eos # (Auto) Baso # (Auto) Abs Immat Gran (auto) Absolute Neuts (auto) Absolute Nucleated RBC Nucleated RBC % (auto) Anion Gap Estim Creat Clear Calc Estimated GFR POC Glucose 170 H 219 H Random Glucose Calcium Blood Type Unknown 06/13/21 06/13/21 06/13/21 12:36 16:04 19:58 MCV MCH MCHC RDW Plt Count MPV Immature Gran % (Auto) Neut % (Auto) Lymph % (Auto) [place] % (Auto) Eos % (Auto) Baso % (Auto) Lymph # (Auto) [place] # (Auto) Eos # (Auto) Baso # (Auto) Abs Immat Gran (auto) Absolute Neuts (auto) Absolute Nucleated RBC Nucleated RBC % (auto) Anion Gap 14 Estim Creat Clear Calc 113.9 Estimated GFR > 60 POC Glucose 215 H 259 H Random Glucose 231 H Calcium 8.4 D Blood Type 06/14/21 06/14/21 05:56 07:23 MCV 87.4 MCH 28.3 MCHC 32.4 RDW 15.2 Plt Count 203 MPV 11.7 Immature Gran % (Auto) 0.3 Neut % (Auto) 84.6 H Lymph % (Auto) 8.9 L [place] % (Auto) 6.0 Eos % (Auto) 0.1 Baso % (Auto) 0.1 Lymph # (Auto) 1.3 [place] # (Auto) 0.9 Eos # (Auto) 0.0 Baso # (Auto) 0.0 Abs Immat Gran (auto) 0.04 H Absolute Neuts (auto) 12.72 H Absolute Nucleated RBC 0.000 Nucleated RBC % (auto) 0.0 Anion Gap Estim Creat Clear Calc Estimated GFR POC Glucose 195 H Random Glucose Calcium Blood Type Assessment and Plan (1) Diabetic foot ulcer: Status: Acute (2) PAD (peripheral artery disease): Status: Acute Assessment and Plan: 55M presented for elective right BKA right bka management per vascular DM increase to 50 lantus bid sliding scale short acting HTN amlodipine, lisinopril Quality Stroke Does the patient have a stroke diagnosis?: No VTE Prior VTE?: No VTE Risk Level:: Medical - moderate - high VTE Device Contraindication: N/A - Device Ordered VTE Drug Contraindication: Treatment Not Tolerated
--- NOTE | 2021-06-14 09:40 | HO.VASCPN ---
Subjective Subjective Date of Service: 06/14/21 Patient reports: no new complaints, feels better and pain is less Interval history: Patient is postop day 1 status post BKA. No events overnight. Pain better controlled. In good spirits this morning. Dressing did have a little bit of saturation which was reinforced. Overall doing extremely well Physical Exam Vital Signs: Vital Signs: Last Vital Signs Temp 98.7 F 06/14/21 07:19 Pulse 82 06/14/21 07:19 Resp 18 06/14/21 07:19 BP 155/70 H 06/14/21 07:19 Pulse Ox 94 06/14/21 07:19 Body Mass Index 42.7 Const: General: cooperative, healthy appearing and no acute distress Orientation/consciousness: oriented to person, oriented to place and oriented to time HENMT: Head: Yes normal to inspection Neck: Carotids: no bruits Chest: Chest palpation & inspection: normal inspection of the chest Resp: Effort & Inspection: normal respiratory effort and able to speak in complete sentences Auscultation: clear to auscultation bilaterally Cardio: Rate: regular rate Heart sounds: S1 normal heart sound present and S2 normal heart sound present GI: Inspection: Yes normal to inspection Skin: Wounds: amputation site (BKA dressing clean dry intact) Neuro: General: oriented to person, oriented to place, oriented to time and CN's II-XI intact bilaterally Extrem: General: Yes normal to inspection, Yes full ROM and Yes no clubbing, cyanosis or edema Psych: Appearance: grossly normal and well kempt Speech and movement: Normal speech and movement present Affect: normal affect Progress Note: A&P Assessment and plan (1) S/P BKA (below knee amputation): Status: Acute Assessment and Plan: Patient doing extremely well post amputation. Will get him out of bed today. Will start physical therapy as well. Plan for dressing change for tomorrow. Should all go okay would plan for discharge as early as tomorrow. Medicine input appreciated. Fall Risk Details Current Medications: Current Medications Amlodipine Besylate (Amlodipine Besylate 10 Mg Tablet) 10 mg PO BEDTIME [facility]; Protocol Last Admin: 06/13/21 20:52 Dose: 10 mg Documented by: Clopidogrel Bisulfate (Clopidogrel Bisulfate 75 Mg Tablet) 75 mg PO DAILY [facility] Last Admin: 06/14/21 07:52 Dose: 75 mg Documented by: Cyanocobalamin (Cyanocobalamin (Vitamin B-12) 500 Mcg Tablet) 500 mcg PO DAILY [facility] Last Admin: 06/14/21 07:52 Dose: 500 mcg Documented by: Dextrose (Dextrose 50 % 25 Gm/50 Ml Vial) 25 gm IVPUSH Q15M PRN; Protocol PRN Reason: per Hypoglycemia Standing Ord. Glucose (Glucose Gel 15 Gm Gel..Gram.) 15 gm PO Q15M PRN; Protocol PRN Reason: per Hypoglycemia Standing Ord. Heparin Sodium (Porcine) (Heparin Sodium,Porcine 5,000 Unit/Ml Vial) 5,000 unit SUBCUT Q8H [facility] Last Admin: 06/14/21 09:18 Dose: 5,000 unit Documented by: Hydromorphone HCl (Hydromorphone Hcl 0.5 Mg/0.5 Ml Syringe) 0.5 mg IVPUSH Q5M PRN; Protocol PRN Reason: Pain, Severe (Pain Scale 7-10) Hydromorphone HCl (Hydromorphone Hcl 0.5 Mg/0.5 Ml Syringe) 0.25 mg IVPUSH Q5M PRN; Protocol PRN Reason: Pain, Severe (Pain Scale 7-10) Last Admin: 06/13/21 11:15 Dose: 0.25 mg Documented by: Insulin Glargine (Insulin Glargine,Hum.Rec.Anlog 100 Unit/Ml 10 Ml Vial) 50 unit SUBCUT BID [facility] Last Admin: 06/14/21 09:19 Dose: 50 unit Documented by: Insulin Human Lispro (Insulin Lispro 100 Unit/Ml 3 Ml Vial) 0 unit SUBCUT QIDACHS [facility]; Protocol Last Admin: 06/14/21 07:51 Dose: 2 unit Documented by: Insulin Human Lispro (Insulin Lispro 100 Unit/Ml 3 Ml Vial) 5 unit SUBCUT TIDAC [facility] Last Admin: 06/14/21 07:52 Dose: 5 unit Documented by: Lisinopril (Lisinopril 40 Mg Tablet) 40 mg PO DAILY [facility]; Protocol Last Admin: 06/14/21 07:52 Dose: 40 mg Documented by: Morphine Sulfate (Morphine Sulfate 2 Mg/Ml Cartridge) 2 mg IVPUSH Q4H PRN; Protocol PRN Reason: Pain, Severe (Pain Scale 7-10) Last Admin: 06/13/21 23:55 Dose: 2 mg Documented by: Oxycodone HCl (Oxycodone Hcl Immed Release 5 Mg Tablet) 5 mg PO Q4H PRN PRN Reason: Pain, Moderate (Pain Scale 4-6 Last Admin: 06/13/21 17:47 Dose: 5 mg Documented by: Sodium Chloride (0.9 % Sodium Chloride Flush 3 Ml Syringe) 3 ml IVFLUSH [facility] Last Admin: 06/14/21 07:56 Dose: Not Given Documented by: Time Spent With Patient Time: Total time spent is greater than 50% in coordination of care (as documented) at patient's floor/unit and/or counseling patient: Time with patient: 15 - 24 minutes Procedures Date of Service Date of Service: 06/14/21 Quality Stroke Does the patient have a stroke diagnosis?: No VTE Prior VTE?: No VTE Risk Level:: Medical - moderate - high VTE Device Contraindication: N/A - Device Ordered VTE Drug Contraindication: Treatment Not Tolerated
[2021-06-14 11:07] VITALS: BP 155/70; PULSE 82; O2SAT 94
[2021-06-14 11:12] VITALS: BP 152/67; PULSE 94; RESP 18; TEMP 36.7; O2SAT 96
--- NOTE | 2021-06-14 11:16 | MHC.SHP ---
Pre-Procedural Eval Section A Date of Service: 06/14/21 The patient is an INPATIENT: No The History & Physical has been completed within 30 days and I have reviewed it.: Yes Section B Chief Complaint: JENIFER Mercado Allergies: Allergies Allergy/AdvReac Type Severity Reaction Status Date / Time aspirin Allergy Severe ANAPHYLAXIS, Verified 06/09/21 14:41 eyes red,swollen Plan I have reviewed the history and physical and performed a pertinent physical examination on my patient. No changes have occurred unless specified.
[2021-06-14 11:30] LABS: Glucose, Whole Blood 216 mg/dL (60-115)
--- NOTE | 2021-06-14 13:53 | MHC.CM.PN ---
CM MET W/PT'S /HCP AND DTR AND PT'S NURSE, IS TEARFUL AND CONCERNED D/T PT WANTING TO COME HOME TOMORROW AND HIS PLAN IS TO USE NEE SCOOTER ON NEW BKA AND KNEE PADS TO MANAGE GOING UP AND DOWN STAIRS, PT'S CONCERNED SHE HAS PROGRESSIVE MS AND WOULD UNABLE TO ASSIST IF HE LOST HIS BALANCE OR FELL, PT'S REQUESTING [facility] AND THIS CM WILL PLACE REFERRAL IN ANTICIPATION.
[2021-06-14 16:00] VITALS: BP 161/74; PULSE 73; RESP 18; TEMP 37.6; O2SAT 96
[2021-06-14 17:03] LABS: Glucose, Whole Blood 114 mg/dL (60-115)
[2021-06-14] MEDS: 0.9 % Sodium Chloride Flush 3 ML SYRINGE IVFLUSH (17:07)
[2021-06-14] MEDS: oxyCODONE HCl Immed Release 5 MG TABLET PO (17:14)
[2021-06-14 19:26] VITALS: BP 165/74; PULSE 76; RESP 18; TEMP 36.7; O2SAT 96
[2021-06-14 20:17] LABS: Glucose, Whole Blood 163 mg/dL (60-115)
[2021-06-14] MEDS: amLODIPine Besylate 10 MG TABLET PO (21:25)
[2021-06-15] VITALS (10 sets, daily range): BP systolic 143–159; BP diastolic 63–76; PULSE 71–83; RESP 18; TEMP 36.1–37; O2SAT 95–98
[2021-06-15] MEDS: 0.9 % Sodium Chloride Flush 3 ML SYRINGE IVFLUSH ×4 (00:45→21:18)
[2021-06-15] MEDS: oxyCODONE HCl Immed Release 5 MG TABLET PO ×2 (02:12→21:21)
[2021-06-15] MEDS: Heparin Sodium,Porcine 5,000 UNIT/ML VIAL 5000 UNIT SUBCUT ×3 (02:13→17:47)
[2021-06-15 06:10] LABS: Anion Gap 13 (12-20); Blood Urea Nitrogen 11 mg/dL (9-16); Calcium 8.8 mg/dL (8.4-10.2); Carbon Dioxide 25 mmol/L (22-29); Chloride 103 mmol/L (96-108); Creatinine Clr Calc Pharmacy 143.8; Estimated Glomerular Filt Rate > 60; Glucose Fasting 139 mg/dL (60-99); Potassium 4.2 mmol/L (3.3-5.1); Sodium 137 mmol/L (135-145)
[2021-06-15 06:30] LABS: Hematocrit 36.1 % (42.0-52.0); Hemoglobin 11.9 g/dl (14.0-18.0); Mean Corpuscular Hemoglobin 28.7 pg (27.0-33.0); Mean Corpuscular Volume 87.2 fL (80.0-98.0); Mean Platelet Volume 11.4 fL (9.4-12.4); Platelet Count 188 X10*3/uL (160-400); Red Blood Count 4.14 X10*6/uL (4.60-5.80); White Blood Count 11.9 X10*3/uL (4.8-10.8)
--- NOTE | 2021-06-15 06:56 | HO.POSTANES ---
Post Anesthesia Evaluation Post Anesthesia Evaluation Vital Signs: Vital Signs Temp Pulse Resp BP Pulse Ox 06/15/21 04:02 18 06/15/21 04:00 97.8 F 73 18 146/67 H 96 06/15/21 00:00 98.1 F 71 18 156/70 H 95 06/14/21 19:26 98.1 F 76 18 165/74 H 96 Anesthesia: General Mental Status: Awake Pain Control: Satisfactory Nausea/Vomiting: None Hydration: Adequate Anesthesia-Related Issues: No Anes. Related Issues
[2021-06-15 07:09] LABS: Glucose, Whole Blood 157 mg/dL (60-115)
[2021-06-15] MEDS: Insulin Lispro 100 UNIT/ML 3 ML VIAL SUBCUT ×5 (07:59→21:17)
[2021-06-15] MEDS: Clopidogrel Bisulfate 75 MG TABLET PO (08:00)
[2021-06-15] MEDS: Cyanocobalamin (Vitamin B-12) 500 MCG TABLET PO (08:00)
[2021-06-15] MEDS: lisinopriL 40 MG TABLET PO (08:01)
[2021-06-15] MEDS: Insulin Glargine,Hum.rec.anlog 100 UNIT/ML 10 ML VIAL 50 UNIT SUBCUT ×2 (09:30→21:16)
--- NOTE | 2021-06-15 10:24 | PM.DS ---
DS: Providers Provider Date of Service: 06/15/21 Date of admission: 06/13/21 05:55 Primary care physician: Reece Ann MD Consults: 06/13/21 09:23 Consult to Hospitalist Routine Consulting Provider: Hospitalist Reason For Exam: diabetes management DS: Diagnosis Discharge Diagnosis (1) S/P BKA (below knee amputation): Status: Acute DS: Summary Hospital Course Hospital Course: Patient underwent right BKA on Sunday. Postop was uneventful. Pain was well controlled. Postoperatively receive PT OT. Appears that he will be well suited for rehab. Condition upon discharge stable discharge diet regular. Pain control will be required. Time Spent with Patient Time attestation: Total time spent providing and/or coordinating discharge services: Discharge coordination time: Greater than 30 minutes Quality: Stroke Does the patient have a stroke diagnosis?: No Physical Exam Vital Signs: Vital Signs: Last Vital Signs Temp 98.6 F 06/15/21 07:24 Pulse 83 06/15/21 09:47 Resp 18 06/15/21 07:24 BP 149/63 H 06/15/21 09:47 Pulse Ox 96 06/15/21 09:47 Body Mass Index 42.7 DS: Data Data Completed and Pending Completed studies during hospitalization [Text1]: Pending at discharge 06/13/21 08:19 Surgical [PTH] Routine Procedures Drainage of Right Foot Skin, External Approach (03/31/21) Excision of Right Tarsal, Open Approach (03/31/21) Excision of Right Tibia, Open Approach (03/15/21) Insertion of Infusion Device into Superior Vena Cava, Percutaneous Approach (03/15/21) Labs on day of discharge: Laboratory Results - last 24 hr 06/14/21 06/14/21 06/14/21 11:26 15:55 20:09 WBC RBC Hgb Hct MCV MCH MCHC RDW Plt Count MPV Absolute Nucleated RBC Nucleated RBC % (auto) Sodium Potassium Chloride Carbon Dioxide Anion Gap BUN Creatinine Estim Creat Clear Calc Estimated GFR POC Glucose 216 H 114 163 H Fasting Glucose Calcium 06/15/21 06/15/21 06/15/21 05:29 05:29 07:03 WBC 11.9 H RBC 4.14 L Hgb 11.9 L Hct 36.1 L MCV 87.2 MCH 28.7 MCHC 33.0 RDW 15.0 Plt Count 188 MPV 11.4 Absolute Nucleated RBC 0.000 Nucleated RBC % (auto) 0.0 Sodium 137 Potassium 4.2 Chloride 103 Carbon Dioxide 25 Anion Gap 13 BUN 11 Creatinine 0.76 Estim Creat Clear Calc 143.8 Estimated GFR > 60 POC Glucose 157 H Fasting Glucose 139 H D Calcium 8.8 Discharge Plan Discharge Patient Disposition: Xfer Inpatient Rehab Fac Discharge Diagnosis: s/p BKA Referrals: Reece Ann MD [Primary Care Provider] - 1 Week Discharge Medications: New oxycodone-acetaminophen [Percocet] 5-325 mg tablet 1 tab PO TID PRN (Reason: pain) Qty: 20 RF: 0 Continued clopidogrel 75 mg tablet 75 mg PO DAILY 90 Days Qty: 90 RF: 3 Lantus U-100 Insulin 100 unit/mL solution 60 unit subcut BID 30 Days Qty: 36 RF: 6 lisinopril 40 mg tablet 40 mg PO DAILY 90 Days Qty: 90 RF: 3 amlodipine 10 mg tablet 10 mg PO BEDTIME Qty: 90 RF: 1 simvastatin 20 mg tablet 20 mg PO BEDTIME Qty: 90 RF: 1 cyanocobalamin (vitamin B-12) [Vitamin B-12] 500 mcg Tablet 500 mcg PO DAILY RF: 0 insulin lispro [Humalog KwikPen Insulin] 100 unit/mL insulin pen 5 unit subcut TID RF: 0 folic acid 0.8 mg Capsule 0.8 mg PO DAILY RF: 0 (DME) insulin syringe-needle U-100 [BD Insulin Syringe Ultra-Fine] 1 mL 31 gauge x 5/16 syringe See Rx Instructions ea .ROUTE BID Qty: 200 RF: 3 Discharge Orders: Discharge Order (Routine); Ordered 06/15/21 Ordered By: Alvaro Ramírez Diet: advance to usual diet Activity on Discharge: As tolerated Stand Alone Forms: Patient Portal Discharge page Activity Restrictions/Additional Instructions: Wound care upon discharge: xeroform, 4x4 and Kerlix wrap to be changed daily. Please call Dr. Ramírez at [phone] for 2 week follow up for suture and staple removal Care Plan Goals: s/p BKA Health Concerns: diabetes Plan of Treatment: heal amp and obtain prostetic diabetes control Assessment: s/p BKA
[2021-06-15 11:33] LABS: Glucose, Whole Blood 170 mg/dL (60-115)
--- NOTE | 2021-06-15 13:52 | MHC.CM.PN ---
nurse child care leader note electronic medical record reviewed
--- NOTE | 2021-06-15 13:54 | MHC.CM.PN ---
Addendum entered by Rubi Sauer 06/15/21 14:09: RECEIVED PHONE CALL FROM HOSPITALIST SNEHAL TO THIS PATIENT TODAY PATIENTS OXYGEN SATS ARE DROPPING IN TO 80 S HE WOULD LIKE TO KEEP HER HERE TONIGHT ,GET A CXR AND LABS AND CONTINUE TO EVALUATE HER. , T/C TO PATIENTS DAUGHTER YARIEL TO INFORM HER OF THIS, . REVISING CLERK TO CONTINUE TO FOLLOW FOR ANY CHANGES IN D/C NEEDS AND WILL CONTACT [facility] AND [facility] Original Note: nurse youth care worker note electronic medical records reviewed met with patient case discussed with surgeon and met with patient and spoek with his by phone lornea . patient is now in agreement to go to acute rehab patient /family and dr blevins in agreement. ist choice would be for [facility] in [place] as it is closer , the following other referrals were sent to [facility] in [place], if insurance does not give authorization for acute pt/family choose [facility] for str , spoke with pt karitanst santana and pt/ot . discharge plan pt/family accepted bed offer from [facility] for acute rehab [facility]. ([facility] NO MALE BEDS AND DID NOT HEAR FROM [facility] OR [facility] YET. REQUESTED [facility] TO SEEK INSURANCE AUTHORIZATION TRANSPORTATION VIA [facility] FOR TENATIVE TIME OF 7PM , A [facility] CONTRAD=CTED AMBULANCE. [facility] PROXY COMPLETED WITH PATIENT NAMING HIS HIS AGENT
--- NOTE | 2021-06-15 13:59 | PC.NURSE ---
Skin assessment completed. Patient has a right BKA-sacha present and bandage intact. No other skin issues noted at this time.
--- NOTE | 2021-06-15 14:35 | MHC.CM.PN ---
nurse child care attendant note electronic medical record reviewed along with case discussed with physical thearpist.occupational thearpist and pt hospital administrative assistant , patient was seen by me and vascular surgeon referrals sent out after patient agreed to go to rehab , as prior to this he was strongly declining. referrals sent ist choice to [facility] (no male bd availablitity) [facility] second choice ,received call from trinh at the rehab- she informed me they clinically accepted patient but with [facility] ins it now has to be sent to physician review and we will not recive a answer today , no response from [facility] or str linus peñae to [facility] and informed patient of this also called to [facility] ambulance to cancel the transport time for tonight informed the office of dr blevins of this as well, and self contained behavior unit teacher and staff nurse porter sample case to follow up tomorrow
--- NOTE | 2021-06-15 15:40 | HO.PM.IMPN ---
Subjective Subjective Date of Service: 06/15/21 Interval History: Being followed for elective Right BKA and pain management, patient admits good pain control, is waiting for rehab bed, offers no acute complaints. Review of Systems General no headache, no dizziness no fever chills. CVS no chest pain, no palpitation. Respiratory no cough, no sob. Gastrointestinal no nausea no vomiting, no abdominal pain Review of Systems: Yes all other systems are reviewed and are negative Physical Exam Vital Signs: Vital Signs: Last Vital Signs Temp 97.4 F 06/15/21 15:38 Pulse 73 06/15/21 15:38 Resp 74 H 06/15/21 15:38 BP 150/68 H 06/15/21 15:38 Pulse Ox 98 06/15/21 15:38 Body Mass Index 42.7 General: Awake, alert X 3, no acute distress Neck no JVD Resp:? CTA bilateral, no accessory muscles used CVS: S1,S2,RRR GI: soft, non tender, non distended Left lower extremity no edema Neuro:? motor grossly intact, alert Psych: appropriate affect, appropriate insight? right bka dressing in place. Objective Data Active Medications Amlodipine Besylate (Amlodipine Besylate 10 Mg Tablet) 10 mg PO BEDTIME [facility]; Protocol Last Admin: 06/14/21 21:25 Dose: 10 mg Documented by: RENY Clopidogrel Bisulfate (Clopidogrel Bisulfate 75 Mg Tablet) 75 mg PO DAILY [facility] Last Admin: 06/15/21 08:00 Dose: 75 mg Documented by: YASMIN Cyanocobalamin (Cyanocobalamin (Vitamin B-12) 500 Mcg Tablet) 500 mcg PO DAILY [facility] Last Admin: 06/15/21 08:00 Dose: 500 mcg Documented by: YASMIN Dextrose (Dextrose 50 % 25 Gm/50 Ml Vial) 25 gm IVPUSH Q15M PRN; Protocol PRN Reason: per Hypoglycemia Standing Ord. Glucose (Glucose Gel 15 Gm Gel..Gram.) 15 gm PO Q15M PRN; Protocol PRN Reason: per Hypoglycemia Standing Ord. Heparin Sodium (Porcine) (Heparin Sodium,Porcine 5,000 Unit/Ml Vial) 5,000 unit SUBCUT Q8H [facility] Last Admin: 06/15/21 09:30 Dose: 5,000 unit Documented by: MARY Hydromorphone HCl (Hydromorphone Hcl 0.5 Mg/0.5 Ml Syringe) 0.5 mg IVPUSH Q5M PRN; Protocol PRN Reason: Pain, Severe (Pain Scale 7-10) Hydromorphone HCl (Hydromorphone Hcl 0.5 Mg/0.5 Ml Syringe) 0.25 mg IVPUSH Q5M PRN; Protocol PRN Reason: Pain, Severe (Pain Scale 7-10) Last Admin: 06/13/21 11:15 Dose: 0.25 mg Documented by: NATALIA Insulin Glargine (Insulin Glargine,Hum.Rec.Anlog 100 Unit/Ml 10 Ml Vial) 50 unit SUBCUT BID [facility] Last Admin: 06/15/21 09:30 Dose: 50 unit Documented by: MARY Insulin Human Lispro (Insulin Lispro 100 Unit/Ml 3 Ml Vial) 0 unit SUBCUT QIDACHS [facility]; Protocol Last Admin: 06/15/21 12:00 Dose: 2 unit Documented by: YASMIN Insulin Human Lispro (Insulin Lispro 100 Unit/Ml 3 Ml Vial) 5 unit SUBCUT TIDAC [facility] Last Admin: 06/15/21 12:00 Dose: 5 unit Documented by: YASMIN Lisinopril (Lisinopril 40 Mg Tablet) 40 mg PO DAILY [facility]; Protocol Last Admin: 06/15/21 08:01 Dose: 40 mg Documented by: YASMIN Morphine Sulfate (Morphine Sulfate 2 Mg/Ml Cartridge) 2 mg IVPUSH Q4H PRN; Protocol PRN Reason: Pain, Severe (Pain Scale 7-10) Last Admin: 06/13/21 23:55 Dose: 2 mg Documented by: KRISTINE Oxycodone HCl (Oxycodone Hcl Immed Release 5 Mg Tablet) 5 mg PO Q4H PRN PRN Reason: Pain, Moderate (Pain Scale 4-6 Last Admin: 06/15/21 02:12 Dose: 5 mg Documented by: KRISTINE Sodium Chloride (0.9 % Sodium Chloride Flush 3 Ml Syringe) 3 ml IVFLUSH QSHIFT [facility] Last Admin: 06/15/21 08:01 Dose: 3 ml Documented by: YASMIN Labs CBC & Chem 7: 06/15/21 05:29 06/15/21 05:29 Labs: Laboratory Results - last 24 hr 06/14/21 06/14/21 06/15/21 15:55 20:09 05:29 MCV 87.2 MCH 28.7 MCHC 33.0 RDW 15.0 Plt Count 188 MPV 11.4 Absolute Nucleated RBC 0.000 Nucleated RBC % (auto) 0.0 Anion Gap Estim Creat Clear Calc Estimated GFR POC Glucose 114 163 H Fasting Glucose Calcium 06/15/21 06/15/21 06/15/21 05:29 07:03 11:29 MCV MCH MCHC RDW Plt Count MPV Absolute Nucleated RBC Nucleated RBC % (auto) Anion Gap 13 Estim Creat Clear Calc 143.8 Estimated GFR > 60 POC Glucose 157 H 170 H Fasting Glucose 139 H D Calcium 8.8 Assessment and Plan (1) S/P BKA (below knee amputation): Status: Acute (2) Osteomyelitis: Status: Acute (3) Diabetes mellitus: Status: Acute (4) PAD (peripheral artery disease): Status: Acute Assessment and Plan: 55M presented for elective right BKA right bka Good pain control on oxycodone, morphine and hydromorphone as needed for pain control Will DC IV Dilaudid and IV morphine, continue oxycodone DM Blood sugars stable, on 50 u lantus bid Continue sliding scale short acting HTN Blood pressure is stable continue amlodipine, and lisinopril DVT prophylaxis on subQ heparin Quality Stroke Does the patient have a stroke diagnosis?: No VTE Prior VTE?: No VTE Risk Level:: Medical - moderate - high VTE Device Contraindication: N/A - Device Ordered VTE Drug Contraindication: Treatment Not Tolerated
[2021-06-15 17:22] LABS: Glucose, Whole Blood 135 mg/dL (60-115)
[2021-06-15 20:11] LABS: Glucose, Whole Blood 155 mg/dL (60-115)
[2021-06-15] MEDS: amLODIPine Besylate 10 MG TABLET PO (21:16)
[2021-06-16] VITALS (8 sets, daily range): BP systolic 127–158; BP diastolic 66–72; PULSE 70–88; RESP 18; TEMP 36.6–37.1; O2SAT 95–98
[2021-06-16] MEDS: Heparin Sodium,Porcine 5,000 UNIT/ML VIAL 5000 UNIT SUBCUT ×2 (01:49→08:47)
[2021-06-16 07:45] LABS: Glucose, Whole Blood 154 mg/dL (60-115)
[2021-06-16] MEDS: Clopidogrel Bisulfate 75 MG TABLET PO (08:47)
[2021-06-16] MEDS: Insulin Glargine,Hum.rec.anlog 100 UNIT/ML 10 ML VIAL 50 UNIT SUBCUT (08:47)
[2021-06-16] MEDS: lisinopriL 40 MG TABLET PO (08:47)
[2021-06-16] MEDS: Cyanocobalamin (Vitamin B-12) 500 MCG TABLET PO (08:47)
[2021-06-16] MEDS: Insulin Lispro 100 UNIT/ML 3 ML VIAL SUBCUT ×3 (08:48→12:53)
[2021-06-16] MEDS: 0.9 % Sodium Chloride Flush 3 ML SYRINGE IVFLUSH (08:51)
[2021-06-16 12:12] LABS: Glucose, Whole Blood 144 mg/dL (60-115)
[2021-06-16 13:23] LABS: COVID-19 Test Negative (Negative); IDNOW Serial# 9DD0AD1C
--- NOTE | 2021-06-16 13:40 | MHC.CM.PN ---
Addendum entered by Rubi Sauer 06/16/21 13:42: RECEIVED CALL FROM [facility] THAT THE [facility] [employer] DECLINED FOR ACUTE REHAB OR REHAB. (PLEASE SEE PT/OT NOTES WELL) I SPOKE WITH HIS AND PATIENT . ABOUT THE INSURANCE DECISION AND EXPLAINED THAT I WOUD SEEK TO [facility] FOR NURSING FOR DRESSING CHANGES AND PT. DISCUSSED CASE WITH PHYSICIAN THERAPIST. THEY CLEARED HIM FOR THE STAIRS , I OFFER HIM AMBULANCE TRANSFER , BUT PATIENT DECLINED HE IS AFRAID OF GETTING A BILL. Original Note: NURSE MAP EDITOR NOTE
--- NOTE | 2021-06-16 14:03 | P.F2F_ITS ---
Service Date Service Date: 06/16/21 Reasons for Services Reason for correction: postoperative assessment and/or care Reason for physical therapy: home safety and mobility, gait/transfer training and ADL training Reason for occupational therapy: home safety and mobility, gait/transfer training and ADL training Homebound: Leaving the home is medically contraindicated at this time without the asist of a device and/or another person due th the listed conditions above and below. Reason homebound: unsteady gait / fall risk Homebound supporting statement: The patient is status post below-knee amputation. He will require home assessment of amputation site along with physical therapy. Certification: Based on the above findings, I certify that this patient is confined to the home and needs intermittent correction care, physical therapy and/or speech therapy, or continues to need occupational therapy. The patient is under my care, and I have initiated the establishment of the plan of care. The patient will be followed by a physician who will periodically review the plan of care.
--- NOTE | 2021-06-16 15:15 | HO.PM.IMPN ---
Subjective Subjective Date of Service: 06/16/21 Interval History: Being followed for elective Right BKA and pain management, patient admits good pain control, is waiting for rehab bed, offers no acute complaints. Review of Systems General no headache, no dizziness no fever chills.? CVS no chest pain, no palpitation.? Respiratory no cough, no sob.? Gastrointestinal no nausea, no vomiting, no abdominal pain Review of Systems: Yes all other systems are reviewed and are negative Physical Exam Vital Signs: Vital Signs: Last Vital Signs Temp 98.3 F 06/16/21 11:27 Pulse 88 06/16/21 13:54 Resp 18 06/16/21 11:27 BP 127/66 06/16/21 13:54 Pulse Ox 98 06/16/21 13:54 Body Mass Index 42.7 General:? Awake, alert X 3, no acute distress Neck no JVD Resp:? CTA bilateral, no accessory muscles used CVS: S1,S2,RRR GI: soft, non tender, non distended Left lower extremity no edema Neuro:? motor grossly intact, alert Psych: appropriate affect, appropriate insight? right bka dressing in place. No drainage noted Objective Data Active Medications Amlodipine Besylate (Amlodipine Besylate 10 Mg Tablet) 10 mg PO BEDTIME PENDING SALE TO [facility]; Protocol Last Admin: 06/15/21 21:16 Dose: 10 mg Documented by: ARCHANA Clopidogrel Bisulfate (Clopidogrel Bisulfate 75 Mg Tablet) 75 mg PO DAILY PENDING SALE TO [facility] Last Admin: 06/16/21 08:47 Dose: 75 mg Documented by: CLEMENTINA Cyanocobalamin (Cyanocobalamin (Vitamin B-12) 500 Mcg Tablet) 500 mcg PO DAILY PENDING SALE TO [facility] Last Admin: 06/16/21 08:47 Dose: 500 mcg Documented by: CLEMENTINA Dextrose (Dextrose 50 % 25 Gm/50 Ml Vial) 25 gm IVPUSH Q15M PRN; Protocol PRN Reason: per Hypoglycemia Standing Ord. Glucose (Glucose Gel 15 Gm Gel..Gram.) 15 gm PO Q15M PRN; Protocol PRN Reason: per Hypoglycemia Standing Ord. Heparin Sodium (Porcine) (Heparin Sodium,Porcine 5,000 Unit/Ml Vial) 5,000 unit SUBCUT Q8H PENDING SALE TO [facility] Last Admin: 06/16/21 08:47 Dose: 5,000 unit Documented by: CLEMENTINA Insulin Glargine (Insulin Glargine,Hum.Rec.Anlog 100 Unit/Ml 10 Ml Vial) 50 unit SUBCUT BID PENDING SALE TO [facility] Last Admin: 06/16/21 08:47 Dose: 50 unit Documented by: CLEMENTINA Insulin Human Lispro (Insulin Lispro 100 Unit/Ml 3 Ml Vial) 0 unit SUBCUT QIDACHS PENDING SALE TO [facility]; Protocol Last Admin: 06/16/21 12:53 Dose: Not Given Documented by: CLEMENTINA Non-Admin Reason: No Insulin Coverage Insulin Human Lispro (Insulin Lispro 100 Unit/Ml 3 Ml Vial) 5 unit SUBCUT TIDAC PENDING SALE TO [facility] Last Admin: 06/16/21 12:53 Dose: 5 unit Documented by: CLEMENTINA Lisinopril (Lisinopril 40 Mg Tablet) 40 mg PO DAILY PENDING SALE TO [facility]; Protocol Last Admin: 06/16/21 08:47 Dose: 40 mg Documented by: CLEMENTINA Oxycodone HCl (Oxycodone Hcl Immed Release 5 Mg Tablet) 5 mg PO Q4H PRN PRN Reason: Pain, Moderate (Pain Scale 4-6 Last Admin: 06/15/21 21:21 Dose: 5 mg Documented by: ARCHANA Sodium Chloride (0.9 % Sodium Chloride Flush 3 Ml Syringe) 3 ml IVFLUSH QSHIFT PENDING SALE TO [facility] Last Admin: 06/16/21 08:51 Dose: 3 ml Documented by: CLEMENTINA Labs CBC & Chem 7: 06/15/21 05:29 06/15/21 05:29 Labs: Laboratory Results - last 24 hr 06/15/21 06/15/21 06/16/21 17:18 20:01 07:38 POC Glucose 135 H 155 H 154 H COVID-19 ([facility]) COVID-19 Clin Com 06/16/21 06/16/21 11:25 12:55 POC Glucose 144 H COVID-19 ([facility]) Negative COVID-19 Clin Com See Note Assessment and Plan (1) S/P BKA (below knee amputation): Status: Acute (2) Osteomyelitis: Status: Acute (3) Diabetes mellitus: Status: Acute (4) PAD (peripheral artery disease): Status: Acute Assessment and Plan: 55M presented for elective right BKA right bka Good pain control on oxycodone, morphine and hydromorphone as needed for pain control Will DC IV morphine, continue oxycodone Continue dressing as per Dr. Ramírez DM Blood sugars stable, on 50 u lantus bid, patient not on regular insulin before meals the foot does not want to continue that. Continue humalog sliding scale , and will DC 5 units insulin pre meal HTN Blood pressure is stable continue amlodipine, and lisinopril Disposition to rehab facility will obtain COVID test DVT prophylaxis on subQ heparin Quality Stroke Does the patient have a stroke diagnosis?: No VTE Prior VTE?: No VTE Risk Level:: Medical - moderate - high VTE Device Contraindication: N/A - Device Ordered VTE Drug Contraindication: Treatment Not Tolerated
== END 2021-06-16 16:06 | DRG 305 ==
LOC: HO.SSSA 06:00 → HO.S3 11:29
PROVIDERS: Hospitalist; Internal Medicine; Admitting Provider Surgery Vascular Surgery; PCP Family Medicine; Visit Provider Surgery Vascular Surgery
PROC: 0Y6H0Z2 Detachment at Right Lower Leg, Mid, Open Approach (ICD-10-PCS; CPT 27880; principal; 2021-06-13 07:30)
DX: E11.621 Type 2 diabetes mellitus with foot ulcer (principal); E11.610 Type 2 diabetes mellitus with diabetic neuropathic arthropathy; E11.51 Type 2 diabetes mellitus with diabetic peripheral angiopathy without gangrene; E11.69 Type 2 diabetes mellitus with other specified complication; M86.9 Osteomyelitis, unspecified; L97.519 Non-pressure chronic ulcer of other part of right foot with unspecified severity; Z20.822 Contact with and (suspected) exposure to COVID-19; Z79.02 Long term (current) use of antithrombotics/antiplatelets; Z88.6 Allergy status to analgesic agent; Z79.4 Long term (current) use of insulin; Z79.899 Other long term (current) drug therapy
CPT/HCPCS: 36415; 80048; 82947; 85025; 85027; 85610; 85730; 86850; 86885; 86900; 86901; 87635; 88307; 88311; 97116; 97162; 97166; 97535; J0690; J1170; J2250; J2270; J2405; J3010

== ENCOUNTER → 2021-06-28 09:57 | Outpatient (BNVA) | payer OTHER, SELFPAY | PROVIDERS: PCP Family Medicine; Visit Provider Surgery Vascular Surgery | DX: Z89.519 Acquired absence of unspecified leg below knee (principal) | CPT/HCPCS: 99212 ==

== ENCOUNTER → 2021-07-12 10:38 | Outpatient (BNVA) | payer OTHER, SELFPAY | PROVIDERS: PCP Family Medicine; Visit Provider Surgery Vascular Surgery | DX: I73.9 Peripheral vascular disease, unspecified (principal) | CPT/HCPCS: 99212 ==

== ENCOUNTER → 2021-07-21 11:29 | Outpatient (BNVA) | payer OTHER, SELFPAY | PROVIDERS: PCP Family Medicine; Visit Provider Surgery Vascular Surgery | DX: I73.9 Peripheral vascular disease, unspecified (principal); Z89.511 Acquired absence of right leg below knee | CPT/HCPCS: 99212 ==

== ENCOUNTER 2021-08-03 08:54 | Outpatient (RCR) | payer OTHER, SELFPAY | END 2021-10-13 09:17 | disposition home or self-care (01) | LOC: HO.WCC 08:54 | PROVIDERS: Visit Provider Surgery | DX: E11.621 Type 2 diabetes mellitus with foot ulcer (principal); L97.522 Non-pressure chronic ulcer of other part of left foot with fat layer exposed; E11.40 Type 2 diabetes mellitus with diabetic neuropathy, unspecified; I10 Essential (primary) hypertension; Z89.511 Acquired absence of right leg below knee; Z89.422 Acquired absence of other left toe(s) | CPT/HCPCS: 11042; 99212 ==

== ENCOUNTER 2021-08-08 10:43 | Outpatient (REF) | payer OTHER, SELFPAY ==
[2021-08-08 13:58] LABS: MANUAL DIFF FLAG NO
[2021-08-08 14:19] LABS: Estimated Average Glucose 146 mg/dL; Hemoglobin A1c % 6.7 %
[2021-08-08 14:25] LABS: Basophils Percent Auto 0.2 % (0-2); Eosinophils Percent Auto 0.2 % (0-4); Hematocrit 45.2 % (42.0-52.0); Hemoglobin 14.9 g/dl (14.0-18.0); Imm Gran Abs Auto 0.06 X10*3/uL (0.00-0.03); Imm Gran Pct Auto 0.6 % (0.0-0.4); Lymphocytes Absolute Auto 1.7 X10*3/uL (1.2-4.9); Lymphocytes Percent Auto 18.4 % (20-40); Mean Platelet Volume 12.9 fL (9.4-12.4); Monocytes Absolute Auto 0.8 X10*3/uL (0.1-1.2); Monocytes Percent Auto 8.4 % (2-11); Neutrophils Absolute Auto 6.8 x10*3/uL (2.0-8.3); Neutrophils Percent Auto 72.2 % (45-73); Platelet Count 216 X10*3/uL (160-400); Red Blood Count 5.32 X10*6/uL (4.60-5.80); Red Cell Distribution Width 13.2 % (11.0-16.0); White Blood Count 9.5 X10*3/uL (4.8-10.8)
[2021-08-08 14:28] LABS: Alanine Aminotransferase 27 U/L (0-40); Albumin Level 4.1 g/dL (3.5-5.0); Alkaline Phosphatase 84 U/L (39-117); Anion Gap 13 (12-20); Aspartate Amino Transferase 19 U/L (5-37); Bilirubin Total 0.9 mg/dL (0.0-1.0); Blood Urea Nitrogen 15 mg/dL (9-16); Calcium 9.6 mg/dL (8.4-10.2); Carbon Dioxide 25 mmol/L (22-29); Chloride 104 mmol/L (96-108); Estimated Glomerular Filt Rate > 60; Glucose Fasting 203 mg/dL (60-99); Potassium 4.4 mmol/L (3.3-5.1); Sodium 138 mmol/L (135-145); Total Protein 7.4 g/dL (6.5-8.0)
== END 2021-08-08 10:44 | disposition home or self-care (01) ==
LOC: HO.WFDLDS 10:43
PROVIDERS: Visit Provider Family Medicine
DX: Z00.00 Encounter for general adult medical examination without abnormal findings (principal); I48.91 Unspecified atrial fibrillation; I10 Essential (primary) hypertension; R73.01 Impaired fasting glucose; Z89.519 Acquired absence of unspecified leg below knee
CPT/HCPCS: 36415; 80053; 83036; 85025

== ENCOUNTER 2021-11-10 15:00 | Outpatient (RCR) | payer OTHER, SELFPAY ==
--- NOTE | 2021-11-11 13:43 | MHC.PT.DC ---
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 Pt has made excellent progress since SOC. He has met his STGs and LTGs. Pt is able to ambulate community distances without AD with steady, safe gait. Pt demonstrated ability to navigate 1 full flight of stairs with reciprocal gait pattern safely. Pt is I with HEP. Pt is being D/C from skilled PT services at this time. Pt has updated copy of HEP and reports no further questions or concerns for PT at time of D/C. Electronically signed by: Meagan Hicks, PT, DPT Please sign and return to therapist. Thank you for your referral.
== END 2021-11-11 13:44 | disposition home or self-care (01) ==
LOC: HO.PT 15:00
PROVIDERS: PCP Family Medicine; Visit Provider Hospitalist
DX: Z89.511 Acquired absence of right leg below knee (principal)
CPT/HCPCS: 97110; 97112; 97116; 97162; 97530

== ENCOUNTER 2021-11-11 09:00 | Outpatient (RCR) | payer OTHER, SELFPAY ==
[2021-11-09 14:46] LABS: MANUAL DIFF FLAG NO
[2021-11-09 15:21] LABS: Anion Gap 11 (12-20); Blood Urea Nitrogen 18 mg/dL (9-16); C Reactive Protein 2.73 mg/dL (< or = 0.50); Calcium 10.2 mg/dL (8.4-10.2); Carbon Dioxide 29 mmol/L (22-29); Chloride 102 mmol/L (96-108); Estimated Glomerular Filt Rate > 60; Glucose Random 79 mg/dL (60-115); Potassium 4.8 mmol/L (3.3-5.1); Sodium 137 mmol/L (135-145)
[2021-11-09 15:25] LABS: Basophils Percent Auto 0.2 % (0-2); Eosinophils Percent Auto 0.2 % (0-4); Hematocrit 47.4 % (42.0-52.0); Hemoglobin 15.6 g/dl (14.0-18.0); Imm Gran Abs Auto 0.05 X10*3/uL (0.00-0.03); Imm Gran Pct Auto 0.3 % (0.0-0.4); Lymphocytes Absolute Auto 2.1 X10*3/uL (1.2-4.9); Lymphocytes Percent Auto 12.6 % (20-40); Mean Corpuscular HGB Conc 32.9 g/dl (31.0-36.0); Mean Corpuscular Hemoglobin 27.8 pg (27.0-33.0); Mean Corpuscular Volume 84.3 fL (80.0-98.0); Mean Platelet Volume 11.3 fL (9.4-12.4); Monocytes Absolute Auto 1.2 X10*3/uL (0.1-1.2); Monocytes Percent Auto 7.4 % (2-11); Neutrophils Percent Auto 79.3 % (45-73); Platelet Count 253 X10*3/uL (160-400); Red Blood Count 5.62 X10*6/uL (4.60-5.80); Red Cell Distribution Width 13.9 % (11.0-16.0); White Blood Count 16.4 X10*3/uL (4.8-10.8)
[2021-11-09 18:51] LABS: Erythrocyte Sedimentation Rate 16 MM/HR (0-15)
[2021-11-10 06:53] LABS: Estimated Average Glucose 160 mg/dL; Hemoglobin A1c % 7.2 %
--- NOTE | ~2021-11-11 | XR_ITS ---
EXAMINATION: XR FOOT, LEFT CLINICAL INFORMATION: Left foot 2nd toe wound COMPARISON: Most recent left foot MRI dated 12/20/2018. TECHNIQUE: AP, lateral, and oblique views of the left foot. FINDINGS: Prior resection of the distal 3rd, 4th, and 5th metatarsals with chronic cortical irregularity. No associated erosion at the osteotomy sites. There is attenuation/irregular erosion of the 2nd proximal phalangeal head which appears new when compared to the prior MRI. There is surrounding soft tissue swelling. Findings are consistent with acute osteomyelitis. Associated anterior subluxation of the middle phalanx. No acute fracture or dislocation. Degenerative arthritis throughout the midfoot. Plantar and dorsal calcaneal spurs. XR/XR foot LT min 3V IMPRESSION: New osseous erosion of the 2nd proximal phalangeal head with anterior subluxation of the middle phalanx and surrounding soft tissue swelling, consistent with acute osteomyelitis.
== END 2021-12-14 10:20 | disposition home or self-care (01) ==
LOC: HO.WCC 09:00
PROVIDERS: Surgery; PCP Family Medicine; Visit Provider Physician Assistant
DX: E11.621 Type 2 diabetes mellitus with foot ulcer (principal); L97.524 Non-pressure chronic ulcer of other part of left foot with necrosis of bone; E11.40 Type 2 diabetes mellitus with diabetic neuropathy, unspecified; E11.69 Type 2 diabetes mellitus with other specified complication; M86.072 Acute hematogenous osteomyelitis, left ankle and foot; I10 Essential (primary) hypertension; G54.6 Phantom limb syndrome with pain; Z89.511 Acquired absence of right leg below knee; Z79.2 Long term (current) use of antibiotics
CPT/HCPCS: 11044; 36415; 73630; 80048; 83036; 84134; 85025; 85652; 86140; 87071; 87073; 87077; 87186; 87205; 88304; 88305; 88311; 99212; 99213

== ENCOUNTER → 2021-12-01 11:35 | Outpatient (BNVA) | payer OTHER, SELFPAY | PROVIDERS: PCP Family Medicine; Referring Provider Family Medicine; Visit Provider Surgery | DX: E11.621 Type 2 diabetes mellitus with foot ulcer (principal); L89.899 Pressure ulcer of other site, unspecified stage; M86.9 Osteomyelitis, unspecified; Z89.422 Acquired absence of other left toe(s) | CPT/HCPCS: 99212 ==

== ENCOUNTER 2021-12-14 10:06 | Day surgery (SDC) | payer OTHER, SELFPAY ==
--- NOTE | 2021-12-13 08:41 | HO.ANESPROP2 ---
Documented by User: Estephania Murphy NP 12/13/21 08:45 HPI - Anesthesia Eval Consult details Narrative: 56yo M for Left 2nd Toe Amputation s/p BKA 06/2021 with GA-ETT 7.5 PMFSH Active Problems Active Problems: All Active Problems (Updated 07/19/21 @ 14:11 by Carlota Mota NP) Hx of right BKA (Acute) Pressure ulcer of left foot (Acute) S/P BKA (below knee amputation) (Acute) Osteomyelitis (Acute) Diabetes mellitus (Acute) PAD (peripheral artery disease) (Acute) Past Medical History Medical History Diabetes mellitus History of wound infection Hypertension Morbid obesity PAD (peripheral artery disease) Peripheral neuropathy Family History Family history of problems with anesthesia: No Surgical History Surgical History History of amputation of toe (~02/23/20) History of amputation of toe (~06/2017) S/P debridement (~01/2017) History of Problems with Anesthesia: No Social History Social History Household Members: Spouse Housing: House Do you presently have visiting nurse or other home services: Yes ([facility]) Patient Tobacco Use Status: Never used Tobacco Use of substances other than those prescribed or required for medical reasons: No Are you DNR?: No Advance Directives: No Advance Directives Information Provided: Yes service: No Current occupational status: employed Meds Allergies Allergy/AdvReac Type Severity Reaction Status Date / Time aspirin Allergy Severe ANAPHYLAXIS, Verified 12/14/21 10:39 eyes red,swollen Home Medications Medication Instructions Recorded Confirmed Last Taken Type cyanocobalamin (vitamin B-12) 500 500 mcg PO DAILY 03/15/21 09/12/21 03/29/21 History mcg tablet (Vitamin B-12) folic acid 0.8 mg capsule 0.8 mg PO DAILY 06/09/21 09/12/21 Unknown History Exam Exam Date and Time: December 13, 2021 0841 Pertinent Lab Results Pertinent Lab Results: Laboratory Tests 11/09/21 11/09/21 14:45 14:45 WBC 16.4 H Hgb 15.6 Hct 47.4 Plt Count 253 Sodium 137 Potassium 4.8 Chloride 102 Carbon Dioxide 29 BUN 18 H Creatinine 0.99 Narrative Narrative: ECHO 03/2021 Conclusions: - ? Normal biventricular function. ? - ? 2D assessment of valves is somewhat limited. ? - Consider a POLI if clinically appropriate.? Findings Procedure Information Contrast agent, definity, is being given per protocol without apparent complications. Left Ventricle Normal left ventricular size, thickness, systolic function, and wall motion. The visually estimated ejection fraction is between 55-60%.? Diastolic function is normal for age. Assessment and Plan Assessment Anesthesia Assessment: Chart Reviewed Final Anesthetic Review Family History of Problems with Anesthesia: No History of Problems with Anesthesia: No Documented by User: Didi Spencer MD 12/14/21 12:33 [facility] Past Medical History Medical History Diabetes mellitus History of wound infection Hypertension Morbid obesity PAD (peripheral artery disease) Peripheral neuropathy Surgical History Surgical History History of amputation of toe (~02/23/20) History of amputation of toe (~06/2017) S/P debridement (~01/2017) Social History Social History Household Members: Spouse Housing: House Do you presently have visiting nurse or other home services: Yes ([facility]) Patient Tobacco Use Status: Never used Tobacco Use of substances other than those prescribed or required for medical reasons: No Are you DNR?: No Advance Directives: No Advance Directives Information Provided: Yes service: No Current occupational status: employed Meds Allergies Allergy/AdvReac Type Severity Reaction Status Date / Time aspirin Allergy Severe ANAPHYLAXIS, Verified 12/14/21 10:39 eyes red,swollen Home Medications Medication Instructions Recorded Confirmed Last Taken Type cyanocobalamin (vitamin B-12) 500 500 mcg PO DAILY 03/15/21 09/12/21 03/29/21 History mcg tablet (Vitamin B-12) folic acid 0.8 mg capsule 0.8 mg PO DAILY 06/09/21 09/12/21 Unknown History Exam Height,Weight and Vital Signs: Height 5 ft 9 in Weight 136.078 kg Vital Signs Temp Pulse Resp BP Pulse Ox 12/14/21 10:42 98.3 F 74 16 114/96 H 97 Pertinent Lab Results Pertinent Lab Results: Laboratory Tests 11/09/21 11/09/21 14:45 14:45 WBC 16.4 H Hgb 15.6 Hct 47.4 Plt Count 253 Sodium 137 Potassium 4.8 Chloride 102 Carbon Dioxide 29 BUN 18 H Creatinine 0.99 Lab Results 12/14/21 Range/Units 10:49 POC Glucose 144 H (60-115) mg/dL Airway Mallampati Class: III (Fat neck, bearded- possible difficult mask ventilation ) TM Dist: >3cm Neck ROM: Full Loose/Missing/Broken Teeth: Yes (Some missing ) Heart: RRR Lungs: CTAB Assessment and Plan Assessment Anesthesia Assessment: Anesthesia Plan Discussed Final Anesthetic Review NPO: Yes ASA Class: III Final Preanesthetic Review: No Changes in Pt Med Stat, Meds/Allgs Chart Reviewed, Consent Obtained/Reviewed and Anes Risks/Benef Reviewed Patient Risk: Intermediate Procedure Risk: Low Assessment/Block/Sedation in SS: Assess/Block/Sedation-SS Anesthetic Plan Anesthetic Plan: GA Disposition: Standard PACU
[2021-12-14] VITALS (11 sets, daily range): BP systolic 114–158; BP diastolic 59–96; PULSE 72–96; RESP 16–20; TEMP 36.8–36.9; O2SAT 92–97; BMI 44.3
--- NOTE | 2021-12-14 | ECG_ITS ---
Test Reason : htn dm pad Blood Pressure : / mmHG Vent. Rate : 082 BPM Atrial Rate : 082 BPM P-R Int : 132 ms QRS Dur : 096 ms QT Int : 356 ms P-R-T Axes : 024 014 053 degrees QTc Int : 415 ms Normal sinus rhythm Normal ECG When compared with ECG of 02-JUL-2017 14:46, No significant change was found Referred By: Estephania Murphy Electronically Signed By:Jose Carlos Whitfield
[2021-12-14 10:53] LABS: Glucose, Whole Blood 144 mg/dL (60-115)
[2021-12-14] MEDS: Lactated Ringers 1,000 ML 100 ML IVCONT (11:35)
--- NOTE | 2021-12-14 11:43 | MHC.SHP ---
Pre-Procedural Eval Section A Date of Service: 12/14/21 The patient is an INPATIENT: No Changes since office visit: Yes Patient answered all questions; No Cold of Flu in the past 2 weeks, No New Medical Problems and No Changes in Medication The History & Physical has been completed within 30 days and I have reviewed it.: Yes Section B Chief Complaint: osteomyelitis Allergies: Allergies Allergy/AdvReac Type Severity Reaction Status Date / Time aspirin Allergy Severe ANAPHYLAXIS, Verified 12/14/21 10:39 eyes red,swollen Plan Diagnosis/Plan: Unchanged I have reviewed the history and physical and performed a pertinent physical examination on my patient. No changes have occurred unless specified.
--- NOTE | 2021-12-14 12:51 | W.PM.OPN ---
Operative Note Operative Note Date of Service: 12/14/21 Narrative: Preoperative diagnosis: osteomyelitis left 2nd Postoperative diagnosis: same Procedure: amputation of left 2nd toe Surgeon: Ernesto Abdi MD Field Appraiser: Carmen Diego PA-C Anesthesia: general ET Indications for procedure: 56-year-old male patient with diabetes mellitus and previous diabetic foot ulcers, status post right below-knee amputation and left amputation of 3rd 4th and 5th toes. He now presents with a nonhealing wound of the 2nd left toe with underlying osteomyelitis. He presents today for amputation. Operative findings: Normal appearing metatarsal 2nd toe Specimen: left 2nd toe Estimated blood loss: 10 mL Complications: none Procedure details: patient was brought to the OR placed in a supine position. After administering general anesthesia the patient's left foot was prepped with Betadine and draped in a sterile fashion. A surgical time-out was called the consent confirmed. Patient received preoperative antibiotics and no Venodyne boots were in place. Local anesthesia consisting of 0.25% Sensorcaine was infiltrated at the base of the 2nd toe using a digital block technique. Elliptical incision was then created extending up the metatarsal with a 15 blade. This was carried down through subcutaneous tissue down to tarsal metatarsal. Stasis was assured using electrocautery. Dissection down to bone revealed normal appearing 2nd metatarsal without evidence of infection. Second toe was excised and sent to pathology for further examination. Wounds were again checked for hemostasis. Wounds were irrigated with saline solution and suctioned dry. Deep subcutaneous tissue and dermis reapproximated using interrupted 3-0 Polysorb sutures. Skin was closed using interrupted 3-0 nylon sutures. Sterile dressings consisting of Xeroform, 4 x 4 gauze, ABD and 4 in Kerlix were then applied. Patient tolerated the procedure well. Sponge, instrument, and needle counts reported as correct. The patient was transferred to PACU in stable condition.
== END 2021-12-14 15:26 | disposition home or self-care (01) ==
PROVIDERS: PCP Family Medicine; Visit Provider Surgery
PROC: (CPT 28810; principal; 2021-12-14 12:00)
DX: M86.9 Osteomyelitis, unspecified (principal); E11.622 Type 2 diabetes mellitus with other skin ulcer; L97.529 Non-pressure chronic ulcer of other part of left foot with unspecified severity; G62.9 Polyneuropathy, unspecified; I10 Essential (primary) hypertension; I73.9 Peripheral vascular disease, unspecified; E66.01 Morbid (severe) obesity due to excess calories; Z68.42 Body mass index [BMI] 45.0-49.9, adult; Z89.511 Acquired absence of right leg below knee; Z89.422 Acquired absence of other left toe(s); Z79.4 Long term (current) use of insulin; Z79.899 Other long term (current) drug therapy; Z88.8 Allergy status to other drugs, medicaments and biological substances
CPT/HCPCS: 28810; 82947; 88305; 88311; 93005; J0330; J0690; J2250; J2405; J3010

== ENCOUNTER → 2021-12-22 10:01 | Outpatient (BNVA) | payer OTHER, SELFPAY | PROVIDERS: PCP Family Medicine; Referring Provider Family Medicine; Visit Provider Surgery | DX: M86.9 Osteomyelitis, unspecified (principal); Z89.422 Acquired absence of other left toe(s) | CPT/HCPCS: 99212 ==

== ENCOUNTER → 2021-12-27 14:15 | Outpatient (BNVA) | payer OTHER, SELFPAY | PROVIDERS: PCP Family Medicine; Referring Provider Family Medicine; Visit Provider Surgery | DX: T87.81 Dehiscence of amputation stump (principal); Z89.422 Acquired absence of other left toe(s) | CPT/HCPCS: 99212 ==

== ENCOUNTER → 2021-12-29 14:54 | Outpatient (BNVA) | payer OTHER, SELFPAY | PROVIDERS: PCP Family Medicine; Referring Provider Family Medicine; Visit Provider Surgery | DX: Z47.81 Encounter for orthopedic aftercare following surgical amputation (principal); M86.9 Osteomyelitis, unspecified; Z89.422 Acquired absence of other left toe(s) | CPT/HCPCS: 99212 ==

== ENCOUNTER 2021-12-30 03:58 | Emergency (ER) | payer OTHER, SELFPAY ==
--- NOTE | ~2021-12-30 | CT_ITS ---
EXAMINATION: CT ABDOMEN AND PELVIS WITHOUT CONTRAST CLINICAL INFORMATION: Right upper quadrant pain and tenderness, diarrhea. Rule out biliary abnormality. COMPARISON: None TECHNIQUE: Multidetector volumetric imaging was performed from the superior aspect of the liver through the pubic symphysis. Sagittal and coronal reformatted images were obtained on the technologist's workstation. Lack of intravenous and oral contrast limits visceral evaluation. This CT examination was performed using dose optimization techniques as appropriate, variously including the following: *Automated exposure control *Adjustment of mA and/or kV according to patient size (this includes techniques or standardized protocols for targeted exams where dose is matched to indication/reason for exam; i.e. extremities or head) *Use of iterative reconstruction technique DLP: 1040 mGy-cm FINDINGS: LUNG BASES: The visualized lung bases are unremarkable. LIVER, GALLBLADDER, AND BILIARY TREE: No hepatic abnormality. Small dependent gallstones are seen within the gallbladder without surrounding abnormality. PANCREAS: Unremarkable. SPLEEN: Unremarkable. ADRENAL GLANDS: Unremarkable. KIDNEYS AND URETERS: Mild perinephric stranding without hydronephrosis or nephrolithiasis. An irregular short segment of the mid one third of the left ureter with mural thickening, distortion and periureteral infiltrative changes extending posteriorly to the anterior 6 psoas margin. Mildly enlarged adjacent lymph nodes are seen. A automobile rental representative lymph node adjacent to the medial margin of the left psoas muscle measures 0.6 cm in short axis (image 67, series 3). Mildly enlarged infrarenal retroperitoneal lymph nodes are seen as well. A automobile rental representative lymph node is left periaortic measuring 1.4 cm in short axis (image 94, series 5). The distal left ureter is unremarkable. No right ureteral abnormality. BLADDER: Unremarkable. GASTROINTESTINAL TRACT: The stomach, small bowel and appendix are unremarkable. The colon and rectum are unremarkable. ABDOMINAL WALL: No significant hernia is appreciated. LYMPH NODES: See comments above. VASCULAR: Unremarkable. PELVIC VISCERA: No significant prostatic enlargement. Severe calcifications in the seminal vesicles. OSSEOUS STRUCTURES: Mild to moderate multilevel degenerative changes with degenerative disc disease and marginal osteophyte formation. CT/CT abdomen pelvis wo con IMPRESSION: 1. Irregular short segment of the mid one third of the left ureter. These findings are nonspecific. No obstructing abnormality is seen in this region. This could represent a focal infectious/inflammatory process, but urothelial malignancy such as transitional cell carcinoma cannot be excluded. Urology consultation is recommended. 2. Cholelithiasis without evidence for acute cholecystitis. Fleischner guidelines were followed.
[2021-12-30 04:23] VITALS: BP 183/73; PULSE 65; RESP 15; TEMP 36.6; O2SAT 100; BMI 43.9
[2021-12-30 04:43] LABS: MANUAL DIFF FLAG NO
[2021-12-30 04:46] LABS: Basophils Percent Auto 0.2 % (0-2); Eosinophils Percent Auto 0.1 % (0-4); Hematocrit 42.4 % (42.0-52.0); Hemoglobin 14.7 g/dl (14.0-18.0); Imm Gran Abs Auto 0.14 X10*3/uL (0.00-0.03); Imm Gran Pct Auto 0.8 % (0.0-0.4); Lymphocytes Percent Auto 5.5 % (20-40); Mean Corpuscular HGB Conc 34.7 g/dl (31.0-36.0); Mean Corpuscular Hemoglobin 29.9 pg (27.0-33.0); Mean Corpuscular Volume 86.2 fL (80.0-98.0); Mean Platelet Volume 10.2 fL (9.4-12.4); Monocytes Absolute Auto 0.8 X10*3/uL (0.1-1.2); Monocytes Percent Auto 4.5 % (2-11); Neutrophils Absolute Auto 15.3 x10*3/uL (2.0-8.3); Neutrophils Percent Auto 88.9 % (45-73); Platelet Count 333 X10*3/uL (160-400); Red Blood Count 4.92 X10*6/uL (4.60-5.80); White Blood Count 17.2 X10*3/uL (4.8-10.8)
[2021-12-30 05:08] LABS: Alanine Aminotransferase 53 U/L (0-40); Albumin Level 3.6 g/dL (3.5-5.0); Alkaline Phosphatase 109 U/L (39-117); Anion Gap 14 (12-20); Aspartate Amino Transferase 27 U/L (5-37); Bilirubin Total 0.4 mg/dL (0.0-1.0); Blood Urea Nitrogen 18 mg/dL (9-16); Calcium 9.5 mg/dL (8.4-10.2); Carbon Dioxide 23 mmol/L (22-29); Chloride 102 mmol/L (96-108); Creatinine Clr Calc Pharmacy 93.9; Estimated Glomerular Filt Rate > 60; Glucose Random 328 mg/dL (60-115); Potassium 4.8 mmol/L (3.3-5.1); Sodium 134 mmol/L (135-145); Total Protein 7.4 g/dL (6.5-8.0)
[2021-12-30 05:41] LABS: Appearance Urine CLEAR; Color Urine YELLOW; Glucose Urine UA 100 MG/DL (NEG); Leukocyte Esterase Urine NEG (NEG); Nitrite Urine NEG (NEG); UACC Culture Trigger NO; Urine Blood 1+ (NEG); Urine Ketones 5 MG/DL (NEG); Urine Protein 1+ MG/DL (NEG-TRACE)
[2021-12-30 05:53] LABS: RBC Urine 0-2 /HPF (0); Squamous Epithelial Cell Urine 1+ /LPF; WBC Urine 0-2 /HPF (0-4)
[2021-12-30 06:27] VITALS: BP 172/60; PULSE 70; RESP 14; O2SAT 98
--- NOTE | 2021-12-30 06:35 | ED.ABDPAIN ---
HPI - Abdominal Pain General Chief Complaint: Abdominal Pain Stated Complaint: toe amputated 12/14, stomach pain, type 2 diabetes Time Seen by Provider: 12/30/21 06:12 Source: patient Mode of arrival: ambulatory Limitations: no limitations History of Present Illness HPI narrative: 56-year-old male who presents emergency department for evaluation of abdominal pain, nausea, vomiting and diarrhea which began around midnight the day of arrival. The patient has history of diabetes with osteomyelitis. He had his left 2nd toe amputated 12/14/2021 (16 days prior) and followed up with his surgeon, Dr. Abdi on 12/27/2021. The patient's dissolvable sutures removed at that time and the patient was started on levofloxacin daily and metronidazole 3 times a day. He has daily dressing changes in the states that the left foot wound is still draining. He states that he was doing fine midnight when he developed abdominal cramping. He points to his right upper quadrant when asked to localize the pain. Describes the pain is a constant cramping like pain which waxes and wanes in intensity from 7/10 to 9/10. He had associated nausea and he had multiple episodes of dry heaving. He states this is 1st episode of this type of pain. He also had 4 loose diarrheal stools with some slight blood in the stool. He denied fever, chills, sore throat, cough, chest pain, shortness of breath, frequency, urgency or dysuria. MD elicited complaint: abdominal pain Pertinent past history: other (Started on Levaquin and metronidazole 12/27/2021) Onset (ago): hour(s) (6) Pain Consistency: constant Location: RUQ Severity: severe Pain scale (0-10): 9 Quality: cramping Radiation: none Migration to: no migration Exacerbating factors: nothing Relieving factors: nothing Context: recent antibiotic use Associated symptoms: nausea, vomiting (Dry heaves) and diarrhea Related Data Home Medications Medication Instructions Recorded Confirmed cyanocobalamin (vitamin B-12) 500 500 mcg PO DAILY 03/15/21 09/12/21 mcg tablet (Vitamin B-12) folic acid 0.8 mg capsule 0.8 mg PO DAILY 06/09/21 09/12/21 Previous Rx's Medication Instructions Recorded insulin syringe-needle U-100 1 mL #200 ea 05/09/21 31 gauge x 5/16 (BD Insulin Syringe Ultra-Fine) insulin glargine 100 unit/mL 60 unit (0.6 mL) SUBCUT BID 30 05/26/21 subcutaneous solution (Lantus Days #36 ml U-100 Insulin) lisinopril 40 mg tablet 40 mg PO DAILY 90 Days #90 tab 06/06/21 clopidogrel 75 mg tablet 75 mg PO DAILY #90 tab 06/24/21 calcium alginate 2 X 2 bandage #30 ea 07/19/21 amlodipine 10 mg tablet 10 mg PO BEDTIME 90 Days #90 tab 08/08/21 simvastatin 20 mg tablet 20 mg PO BEDTIME 90 Days #90 tab 08/08/21 blood sugar diagnostic (FreeStyle #100 ea 09/12/21 Lite Strips) blood-glucose meter (FreeStyle #1 ea 09/12/21 [place] Lite) insulin lispro 100 unit/mL See Rx Instructions SUBCUT TID 30 09/12/21 subcutaneous pen (Humalog KwikPen Days #15 ml (U-100) Insulin) lancets 28 gauge (FreeStyle #100 ea 09/12/21 Lancets) oxycodone 5 mg tablet 5 mg PO Q6H PRN #14 tab 12/14/21 levofloxacin 500 mg tablet 500 mg PO DAILY 7 Days #7 tab 12/27/21 metronidazole 500 mg tablet 500 mg PO Q8H 14 Days #42 tab 12/27/21 doxycycline hyclate 100 mg tablet 100 mg PO Q12H 7 Days #14 tab 12/30/21 morphine 15 mg immediate release 15 mg PO Q4-6H PRN #10 tab 12/30/21 tablet ondansetron 4 mg disintegrating 4 mg PO Q6-8H PRN #14 tab 12/30/21 tablet Allergies Allergy/AdvReac Type Severity Reaction Status Date / Time aspirin Allergy Severe ANAPHYLAXIS, Verified 12/29/21 15:12 eyes red,swollen Review of Systems Review of Systems Yes all other systems are reviewed and are negative [facility] Past Medical History [facility] Narrative: Social history: He is . He denies tobacco use. He drinks alcohol 2 times a week. He denies drug use. Medical History Diabetes mellitus History of wound infection Hypertension Morbid obesity PAD (peripheral artery disease) Peripheral neuropathy Surgical History History of amputation of toe (~02/23/20) History of amputation of toe (~06/2017) History of amputation of toe (12/14/21) S/P debridement (~01/2017) Social History Social History Household Members: Spouse Housing: House Do you presently have visiting nurse or other home services: Yes ([facility]) Alcohol intake: current Alcohol intake frequency: a few times a week Patient Tobacco Use Status: Never used Tobacco Smoked in Last 30 Days: No Use of substances other than those prescribed or required for medical reasons: No Advance Directives: No service: No Current occupational status: employed Physical Exam ED Vital Signs: Vital Signs - 24 hr 12/30/21 04:23 12/30/21 06:27 12/30/21 07:15 Temperature 98 F 98.1 F Pulse Rate 65 70 67 Respiratory Rate 15 14 18 Blood Pressure 183/73 H 172/60 H 171/63 H Pulse Oximetry 100 98 97 12/30/21 08:26 Temperature 97.9 F Pulse Rate 88 Respiratory Rate 18 Blood Pressure 150/69 H Pulse Oximetry 98 BMI result Body Mass Index 43.9 Const General: cooperative and no acute distress Orientation/consciousness: oriented to person and oriented to place Limitations: no limitations HENMT Head: Yes normal to inspection, Yes normocephalic and Yes atraumatic Ears: external ears normal General nose exam: Normal external nose present Face and sinus: Yes normal facial exam Mouth: Normal oral and palatal mucosa present Throat: Yes posterior oropharynx normal Eyes General: appearance normal, both eyes and all related structures Pupils: Equal, round and reactive pupils present Neck Neck: Yes normal visual inspection, Yes no lymphadenopathy, Yes trachea midline and Yes supple Chest Chest palpation & inspection: normal inspection of the chest and normal palpation of entire chest wall Resp Effort & Inspection: normal respiratory effort and able to speak in complete sentences Auscultation: clear to auscultation bilaterally Cardio Rate: regular rate Rhythm: regular rhythm Heart sounds: S1 normal heart sound present, S2 normal heart sound present and no murmurs GI Inspection: Yes normal to inspection Palpation (GI): Soft to palpation, Tenderness to palpation present (GI) in the RUQ (Moderate) and no guarding Auscultation: normal bowel sounds General: Yes no CVA tenderness Back/Spine/Pelvis Back: no CVA tenderness Skin General skin exam: no rashes or lesions noted Neuro General: oriented to person and oriented to place Cranial nerves: Yes CN's II-XII intact bilaterally and Yes Equal, round and reactive pupils present Cognition (Neuro): normal cognition Motor exam (neuro): 5/5 motor strength present throughout Extrem Other: The patient's left foot dressing did have a serosanguineous drainage to the dressing, the dressing was removed by me. The 2nd toe surgical wound does not appear to be infected, there was no obvious drainage once the dressing was taken down, the patient has amputation of the 2nd through 5th toes, no significant erythema or increased warmth. Psych Appearance: grossly normal Speech and movement: Normal speech and movement present Affect: normal affect Attitude: cooperative Thought process: Normal thought process present Thought content: Normal thought content present Course Course Course Narrative: 56-year-old male who had a left 2nd toe amputation 16 days prior, seen by his surgeon 3 days prior and started on level floxacillin and metronidazole for possible infection. The patient now presents with upper abdominal pain, dry heaves, and 4 episodes of diarrhea. Vital signs reveal that he was hypertensive with a blood pressure of 183/73 otherwise unremarkable. Physical examination did reveal localize right upper quadrant tenderness. Differential includes but is not limited to liver/biliary disease, gastritis, adverse reaction to antibiotics, C diff, gastroenteritis. Laboratory evaluation was ordered. I ordered a stool sample for stool culture and C difficile assay. Patient was ordered to get normal saline x1 L his pain and nausea were treated with morphine 4 mg IV and Zofran 4 mg IV. I will obtain a CT scan of the abdomen pelvis without IV contrast. Laboratory evaluation: WBC elevated 17,200. Glucose elevated 328. LFTs were normal except for slight elevation in the ALT of 53. 0938: The patient required a dose of Dilaudid 1 mg IV as well as the morphine and Zofran as ordered above. The patient is currently pain-free. CT scan of the abdomen pelvis without IV contrast revealed cholelithiasis with no evidence of cholecystitis. There was an incidental finding in irregular short segment of the mid 1/3 of the left ureter of unclear etiology. The radiologist was concerned about possible urothelial malignancy such as transitional cell carcinoma and I did discuss this with the patient. The patient will be referred to our urologist for further evaluation. The patient states that he has taken doxycycline in the past without any side effects. I did discuss this with Dr. Abdi over tiger text and he agreed with changing the antibiotic. I will prescribe Zofran and morphine for the patient's nausea and pain as well. MDM - Abdominal Pain Lab Data Result diagrams: 12/30/21 04:40 12/30/21 04:40 Labs: Lab Results 12/30/21 12/30/21 12/30/21 Range/Units 04:40 04:40 05:33 WBC 17.2 H (4.8-10.8) X10*3/uL RBC 4.92 (4.60-5.80) X10*6/uL Hgb 14.7 (14.0-18.0) g/dl Hct 42.4 (42.0-52.0) % MCV 86.2 (80.0-98.0) fL MCH 29.9 (27.0-33.0) pg MCHC 34.7 (31.0-36.0) g/dl RDW 13.0 (11.0-16.0) % Plt Count 333 D (160-400) X10*3/uL MPV 10.2 (9.4-12.4) fL Immature Gran % (Auto) 0.8 H (0.0-0.4) % Neut % (Auto) 88.9 H (45-73) % Lymph % (Auto) 5.5 L (20-40) % [place] % (Auto) 4.5 (2-11) % Eos % (Auto) 0.1 (0-4) % Baso % (Auto) 0.2 (0-2) % Lymph # (Auto) 1.0 L (1.2-4.9) X10*3/uL [place] # (Auto) 0.8 (0.1-1.2) X10*3/uL Eos # (Auto) 0.0 (0.0-0.4) X10*3/uL Baso # (Auto) 0.0 (0.0-0.2) X10*3/uL Abs Immat Gran (auto) 0.14 H (0.00-0.03) X10*3/uL Absolute Neuts (auto) 15.3 H (2.0-8.3) x10*3/uL Absolute Nucleated RBC 0.000 (0.0-0.012) X10*3/uL Nucleated RBC % (auto) 0.0 (0.0-0.2) /100WBC Sodium 134 L (135-145) mmol/L Potassium 4.8 (3.3-5.1) mmol/L Chloride 102 (96-108) mmol/L Carbon Dioxide 23 (22-29) mmol/L Anion Gap 14 (12-20) BUN 18 H (9-16) mg/dL Creatinine 1.17 (0.5-1.4) mg/dL Estim Creat Clear Calc 93.9 Estimated GFR > 60 Random Glucose 328 H D (60-115) mg/dL Calcium 9.5 D (8.4-10.2) mg/dL Total Bilirubin 0.4 (0.0-1.0) mg/dL AST 27 D (5-37) U/L ALT 53 H (0-40) U/L Alkaline Phosphatase 109 D (39-117) U/L Total Protein 7.4 (6.5-8.0) g/dL Albumin 3.6 (3.5-5.0) g/dL Urine Color YELLOW Urine Appearance CLEAR Urine pH 6.0 (5.0-8.0) Ur Specific [place] 1.020 (1.005-1.025) Urine Protein 1+ H (NEG-TRACE) MG/DL Urine Glucose (UA) 100 H (NEG) MG/DL Urine Ketones 5 (NEG) MG/DL Urine Blood 1+ H (NEG) Urine Nitrite NEG (NEG) Ur Leukocyte Esterase NEG (NEG) Urine RBC 0-2 (0) /HPF Urine WBC 0-2 (0-4) /HPF Ur Squamous Epith Cells 1+ /LPF Urine Bacteria NONE /LPF Discharge Plan Discharge Clinical Impression: Abdominal pain, Vomiting, Diarrhea, Ureter filling defect Patient Disposition: Home, Self-Care Instructions: Gallstones (ED), Abdominal Pain (ED) Additional Instructions: Your blood work did reveal an elevated white blood cell count which is nonspecific. Your sugar was also elevated at 328 but this is due to you being sick. The CT scan of your abdomen pelvis without IV contrast did reveal gallstones but no inflammation or swelling of your gallbladder so I do not think this is the cause of your pain. The radiologist did see an irregular, short segment of the mid 1/3 of the left ureter (the tube that connects your kidney to your bladder) as I discussed with you. This is not related to your pain however the radiologist is concerned that this could possibly be a cancer of the urine and wants you to follow-up with a urologist. Please call our urologist on-call for follow-up care and evaluation I did talk to Dr. Abdi by text and that you should stop your levofloxacin and metronidazole. I am prescribing doxycycline 100 mg twice a day for 7 days. Take Zofran ODT 4 mg pills, 1 pill dissolved in your mouth every 8 hours as needed for nausea and vomiting. Take Tylenol (acetaminophen) 2 pills every 4-6 hours as needed for pain. For pain not relieved by Tylenol take morphine 15 mg pills, 1 pill every 4 hours as needed for pain. This medication will make you sleepy, do not drive or work while taking this medication. Morphine is a narcotic medication and can be addicting. If you are concerned about addiction you can ask the pharmacist for less pills or do not get this prescription filled. Continue your other medications as prescribed. Do not take your oxycodone if you are taking morphine. Follow-up with your doctor in 2 days. Please return to the emergency department if your symptoms get worse or if you develop any symptoms that are concerning to you. Prescriptions: New morphine 15 mg tablet 15 mg PO Q4-6H PRN (Reason: pain) Qty: 10 0RF Rx Instructions: The patient may ask for partial fill ondansetron 4 mg tablet,disintegrating 4 mg PO Q6-8H PRN (Reason: nausea and vomiting) Qty: 14 0RF doxycycline hyclate 100 mg tablet 100 mg PO Q12H 7 Days Qty: 14 0RF No Action Lantus U-100 Insulin 100 unit/mL solution 60 unit subcut BID 30 Days Qty: 36 6RF Rx Instructions: FYI corrected dose please fill for patient will not have insulin for tonight lisinopril 40 mg tablet 40 mg PO DAILY 90 Days Qty: 90 3RF clopidogrel 75 mg tablet 75 mg PO DAILY Qty: 90 3RF (DME) calcium alginate 2 X 2 bandage See Rx Instructions .Route Qty: 30 5RF Rx Instructions: Patient needs wound care to the plantar left foot ulcer after cleansing apply the calcium alginate and a protective dressing change daily and as needed. levofloxacin 500 mg tablet 500 mg PO DAILY 7 Days Qty: 7 0RF metronidazole 500 mg tablet 500 mg PO Q8H 14 Days Qty: 42 0RF cyanocobalamin (vitamin B-12) [Vitamin B-12] 500 mcg Tablet 500 mcg PO DAILY 0RF folic acid 0.8 mg Capsule 0.8 mg PO DAILY 0RF oxycodone 5 mg tablet 5 mg PO Q6H PRN (Reason: pain (scale score 7-10)) Qty: 14 0RF (DME) insulin syringe-needle U-100 [BD Insulin Syringe Ultra-Fine] 1 mL 31 gauge x 5/16 syringe See Rx Instructions ea .ROUTE BID Qty: 200 3RF Rx Instructions: Use twice a day to inject Lantus, 90 day supply amlodipine 10 mg tablet 10 mg PO BEDTIME 90 Days Qty: 90 2RF simvastatin 20 mg tablet 20 mg PO BEDTIME 90 Days Qty: 90 2RF insulin lispro [Humalog KwikPen Insulin] 100 unit/mL insulin pen See Rx Instructions subcut TID 30 Days Qty: 15 3RF Rx Instructions: 1-7 units pre meal per s/s subcut 3 times a day; please verify volume will suffice for a month and if not please send electronically (DME) blood-glucose meter [FreeStyle [place] Lite] Kit See Rx Instructions .Route Qty: 1 0RF Rx Instructions: As directed (DME) FreeStyle Lite Strips Strip See Rx Instructions .ROUTE .MEDSUPPLY Qty: 100 5RF Rx Instructions: tid to quid testing of glucose levels (DME) lancets [FreeStyle Lancets] 28 gauge misc See Rx Instructions .ROUTE .MEDSUPPLY Qty: 100 0RF Rx Instructions: tid to qid glucose checks Referrals: Sander Snowden MD [Physician] - 2 weeks (CT scan of the abdomen pelvis without contrast revealed an irregular short segment of the mid 1/3 of the left ureter, this could represent a focal infectious/inflammatory process but urethral malignancy such as transitional carcinoma cannot be excluded)
[2021-12-30 07:15] VITALS: BP 171/63; PULSE 67; RESP 18; TEMP 36.7; O2SAT 97
[2021-12-30] MEDS: Morphine Sulfate 4 MG/ML CARTRIDGE IVPUSH (07:24)
[2021-12-30] MEDS: 0.9 % Sodium Chloride 1,000 ML 999 ML IV (07:24)
[2021-12-30] MEDS: ondansetron HCL 4 MG/2 ML VIAL IVPUSH (07:24)
[2021-12-30 08:26] VITALS: BP 150/69; PULSE 88; RESP 18; TEMP 36.6; O2SAT 98
[2021-12-30] MEDS: HYDROmorphone HCl 1 MG/ML SYRINGE IVPUSH (09:04)
[2021-12-30 10:00] VITALS: BP 142/66; PULSE 97; RESP 20; TEMP 36.7; O2SAT 94
== END 2021-12-30 11:32 | disposition home or self-care (01) ==
PROVIDERS: Emergency Provider Emergency Medicine Emergency Medical Services; PCP Family Medicine
DX: R10.9 Unspecified abdominal pain (principal); R11.10 Vomiting, unspecified; R19.7 Diarrhea, unspecified; R93.41 Abnormal radiologic findings on diagnostic imaging of renal pelvis, ureter, or bladder; E11.9 Type 2 diabetes mellitus without complications; I10 Essential (primary) hypertension; E66.01 Morbid (severe) obesity due to excess calories; Z68.41 Body mass index [BMI] 40.0-44.9, adult; Z89.422 Acquired absence of other left toe(s)
CPT/HCPCS: 36415; 74176; 80053; 81001; 85025; 96361; 96374; 96375; 99284; J1170; J2270; J2405

== ENCOUNTER → 2022-01-05 15:31 | Outpatient (BNVA) | payer OTHER, SELFPAY | PROVIDERS: PCP Family Medicine; Referring Provider Family Medicine; Visit Provider Surgery | DX: L89.899 Pressure ulcer of other site, unspecified stage (principal) | CPT/HCPCS: 99212 ==

== ENCOUNTER → 2022-01-12 10:24 | Outpatient (BNVA) | payer OTHER, SELFPAY | PROVIDERS: PCP Family Medicine; Visit Provider Surgery | DX: Z48.00 Encounter for change or removal of nonsurgical wound dressing (principal); E11.9 Type 2 diabetes mellitus without complications; M86.9 Osteomyelitis, unspecified; I73.9 Peripheral vascular disease, unspecified; Z89.422 Acquired absence of other left toe(s); Z89.511 Acquired absence of right leg below knee | CPT/HCPCS: 11044; 11047; 99212 ==

== ENCOUNTER → 2022-02-03 13:40 | Outpatient (BNVA) | payer OTHER, SELFPAY | PROVIDERS: PCP Family Medicine; Visit Provider Urology | DX: R93.41 Abnormal radiologic findings on diagnostic imaging of renal pelvis, ureter, or bladder (principal) | CPT/HCPCS: 99202 ==

== ENCOUNTER 2022-02-14 13:47 | Outpatient (REF) | payer OTHER, SELFPAY ==
--- NOTE | ~2022-02-14 | US_ITS ---
EXAMINATION: US CHANELL COMPLETE US ARTERIAL DUPLEX LOWER EXTREMITY, LEFT CLINICAL INFORMATION: Left lower extremity peripheral vascular disease. COMPARISON: None TECHNIQUE: Ankle pulse volume recordings, ankle pressure measurements and ankle-brachial indices were obtained of the lower extremity arterial system bilaterally. Additionally, duplex Doppler techniques were used with waveform analysis and measurement of velocities in the common femoral, profunda femoral, superficial femoral, popliteal and tibial arteries. The study was performed only at rest. FINDINGS: ANKLE-BRACHIAL INDEX: Left: 0.78 ANKLE PVR WAVEFORM: Left: Abnormal, loss of dicrotic notch. DIRECT DUPLEX DOPPLER FINDINGS: Left Leg: Common femoral artery: 126 cm/s, diastolic flow reversal: Yes. Profunda femoris artery: 96.7 cm/s, diastolic flow reversal: Yes. Superficial femoral artery (proximal): 234 cm/s, diastolic flow reversal: Yes. Superficial femoral artery (mid): 152 cm/s, diastolic flow reversal: No. Superficial femoral artery (distal): 138 cm/s, diastolic flow reversal: No. Popliteal artery: 210 cm/s, diastolic flow reversal: No. Posterior tibial artery: 119 cm/s, diastolic flow reversal: No. Peroneal artery: Not visualized. There is an enlarged, morphologically abnormal-appearing lymph node within the left groin which measures up to 5.4 x 1.6 x 2.5 cm. Subcutaneous edema is present throughout the left lower extremity. US/US CHANELL complete IMPRESSION: Left leg: CHANELL 0.78 consistent with mild peripheral arterial disease. Duplex ultrasound reveals high-grade stenoses involving the proximal superficial femoral artery and the popliteal artery. There is an enlarged, morphologically abnormal-appearing lymph node within the left groin which measures up to 5.4 cm. CHANELL Reference: - >0.97-1.25 = normal - no significant arterial disease. - 0.75-0.96 = mild peripheral arterial disease. - 0.5-0.74 = moderate peripheral arterial disease. - <0.50 = severe peripheral arterial disease.
--- NOTE | ~2022-02-14 | US_ITS ---
EXAMINATION: US CHANELL COMPLETE US ARTERIAL DUPLEX LOWER EXTREMITY, LEFT CLINICAL INFORMATION: Left lower extremity peripheral vascular disease. COMPARISON: None TECHNIQUE: Ankle pulse volume recordings, ankle pressure measurements and ankle-brachial indices were obtained of the lower extremity arterial system bilaterally. Additionally, duplex Doppler techniques were used with waveform analysis and measurement of velocities in the common femoral, profunda femoral, superficial femoral, popliteal and tibial arteries. The study was performed only at rest. FINDINGS: ANKLE-BRACHIAL INDEX: Left: 0.78 ANKLE PVR WAVEFORM: Left: Abnormal, loss of dicrotic notch. DIRECT DUPLEX DOPPLER FINDINGS: Left Leg: Common femoral artery: 126 cm/s, diastolic flow reversal: Yes. Profunda femoris artery: 96.7 cm/s, diastolic flow reversal: Yes. Superficial femoral artery (proximal): 234 cm/s, diastolic flow reversal: Yes. Superficial femoral artery (mid): 152 cm/s, diastolic flow reversal: No. Superficial femoral artery (distal): 138 cm/s, diastolic flow reversal: No. Popliteal artery: 210 cm/s, diastolic flow reversal: No. Posterior tibial artery: 119 cm/s, diastolic flow reversal: No. Peroneal artery: Not visualized. There is an enlarged, morphologically abnormal-appearing lymph node within the left groin which measures up to 5.4 x 1.6 x 2.5 cm. Subcutaneous edema is present throughout the left lower extremity. US/US arterial duplex LE LT IMPRESSION: Left leg: CHANELL 0.78 consistent with mild peripheral arterial disease. Duplex ultrasound reveals high-grade stenoses involving the proximal superficial femoral artery and the popliteal artery. There is an enlarged, morphologically abnormal-appearing lymph node within the left groin which measures up to 5.4 cm. CHANELL Reference: - >0.97-1.25 = normal - no significant arterial disease. - 0.75-0.96 = mild peripheral arterial disease. - 0.5-0.74 = moderate peripheral arterial disease. - <0.50 = severe peripheral arterial disease.
== END 2022-02-14 13:48 | disposition home or self-care (01) ==
LOC: HO.US 13:47
PROVIDERS: Visit Provider Surgery Vascular Surgery
DX: I70.212 Atherosclerosis of native arteries of extremities with intermittent claudication, left leg (principal)
CPT/HCPCS: 93923; 93926

== ENCOUNTER → 2022-02-23 10:14 | Outpatient (BNVA) | payer OTHER, SELFPAY | PROVIDERS: PCP Family Medicine; Visit Provider Surgery Vascular Surgery | DX: I73.9 Peripheral vascular disease, unspecified (principal); Z95.820 Peripheral vascular angioplasty status with implants and grafts; Z89.511 Acquired absence of right leg below knee | CPT/HCPCS: 99212 ==

== ENCOUNTER 2022-03-01 09:32 | Day surgery (SDC) | payer OTHER, SELFPAY ==
[2022-03-01] VITALS (11 sets, daily range): BP systolic 120–155; BP diastolic 41–68; PULSE 55–79; RESP 16–18; TEMP 36.5–36.9; O2SAT 95–98; BMI 43.9
[2022-03-01 10:22] LABS: MANUAL DIFF FLAG NO
[2022-03-01] MEDS: 0.9 % Sodium Chloride 1,000 ML 100 ML IVCONT (10:36)
[2022-03-01 10:38] LABS: Blood Urea Nitrogen 18 mg/dL (9-16); Creatinine Clr Calc Pharmacy 126.3; Estimated Glomerular Filt Rate > 60
[2022-03-01 10:40] LABS: Glucose, Whole Blood 109 mg/dL (60-115)
[2022-03-01 10:55] LABS: Basophils Percent Auto 0.3 % (0-2); Eosinophils Percent Auto 0.4 % (0-4); Hematocrit 43.5 % (42.0-52.0); Hemoglobin 14.6 g/dl (14.0-18.0); Imm Gran Abs Auto 0.03 X10*3/uL (0.00-0.03); Imm Gran Pct Auto 0.3 % (0.0-0.4); Lymphocytes Absolute Auto 1.9 X10*3/uL (1.2-4.9); Lymphocytes Percent Auto 20.4 % (20-40); Mean Corpuscular Hemoglobin 28.9 pg (27.0-33.0); Mean Corpuscular Volume 86.1 fL (80.0-98.0); Mean Platelet Volume 11.2 fL (9.4-12.4); Monocytes Absolute Auto 0.7 X10*3/uL (0.1-1.2); Monocytes Percent Auto 7.3 % (2-11); Neutrophils Absolute Auto 6.6 x10*3/uL (2.0-8.3); Neutrophils Percent Auto 71.3 % (45-73); Platelet Count 231 X10*3/uL (160-400); Red Blood Count 5.05 X10*6/uL (4.60-5.80); Red Cell Distribution Width 13.9 % (11.0-16.0); White Blood Count 9.2 X10*3/uL (4.8-10.8)
[2022-03-01 11:10] LABS: Mean Corpuscular HGB Conc 33.6 g/dl (31.0-36.0)
--- NOTE | 2022-03-01 14:25 | W.PM.OPN ---
Operative Note Operative Note Date of Service: 03/01/22 Narrative: Angiogram report from [facility] Preoperative diagnosis: Atherosclerosis of left lower extremity with activity limiting claudication Postoperative diagnosis: Same Procedure: 1. Ultrasound-guided right common femoral access 2. Aortogram with left lower extremity runoff Surgeon:Alvaro Ramírez M.D., FACS, RPVI Pumping Supervisor:None Anesthesia: Local with moderate conscious sedation. Total intraservice moderate sedation time was 30 minutes. I monitored the patient's level of consciousness and physiologic status continuously throughout the procedure. Specimens:none Drains:none Estimated blood loss: Less than 10 ml Implant: None Indications: Complex 56-year-old gentleman presents for endovascular intervention of left lower extremity. There was concern of disease in the left SFA as seen on ultrasound. The patient has signed the informed consent after reviewing risks, complications, benefits, and alternatives previously discussed with the patient. The patient was given the opportunity to ask any additional questions or voice any concerns. All questions were answered to the patient's satisfaction. Procedure in detail: Patient was brought to the angiography suite prior to which a time-out was called for patient identification and site verification. Bilateral groins were prepped and draped in the standard surgical fashion. Under ultrasound guidance right common femoral was punctured with micro puncture needle and wire. Subsequently a precision 5 Stateless sheath was then placed. Fabrika Onlineson wire was advanced to the level of the aorta. 5 Stateless Flush catheter was brought up and parked at the level of the renal arteries. Aortogram was then undertaken. Catheter was brought down to the level of the iliac bifurcation. Iliacs were subsequently imaged. Catheter was then brought in up and over to the left side SFA. Runoff study was then undertaken. There was no significant findings. At this time procedure was terminated. Catheter wire sheath was removed. Direct pressure was held for 10 minutes. Patient tolerated the procedure well and was returned to recovery with stable vitals Interpretation of films: 1. Ultrasound demonstrates appropriate femoral puncture. Image of which was saved. 2. Aortogram demonstrates appropriate caliber aorta. Minimal disease. Appropriate take-off of the renals. 3. Iliac images demonstrate no significant disease 4. Left Leg Common femoral artery: No significant disease Profundus Femoris: No significant disease Superficial femoral artery: Minimal disease mid SFA Popliteal artery (p1,p2,p3): Patent Anterior tibial artery: Occluded Peroneal artery: Patent Posterior tibial artery: Patent Dorsalis pedis/plantar arch: Complete Conclusion: 1. Successful diagnostic angiogram no intervention indicated 2. Anticoagulation status: No change This note is constructed using voice recognition software. While every effort has been made to ensure accuracy, automatic corn grinder operator errors may have been included. Thank you for allowing me to participate in the care of your patient. Yours sincerely, Alvaro Ramírez MD, FACS, R.P.V.I.
[2022-03-01] MEDS: iohexoL 300 MG/ML 100 ML INFUS..BTL IV (14:26)
== END 2022-03-01 17:31 | disposition home or self-care (01) ==
PROVIDERS: PCP Family Medicine; Visit Provider Surgery Vascular Surgery
DX: E11.51 Type 2 diabetes mellitus with diabetic peripheral angiopathy without gangrene (principal); I70.212 Atherosclerosis of native arteries of extremities with intermittent claudication, left leg; L97.529 Non-pressure chronic ulcer of other part of left foot with unspecified severity; I70.245 Atherosclerosis of native arteries of left leg with ulceration of other part of foot; Z79.4 Long term (current) use of insulin; G62.9 Polyneuropathy, unspecified; I10 Essential (primary) hypertension; Z89.422 Acquired absence of other left toe(s); Z89.421 Acquired absence of other right toe(s); E66.01 Morbid (severe) obesity due to excess calories; Z68.42 Body mass index [BMI] 45.0-49.9, adult; Z88.8 Allergy status to other drugs, medicaments and biological substances
CPT/HCPCS: 36247; 36415; 76937; 82565; 82947; 84520; 85025; 99152; 99153; C1769; C1887; J2250; J3010; Q9967

== ENCOUNTER → 2022-03-16 10:51 | Outpatient (BNVA) | payer OTHER, SELFPAY | PROVIDERS: PCP Family Medicine; Visit Provider Surgery Vascular Surgery | DX: I73.9 Peripheral vascular disease, unspecified (principal) | CPT/HCPCS: 99212 ==

== ENCOUNTER 2022-03-20 11:06 | Day surgery (SDC) | payer OTHER, SELFPAY ==
--- NOTE | 2022-03-17 12:07 | P.CONAN_ITS ---
Documented by User: Estephania Murphy NP 03/17/22 12:14 HPI - Anesthesia Eval Consult details Narrative: 56yo M for Left Cystoscopy, Ureteroroscopy, Retro,poss stent Plavix for PAD PMFSH Active Problems Active Problems: All Active Problems (Updated 03/16/22 @ 11:38 by Alvaro Ramírez MD) Osteomyelitis (Acute) S/P BKA (below knee amputation) (Acute) Pressure ulcer of left foot (Acute) Hx of right BKA (Acute) Ureter filling defect (Acute) Diabetes mellitus (Acute) PAD (peripheral artery disease) (Acute) Past Medical History Medical History Diabetes mellitus History of wound infection Hypertension Morbid obesity PAD (peripheral artery disease) Peripheral neuropathy Family History Family history of problems with anesthesia: No Surgical History Surgical History History of amputation of toe (~02/23/20) History of amputation of toe (~06/2017) History of amputation of toe (12/14/21) Hx of right BKA S/P debridement (~01/2017) History of Problems with Anesthesia: No Social History Social History Household Members: Spouse Housing: House Do you presently have visiting nurse or other home services: Yes ([facility]NA) Alcohol intake: current Alcohol intake frequency: a few times a week Patient Tobacco Use Status: Never used Tobacco service: No Current occupational status: employed Meds Allergies Allergy/AdvReac Type Severity Reaction Status Date / Time aspirin Allergy Severe ANAPHYLAXIS, Verified 03/16/22 11:02 eyes red,swollen Home Medications Medication Instructions Recorded Confirmed Last Taken Type cyanocobalamin (vitamin B-12) 500 500 mcg PO DAILY 03/15/21 03/14/22 03/01/22 History mcg tablet (Vitamin B-12) folic acid 0.8 mg capsule 0.8 mg PO DAILY 06/09/21 03/14/22 Unknown History Exam Exam Date and Time: March 17, 2022 1207 Pertinent Lab Results Pertinent Lab Results: Laboratory Tests 12/30/21 03/01/22 03/01/22 04:40 10:17 10:17 WBC 9.2 Hgb 14.6 Hct 43.5 Plt Count 231 D Sodium 134 L Potassium 4.8 Chloride 102 Carbon Dioxide 23 BUN 18 H Creatinine 0.87 Narrative Narrative: EKG 12/2021 Vent. Rate : 082 BPM ? ? Atrial Rate : 082 BPM ?? P-R Int : 132 ms? QRS Dur : 096 ms ? ? QT Int : 356 ms ? ? ? P-R-T Axes : 024 014 053 degrees ?? QTc Int : 415 ms ? Normal sinus rhythm Normal ECG When compared with ECG of 02-JUL-2017 14:46, No significant change was found Assessment and Plan Assessment Anesthesia Assessment: Chart Reviewed Final Anesthetic Review Family History of Problems with Anesthesia: No History of Problems with Anesthesia: No Documented by User: Michele Nova MD 03/20/22 17:17 [facility] Past Medical History Medical History Diabetes mellitus History of wound infection Hypertension Morbid obesity PAD (peripheral artery disease) Peripheral neuropathy Surgical History Surgical History History of amputation of toe (~02/23/20) History of amputation of toe (~06/2017) History of amputation of toe (12/14/21) Hx of right BKA S/P debridement (~01/2017) Social History Social History Household Members: Spouse Housing: House Do you presently have visiting nurse or other home services: Yes ([facility]) Alcohol intake: current Alcohol intake frequency: a few times a week Patient Tobacco Use Status: Never used Tobacco service: No Current occupational status: employed Meds Allergies Allergy/AdvReac Type Severity Reaction Status Date / Time aspirin Allergy Severe ANAPHYLAXIS, Verified 03/16/22 11:02 eyes red,swollen Home Medications Medication Instructions Recorded Confirmed Last Taken Type cyanocobalamin (vitamin B-12) 500 500 mcg PO DAILY 03/15/21 03/14/22 03/01/22 History mcg tablet (Vitamin B-12) folic acid 0.8 mg capsule 0.8 mg PO DAILY 06/09/21 03/14/22 Unknown History Exam Airway Mallampati Class: III TM Dist: >3cm Neck ROM: Full Loose/Missing/Broken Teeth: Yes (Chipped , poor dentition globally ) Heart: S1,S2 Lungs: b/l breath sounds Assessment and Plan Assessment Anesthesia Assessment: Anesthesia Plan Discussed Final Anesthetic Review NPO: Yes ASA Class: III Final Preanesthetic Review: Meds/Allgs Chart Reviewed, Consent Obtained/Reviewed and Anes Risks/Benef Reviewed Patient Risk: High Procedure Risk: Intermediate Anesthetic Plan Anesthetic Plan: GA Disposition: Standard PACU
--- NOTE | ~2022-03-20 | FL_ITS ---
EXAMINATION: XR FLUOROSCOPY WITH IMAGES CLINICAL INFORMATION: Left retrograde COMPARISON: CT abdomen and pelvis noncontrast 12/30/2021 TECHNIQUE: Fluoroscopy performed by Dr. Sander Snowden. Fluoroscopy time: 0.5 minutes. Cumulative Dose: 20.5 mGy. DAP: 5.59 Gy-cm2. Images: 1. FINDINGS: Single AP view left pelvis demonstrates contrast in the lower left ureter. No extravasation or filling defect within the [id number]. FL/FL guidance in OR IMPRESSION: Fluoroscopy for urologic procedure.
[2022-03-20 11:47] VITALS: BMI 43.9
[2022-03-20 12:06] VITALS: BP 146/67; PULSE 71; RESP 16; TEMP 36.9; O2SAT 97
[2022-03-20 12:16] LABS: Glucose, Whole Blood 120 mg/dL (60-115)
[2022-03-20] MEDS: Lactated Ringers 1,000 ML 100 ML IVCONT (12:23)
--- NOTE | 2022-03-20 14:07 | W.PM.OPN ---
Operative Note Operative Note Date of Service: 03/20/22 Narrative: PreOperative Diagnosis: Left hydroureteronephrosis Post Operative Diagnosis: left hydroureteronephrosis, meatal stenosis Procedure: dilation of meatal stenosis, cystoscopy, left retrograde, Dilatation left ureteric orifice under fluoroscopy and direct visualization, left diagnostic ureteroscopy Surgeon: Dr Sander Snowden Anesthesia: sedation Indications for procedure: left hydroureteronephrosis seen on CT imaging Procedure: After informed consent was verified the patient was brought to the operating room and placed in a supine position. Anesthesia was administered per protocol. patient was placed in a modified dorsal lithotomy position and prepped and draped in a sterile fashion. Safety pause time-out was performed. Antibiotics being given. Cystoscopy was attempted. The meatal opening was significantly narrowed. This new Shiley dilated with the cystoscopic trocar. This was not enough and a meatal dilator was used so that we could fit the 22 Lithuanian cystoscope. Once cystoscope was placed the bladder was noted to have mild trabeculation. Left ureteric orifices normal position which was a little smaller than typical. A retrograde examination was performed which showed mild distal ureteric dilatation. Sensor guidewire placed. Dewy Rose dilator used to dilate ureteric orifice under fluoroscopy. Rigid ureteroscopy performed. There was noted to be some dilatation of the distal portion of the ureter however the rest the ureter looked normal throughout its course. Ureteral scope removed. Cystoscope placed in bladder drained. He tolerated the procedure well was extubated in operating transferred in stable condition to recovery area. Pathology: None Drains: none
[2022-03-20 14:16] VITALS: BP 142/68; PULSE 79; RESP 20; TEMP 36.2; O2SAT 98
[2022-03-20 14:21] VITALS: BP 131/61; PULSE 74; RESP 18; O2SAT 93
[2022-03-20] MEDS: Phenazopyridine HCL 100 MG TABLET PO (14:24)
[2022-03-20 14:26] VITALS: BP 125/64; PULSE 73; RESP 18; O2SAT 94
[2022-03-20 14:31] VITALS: BP 122/63; PULSE 73; RESP 16; TEMP 36.1; O2SAT 94
[2022-03-20 15:10] LABS: Glucose, Whole Blood 83 mg/dL (60-115)
--- NOTE | 2022-03-20 15:17 | PC.NURSE ---
POC AT 1505 = 83. POC TAKEN PATIENT STATED HE FELT LIKE HIS BS WAS LOWER. PATIENT GIVEN A COOKIE AND PEPSI AND STATED FEELING MUCH BETTER.
== END 2022-03-20 15:19 | disposition home or self-care (01) ==
PROVIDERS: PCP Family Medicine; Visit Provider Urology
PROC: (CPT 52344; principal; 2022-03-20 13:30)
DX: N35.811 Other urethral stricture, male, meatal (principal); N13.30 Unspecified hydronephrosis; I10 Essential (primary) hypertension; E11.51 Type 2 diabetes mellitus with diabetic peripheral angiopathy without gangrene; Z79.4 Long term (current) use of insulin; G62.9 Polyneuropathy, unspecified; Z89.422 Acquired absence of other left toe(s); Z89.421 Acquired absence of other right toe(s); Z79.899 Other long term (current) drug therapy
CPT/HCPCS: 52344; 82947; C1758; C1769; J1956; J2405; J3010; Q9967

== ENCOUNTER 2022-10-09 08:55 | Outpatient (REF) | payer OTHER, SELFPAY ==
--- NOTE | ~2022-10-09 | US_ITS ---
EXAMINATION: Noninvasive assessment of the left lower extremities with ARTERIAL DUPLEX and ANKLE BRACHIAL INDICES (ABIs). CLINICAL INFORMATION: Peripheral vascular disease with left lower extremity ischemic changes. Status post right below-knee amputation TECHNIQUE: Duplex Doppler techniques with waveform analysis and measurement of velocities in the left common femoral, profunda femoris, superficial femoral, popliteal and tibial arteries were performed. Additionally, ankle pulse volume recordings, ankle pressure measurements and ankle brachial indices were obtained of the lower extremity arterial system. The study was performed only at rest. COMPARISON: 02/14/2022 FINDINGS: DIRECT DUPLEX DOPPLER FINDINGS: LEFT LEG: Common femoral artery: 172 cm/s, phasicity: Biphasic Profunda femoris artery: 129 cm/s, phasicity: Biphasic Superficial femoral artery (proximal): 242 cm/s, phasicity: Triphasic Superficial femoral artery (mid): 160 cm/s, phasicity: Triphasic Superficial femoral artery (distal): 204 cm/s, phasicity: Triphasic Popliteal artery: 251 cm/s, phasicity: Triphasic Posterior tibial artery: 119 cm/s, phasicity: Triphasic Peroneal artery: Not visualized ANKLE-BRACHIAL INDEX: Left: 0.86 ANKLE PRESSURES: Left: PT?142, DP?151 ANKLE PVR WAVEFORMS: Left: Normal US/US arterial duplex LE LT IMPRESSION: Left leg: Mildly decreased left lower extremity ankle brachial index. Patent flow is seen within the arterial vessels of the left lower extremity although the peroneal artery is not well-visualized especially due to underlying edema. Elevated velocities are seen in the proximal superficial femoral artery, distal superficial femoral artery and popliteal artery with grossly normal waveforms most consistent with mild stenoses CHANELL Reference: - >1.4 = calcified vessels - 0.9 - 1.4 = normal - no significant arterial disease - 0.7 - 0.89 = mild peripheral arterial disease - 0.51 - 0.69 = moderate peripheral arterial disease - ? 0.50 = severe peripheral arterial disease - < .30 = critical arterial disease
--- NOTE | ~2022-10-09 | US_ITS ---
EXAMINATION: Noninvasive assessment of the left lower extremities with ARTERIAL DUPLEX and ANKLE BRACHIAL INDICES (ABIs). CLINICAL INFORMATION: Peripheral vascular disease with left lower extremity ischemic changes. Status post right below-knee amputation TECHNIQUE: Duplex Doppler techniques with waveform analysis and measurement of velocities in the left common femoral, profunda femoris, superficial femoral, popliteal and tibial arteries were performed. Additionally, ankle pulse volume recordings, ankle pressure measurements and ankle brachial indices were obtained of the lower extremity arterial system. The study was performed only at rest. COMPARISON: 02/14/2022 FINDINGS: DIRECT DUPLEX DOPPLER FINDINGS: LEFT LEG: Common femoral artery: 172 cm/s, phasicity: Biphasic Profunda femoris artery: 129 cm/s, phasicity: Biphasic Superficial femoral artery (proximal): 242 cm/s, phasicity: Triphasic Superficial femoral artery (mid): 160 cm/s, phasicity: Triphasic Superficial femoral artery (distal): 204 cm/s, phasicity: Triphasic Popliteal artery: 251 cm/s, phasicity: Triphasic Posterior tibial artery: 119 cm/s, phasicity: Triphasic Peroneal artery: Not visualized ANKLE-BRACHIAL INDEX: Left: 0.86 ANKLE PRESSURES: Left: PT?142, DP?151 ANKLE PVR WAVEFORMS: Left: Normal US/US CHANELL complete IMPRESSION: Left leg: Mildly decreased left lower extremity ankle brachial index. Patent flow is seen within the arterial vessels of the left lower extremity although the peroneal artery is not well-visualized especially due to underlying edema. Elevated velocities are seen in the proximal superficial femoral artery, distal superficial femoral artery and popliteal artery with grossly normal waveforms most consistent with mild stenoses CHANELL Reference: - >1.4 = calcified vessels - 0.9 - 1.4 = normal - no significant arterial disease - 0.7 - 0.89 = mild peripheral arterial disease - 0.51 - 0.69 = moderate peripheral arterial disease - ? 0.50 = severe peripheral arterial disease - < .30 = critical arterial disease
--- NOTE | ~2022-10-09 | US_ITS ---
EXAMINATION: US RETROPERITONEAL LIMITED (RENAL ONLY) CLINICAL INFORMATION: Calculus of kidney. COMPARISON: CT abdomen and pelvis without contrast 12/30/2021. TECHNIQUE: Real-time imaging of the kidneys. FINDINGS: RIGHT KIDNEY: 12.9 x 6.2 x 5.7 cm (SAG x AP x TRV). The kidney is normal in size, contour, and echogenicity. Renal cortical thickness is normal. No calculi or focal parenchymal lesions. No hydronephrosis. LEFT KIDNEY: 12.2 x 6.2 x 5.7 cm (SAG x AP x TRV). The kidney is normal in size, contour, and echogenicity. Renal cortical thickness is normal. No calculi or focal parenchymal lesions. No hydronephrosis. US/US renal BI IMPRESSION: Unremarkable renal ultrasound.
== END 2022-10-09 08:56 | disposition home or self-care (01) ==
LOC: HO.US 08:55
PROVIDERS: PCP Family Medicine; Visit Provider Urology
DX: N20.0 Calculus of kidney (principal); N13.30 Unspecified hydronephrosis; I73.9 Peripheral vascular disease, unspecified
CPT/HCPCS: 76775; 93923; 93926

== ENCOUNTER → 2022-10-18 14:25 | Outpatient (BNVA) | payer OTHER, SELFPAY | PROVIDERS: PCP Family Medicine; Visit Provider Urology ==

== ENCOUNTER → 2022-12-21 15:14 | Outpatient (BNVA) | payer OTHER, SELFPAY | PROVIDERS: PCP Family Medicine; Visit Provider Surgery Vascular Surgery | DX: I73.9 Peripheral vascular disease, unspecified (principal) | CPT/HCPCS: 99212 ==

== ENCOUNTER 2023-02-22 09:39 | Outpatient (AMB) | payer MEDICARE, MEDICAID, SELFPAY ==
--- NOTE | 2023-02-22 09:56 | MHC.PC.OV ---
Vital Signs 02/22/23 09:59 Height 5 ft 9 in Weight 340 lb 8 oz BMI 50.3 BP 138/70 Blood Pressure Location Rt brachial Position Sitting Respiration 13 Pulse 82 Pulse Source Pulse Oximeter Temp 97.9 F Temp Source Temporal Artery Scan Pulse Oximetry (%) 98 Oxygen Delivery Method Room Air Intake Visit Reasons: f/u diabetes Intake Note: Patient would like refills on his Clopidogrel, Simvastatin, Amlodipine, and the Toujeo. Patient states that the script for the Toujeo is still being sent over as 64 units but should be 68 according to pharmacy. Tinner Automatic Required: No Accompanied by: Self / Same As Patient Allergies aspirin Allergy (Severe, Verified 02/22/23 10:06) ANAPHYLAXIS, eyes red,swollen Medication List - Last Reconciled 02/22/23 by Reece Ann MD amlodipine 10 mg PO BEDTIME 90 days blood sugar diagnostic (FreeStyle Lite Strips) tid to quid testing of glucose levels, 90 blood-glucose meter (FreeStyle [place] Lite kit) As directed clopidogrel 75 mg PO DAILY insulin glargine U-300 conc 64 units (0.2133 mL) subcut BID 30 days insulin lispro (Humalog KwikPen (U-100) Insulin) 120-150: 5 units, 151-160: 6 units, 161-170: 7 units, 171-180: 8 units, 181-190: 9 units, 191-200: 10 units, 201 or greater: 12 units 30 days lancets (FreeStyle Lancets) tid to qid glucose checks lisinopril 40 mg PO DAILY 90 days pen needle, diabetic (BD Ultra-Fine Short Pen Needle) Use to inject As directed insulin 5 times a day, as directed, 90 days simvastatin 20 mg PO BEDTIME 90 days Tobacco use date assessed: 08/04/22 Dental Screening Dental Screen Date: 02/22/23 Did you have a dental visit in the last 12 months?: No Did you have a dental problem in the last 6 months where you did not have access to dental care?: No Was dental information given to patient?: Yes HPI f/u diabetes HPI Details 57 y/o male presents to f/u diabetes. Had increased his Lantus from 64 units to 68 units daily. A1c today 02/22/23 is 8.7%., which improved from 8.9% in October. He continues to take Lantus 68 units b.i.d. and Humalog sliding scale mealtimes Patient notes that his morning blood sugars have been in the 140s and 150s in the last few weeks [facility] Medical History (Updated 02/22/23 @ 10:09 by Chata Hunt MA) Diabetes mellitus History of wound infection Hypertension Morbid obesity No pertinent family history PAD (peripheral artery disease) Peripheral neuropathy Surgical History History of amputation of toe (~02/23/20) History of amputation of toe (~06/2017) History of amputation of toe (12/14/21) Hx of right BKA S/P debridement (~01/2017) Social History Household Members: Spouse Housing: House Do you presently have visiting nurse or other home services: Yes (VNA) Alcohol intake: current Alcohol intake frequency: a few times a week Patient Tobacco Use Status: Never used Tobacco e-Cigarette/Vaping Use: Never Used Second Hand Smoke Exposure: No service: No Current occupational status: employed 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 Sincere aHgan, Lillian Adamson, Arthur Zuniga and colleagues, with an educational aleksandar from [employer]. Review of Systems Const Denies chills, Denies fatigue, Denies fever(s), Denies headache(s) and Denies weakness ENT Denies dizziness and Denies headache(s) Card Denies chest pain, Denies lightheadedness, Denies dyspnea and Denies other (Palpitations) Resp Denies cough, Denies dyspnea, Denies wheezing and Denies other ( shortness of breath) Musc Denies numbness and Denies tingling Neuro Denies dizziness, Denies headache(s), Denies numbness, Denies tingling, Denies paresthesias and Denies weakness Psych Denies anxiety and Denies depression Endo Denies fatigue Aller/Immun Denies wheezing Physical exam (Primary Care) Vital Signs: Last Vital Signs Temp 97.9 F 02/22/23 09:59 Pulse 82 02/22/23 09:59 Resp 13 02/22/23 09:59 BP 138/70 02/22/23 09:59 Pulse Ox 98 02/22/23 09:59 Oxygen Delivery Method Room Air 02/22/23 09:59 BMI result Body Mass Index 50.3 Tobacco/Smoking Status: Tobacco use Status Tobacco use date assessed 08/04/22 02/22/23 10:10 Patient Tobacco Use Status Never used Tobacco 02/22/23 10:10 e-Cigarette/Vaping Use Never Used 02/22/23 10:10 Thrive Assessment: Date of Thrive Assessment Date Thrive assessed 08/04/22 02/22/23 10:10 Const General: no acute distress and well developed Nutritional Appearance: well nourished Orientation/consciousness: patient oriented x3 HENMT Head: Yes normocephalic and Yes atraumatic Eyes General: appearance normal, both eyes and all related structures Pupils: Equal, round and reactive pupils present EOM: EOMs intact bilaterally Resp Effort & Inspection: normal respiratory effort Auscultation: clear to auscultation bilaterally Cardio Rate: regular rate Rhythm: regular rhythm Heart sounds: S1 normal heart sound present, S2 normal heart sound present, no gallops, no murmurs and no rubs Neuro General: patient oriented x3 and gait normal Cranial nerves: Yes Equal, round and reactive pupils present Psych Affect: normal affect Results AMB Hemoglobin A1c AMB Hemoglobin A1c 8.7 % Last Edit by Kelsi Robbins on 02/22/23 10:30 Assessment and Plan Assessment & Plan (1) Diabetes mellitus: Code(s): E11.9 - Type 2 diabetes mellitus without complications Plan: Slowly improving blood sugars and more pronounced improvement in the last few weeks which may not be evident in his A1c today. Still above goal of 7.0% Currently taking 68 units of Lantus U 300 twice a day. He will increase this to 70 units twice a day and if his morning blood sugars are not consistently lower than 135, he will go up to 72 units twice a day. Encouraged exercise He has not had a recent dilated retinal exam in due to changes in his insurance. He will work on this and if he needs referral I will make 1. (2) PAD (peripheral artery disease): Comment: 05/11/2021 right SFA atherectomy and stent Dr. Ramírez 06/13/2021 - right below-knee amputation Dr. Ramírez 12/14/2021 - left 2nd toe amputation Dr. Abdi 03/01/2022 - diagnostic angiogram within normal limits Dr. Ramírez Code(s): I73.9 - Peripheral vascular disease, unspecified Plan: Stable Follow-up with Dr. Ramírez as recommended Medications: Changed From insulin glargine U-300 conc 64 units (0.2133 mL) subcut BID 30 days 15 mL 3RF To insulin glargine U-300 conc 72 units (0.24 mL) subcut BID 30 days 15 mL 3RF From clopidogrel 75 mg PO DAILY 90 tabs 0RF To clopidogrel 75 mg PO DAILY 90 tabs 3RF 90 days Refilled simvastatin 20 mg PO BEDTIME 90 tabs 2RF 90 days amlodipine 10 mg PO BEDTIME 90 tabs 2RF 90 days Coding Level of Care Code Est Pt Level 3 (89176) Diagnoses Diabetes mellitus E11.9 PAD (peripheral artery disease) I73.9
[2023-02-22 09:59] VITALS: BP 138/70; PULSE 82; RESP 13; TEMP 36.6; O2SAT 98; BMI 50.3
== END 2023-02-22 10:38 | disposition home or self-care (01) ==
PROVIDERS: Visit Provider Family Medicine
DX: E11.51 Type 2 diabetes mellitus with diabetic peripheral angiopathy without gangrene (principal)
CPT/HCPCS: 99213

== ENCOUNTER 2023-05-24 09:23 | Outpatient (AMB) | payer MEDICARE, SELFPAY ==
[2023-05-24 09:47] VITALS: BP 132/80; PULSE 63; O2SAT 97; BMI 50.0
--- NOTE | 2023-05-24 09:47 | A.OFFPC_ITS ---
Vital Signs 05/24/23 09:47 Height 5 ft 9 in Weight 338 lb 8 oz BMI 50.0 BP 132/80 Blood Pressure Location Lt brachial Position Sitting Pulse 63 Pulse Source Pulse Oximeter Pulse Oximetry (%) 97 Oxygen Delivery Method Room Air Intake Visit Reasons: f/u diabetes Intake Note: Patient is here for follow up on diabetes today. Allergies aspirin Allergy (Severe, Verified 05/24/23 09:52) ANAPHYLAXIS, eyes red,swollen Medication List - Last Reconciled 05/24/23 by Reece Ann MD amlodipine 10 mg PO BEDTIME 90 days blood sugar diagnostic (FreeStyle Lite Strips) tid to quid testing of glucose levels, 90 blood-glucose meter (FreeStyle Holden Lite kit) As directed clopidogrel 75 mg PO DAILY 90 days insulin glargine U-300 conc 72 units (0.24 mL) subcut BID 30 days insulin lispro (Humalog KwikPen (U-100) Insulin) 120-150: 5 units, 151-160: 6 units, 161-170: 7 units, 171-180: 8 units, 181-190: 9 units, 191-200: 10 units, 201 or greater: 12 units 30 days lancets (FreeStyle Lancets) tid to qid glucose checks lisinopril 40 mg PO DAILY 90 days pen needle, diabetic (BD Ultra-Fine Short Pen Needle) Use to inject As directed insulin 5 times a day, as directed, 90 days simvastatin 20 mg PO BEDTIME 90 days Tobacco use date assessed: 05/24/23 Dental Screening Dental Screen Date: 05/24/23 Did you have a dental visit in the last 12 months?: No Did you have a dental problem in the last 6 months where you did not have access to dental care?: No Was dental information given to patient?: Patient declined HPI f/u diabetes HPI Details 57 y/o male presents to f/u diabetes. A1c today 05/24/23 is 8.5%. He is on insulin glargine 72 units, insulin lispro. He reports lowest blood sugar he has seen is 120. He has not had a diabetic eye exam yet. [facility] Medical History No pertinent family history Peripheral neuropathy History of wound infection PAD (peripheral artery disease) Morbid obesity Hypertension Diabetes mellitus Surgical History Hx of right BKA History of amputation of toe (12/14/21) S/P debridement (~01/2017) History of amputation of toe (~06/2017) History of amputation of toe (~02/23/20) Social History Household Members: Spouse Housing: House Do you presently have visiting nurse or other home services: Yes ([facility]) Alcohol intake: current Alcohol intake frequency: a few times a week Patient Tobacco Use Status: Never used Tobacco e-Cigarette/Vaping Use: Never Used Second Hand Smoke Exposure: No service: No Current occupational status: employed 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 1. Little interest or pleasure in doing things: not at all 2. Feeling down, depressed, or hopeless: not at all 3. Trouble falling or staying asleep, or sleeping too much: not at all 4. Feeling tired or having little energy: not at all 5. Poor appetite or overeating: not at all 6. Feeling bad about yourself - or that you are a failure or have let yourself or your family down: not at all 7. Trouble concentrating on things, such as reading the newspaper or watching television: not at all 8. Moving or speaking so slowly that other people could have noticed. Or the opposite - being so fidgety or restless that you have been moving around a lot more than usual: not at all 9. Thoughts that you would be better off or of hurting yourself in some way: not at all Total score: 0 Source: Developed by Drs. Sincere Hagan, Lillian Adamson, Arthur Zuniga and colleagues, with an educational aleksandar from [employer]. Thrive Questionnaire Date Thrive assessed: 08/04/22 AUDIT C Alcohol Use Questionnaire (AUDIT-C) 1. How often do you have a drink containing alcohol?: Monthly or less 2. How many drinks containing alcohol do you have on a typical day when you are drinking?: 1 or 2 3. How often do you have six or more drinks on one occasion?: Never Total Score: 1 ANNETTE-7 AMB Questionnaire ANNETTE-7 Date ANNETTE - 7 assessed: 05/24/23 Feeling nervous, anxious, or on edge: 0 = Not at all Not being able to stop or control worryin = Not at all Worrying too much about different things: 0 = Not at all Trouble relaxin = Not at all Being so restless that it is hard to sit still: 0 = Not at all Becoming easily annoyed or irritable: 0 = Not at all Feeling afraid as if something awful might happen: 0 = Not at all Total ANNETTE-7 score (0-4 normal; 5-9 mild; 10-14 moderate; 15-21 severe): 0 Source: Developed by Drs. Sincere Hagan, Lillian Adamson, Arthur Zuniga and colleagues, with an educational aleksandar from [employer]. Review of Systems Const Denies chills, Denies fatigue, Denies fever(s), Denies headache(s) and Denies weakness ENT Denies dizziness and Denies headache(s) Card Denies chest pain, Denies lightheadedness, Denies dyspnea and Denies other (Palpitations) Resp Denies cough, Denies dyspnea, Denies wheezing and Denies other ( shortness of breath) Musc Denies numbness and Denies tingling Neuro Denies dizziness, Denies headache(s), Denies numbness, Denies tingling, Denies paresthesias and Denies weakness Psych Denies anxiety and Denies depression Endo Denies fatigue Aller/Immun Denies wheezing Physical exam (Primary Care) Vital Signs: Last Vital Signs Pulse 63 05/24/23 09:47 BP 132/80 05/24/23 09:47 Pulse Ox 97 05/24/23 09:47 Oxygen Delivery Method Room Air 05/24/23 09:47 BMI result Body Mass Index 50.0 Tobacco/Smoking Status: Tobacco use Status Tobacco use date assessed 05/24/23 05/24/23 09:54 Patient Tobacco Use Status Never used Tobacco 05/24/23 09:48 e-Cigarette/Vaping Use Never Used 05/24/23 09:48 PHQ-9: PHQ-9 Score PHQ-9: Total score 0 05/24/23 10:18 Thrive Assessment: Date of Thrive Assessment Date Thrive assessed 08/04/22 05/24/23 09:48 Const General: no acute distress and well developed Nutritional Appearance: well nourished Orientation/consciousness: patient oriented x3 [facility] Head: Yes normocephalic and Yes atraumatic Eyes General: appearance normal, both eyes and all related structures Pupils: Equal, round and reactive pupils present EOM: EOMs intact bilaterally Resp Effort & Inspection: normal respiratory effort Auscultation: clear to auscultation bilaterally Cardio Rate: regular rate Rhythm: regular rhythm Heart sounds: S1 normal heart sound present, S2 normal heart sound present, no gallops, no murmurs and no rubs Neuro General: patient oriented x3 and gait normal Cranial nerves: Yes Equal, round and reactive pupils present Psych Affect: normal affect Results AMB Hemoglobin A1c AMB Hemoglobin A1c 8.5 % Last Edit by Taylor Turcios CMA on 05/24/23 10:13 Results Reviewed Results Reviewed: Laboratory Last Values Hgb A1c (Clinic) 8.5 % (4.0-6.0) H 05/24/23 10:11 Assessment and Plan Assessment & Plan (1) Diabetes mellitus: Code(s): E11.9 - Type 2 diabetes mellitus without complications Plan: Slowly?improving?blood?sugar?control.??A1c?has?decreased?from?8.7-8.5%.??Goal?is ?less?than?7.0%. Morning?blood?sugars?between?120?and?180?but?no?longer?in?200s Increase?basal?insulin?from?72?units?b.i.d.?to?75?b.i.d.; increase?of?6?units?per?day Continue?sliding?scale?insulin Continue?to?work?at?diet?exercise?and?weight?loss He?still?has?not?had?a?ophthalmology?appointment?in?the?last?year.??He?has?seen? in?the?past?and?I?will?refer?him?back. (2) PAD (peripheral artery disease): Comment: 05/11/2021 right SFA atherectomy and stent Dr. aRmírez 06/13/2021 - right below-knee amputation Dr. Ramírez 12/14/2021 - left 2nd toe amputation Dr. Abdi 03/01/2022 - diagnostic angiogram within normal limits Dr. Ramírez Code(s): I73.9 - Peripheral vascular disease, unspecified Plan: Has?appointment?with? Follow-up?with?vascular?surgery?as?recommended (3) Hx of right BKA: Code(s): Z89.511 - Acquired absence of right leg below knee Plan: Doing?well?with?prosthetic Follow-up?with?specialist;?he?has?an?appointment Orders: Orders AMB Hemoglobin A1c Today Z13.9 - Encounter for screening, unspecified Referrals Ophthalmology Referral E11.9 - Type 2 diabetes mellitus without complications Coding Level of Care Code Est Pt Level 4 (12308) Diagnoses Diabetes mellitus E11.9 PAD (peripheral artery disease) I73.9 Hx of right BKA Z89.511
== END 2023-05-24 10:33 | disposition home or self-care (01) ==
PROVIDERS: PCP Family Medicine; Visit Provider Family Medicine
DX: E11.51 Type 2 diabetes mellitus with diabetic peripheral angiopathy without gangrene (principal); I73.9 Peripheral vascular disease, unspecified; Z89.511 Acquired absence of right leg below knee
CPT/HCPCS: 83036; 99214

== ENCOUNTER 2023-08-30 10:36 | Outpatient (AMB) | payer MEDICARE, SELFPAY ==
[2023-08-30 10:55] VITALS: BP 126/72; PULSE 65; O2SAT 98; BMI 51.0
--- NOTE | 2023-08-30 10:55 | MHC.PC.OV ---
Vital Signs 08/30/23 10:55 Height 5 ft 9 in Weight 345 lb 2 oz BMI 51.0 BP 126/72 Blood Pressure Location Lt brachial Position Sitting Pulse 65 Pulse Source Pulse Oximeter Pulse Oximetry (%) 98 Oxygen Delivery Method Room Air Intake Visit Reasons: f/u diabetes Intake Note: Patient is here to follow up on his diabetes. Patient needs refills on Lisinopril, Simvastatin, and Amlodipine. Allergies aspirin Allergy (Severe, Verified 08/30/23 11:01) ANAPHYLAXIS, eyes red,swollen Tobacco use date assessed: 08/30/23 HPI f/u diabetes HPI Details 58 y/o male presents to f/u diabetes. A1c today 08/30/23 8.3%, which improved from 8.5 since May. He is on insulin lispro, glargine. [facility] Medical History No pertinent family history Peripheral neuropathy History of wound infection PAD (peripheral artery disease) Morbid obesity Hypertension Diabetes mellitus Surgical History Hx of right BKA History of amputation of toe (12/14/21) S/P debridement (~01/2017) History of amputation of toe (~06/2017) History of amputation of toe (~02/23/20) Social History Household Members: Spouse Housing: House Do you presently have visiting nurse or other home services: Yes ([facility]) Alcohol intake: current Alcohol intake frequency: a few times a week Patient Tobacco Use Status: Never used Tobacco e-Cigarette/Vaping Use: Never Used Second Hand Smoke Exposure: No service: No Current occupational status: employed 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 Sincere Hagan, Lillian Adamson, Arthur Zuniga and colleagues, with an educational aleksandar from [employer]. Review of Systems Const Denies chills, Denies fatigue, Denies fever(s), Denies headache(s) and Denies weakness ENT Denies dizziness and Denies headache(s) Card Denies chest pain, Denies lightheadedness, Denies dyspnea and Denies other (Palpitations) Resp Denies cough, Denies dyspnea, Denies wheezing and Denies other ( shortness of breath) Musc Denies numbness and Denies tingling Neuro Denies dizziness, Denies headache(s), Denies numbness, Denies tingling, Denies paresthesias and Denies weakness Psych Denies anxiety and Denies depression Endo Denies fatigue Aller/Immun Denies wheezing Physical exam (Primary Care) Vital Signs: Last Vital Signs Pulse 65 08/30/23 10:55 BP 126/72 08/30/23 10:55 Pulse Ox 98 08/30/23 10:55 Oxygen Delivery Method Room Air 08/30/23 10:55 BMI result Body Mass Index 51.0 Tobacco/Smoking Status: Tobacco use Status Tobacco use date assessed 08/30/23 08/30/23 11:11 Patient Tobacco Use Status Never used Tobacco 08/30/23 10:57 e-Cigarette/Vaping Use Never Used 08/30/23 10:57 Thrive Assessment: Date of Thrive Assessment Date Thrive assessed 08/04/22 08/30/23 10:57 Const General: no acute distress and well developed Nutritional Appearance: obese morbidly obese Orientation/consciousness: patient oriented x3 [facility] Head: Yes normocephalic and Yes atraumatic Eyes General: appearance normal, both eyes and all related structures Pupils: Equal, round and reactive pupils present EOM: EOMs intact bilaterally Resp Effort & Inspection: normal respiratory effort Auscultation: clear to auscultation bilaterally Cardio Rate: regular rate Rhythm: regular rhythm Heart sounds: S1 normal heart sound present, S2 normal heart sound present, no gallops, no murmurs and no rubs Neuro General: patient oriented x3 and gait normal Cranial nerves: Yes Equal, round and reactive pupils present Psych Affect: normal affect Results AMB Hemoglobin A1c AMB Hemoglobin A1c 8.3 % Last Edit by Taylor Turcios CMA on 08/30/23 11:16 Results Reviewed Results Reviewed: Laboratory Last Values Hgb A1c (Clinic) 8.3 % (4.0-6.0) H 08/30/23 11:12 Assessment and Plan Assessment & Plan (1) Diabetes mellitus: Code(s): E11.9 - Type 2 diabetes mellitus without complications Plan: A1c?still?shows?poor?controlled?though?again?is?gradually?coming?down.??Goal?is?less?than?7.0% Will?continue?to?increase?his?basal?insulin; increase?from?75?units?b.i.d.?to?78?units?b.i.d. Continue?sliding?scale Encouraged?him?to?work?on?a?diet?lower?in?sugars?and?starches. Encouraged?exercise Will?refer?to?endocrinology Patient?was?unable?to?get?appointment?with??[facility]?office.??He?would?like?to?try?a?referral?to??[facility] Refer Orders: Orders AMB Hemoglobin A1c Today Z13.9 - Encounter for screening, unspecified Lipid Panel Today Z00.00 - Encounter for general adult medical examination without abnormal findings Microalbumin, Random (w Creat) Today I10 - Essential (primary) hypertension Prostate Specific Antigen Scr Today Z12.5 - Encounter for screening for malignant neoplasm of prostate Comprehensive [place]. Panel Fast Today Z00.00 - Encounter for general adult medical examination without abnormal findings Complete Blood Count Auto Diff Today Z00.00 - Encounter for general adult medical examination without abnormal findings UA and rflx microscopic Today Z00.00 - Encounter for general adult medical examination without abnormal findings TSH reflex Free T4 Today Z00.00 - Encounter for general adult medical examination without abnormal findings Referrals Endocrinology Referral E11.9 - Type 2 diabetes mellitus without complications Ophthalmology Referral E11.9 - Type 2 diabetes mellitus without complications Medications: Changed From insulin glargine U-300 conc 75 units (0.25 mL) subcut BID 30 days 15 mL 3RF To insulin glargine U-300 conc 78 units (0.26 mL) subcut BID 18 mL 3RF 30 days Refilled lisinopril 40 mg PO DAILY 90 tabs 3RF 90 days amlodipine 10 mg PO BEDTIME 90 tabs 2RF 90 days simvastatin 20 mg PO BEDTIME 90 tabs 2RF 90 days Coding Level of Care Code Est Pt Level 3 (15925) Diagnoses Diabetes mellitus E11.9
== END 2023-08-30 12:10 | disposition home or self-care (01) ==
PROVIDERS: PCP Family Medicine; Visit Provider Family Medicine
DX: E11.9 Type 2 diabetes mellitus without complications (principal)
CPT/HCPCS: 83036; 99213

== ENCOUNTER 2023-11-19 08:24 | Outpatient (REF) | payer MEDICARE, SELFPAY ==
[2023-11-19 11:37] LABS: Appearance Urine Clear; Color Urine Yellow; Glucose Urine UA Negative (Negative); Leukocyte Esterase Urine Negative (Negative); Nitrite Urine Negative (Negative); UMIC TRIGGER UA YES; Urine Blood Negative (Negative); Urine Ketones Negative (Negative); Urine Protein 100 (2+) mg/dL (Neg-Trace)
[2023-11-19 11:48] LABS: Bacteria Urine None Seen (None Seen); Hyaline Casts Urine 0-2 /LPF (0-2); RBC Urine 0-2 /HPF (0-2); Squamous Epithelial Cell Urine 0-2 /HPF (0-2); WBC Urine 0-5 /HPF (0-5)
[2023-11-19 12:05] LABS: MANUAL DIFF FLAG NO
[2023-11-19 12:43] LABS: Basophils Percent Auto 0.3 % (0-2); Eosinophils Absolute Auto 0.1 X10*3/uL (0.0-0.4); Eosinophils Percent Auto 0.4 % (0-4); Hematocrit 51.1 % (42.0-52.0); Hemoglobin 17.2 g/dl (14.0-18.0); Imm Gran Abs Auto 0.05 X10*3/uL (0.00-0.03); Imm Gran Pct Auto 0.4 % (0.0-0.4); Lymphocytes Percent Auto 17.4 % (20-40); Mean Corpuscular HGB Conc 33.7 g/dl (31.0-36.0); Mean Corpuscular Hemoglobin 29.6 pg (27.0-33.0); Mean Platelet Volume 12.8 fL (9.4-12.4); Monocytes Absolute Auto 0.7 X10*3/uL (0.1-1.2); Monocytes Percent Auto 6.2 % (2-11); Neutrophils Absolute Auto 8.6 x10*3/uL (2.0-8.3); Neutrophils Percent Auto 75.3 % (45-73); Platelet Count 220 X10*3/uL (160-400); Red Blood Count 5.81 X10*6/uL (4.60-5.80); Red Cell Distribution Width 13.7 % (11.0-16.0); White Blood Count 11.4 X10*3/uL (4.8-10.8)
[2023-11-19 12:47] LABS: Alanine Aminotransferase 24 U/L (0-40); Albumin Level 4.1 g/dL (3.5-5.0); Alkaline Phosphatase 91 U/L (39-117); Anion Gap 11 (12-20); Aspartate Amino Transferase 15 U/L (5-37); Blood Urea Nitrogen 18 mg/dL (9-16); Calcium 9.4 mg/dL (8.4-10.2); Carbon Dioxide 30 mmol/L (22-29); Chloride 102 mmol/L (96-108); Cholesterol 123 mg/dL (<200); Estimated Glomerular Filt Rate > 60; Glucose Fasting 177 mg/dL (60-99); HDL Cholesterol 38 mg/dL (>40); LDL Cholesterol Calculated 65 mg/dL (<100); Potassium 4.5 mmol/L (3.3-5.1); Sodium 138 mmol/L (135-145); Total Protein 7.5 g/dL (6.5-8.0); Triglycerides 102 mg/dL (<150)
[2023-11-19 12:53] LABS: Creatinine Urine 61.77 mg/dL; Microalbum/Creatinine Ratio Ur 720.4 ug/mg cr (<30)
[2023-11-19 13:00] LABS: Prostate Specific Antigen Scr 0.24 ng/mL (<0.05-4.0)
[2023-11-19 13:06] LABS: TSH reflex Free T4 2.14 uIU/mL (0.32-4.0)
== END 2023-11-19 08:25 | disposition home or self-care (01) ==
LOC: HO.WFDLDS 08:24
PROVIDERS: Visit Provider Family Medicine
DX: Z00.00 Encounter for general adult medical examination without abnormal findings (principal); I10 Essential (primary) hypertension; Z12.5 Encounter for screening for malignant neoplasm of prostate
CPT/HCPCS: 36415; 80053; 80061; 81001; 82043; 82570; 84153; 84443; 85025

== ENCOUNTER 2023-11-29 10:43 | Outpatient (AMB) | payer MEDICARE, SELFPAY ==
[2023-11-29 10:59] VITALS: BP 130/72; PULSE 69; O2SAT 97; BMI 50.8
--- NOTE | 2023-11-29 10:59 | A.OFFPC_ITS ---
Vital Signs 11/29/23 10:59 Height 5 ft 9 in Weight 344 lb BMI 50.8 BP 130/72 Blood Pressure Location Lt brachial Position Sitting Pulse 69 Pulse Source Pulse Oximeter Pulse Oximetry (%) 97 Oxygen Delivery Method Room Air Intake Visit Reasons: Extended exam with f/u labs and health maint. Intake Note: Patient is here for extended exam today with follow up on labs and health maintanance. Patient states he did not see endo due to them calling him with an appointment because they had cancellation, could not make it because he was working, so they stated that they would call him back, never did. Allergies aspirin Allergy (Severe, Verified 11/29/23 11:06) ANAPHYLAXIS, eyes red,swollen Medication List - Last Reconciled 11/29/23 by Reece Ann MD amlodipine 10 mg PO BEDTIME 90 days blood sugar diagnostic (FreeStyle Lite Strips) tid to quid testing of glucose levels, 90 blood-glucose meter (FreeStyle [place] Lite kit) As directed clopidogrel 75 mg PO DAILY 90 days insulin glargine U-300 conc 78 units (0.26 mL) subcut BID 30 days insulin lispro (Humalog KwikPen (U-100) Insulin) 120-150: 5 units, 151-160: 6 units, 161-170: 7 units, 171-180: 8 units, 181-190: 9 units, 191-200: 10 units, 201 or greater: 12 units 30 days lancets (FreeStyle Lancets) tid to qid glucose checks lisinopril 40 mg PO DAILY 90 days pen needle, diabetic (BD Ultra-Fine Short Pen Needle) Use to inject As directed insulin 5 times a day, as directed, 90 days simvastatin 20 mg PO BEDTIME 90 days Tobacco use date assessed: 11/29/23 Dental Screening Dental Screen Date: 11/29/23 Did you have a dental visit in the last 12 months?: Yes Did you have a dental problem in the last 6 months where you did not have access to dental care?: No Was dental information given to patient?: Patient declined HPI Extended exam with f/u labs and health maint. HPI Details 58 y/o male presents for an extended exa m with f/u labs and health maintenance. A1c today 11/29/23 8.4%. Pt reports morning blood sugar of 95. Pt notes he had been struggling to get an appt. with endocrinology as they had rescheduled him to an appt. that he could not make. Pt notes he has never had a colonoscopy. [facility] Medical History No pertinent family history Peripheral neuropathy History of wound infection PAD (peripheral artery disease) Morbid obesity Hypertension Diabetes mellitus Surgical History Hx of right BKA History of amputation of toe (12/14/21) S/P debridement (~01/2017) History of amputation of toe (~06/2017) History of amputation of toe (~02/23/20) Family History (Updated 11/29/23 @ 11:43 by Taylor Turcios CMA) Mother Diabetes Father Blood infection Family history of mental disorder Maternal Grandmother Diabetes Paternal Grandmother Family history of mental disorder Social History Household Members: Spouse Housing: House Do you presently have visiting nurse or other home services: Yes ([facility]) Alcohol intake: current Alcohol intake frequency: a few times a week Patient Tobacco Use Status: Never used Tobacco e-Cigarette/Vaping Use: Never Used Second Hand Smoke Exposure: No service: No Current occupational status: employed 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 1. Little interest or pleasure in doing things: not at all 2. Feeling down, depressed, or hopeless: not at all 3. Trouble falling or staying asleep, or sleeping too much: not at all 4. Feeling tired or having little energy: not at all 5. Poor appetite or overeating: not at all 6. Feeling bad about yourself - or that you are a failure or have let yourself or your family down: not at all 7. Trouble concentrating on things, such as reading the newspaper or watching television: not at all 8. Moving or speaking so slowly that other people could have noticed. Or the opposite - being so fidgety or restless that you have been moving around a lot more than usual: not at all 9. Thoughts that you would be better off or of hurting yourself in some way: not at all Total score: 0 Depression Screening Interpretation: Negative Depression Screening Done: Yes Source: Developed by Drs. Sincere Hagan, Lillian Adamson, Arthur Zuniga and colleagues, with an educational aleksandar from [employer]. Thrive Questionnaire Date Thrive assessed: 11/29/23 I am a: Patient What is your living situation today?: I have a steady place to live Within the past 12 months, did the food you bought not last and you didn't have the money to get more?: Never true Within the past 12 months, did you worry whether your food would run out before you got money to buy more?: Never true Do you have trouble paying for medicines?: No Do you have trouble getting transportation to medical appointments?: No Do you have trouble paying your heating and electricity bill?: No Do you have trouble taking care of your child, family member or friend?: No Do you have trouble with day-to-day activities such as bathing, preparing meals, shopping, managing finances, etc.?: No Are you currently unemployed and looking for a job?: No Are you interested in more education?: No THRIVE Score: 0 AUDIT C Alcohol Use Questionnaire (AUDIT-C) 1. How often do you have a drink containing alcohol?: 2-3 times a week 2. How many drinks containing alcohol do you have on a typical day when you are drinking?: 1 or 2 3. How often do you have six or more drinks on one occasion?: Never Total Score: 3 ANNETTE-7 AMB Questionnaire ANNETTE-7 Date ANNETTE - 7 assessed: 11/29/23 Feeling nervous, anxious, or on edge: 0 = Not at all Not being able to stop or control worryin = Not at all Worrying too much about different things: 0 = Not at all Trouble relaxin = Not at all Being so restless that it is hard to sit still: 0 = Not at all Becoming easily annoyed or irritable: 0 = Not at all Feeling afraid as if something awful might happen: 0 = Not at all Total ANNETTE-7 score (0-4 normal; 5-9 mild; 10-14 moderate; 15-21 severe): 0 Source: Developed by Drs. Sincere Hagan, Lillian Adamson, Arthur Zuniga and colleagues, with an educational aleksandar from [employer]. Review of Systems Const Denies chills, Denies fatigue, Denies fever(s), Denies headache(s) and Denies we akness Eyes Denies change in vision ENT Denies dizziness, Denies headache(s), Denies hearing loss, Denies nasal congestion, Denies sinus pain, Denies sinus pressure and Denies sore throat Card Denies chest pain, Denies lightheadedness, Denies dyspnea and Denies other (palpitations) Resp Denies cough, Denies dyspnea and Denies wheezing GI Denies abdominal pain, Denies melena, Denies hematochezia, Denies change in bowel habits, Denies dyspepsia and Denies nausea Denies hematuria and Denies dysuria Musc Denies abnormal gait, Denies myalgias, Denies arthralgias, Denies numbness and Denies tingling Skin/Breast Denies rash, Denies unusual bruising and Denies wounds Neuro Denies abnormal gait, Denies dizziness, Denies headache(s), Denies memory loss, Denies numbness, Denies Sensory deficit (Neuro), Denies tingling and Denies weakness Psych Denies anxiety, Denies depression and Denies memory loss Endo Denies cold intolerance, Denies fatigue, Denies heat intolerance, Denies polydipsia and Denies polyuria Jitendra/Lymph Denies easy bleeding and Denies easy bruising Aller/Immun Denies wheezing Physical exam (Primary Care) Vital Signs: Last Vital Signs Pulse 69 11/29/23 10:59 BP 130/72 11/29/23 10:59 Pulse Ox 97 11/29/23 10:59 Oxygen Delivery Method Room Air 11/29/23 10:59 BMI result Body Mass Index 50.8 Tobacco/Smoking Status: Tobacco use Status Tobacco use date assessed 11/29/23 11/29/23 11:07 Patient Tobacco Use Status Never used Tobacco 11/29/23 10:59 e-Cigarette/Vaping Use Never Used 11/29/23 10:59 PHQ-9: PHQ-9 Score PHQ-9: Total score 0 11/29/23 11:37 Depression Screening Interpretation: Negative Thrive Assessment: Date of Thrive Assessment Date Thrive assessed 11/29/23 11/29/23 11:37 Const General: no acute distress, well developed, alert and awake Nutritional Appearance: obese morbidly obese Orientation/consciousness: patient oriented x3 [facility] Head: Yes normocephalic and Yes atraumatic Ears: hearing grossly normal bilaterally and TM's normal bilaterally General nose exam: Normal external nose present and Normal nares present Mouth: Normal oral and palatal mucosa present and moist mucous membranes Teeth and gingiva: dentition normal Throat: Yes posterior oropharynx normal Eyes General: appearance normal, both eyes and all related structures Pupils: Equal, round and reactive pupils present and Pupil accommodation reflex normal EOM: EOMs intact bilaterally Neck Neck: Yes normal visual inspection, Yes no lymphadenopathy and Yes trachea midline Thyroid: Thyroid normal Carotids: no bruits Lymphatic: no lymphadenopathy noted Chest Chest palpation & inspection: normal inspection of the chest Resp Effort & Inspection: normal respiratory effort Auscultation: clear to auscultation bilaterally Cardio Rate: regular rate Rhythm: regular rhythm Heart sounds: S1 normal heart sound present, S2 normal heart sound present, no gallops, no murmurs and no rubs Bruits: no abdominal aortic bruits and no carotid bruits GI Palpation (GI): No Abdominal aortic bruit present, Soft to palpation, nontender, No hepatosplenomegaly present and No Rebound tenderness present Auscultation: normal bowel sounds General: Yes no CVA tenderness Back/Spine/Pelvis Back: no CVA tenderness Cervical Spine: cervical ROM normal and No Cervical spine tenderness Thoracic/Lumbar Spine: thoraco-lumbar ROM normal, No pain with thoraco-lumbar ROM, No thoracic spinal tenderness and No lumbar spinal tenderness Skin Lesions: no lesions Rashes: no rashes Trauma: no lacerations or abrasions Wounds: no wounds Nails: normal Neuro General: patient oriented x3 and No gait normal Cranial nerves: Yes Equal, round and reactive pupils present Cognition (Neuro): normal cognition Gait exam (Neuro): gait abnormal Sensory Exam: No Sensory deficit (Neuro) Deep tendon reflexes (DTR's): Right patellar reflex intensity grade: 2+ and Left patellar reflex intensity grade: 2+ Extrem General: Yes normal to inspection and No edema Psych Appearance: grossly normal Affect: normal affect Attitude: cooperative Thought process: Normal thought process present Results AMB Hemoglobin A1c AMB Hemoglobin A1c 8.4 % Last Edit by Taylor Turcios CMA on 11/29/23 11:28 Results Reviewed Results Reviewed: Laboratory Last Values Hgb A1c (Clinic) 8.4 % (4.0-6.0) H 11/29/23 11:27 Assessment and Plan Assessment & Plan (1) Diabetes mellitus: Code(s): E11.9 - Type 2 diabetes mellitus without complications Plan: A1c?has?been?high?but?was?steadily?marching?lower.??This?has?stalled?out?and?inc reased?a?bit?back?to?8.4%. He?notes?that?his?morning?blood?sugars?are?getting?down?into?the?90s. He?will?continue?Lantus?78?units?b.i.d. I?have?asked?him?to?increase?his?mealtime?insulin; he?will?add?a?2?unit?increase?to?his?sliding?scale?insulin?for?his?1st?and?2nd?m eal?of?the?day.??If?his?morning?bloo d?sugars?are?rising?he?can?also?include?the?3rd?meal?of?the?day. I?had?referred?him?to?endocrinology?but?he?was?unable?to?make?the?appointment?[facility]?gave?him. He?is?asked?to?be?referred?to?[facility]?endocri nology?so?I?have?made?this?referral?today. Encouraged?ongoing?increase?in?exercise?and?weight?loss Had?a?recent?ophthalmology?appointment?with??Krystina's office?and?had?a?noted?hemorrhage; I?do? not?have?the?report?yet?but?will?request?it. (2) S/P BKA (below knee amputation): Code(s): Z89.519 - Acquired absence of unspecified leg below knee Plan: Ambulating?well No?problems (3) Screening for colon cancer: Code(s): Z12.11 - Encounter for screening for malignant neoplasm of colon Plan: Patient?has?not?had?a?colonoscopy.??Referred?to?[facility]?GI (4) Screening for prostate cancer: Code(s): Z12.5 - Encounter for screening for malignant neoplasm of prostate Plan: PSA?is?within?normal?limits Will?continue?annual?screening (5) Adult general medical exam: Code(s): Z00.00 - Encounter for general adult medical examination without abnormal findings Plan: 58-year-old?male?presents?for?an?extended?exam Encouraged?weight?loss?and?exercise. Orders: Orders AMB Hemoglobin A1c Today Z13.9 - Encounter for screening, unspecified Referrals Gastroenterology Referral Z12.11 - Encounter for screening for malignant neoplasm of colon Coding Level of Care Code Est Pt Level 4 (12322) Diagnoses Diabetes mellitus E11.9 S/P BKA (below knee amputation) Z89.519 Screening for colon cancer Z12.11 Screening for prostate cancer Z12.5 Adult general medical exam Z00.00
== END 2023-11-29 12:34 | disposition home or self-care (01) ==
PROVIDERS: PCP Family Medicine; Visit Provider Family Medicine
DX: E11.9 Type 2 diabetes mellitus without complications (principal); Z89.519 Acquired absence of unspecified leg below knee; Z12.11 Encounter for screening for malignant neoplasm of colon; Z12.5 Encounter for screening for malignant neoplasm of prostate
CPT/HCPCS: 83036; 99214

== ENCOUNTER 2023-12-13 09:28 | Outpatient (REF) | payer MEDICARE, SELFPAY ==
--- NOTE | ~2023-12-13 | US_ITS ---
EXAMINATION: US CHANELL complete, US arterial duplex LE LT CLINICAL INFORMATION: PVD, rt BKA COMPARISON: Bilateral lower extremity arterial duplex 10/09/2022 TECHNIQUE: Ankle pulse volume recordings, ankle pressure measurements and ankle brachial indices were obtained of the lower extremity arterial system bilaterally in addition to duplex Doppler techniques with wave form analysis and measurement of velocities in the common femoral, profunda femoral, superficial femoral, popliteal, tibial and peroneal arteries. The study was performed only at rest. FINDINGS: RIGHT LEG: Below knee amputation. LEFT LE. THE LEFT ANKLE-BRACHIAL INDEX IS: 0.84, previously 0.86 >0.97-1.25 = normal - no significant arterial disease 0.75-0.96 = mild peripheral arterial disease 0.5-0.74 = moderate peripheral arterial disease <0.50 = severe peripheral arterial disease <0.30 = critical arterial disease 2. SEGMENTAL PRESSURES: Ankle: PT 121, DP 159 3. PVR WAVEFORMS: Ankle: Normal 4. DIRECT DUPLEX: Common femoral artery: 143 cm/s, biphasic, mild stenosis Profunda femoris artery: 122 cm/s, biphasic Superficial femoral artery (proximal): 111 cm/s, multiphasic Superficial femoral artery (mid): 157 cm/s, Multiphasic, mild stenosis Superficial femoral artery (distal): 159 cm/s, Multiphasic, mild stenosis Popliteal artery: 188 cm/s, Multiphasic, mild stenosis Mid posterior tibial artery: 88 cm/s, biphasic Peroneal artery: 126 cm/s, Multiphasic Anterior tibial artery: 83 cm/sec, biphasic Dorsalis pedis artery: 9 cm/sec, monophasic US/US arterial duplex LE LT IMPRESSION: CHANELL 0.84, previously 0.86. Mild peripheral arterial disease, greatest at the level of the distal superficial femoral artery and popliteal artery.
--- NOTE | ~2023-12-13 | US_ITS ---
EXAMINATION: US CHANELL complete, US arterial duplex LE LT CLINICAL INFORMATION: PVD, rt BKA COMPARISON: Bilateral lower extremity arterial duplex 10/09/2022 TECHNIQUE: Ankle pulse volume recordings, ankle pressure measurements and ankle brachial indices were obtained of the lower extremity arterial system bilaterally in addition to duplex Doppler techniques with wave form analysis and measurement of velocities in the common femoral, profunda femoral, superficial femoral, popliteal, tibial and peroneal arteries. The study was performed only at rest. FINDINGS: RIGHT LEG: Below knee amputation. LEFT LE. THE LEFT ANKLE-BRACHIAL INDEX IS: 0.84, previously 0.86 >0.97-1.25 = normal - no significant arterial disease 0.75-0.96 = mild peripheral arterial disease 0.5-0.74 = moderate peripheral arterial disease <0.50 = severe peripheral arterial disease <0.30 = critical arterial disease 2. SEGMENTAL PRESSURES: Ankle: PT 121, DP 159 3. PVR WAVEFORMS: Ankle: Normal 4. DIRECT DUPLEX: Common femoral artery: 143 cm/s, biphasic, mild stenosis Profunda femoris artery: 122 cm/s, biphasic Superficial femoral artery (proximal): 111 cm/s, multiphasic Superficial femoral artery (mid): 157 cm/s, Multiphasic, mild stenosis Superficial femoral artery (distal): 159 cm/s, Multiphasic, mild stenosis Popliteal artery: 188 cm/s, Multiphasic, mild stenosis Mid posterior tibial artery: 88 cm/s, biphasic Peroneal artery: 126 cm/s, Multiphasic Anterior tibial artery: 83 cm/sec, biphasic Dorsalis pedis artery: 9 cm/sec, monophasic US/US CHANELL complete IMPRESSION: CHANELL 0.84, previously 0.86. Mild peripheral arterial disease, greatest at the level of the distal superficial femoral artery and popliteal artery.
== END 2023-12-13 09:29 | disposition home or self-care (01) ==
LOC: HO.US 09:28
PROVIDERS: PCP Family Medicine; Visit Provider Surgery Vascular Surgery
DX: I73.9 Peripheral vascular disease, unspecified (principal)
CPT/HCPCS: 93923; 93926

== ENCOUNTER 2024-01-17 08:47 | Outpatient (AMB) | payer MEDICARE, SELFPAY ==
--- NOTE | 2024-01-17 08:51 | MHC.OFFVIS ---
Intake Visit Reasons: 1yr f/u s/p B/L ART US 12/13/23 Intake Note: Patient presents for one year follow up s/p arterial US performed on 12/13/23. Allergies aspirin Allergy (Severe, Verified 01/17/24 08:54) ANAPHYLAXIS, eyes red,swollen HPI HPI 1yr f/u s/p B/L ART US 12/13/23: Details: Very pleasant 58-year-old gentleman presents for follow-up evaluation regarding peripheral vascular disease. Has had a prior right BKA and has been doing extremely well with that. He is using a prosthetic and ambulating well. He was doing so well that the front staff was unaware that he is an amputee on basic ambulation. Now presents for follow-up. He has undergone noninvasive testing of the left lower extremity. [facility] Medical History No pertinent family history Peripheral neuropathy History of wound infection PAD (peripheral artery disease) Morbid obesity Hypertension Diabetes mellitus Surgical History Hx of right BKA History of amputation of toe (12/14/21) S/P debridement (~01/2017) History of amputation of toe (~06/2017) History of amputation of toe (~02/23/20) Family History Mother Diabetes Father Blood infection Family history of mental disorder Maternal Grandmother Diabetes Paternal Grandmother Family history of mental disorder Social History Household Members: Spouse Housing: House Do you presently have visiting nurse or other home services: Yes ([facility]) Alcohol intake: current Alcohol intake frequency: a few times a week Patient Tobacco Use Status: Never used Tobacco e-Cigarette/Vaping Use: Never Used Second Hand Smoke Exposure: No service: No Current occupational status: employed 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 Cognitive needs: No Hearing needs: No Vision needs: No Review of Systems Const All systems reviewed & are unremarkable except as noted in HPI and below Reports no additional complaints ENT Reports Normal hearing present Card Denies chest pain, Denies chest pain at rest, Denies chest pain with activity and Denies pedal edema Resp Denies cough GI Denies abdominal pain Musc Denies abnormal gait, Denies muscle cramps and Denies radiating pain into limb Skin/Breast Denies skin ulcer and Denies wounds Neuro Reports Normal hearing present and Denies abnormal gait Psych Reports no additional complaints Physical Exam Const General: cooperative, healthy appearing and comfortable Orientation/consciousness: oriented to person, oriented to place and oriented to time HEENT Head: Yes normal to inspection Neck Neck: Yes normal visual inspection Carotids: no bruits Chest Chest palpation & inspection: normal inspection of the chest Resp Effort & Inspection: normal respiratory effort and able to speak in complete sentences Auscultation: clear to auscultation bilaterally, no crackles, no rales, no rhonchi and no wheezes Cardio Rate: regular rate Rhythm: regular rhythm Heart sounds: S1 normal heart sound present and S2 normal heart sound present Bruits: no carotid bruits Peripheral pulses: Peripheral pulses 2+ throughout GI Inspection: Yes normal to inspection Skin Wounds: amputation site (Right BKA well-healed) Hair: normal Neuro General: oriented to person, oriented to place and oriented to time Cranial nerves: Yes CN's II-XII intact bilaterally and Yes Normal hearing present Cognition (Neuro): normal cognition Motor exam (neuro): 5/5 motor strength present throughout Extrem Other: venous exam: No significant superficial varicosities or spider telangiectasias, minimal edema General: No clubbing, No cyanosis and No edema Psych Appearance: grossly normal Mental Status: mental status grossly normal Speech and movement: Normal speech and movement present Results Reviewed Results Reviewed: Noninvasive arterial testing dated 12/13/2023 demonstrates CHANELL on the left of 0.84 Assessment & Plan Assessment & Plan (1) PAD (peripheral artery disease): Comment: 05/11/2021 right SFA atherectomy and stent Dr. Ramírez 06/13/2021 - right below-knee amputation Dr. Ramírez 12/14/2021 - left 2nd toe amputation Dr. Abdi 03/01/2022 - diagnostic angiogram within normal limits Dr. Ramírez Code(s): I73.9 - Peripheral vascular disease, unspecified Category: Medical Plan: In short patient is doing well in terms of his peripheral vascular disease. Will plan for annual surveillance follow-up of his left leg to ensure that continues to do well. Thank you for allowing us to assist in his care. If there are any questions or concerns please do not hesitate to contact us Orders: Orders US arterial duplex LE LT 1 Year I73.9 - Peripheral vascular disease, unspecified Coding Level of Care Code Est Pt Level 4 (09837) Diagnoses PAD (peripheral artery disease) I73.9
== END 2024-01-17 09:38 | disposition home or self-care (01) ==
PROVIDERS: PCP Family Medicine; Visit Provider Surgery Vascular Surgery
DX: I73.9 Peripheral vascular disease, unspecified (principal)
CPT/HCPCS: 99213

== ENCOUNTER → 2024-01-17 08:47 | Outpatient (BNVA) | payer MEDICARE, SELFPAY | PROVIDERS: PCP Family Medicine; Visit Provider Surgery Vascular Surgery | DX: I73.9 Peripheral vascular disease, unspecified (principal) | CPT/HCPCS: 99212 ==

== ENCOUNTER 2024-03-06 11:04 | Inpatient (IN) | payer MEDICARE, SELFPAY ==
--- NOTE | ~2024-03-06 | XR_ITS ---
EXAMINATION: XR FOOT, LEFT CLINICAL INFORMATION: First toe osteomyelitis. COMPARISON: 11/09/2021 TECHNIQUE: AP, lateral, and oblique views of the left foot. FINDINGS: The second through fifth toes are surgically absent at the level of the metatarsal heads. Soft tissues are swollen in the distal forefoot, particularly around the great toe. There is a wound at the distal aspect of the great toe around the distal phalanx with underlying distal phalangeal osteolysis, consistent with acute osteomyelitis. Foci of subcutaneous disease gas tracks medially along the medial soft tissues to the level of the first MTP joint. 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 Moderate sized enthesopathic spur is present at the plantar fascial origin on the calcaneus. XR/XR foot LT min 3V IMPRESSION: Acute osteomyelitis of the great toe distal phalanx with an overlying soft tissue wound.
[2024-03-06 11:18] VITALS: BP 170/66; PULSE 86; RESP 18; TEMP 37.1; O2SAT 93; BMI 48.2
--- NOTE | 2024-03-06 11:18 | ED.GENADULT ---
HPI - General Adult General Chief complaint: Wound/Laceration Stated complaint: L big toe infection Time Seen by Provider: 03/06/24 13:22 Source: patient Mode of arrival: ambulatory Limitations: no limitations History of Present Illness ED Provider: Dr. Vora HPI narrative: patient with a few weeks of blister to the great toe, now with infected foot and ulceration down to the bone. Sent in by Wound clinic for osteomyelitis Onset (ago): week(s) Severity: severe Related Data Previous Rx's ?Medication ?Instructions ?Recorded blood-glucose meter (FreeStyle #1 ea 09/12/21 [place] Lite kit) lancets 28 gauge (FreeStyle #100 ea 09/12/21 Lancets) pen needle, diabetic 31 gauge x #500 ea 11/02/2212/26 (BD Ultra-Fine Short Pen Needle) clopidogrel 75 mg tablet 75 mg PO DAILY 90 days #90 tabs 02/22/23 amlodipine 10 mg tablet 10 mg PO BEDTIME 90 days #90 tabs 08/30/23 lisinopril 40 mg tablet 40 mg PO DAILY 90 days #90 tabs 08/30/23 simvastatin 20 mg tablet 20 mg PO BEDTIME 90 days #90 tabs 08/30/23 insulin lispro 100 unit/mL See Rx Instructions subcut TID 30 12/07/23 subcutaneous pen (Humalog KwikPen days #15 mL (U-100) Insulin) insulin glargine U-300 conc 300 78 unit (0.26 mL) subcut BID 30 01/15/24 unit/mL (1.5 mL) subcutaneous pen days #18 mL blood sugar diagnostic (FreeStyle #400 ea 01/30/24 Lite Strips) Allergies Allergy/AdvReac Type Severity Reaction Status Date / Time aspirin Allergy Severe ANAPHYLAXIS, Verified 03/06/24 11:19 eyes red,swollen Review of Systems Review of Systems: Yes all other systems are reviewed and are negative Neurologic: Denies Sensory deficit (Neuro) PMFSH Past Medical History Medical History No pertinent family history Peripheral neuropathy History of wound infection PAD (peripheral artery disease) Morbid obesity Hypertension Diabetes mellitus Surgical History Hx of right BKA History of amputation of toe (12/14/21) S/P debridement (~01/2017) History of amputation of toe (~06/2017) History of amputation of toe (~02/23/20) Family History Family History Mother Diabetes Father Blood infection Family history of mental disorder Maternal Grandmother Diabetes Paternal Grandmother Family history of mental disorder Social History Social History Household Members: Spouse Housing: House Do you presently have visiting nurse or other home services: Yes ([facility]) Alcohol intake: current Alcohol intake frequency: a few times a week Patient Tobacco Use Status: Never used Tobacco e-Cigarette/Vaping Use: Never Used Second Hand Smoke Exposure: No Advance Directives: No Advance Directives Information Provided: No Do you have a plan to hurt others: No Plan service: No Current occupational status: employed 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 Cognitive needs: No Hearing needs: No Vision needs: No Physical Exam ED Vital Signs: Vital Signs - 24 hr 03/06/24 11:18 Temperature 98.8 F Pulse Rate 86 Respiratory Rate 18 Blood Pressure 170/66 H Pulse Oximetry 93 Oxygen Delivery Method Room Air BMI result Body Mass Index 48.2 Const Nutritional Appearance: obese Orientation/consciousness: oriented to person and patient oriented x3 Limitations: no limitations HENMT Head: Yes normal to inspection Ears: external ears normal General nose exam: Normal external nose present Mouth: Normal oral and palatal mucosa present and oropharynx normal Throat: Yes posterior oropharynx normal Eyes General: appearance normal, both eyes and all related structures Neck Neck: Yes normal visual inspection Chest Chest palpation & inspection: normal inspection of the chest Resp Auscultation: clear to auscultation bilaterally Cardio Jugular venous distension: no JVD Rate: regular rate Rhythm: regular rhythm Heart sounds: S1 normal heart sound present and S2 normal heart sound present GI Inspection: Yes normal to inspection Palpation (GI): Soft to palpation, nontender and No hepatosplenomegaly present Auscultation: normal bowel sounds General: Yes no CVA tenderness Back/Spine/Pelvis Back: no CVA tenderness Skin General skin exam: no rashes or lesions noted Neuro General: oriented to person and patient oriented x3 Cranial nerves: Yes CN's II-XII intact bilaterally Motor exam (neuro): 5/5 motor strength present throughout Sensory Exam: No Sensory deficit (Neuro) Extrem Other: right leg amputation, left foot with bullae, ulceration down to the bone with erythema and violaceous changes. Foul smelling Psych Appearance: grossly normal Course Course Course Narrative: This is a rapid medical exam performed by Mane Robison NP: Additional HPI, ROS, PE not included below will be deferred to primary provider. Patient is a 58-year-old male presenting to the ED with complaint of left great toe wound. States he got new shoes, started as a blood blister for approximately one week. About 10 days ago the blister opened, has been draining dark red fluid. Seen at wound care this morning and advised to come to the ED. Toe not visualized in triage. Plan: labs, xray Reevaluation(s) Reevaluation #1: xray shows osteo, Elevated WBC will admit to the Hospitalist Time: 13:44 Medical Decision Making Differential Diagnosis Differential Diagnoses: The differential diagnosis associated with the presentation includes (cellulitis, osteo, flesh eating bacteria) Admission/Observation Consideration of admission/observation: Escalation of care including admission/observation considered (upon arrival patient considered for admission) Consult Healthcare Provider Management of the patient was discussed with: Hospitalist Lab Data MDM Lab Attestation statement: I reviewed the patient's lab results. (elevated WBC, elevated CRP, elevated sed rate) 03/06/24 11:48 03/06/24 11:48 Labs: Lab Results 03/06/24 Range/Units 11:48 WBC 22.6 H (4.8-10.8) X10*3/uL RBC 5.29 (4.60-5.80) X10*6/uL Hgb 15.1 (14.0-18.0) g/dl Hct 45.4 (42.0-52.0) % MCV 85.8 (80.0-98.0) fL MCH 28.5 (27.0-33.0) pg MCHC 33.3 (31.0-36.0) g/dl RDW 12.9 (11.0-16.0) % Plt Count 275 (160-400) X10*3/uL MPV 11.4 (9.4-12.4) fL Immature Gran % (Auto) 0.6 H (0.0-0.4) % Neut % (Auto) 87.7 H (45-73) % Lymph % (Auto) 5.1 L (20-40) % [place] % (Auto) 6.3 (2-11) % Eos % (Auto) 0.0 (0-4) % Baso % (Auto) 0.3 (0-2) % Lymph # (Auto) 1.2 (1.2-4.9) X10*3/uL [place] # (Auto) 1.4 H (0.1-1.2) X10*3/uL Eos # (Auto) 0.0 (0.0-0.4) X10*3/uL Baso # (Auto) 0.1 (0.0-0.2) X10*3/uL Abs Immat Gran (auto) 0.13 H (0.00-0.03) X10*3/uL Absolute Neuts (auto) 19.9 H (2.0-8.3) x10*3/uL Absolute Nucleated RBC 0.000 (0.0-0.012) X10*3/uL Nucleated RBC % (auto) 0.0 (0.0-0.2) /100WBC ESR 47 H (0-15) MM/HR Sodium 134 L (135-145) mmol/L Potassium 4.9 (3.3-5.1) mmol/L Chloride 99 (96-108) mmol/L Carbon Dioxide 23 (22-29) mmol/L Anion Gap 17 (12-20) BUN 18 H (9-16) mg/dL Creatinine 1.16 (0.5-1.4) mg/dL Estim Creat Clear Calc 94.4 Estimated GFR > 60 Random Glucose 261 H (60-115) mg/dL Calcium 9.5 (8.4-10.2) mg/dL Total Bilirubin 1.3 H (0.0-1.0) mg/dL AST 40 H (5-37) U/L ALT 57 H (0-40) U/L Alkaline Phosphatase 144 H (39-117) U/L C-Reactive Protein 23.85 H (< or = 0.50) mg/dL Total Protein 7.7 (6.5-8.0) g/dL Albumin 3.5 (3.5-5.0) g/dL Independent Interpretation I performed an independent interpretation of an: Plain X-Ray (jasvir destruction of great toe) External Record Review External record reviewed: Outpatient record Tests considered The following testing was considered but not selected: MRI of toe considered but destruction is obvious on plain xray Chronic Conditions Patient?s care impacted by: Diabetes and Hypertension Discharge Plan Discharge Clinical Impression: Osteomyelitis of ankle and foot, Diabetic foot infection Patient Disposition: Admitted As Inpatient Print Language: Macedonian
[2024-03-06 12:15] LABS: MANUAL DIFF FLAG NO
[2024-03-06 12:35] LABS: Alanine Aminotransferase 57 U/L (0-40); Albumin Level 3.5 g/dL (3.5-5.0); Alkaline Phosphatase 144 U/L (39-117); Anion Gap 17 (12-20); Aspartate Amino Transferase 40 U/L (5-37); Bilirubin Total 1.3 mg/dL (0.0-1.0); Blood Urea Nitrogen 18 mg/dL (9-16); C Reactive Protein 23.85 mg/dL (< or = 0.50); Calcium 9.5 mg/dL (8.4-10.2); Carbon Dioxide 23 mmol/L (22-29); Chloride 99 mmol/L (96-108); Creatinine Clr Calc Pharmacy 94.4; Estimated Glomerular Filt Rate > 60; Glucose Random 261 mg/dL (60-115); Potassium 4.9 mmol/L (3.3-5.1); Sodium 134 mmol/L (135-145); Total Protein 7.7 g/dL (6.5-8.0)
[2024-03-06 12:43] LABS: Basophils Absolute Auto 0.1 X10*3/uL (0.0-0.2); Basophils Percent Auto 0.3 % (0-2); Hematocrit 45.4 % (42.0-52.0); Hemoglobin 15.1 g/dl (14.0-18.0); Imm Gran Abs Auto 0.13 X10*3/uL (0.00-0.03); Imm Gran Pct Auto 0.6 % (0.0-0.4); Lymphocytes Absolute Auto 1.2 X10*3/uL (1.2-4.9); Lymphocytes Percent Auto 5.1 % (20-40); Mean Corpuscular Hemoglobin 28.5 pg (27.0-33.0); Mean Corpuscular Volume 85.8 fL (80.0-98.0); Mean Platelet Volume 11.4 fL (9.4-12.4); Monocytes Absolute Auto 1.4 X10*3/uL (0.1-1.2); Monocytes Percent Auto 6.3 % (2-11); Neutrophils Absolute Auto 19.9 x10*3/uL (2.0-8.3); Neutrophils Percent Auto 87.7 % (45-73); Platelet Count 275 X10*3/uL (160-400); Red Blood Count 5.29 X10*6/uL (4.60-5.80); Red Cell Distribution Width 12.9 % (11.0-16.0); White Blood Count 22.6 X10*3/uL (4.8-10.8)
[2024-03-06 12:49] LABS: Erythrocyte Sedimentation Rate 47 MM/HR (0-15)
--- NOTE | 2024-03-06 13:56 | P.HPHOSP_ITS ---
History of Present Illness Date of Service: 03/06/24 Attending physician on admission: Jovanni Aparicio Chief Complaint: Worsening left great toe wound Pt is a 58-year-old male with a PMH significant for HTN, HLD, insulin-dependent type 2 diabetes, hx of MRSA osteomyelitis, s/p right BKA, s/p multiple left toe amputations, cold agglutinin disease, and peripheral?peripheral vascular disease on Plavix who presents to the ED from wound care for evaluation of chronic nonhealing left great toe ulcer. Pt reports saw Dr. Ramírez on 01/17/24 and left leg and foot were doing well. A few days later noticed a blood blister on the bottom of his left great toe that soon popped and drained. Pt then began treating wound with silver alginate dressing and other wound supplies left over from previous foot ulcers and amputations. States wound did well up until 1.5 weeks ago when it ?blew up? with erythema, toe discoloration, and copious amounts of purulent, foul-smelling discharge. Patient called Wound Care Clinic but could not get an appointment until this morning, where they immediately redirected him to the ED after a quick assessment of the toe. Reports minimal, intermittent pain in the foot he rates a 2/10. No other acute medical complaints. Denies fever or chills. No nausea, vomiting, diarrhea, abdominal pain. Denies chest pain/pressure, palpitations. No shortness a breath or difficulty breathing. In the ED pt was afebrile but with elevated heart rate of 93 and initially hypertensive up to 170/66. Labs were significant for leukocytosis of 22.6, ESR 47, bilirubin 1.3, AST 40, ALT 57, alk-phos 144, and C-reactive protein 23.85. Left foot x-ray showed acute osteomyelitis of the great toe distal phalanx with an overlying soft tissue wound. Pt was treated with Zosyn in the ED. Pt will be admitted to the hospital for treatment and further evaluation of osteomyelitis of left great toe. Review of Systems 2 Review of Systems: Worsening left great toe wound with erythema discoloration, and purulent and foul-smelling discharge Intermittent mild left toe pain Denies fever, chills No nausea, vomiting, abdominal pain Denies chest pain/pressure, palpitations No shortness a breath or difficulty breathing [facility] Medical History (Updated 03/06/24 @ 15:01 by JENIFER Kang) Cold agglutinin disease No pertinent family history Peripheral neuropathy History of wound infection PAD (peripheral artery disease) Morbid obesity Hypertension Diabetes mellitus Family History Mother Diabetes Father Blood infection Family history of mental disorder Maternal Grandmother Diabetes Paternal Grandmother Family history of mental disorder Surgical History Hx of right BKA History of amputation of toe (12/14/21) S/P debridement (~01/2017) History of amputation of toe (~06/2017) History of amputation of toe (~02/23/20) Social History Household Members: Spouse Housing: House Do you presently have visiting nurse or other home services: Yes ([facility]) Alcohol intake: current Alcohol intake frequency: a few times a week Patient Tobacco Use Status: Never used Tobacco e-Cigarette/Vaping Use: Never Used Second Hand Smoke Exposure: No Advance Directives: No Advance Directives Information Provided: No Do you have a plan to hurt others: No Plan service: No Current occupational status: employed 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 Cognitive needs: No Hearing needs: No Vision needs: No Meds Allergies Allergy/AdvReac Type Severity Reaction Status Date / Time aspirin Allergy Severe ANAPHYLAXIS, Verified 03/06/24 11:19 eyes red,swollen Active Medications: Current Medications Piperacillin Sod/Tazobactam (Sod 3.375 gm/ Sodium Chloride) 50 mls @ 100 mls/hr IV ONCE ONE Stop: 03/06/24 13:57 Home Medications ?Medication ?Instructions ?Recorded ?Confirmed ?Last Taken ?Type insulin glargine U-300 conc 300 78 unit subcut BID 03/06/24 03/06/24 03/06/24 History unit/mL (1.5 mL) subcutaneous pen (Toujeo SoloStar U-300 Insulin) insulin lispro 100 unit/mL See Rx Instructions .Route .COMPLEX 03/06/24 03/06/24 03/06/24 History subcutaneous pen (Humalog KwikPen (U-100) Insulin) Physical Exam 2 Vital Signs and Narrative: Vital Signs: Last Vital Signs Temp 98.8 F 03/06/24 11:18 Pulse 86 03/06/24 11:18 Resp 18 03/06/24 11:18 BP 170/66 H 03/06/24 11:18 Pulse Ox 93 03/06/24 11:18 O2 Del Method Room Air 03/06/24 11:18 BMI result Body Mass Index 48.2 General: AOx3, no acute distress Resp: CTA bilaterally CVS: S1, S2, RRR GI: +BS, NT, no distention Skin: Warm, dry Neuro: Cranial nerves II-XII grossly intact bilaterally. Motor grossly intact bilaterally Extremities: Right BKA. Left foot s/p amputations of 2nd-5th toes. Left great toe with dicoloration and chronic wound with foul-smelling and purulent discharge. Left foot with warmth and erythema covering half of the plantar surface and most of the dorsal surface. As pictured below. Psych: Appropriate affect Results Labs 03/06/24 11:48 03/06/24 11:48 Labs: Laboratory Results - last 24 hr 03/06/24 11:48 MCV 85.8 MCH 28.5 MCHC 33.3 RDW 12.9 Plt Count 275 MPV 11.4 Immature Gran % (Auto) 0.6 H Neut % (Auto) 87.7 H Lymph % (Auto) 5.1 L [place] % (Auto) 6.3 Eos % (Auto) 0.0 Baso % (Auto) 0.3 Lymph # (Auto) 1.2 [place] # (Auto) 1.4 H Eos # (Auto) 0.0 Baso # (Auto) 0.1 Abs Immat Gran (auto) 0.13 H Absolute Neuts (auto) 19.9 H Absolute Nucleated RBC 0.000 Nucleated RBC % (auto) 0.0 ESR 47 H Anion Gap 17 Estim Creat Clear Calc 94.4 Estimated GFR > 60 Random Glucose 261 H Calcium 9.5 Total Bilirubin 1.3 H AST 40 H ALT 57 H Alkaline Phosphatase 144 H C-Reactive Protein 23.85 H Total Protein 7.7 Albumin 3.5 Imaging Radiologist's Impressions: Impressions Foot X-Ray 03/06/24 11:25 IMPRESSION: Acute osteomyelitis of the great toe distal phalanx with an overlying soft tissue wound. Assessment and Plan (1) Diabetic foot infection: Status: Acute (2) Osteomyelitis of great toe of left foot: Status: Acute Plan Pt is a 58-year-old male with a PMH significant for HTN, HLD, insulin-dependent type 2 diabetes, hx of MRSA osteomyelitis, s/p right BKA, s/p multiple left toe amputations, cold agglutinin disease, and peripheral?peripheral vascular disease on Plavix who presents to the ED from wound care for evaluation of chronic nonhealing left great toe ulcer. Pt will be admitted to the hospital for treatment and further evaluation of osteomyelitis of left great toe. Osteomyelitis of left great toe Elevated ESR and CRP, x-ray of left foot showing acute osteomyelitis Hx of MRSA osteomyelitis, right BKA, and multiple left toe amputations Will cover with vancomycin and Zosyn, started 03/06/2024 General surgery consult Follow cultures SIRS criteria Patient will meet SIRS criteria with HR of 93 and leukocytosis of 22.6; no fever or tachypnea Attempted to get lactic acid, but lab could not run test due to cold agglutinin disease Clinically patient does not appear septic: Afebrile, BP normotensive and steady Patient already being covered by broad-spectrum antibiotics If patient's condition changes or becomes hypotensive, will administer sepsis bolus IVF Peripheral vascular disease Will hold clopidogrel for possible surgical procedure Insulin-dependent type 2 diabetes Sliding-scale insulin, Lantus Diabetic diet HTN Continue amlodipine, lisinopril HLD Continue statin Full Code Attending:?Dr. Aparicio DVT Prophylaxis: Lovenox Pt will require a hospitalization of at least two nights for treatment and further evaluation of left great toe osteomyelitis requiring IV antibiotics and specialist consultation with General surgery. Quality Stroke Does the patient have a stroke diagnosis?: No VTE Prior VTE?: No VTE Risk Level:: Medical - moderate - high VTE Device Contraindication: Treatment Not Indicated VTE Drug Contraindication: N/A - Med Ordered
[2024-03-06 14:00] VITALS: BP 132/69; PULSE 93; RESP 18; O2SAT 94
[2024-03-06] MEDS: Piperacillin Sodium/Tazobactam 3.375 GM in 0.9 % Sodium Chloride 50 ML IV ×2 (14:05→20:28)
--- NOTE | 2024-03-06 14:27 | PHA.MEDREC ---
Pharmacy Consult ? Medication Reconciliation Pharmacy has completed the medication reconciliation. Spoke to patient to confirm med list. Patient states he takes Toujeo 78 units bid, Humalog 7-12 units per sliding scale.
[2024-03-06] MEDS: vancomycin/NS 2,000 MG/500 ML PLAST..BAG 250 MG IV (14:28)
[2024-03-06 14:45] LABS: Mean Corpuscular HGB Conc 33.3 g/dl (31.0-36.0)
[2024-03-06 16:13] LABS: Glucose, Whole Blood 154 mg/dL (60-115)
[2024-03-06] MEDS: Enoxaparin Sodium 40 MG/0.4 ML SYRINGE SUBCUT (16:15)
[2024-03-06] MEDS: 0.9 % Sodium Chloride Flush 3 ML SYRINGE IVFLUSH (16:15)
[2024-03-06] MEDS: Insulin Lispro 100 UNIT/ML 3 ML VIAL SUBCUT (16:15)
[2024-03-06] MEDS: Atorvastatin Calcium 10 MG TABLET PO (16:15)
[2024-03-06 17:33] VITALS: BP 155/62; PULSE 90; RESP 18; TEMP 37.4; O2SAT 93
--- NOTE | 2024-03-06 17:45 | PC.NURSE ---
report received from CRISTELA Huitron at this time. pt arrived via transportation to overflow unit. pt currently in overflow bed 1. a&ox4. vss and up to date. pt currently c/o 08/22 pain in left foot. wrapped w/ curex gauze bandage by the ED. pt requesting dinner tray - kitchen called for tray to be delivered. pt currently waiting for bed assignment at this time. no sob/wob noted. respirations even/unlabored. plan of care ongoing. call polk placed within reach.
--- NOTE | 2024-03-06 17:49 | PHA.PROG ---
Admission Date/Time: March 06, 2024 15:25 Indication: BONE AND JOINT INFECTION Weight in k.789 kg Adjusted body weight in Kg: [place] body weight in Kg: Obesity Dosing Indication % IBW: Serum Creatinine - Last 168 Hours 03/06/24 11:48 Creatinine 1.16 Estimated CrCl and GFR - Last 168 Hours 03/06/24 11:48 Estim Creat Clear Calc 94.4 Estimated GFR > 60 Vancomycin Loading Dose: 2000 MG Current Vancomycin Dosing Regimen: 1250 MG Q12H Vancomycin Monitoring using AUC goal of 400 - 600 range with trough as surrogate marker: XSB=748 TROUGH=19.3 Date and Time for next Vancomycin Level to be drawn: 03/07/24 @1300 Pharmacist Comments on Vancomycin Plan: choosing high dose so pt can reach therapeutic level faster, will need to adjust dose once therapeutic level is achieved. Vancomycin dosing will take advantage of [employer] as a clinical decision support tool that uses Bayesian modeling to calculate individual patient's pharmacokinetic parameters and forecast the patient's drug concentration time course with the target goal AUC 24 range of 400 - 600 mg/L/hr.
--- NOTE | 2024-03-06 18:24 | MHC.EDTECH ---
Patient given dinner tray
[2024-03-06 19:30] VITALS: BP 131/50; PULSE 83; RESP 18; TEMP 36.6; O2SAT 95
[2024-03-06 20:31] VITALS: BP 131/50
[2024-03-06] MEDS: amLODIPine Besylate 10 MG TABLET PO (20:31)
[2024-03-06 21:14] LABS: Glucose, Whole Blood 150 mg/dL (60-115)
[2024-03-06] MEDS: Insulin Glargine,Hum.rec.anlog 100 UNIT/ML 10 ML VIAL 62 UNIT SUBCUT (21:30)
[2024-03-06 23:55] VITALS: BP 137/55; PULSE 77; RESP 16; TEMP 37.6; O2SAT 95
[2024-03-07] MEDS: 0.9 % Sodium Chloride Flush 3 ML SYRINGE IVFLUSH ×2 (01:21→15:20)
[2024-03-07] MEDS: Piperacillin Sodium/Tazobactam 3.375 GM in 0.9 % Sodium Chloride 50 ML IV ×4 (01:21→20:51)
[2024-03-07] MEDS: vancomycin HCL 1,250 MG in 0.9 % Sodium Chloride 250 ML 166.67 MG IV (03:32)
[2024-03-07 06:16] VITALS: BP 145/67; PULSE 77; RESP 16; TEMP 37.3; O2SAT 96
[2024-03-07 06:23] LABS: Anion Gap 14 (12-20); Blood Urea Nitrogen 21 mg/dL (9-16); Calcium 9.6 mg/dL (8.4-10.2); Carbon Dioxide 23 mmol/L (22-29); Chloride 103 mmol/L (96-108); Creatinine Clr Calc Pharmacy 84.2; Estimated Glomerular Filt Rate 56; Glucose Random 128 mg/dL (60-115); Potassium 4.2 mmol/L (3.3-5.1); Sodium 136 mmol/L (135-145)
[2024-03-07 06:49] LABS: Hematocrit 43.3 % (42.0-52.0); Hemoglobin 14.4 g/dl (14.0-18.0); Mean Corpuscular Hemoglobin 28.8 pg (27.0-33.0); Mean Corpuscular Volume 86.6 fL (80.0-98.0); Mean Platelet Volume 11.1 fL (9.4-12.4); Platelet Count 291 X10*3/uL (160-400); Red Cell Distribution Width 13.1 % (11.0-16.0); White Blood Count 18.1 X10*3/uL (4.8-10.8)
[2024-03-07 07:02] LABS: Mean Corpuscular HGB Conc 33.3 g/dl (31.0-36.0)
[2024-03-07 07:36] LABS: Glucose, Whole Blood 123 mg/dL (60-115)
--- NOTE | 2024-03-07 08:05 | MHC.EDTECH ---
pt given breakfast tray
--- NOTE | 2024-03-07 08:25 | PM.CNGS ---
History of Present Illness Consult details Consult date: 03/07/24 Requesting physician: Jay Ca Narrative: 58-year-old male patient well known to me with a history of insulin-dependent diabetes, hypertension, hyperlipidemia, peripheral vascular disease, status post right below-knee amputation in amputation of the left 2nd through 5th toes now presenting with a new ulceration of the left great toe.. He reports obtaining new shoes and placing a insert which may have been too tight for his toe. Because of his peripheral neuropathy he did not realize he was injuring the foot. He now has a foul-smelling and discolored great toe with copious amounts of purulence discharge. He denies significant pain, fever or chills. He is admitted to the hospitalist service for antibiotics. Laboratories revealed WBC of 22.6, C-reactive protein 23.85. X-ray of the left foot confirms osteomyelitis of the left great toe at the distal phalanx. The patient reports eating full breakfast this morning. Review of Systems Constitutional: Constitutional: Denies chills and Denies fever(s) Cardiovascular: Cardiovascular: Denies chest pain, Denies dyspnea and Denies dyspnea on exertion Respiratory: Respiratory: Denies cough, Denies dyspnea and Denies dyspnea on exertion Gastrointestinal: Gastrointestinal: Denies hematochezia and Denies change in bowel habits Genitourinary: Genitourinary: Denies hematuria and Denies difficulty urinating Musculoskeletal: Musculoskeletal: Denies back pain and Denies limited range of motion Neurologic: Denies focal weakness and Denies convulsions Psychiatric: Psychiatric: Denies depression and Denies mood swings [facility] Past Medical History Medical History Cold agglutinin disease No pertinent family history Peripheral neuropathy History of wound infection PAD (peripheral artery disease) Morbid obesity Hypertension Diabetes mellitus Family History Family History Mother Diabetes Father Blood infection Family history of mental disorder Maternal Grandmother Diabetes Paternal Grandmother Family history of mental disorder Surgical History Surgical History Hx of right BKA History of amputation of toe (12/14/21) S/P debridement (~01/2017) History of amputation of toe (~06/2017) History of amputation of toe (~02/23/20) Social History Social History Household Members: Spouse Housing: House Do you presently have visiting nurse or other home services: Yes ([facility]) Alcohol intake: current Alcohol intake frequency: a few times a week Patient Tobacco Use Status: Never used Tobacco Smoked in Last 30 Days: No e-Cigarette/Vaping Use: Never Used Second Hand Smoke Exposure: No Use of substances other than those prescribed or required for medical reasons: No Advance Directives: No Advance Directives Information Provided: No Do you have a plan to hurt others: No Plan Nutrition Risks: No Nutritional Risk service: No Current occupational status: employed 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 Cognitive needs: No Hearing needs: No Vision needs: No Meds Allergies Allergy/AdvReac Type Severity Reaction Status Date / Time aspirin Allergy Severe ANAPHYLAXIS, Verified 03/06/24 11:19 eyes red,swollen Active Medications: Current Medications Acetaminophen (Acetaminophen 325 Mg Tablet) 650 mg PO Q6H PRN PRN Reason: Pain, Mild (Pain Scale 1-3), fever or headache Amlodipine Besylate (Amlodipine Besylate 10 Mg Tablet) 10 mg PO BEDTIME JAMIE; Protocol Last Admin: 03/06/24 20:31 Dose: 10 mg Atorvastatin Calcium (Atorvastatin Calcium 10 Mg Tablet) 10 mg PO DAILY [facility] Last Admin: 03/06/24 16:15 Dose: 10 mg Benzonatate (Benzonatate 100 Mg Capsule) 100 mg PO TID PRN PRN Reason: Cough Enoxaparin Sodium (Enoxaparin Sodium 40 Mg/0.4 Ml Syringe) 40 mg SUBCUT Q24H [facility] Last Admin: 03/06/24 16:15 Dose: 40 mg Glucose (Glucose Gel 15 Gm Gel..Gram.) 15 gm PO Q15M PRN; Protocol PRN Reason: per Hypoglycemia Standing Ord. Piperacillin Sod/Tazobactam (Sod 3.375 gm/ Sodium Chloride) 50 mls @ 100 mls/hr IV Q6H [facility] Last Admin: 03/07/24 08:21 Dose: 100 mls/hr Dextrose (D10) 250 mls @ 750 mls/hr IV Q15M PRN; Protocol PRN Reason: per Hypoglycemia Standing Ord. Vancomycin HCl 1,250 mg/ (Sodium Chloride) 250 mls @ 166.667 mls/hr IV Q12H [facility] Last Infusion: 03/07/24 07:35 Dose: Infused Insulin Glargine (Insulin Glargine,Hum.Rec.Anlog 100 Unit/Ml 10 Ml Vial) 62 unit SUBCUT BEDTIME JAMIE Last Admin: 03/06/24 21:30 Dose: 62 unit Insulin Glargine (Insulin Glargine,Hum.Rec.Anlog 100 Unit/Ml 10 Ml Vial) 62 unit SUBCUT DAILY JAMIE Insulin Human Lispro (Insulin Lispro 100 Unit/Ml 3 Ml Vial) 0 unit SUBCUT QIDACHS [facility]; Protocol Last Admin: 03/07/24 07:34 Dose: Not Given Lisinopril (Lisinopril 40 Mg Tablet) 40 mg PO DAILY [facility]; Protocol Magnesium Hydroxide (Milk Of Magnesia 30 Ml Oral.Susp) 30 ml PO DAILY PRN PRN Reason: Constipation Melatonin (Melatonin 3 Mg Tablet) 6 mg PO BEDTIME PRN PRN Reason: Insomnia Ondansetron HCl (Ondansetron Hcl 4 Mg/2 Ml Vial) 4 mg IVPUSH Q8H PRN PRN Reason: Nausea and Vomiting Pharmacy Consult (Consult Rx Vancomycin Dosing) 1 each MISCELLANE DAILY PRN PRN Reason: Consult order Sodium Chloride (0.9 % Sodium Chloride Flush 3 Ml Syringe) 3 ml IVFLUSH QSHIFT [facility] Last Admin: 03/07/24 01:21 Dose: 3 ml Home Medications ?Medication ?Instructions ?Recorded ?Confirmed ?Last Taken ?Type insulin glargine U-300 conc 300 78 unit subcut BID 03/06/24 03/06/24 03/06/24 History unit/mL (1.5 mL) subcutaneous pen (Toujeo SoloStar U-300 Insulin) insulin lispro 100 unit/mL See Rx Instructions .Route .COMPLEX 03/06/24 03/06/24 03/06/24 History subcutaneous pen (Humalog KwikPen (U-100) Insulin) Physical Exam Vital Signs: Vital Signs: Last Vital Signs Temp 99.1 F 03/07/24 06:16 Pulse 77 03/07/24 06:16 Resp 16 03/07/24 06:16 BP 145/67 H 03/07/24 06:16 Pulse Ox 96 07/26/24 06:16 O2 Del Method Room Air 07/26/24 06:16 BMI result Body Mass Index 48.2 Const: General: no acute distress Nutritional Appearance: well nourished Orientation/consciousness: patient oriented x3 Limitations: other limitations (Right below-knee prosthetic) HEENT: Head: Yes normocephalic and Yes atraumatic Resp: Effort & Inspection: normal respiratory effort, no audible wheezes, no cough and no respiratory distress GI: Inspection: Yes normal to inspection Skin: Other: Warm, dry, no rash Neuro: General: patient oriented x3 Extrem: Other: Right BKA Left foot with necrotic changes to the great toe extending to the distal 1st metatarsal, exposed distal phalanx through a toe ulcer low nail. Foul-smelling discharge noted. Erythema noted in the forefoot and some erythema in the left childress. No fluctuance noted in the foot. Ankle/foot/toe images: 1. Area of necrosis 2. Previous amputation Results Labs 03/07/24 05:54 03/07/24 05:54 Labs: Abnormal lab results 03/06/24 03/06/24 03/06/24 Range/Units 11:48 16:09 21:03 WBC 22.6 H (4.8-10.8) X10*3/uL Immature Gran % (Auto) 0.6 H (0.0-0.4) % Neut % (Auto) 87.7 H (45-73) % Lymph % (Auto) 5.1 L (20-40) % [place] # (Auto) 1.4 H (0.1-1.2) X10*3/uL Abs Immat Gran (auto) 0.13 H (0.00-0.03) X10*3/uL Absolute Neuts (auto) 19.9 H (2.0-8.3) x10*3/uL ESR 47 H (0-15) MM/HR Sodium 134 L (135-145) mmol/L BUN 18 H (9-16) mg/dL POC Glucose 154 H 150 H (60-115) mg/dL Random Glucose 261 H (60-115) mg/dL Total Bilirubin 1.3 H (0.0-1.0) mg/dL AST 40 H (5-37) U/L ALT 57 H (0-40) U/L Alkaline Phosphatase 144 H (39-117) U/L C-Reactive Protein 23.85 H (< or = 0.50) mg/dL 03/07/24 03/07/24 Range/Units 05:54 07:28 WBC 18.1 H (4.8-10.8) X10*3/uL Immature Gran % (Auto) (0.0-0.4) % Neut % (Auto) (45-73) % Lymph % (Auto) (20-40) % [place] # (Auto) (0.1-1.2) X10*3/uL Abs Immat Gran (auto) (0.00-0.03) X10*3/uL Absolute Neuts (auto) (2.0-8.3) x10*3/uL ESR (0-15) MM/HR Sodium (135-145) mmol/L BUN 21 H (9-16) mg/dL POC Glucose 123 H (60-115) mg/dL Random Glucose 128 H (60-115) mg/dL Total Bilirubin (0.0-1.0) mg/dL AST (5-37) U/L ALT (0-40) U/L Alkaline Phosphatase (39-117) U/L C-Reactive Protein (< or = 0.50) mg/dL Short CBC 03/06/24 03/07/24 Range/Units 11:48 05:54 WBC 22.6 H 18.1 H (4.8-10.8) X10*3/uL Hgb 15.1 14.4 (14.0-18.0) g/dl Hct 45.4 43.3 (42.0-52.0) % Plt Count 275 291 (160-400) X10*3/uL BMP 03/06/24 03/07/24 11:48 05:54 Sodium 134 L 136 Potassium 4.9 4.2 Chloride 99 103 Carbon Dioxide 23 23 BUN 18 H 21 H Creatinine 1.16 1.30 Calcium 9.5 9.6 Liver Function 03/06/24 Range/Units 11:48 Total Bilirubin 1.3 H (0.0-1.0) mg/dL AST 40 H (5-37) U/L ALT 57 H (0-40) U/L Alkaline Phosphatase 144 H (39-117) U/L Albumin 3.5 (3.5-5.0) g/dL All other labs normal. Assessment and Plan (1) Osteomyelitis of great toe of left foot: Status: Acute Plan 58-year-old male patient with a long history of peripheral vascular disease, diabetes mellitus type 2 with previous amputations including the left 2nd through 5th toe as well as right BKA. He now presents with an area of osteomyelitis and superficial skin infection, purulent discharge. I recommended amputation of the right great toe to prevent spread of the infection more proximally. Unfortunately the patient ate a full breakfast this morning. I will add him on the schedule for Sunday and should continue antibiotics over the weekend. After discussion of the procedure, risks, and alternatives, he consents to the amputation of left great toe. Procedures Date of Service Date of Service: 03/07/24
[2024-03-07 09:25] VITALS: BP 157/67; PULSE 79; RESP 18; TEMP 36.3; O2SAT 96
[2024-03-07 09:26] LABS: Glucose, Whole Blood 262 mg/dL (60-115)
[2024-03-07] MEDS: lisinopriL 40 MG TABLET PO (09:33)
[2024-03-07] MEDS: Atorvastatin Calcium 10 MG TABLET PO (09:33)
[2024-03-07] MEDS: Insulin Glargine,Hum.rec.anlog 100 UNIT/ML 10 ML VIAL 62 UNIT SUBCUT ×2 (09:36→20:48)
[2024-03-07 11:28] LABS: Glucose, Whole Blood 312 mg/dL (60-115)
[2024-03-07] MEDS: Insulin Lispro 100 UNIT/ML 3 ML VIAL SUBCUT ×3 (11:44→20:47)
--- NOTE | 2024-03-07 12:27 | P.PNIM_ITS ---
Subjective Subjective Date of Service: 03/07/24 Interval History: No acute issues overnight. States minimal pain if any Review of Systems Denies chest pain Denies shortness of breath Denies nausea vomiting diarrhea Denies fever chills Physical Exam 2 Vital Signs: Vital Signs: Last Vital Signs Temp 97.4 F 03/07/24 09:25 Pulse 79 03/07/24 09:25 Resp 18 03/07/24 09:25 BP 157/67 H 03/07/24 09:25 Pulse Ox 96 03/07/24 09:25 O2 Del Method Room Air 03/07/24 09:25 BMI result Body Mass Index 48.2 Const: Other: Awake alert comfortable Resp: Other: Clear to auscultation bilaterally no rales rhonchi or wheezes Cardio: Other: No S4; positive S1-S2; no S3 murmurs rubs or gallops GI: Other: Soft nontender nondistended normoactive bowel sounds Extrem: Other: Essentially no change in diabetic foot ulcer since admission Objective Data Active Medications Acetaminophen (Acetaminophen 325 Mg Tablet) 650 mg PO Q6H PRN PRN Reason: Pain, Mild (Pain Scale 1-3), fever or headache Amlodipine Besylate (Amlodipine Besylate 10 Mg Tablet) 10 mg PO BEDTIME [facility]; Protocol Last Admin: 03/06/24 20:31 Dose: 10 mg Documented By: BETO Atorvastatin Calcium (Atorvastatin Calcium 10 Mg Tablet) 10 mg PO DAILY [facility] Last Admin: 03/07/24 09:33 Dose: 10 mg Documented By: ROBERT Benzonatate (Benzonatate 100 Mg Capsule) 100 mg PO TID PRN PRN Reason: Cough Enoxaparin Sodium (Enoxaparin Sodium 40 Mg/0.4 Ml Syringe) 40 mg SUBCUT Q24H [facility] Last Admin: 03/06/24 16:15 Dose: 40 mg Documented By: WILVER Glucose (Glucose Gel 15 Gm Gel..Gram.) 15 gm PO Q15M PRN; Protocol PRN Reason: per Hypoglycemia Standing Ord. Piperacillin Sod/Tazobactam (Sod 3.375 gm/ Sodium Chloride) 50 mls @ 100 mls/hr IV Q6H [facility] Last Infusion: 03/07/24 08:42 Dose: Infused Documented By: STEVAN Dextrose (D10) 250 mls @ 750 mls/hr IV Q15M PRN; Protocol PRN Reason: per Hypoglycemia Standing Ord. Vancomycin HCl 1,250 mg/ (Sodium Chloride) 250 mls @ 166.667 mls/hr IV Q12H [facility] Last Infusion: 03/07/24 07:35 Dose: Infused Documented By: STEVAN Insulin Glargine (Insulin Glargine,Hum.Rec.Anlog 100 Unit/Ml 10 Ml Vial) 62 unit SUBCUT BEDTIME [facility] Last Admin: 03/06/24 21:30 Dose: 62 unit Documented By: BETO Insulin Glargine (Insulin Glargine,Hum.Rec.Anlog 100 Unit/Ml 10 Ml Vial) 62 unit SUBCUT DAILY [facility] Last Admin: 03/07/24 09:36 Dose: 62 unit Documented By: ROBERT Insulin Human Lispro (Insulin Lispro 100 Unit/Ml 3 Ml Vial) 0 unit SUBCUT QIDACHS [facility]; Protocol Last Admin: 03/07/24 11:44 Dose: 8 unit Documented By: ROBERT Lisinopril (Lisinopril 40 Mg Tablet) 40 mg PO DAILY [facility]; Protocol Last Admin: 03/07/24 09:33 Dose: 40 mg Documented By: ROBERT Magnesium Hydroxide (Milk Of Magnesia 30 Ml Oral.Susp) 30 ml PO DAILY PRN PRN Reason: Constipation Melatonin (Melatonin 3 Mg Tablet) 6 mg PO BEDTIME PRN PRN Reason: Insomnia Ondansetron HCl (Ondansetron Hcl 4 Mg/2 Ml Vial) 4 mg IVPUSH Q8H PRN PRN Reason: Nausea and Vomiting Pharmacy Consult (Consult Rx Vancomycin Dosing) 1 each MISCELLANE DAILY PRN PRN Reason: Consult order Sodium Chloride (0.9 % Sodium Chloride Flush 3 Ml Syringe) 3 ml IVFLUSH QSHIFT [facility] Last Admin: 03/07/24 08:26 Dose: Not Given Documented By: STEVAN Non-Admin Reason: IV Running Labs 03/07/24 05:54 03/07/24 05:54 Labs: Laboratory Results - last 24 hr 03/06/24 03/06/24 03/06/24 11:48 14:35 16:09 MCV 85.8 MCH 28.5 MCHC 33.3 RDW 12.9 Plt Count 275 MPV 11.4 Immature Gran % (Auto) 0.6 H Neut % (Auto) 87.7 H Lymph % (Auto) 5.1 L [place] % (Auto) 6.3 Eos % (Auto) 0.0 Baso % (Auto) 0.3 Lymph # (Auto) 1.2 [place] # (Auto) 1.4 H Eos # (Auto) 0.0 Baso # (Auto) 0.1 Abs Immat Gran (auto) 0.13 H Absolute Neuts (auto) 19.9 H Absolute Nucleated RBC 0.000 Nucleated RBC % (auto) 0.0 ESR 47 H Anion Gap 17 Estim Creat Clear Calc 94.4 Estimated GFR > 60 POC Glucose 154 H Random Glucose 261 H Lactic Acid TNP Calcium 9.5 Total Bilirubin 1.3 H AST 40 H ALT 57 H Alkaline Phosphatase 144 H C-Reactive Protein 23.85 H Total Protein 7.7 Albumin 3.5 03/06/24 03/07/24 03/07/24 21:03 05:54 07:28 MCV 86.6 MCH 28.8 MCHC 33.3 RDW 13.1 Plt Count 291 MPV 11.1 Immature Gran % (Auto) Neut % (Auto) Lymph % (Auto) [place] % (Auto) Eos % (Auto) Baso % (Auto) Lymph # (Auto) [place] # (Auto) Eos # (Auto) Baso # (Auto) Abs Immat Gran (auto) Absolute Neuts (auto) Absolute Nucleated RBC 0.000 Nucleated RBC % (auto) 0.0 ESR Anion Gap 14 Estim Creat Clear Calc 84.2 Estimated GFR 56 POC Glucose 150 H 123 H Random Glucose 128 H Lactic Acid Calcium 9.6 Total Bilirubin AST ALT Alkaline Phosphatase C-Reactive Protein Total Protein Albumin 03/07/24 03/07/24 09:19 11:20 MCV MCH MCHC RDW Plt Count MPV Immature Gran % (Auto) Neut % (Auto) Lymph % (Auto) [place] % (Auto) Eos % (Auto) Baso % (Auto) Lymph # (Auto) [place] # (Auto) Eos # (Auto) Baso # (Auto) Abs Immat Gran (auto) Absolute Neuts (auto) Absolute Nucleated RBC Nucleated RBC % (auto) ESR Anion Gap Estim Creat Clear Calc Estimated GFR POC Glucose 262 H 312 H Random Glucose Lactic Acid Calcium Total Bilirubin AST ALT Alkaline Phosphatase C-Reactive Protein Total Protein Albumin Microbiology Microbiology Results: Microbiology 03/06/24 13:55 Blood Culture - Preliminary Blood - Venous Prelim: GPC Gram Stain only 03/06/24 13:57 Blood Culture - Preliminary Blood - Venous Prelim: GPC Gram Stain only Assessment and Plan (1) Osteomyelitis of great toe of left foot: Status: Acute (2) Diabetes mellitus: Status: Acute (3) PAD (peripheral artery disease): Status: Acute Plan Pt is a 58-year-old male with a PMH significant for HTN, HLD, insulin-dependent type 2 diabetes, hx of MRSA osteomyelitis, s/p right BKA, s/p multiple left toe amputations, cold agglutinin disease, and peripheral?peripheral vascular disease on Plavix who presents to the ED from wound care for evaluation of chronic nonhealing left great toe ulcer. Pt will be admitted to the hospital for treatment and further evaluation of osteomyelitis of left great toe. 1.Osteomyelitis of left great toe -vancomycin/Zosyn (2) -general surgery consult recommending amputation -continue antibiotics over weekend. . . NPO after midnight 03/09 -Follow cultures.. Preliminary 2/2 GPC 2.Peripheral vascular disease -hold clopidogrel for surgical procedure 03/09 3.Insulin-dependent type 2 diabetes -acceptable control on current therapies -lispro correctional scale -adjust as indicated 4.HTN -acceptable control on current therapies -follow renals/divalents -adjust as indicated Full Code Lovenox Patient will require ongoing hospitalization for IV antibiotics to treat osteomyelitis of left foot in anticipation of amputation Quality Stroke Does the patient have a stroke diagnosis?: No VTE Prior VTE?: No VTE Risk Level:: Medical - moderate - high VTE Device Contraindication: Treatment Not Indicated VTE Drug Contraindication: N/A - Med Ordered
[2024-03-07 14:02] LABS: Vancomycin Random 13.4 mcg/mL (15-20)
--- NOTE | 2024-03-07 14:10 | HE.PHANOTE ---
RE: vanco Level on 03/07 came back at 13.4 however patient's creatinine went up so predicted AUC was supratherapeutic. Changed dose to 1000mg Q12H with predicted AUC of 530 mg/L; trough of 17.4. Next level to be drawn 03/08 @1300
[2024-03-07] MEDS: Enoxaparin Sodium 40 MG/0.4 ML SYRINGE SUBCUT (15:14)
[2024-03-07] MEDS: vancomycin HCL 1,000 MG in 0.9 % Sodium Chloride 250 ML 270 MG IV (15:15)
[2024-03-07 15:19] VITALS: BP 147/66; PULSE 78; RESP 18; TEMP 36.7; O2SAT 95
[2024-03-07 16:26] LABS: Glucose, Whole Blood 254 mg/dL (60-115)
[2024-03-07 19:26] VITALS: BP 151/78; PULSE 86; RESP 18; TEMP 36.6; O2SAT 93
[2024-03-07 20:03] LABS: Glucose, Whole Blood 192 mg/dL (60-115)
[2024-03-07 20:51] VITALS: BP 136/62
[2024-03-07] MEDS: amLODIPine Besylate 10 MG TABLET PO (20:51)
[2024-03-08] MEDS: Piperacillin Sodium/Tazobactam 3.375 GM in 0.9 % Sodium Chloride 50 ML IV ×4 (01:50→20:51)
[2024-03-08] MEDS: vancomycin HCL 1,000 MG in 0.9 % Sodium Chloride 250 ML 270 MG IV ×2 (02:31→15:20)
[2024-03-08 03:28] VITALS: BP 140/63; PULSE 80; RESP 16; TEMP 36; O2SAT 93
[2024-03-08 07:10] LABS: Estimated Glomerular Filt Rate > 60
[2024-03-08 07:15] VITALS: BP 151/69; PULSE 69; RESP 18; TEMP 36.6; O2SAT 95
[2024-03-08 07:28] LABS: Glucose, Whole Blood 109 mg/dL (60-115)
[2024-03-08] MEDS: lisinopriL 40 MG TABLET PO (08:13)
[2024-03-08] MEDS: Insulin Glargine,Hum.rec.anlog 100 UNIT/ML 10 ML VIAL 62 UNIT SUBCUT ×2 (08:13→20:52)
[2024-03-08] MEDS: 0.9 % Sodium Chloride Flush 3 ML SYRINGE IVFLUSH ×3 (08:14→15:20)
[2024-03-08] MEDS: Atorvastatin Calcium 10 MG TABLET PO (08:14)
[2024-03-08 11:51] LABS: Glucose, Whole Blood 163 mg/dL (60-115)
--- NOTE | 2024-03-08 12:11 | HO.PM.IMPN ---
Subjective Subjective Date of Service: 03/08/24 Interval History: No acute issues overnight. Remains afebrile Review of Systems Denies chest pain Denies shortness of breath Denies nausea vomiting diarrhea Denies fever chills Physical Exam Vital Signs: Vital Signs: Last Vital Signs Temp 97.8 F 03/08/24 07:15 Pulse 69 03/08/24 07:15 Resp 18 03/08/24 07:15 BP 151/69 H 03/08/24 07:15 Pulse Ox 95 03/08/24 07:15 O2 Del Method Room Air 03/08/24 07:15 BMI result Body Mass Index 48.2 Const: Other: Awake alert comfortable Resp: Other: Clear to auscultation bilaterally no rales rhonchi or wheezes Cardio: Other: No S4; positive S1-S2; no S3 murmurs rubs or gallops GI: Other: Soft nontender nondistended normoactive bowel sounds Extrem: Other: Essentially no change in diabetic foot ulcer since admission Objective Data Active Medications Acetaminophen (Acetaminophen 325 Mg Tablet) 650 mg PO Q6H PRN PRN Reason: Pain, Mild (Pain Scale 1-3), fever or headache Amlodipine Besylate (Amlodipine Besylate 10 Mg Tablet) 10 mg PO BEDTIME [facility]; Protocol Last Admin: 03/07/24 20:51 Dose: 10 mg Documented By: SIENA Atorvastatin Calcium (Atorvastatin Calcium 10 Mg Tablet) 10 mg PO DAILY [facility] Last Admin: 03/08/24 08:14 Dose: 10 mg Documented By: ELISA Benzonatate (Benzonatate 100 Mg Capsule) 100 mg PO TID PRN PRN Reason: Cough Enoxaparin Sodium (Enoxaparin Sodium 40 Mg/0.4 Ml Syringe) 40 mg SUBCUT Q24H [facility] Last Admin: 03/07/24 15:14 Dose: 40 mg Documented By: ROBERT Glucose (Glucose Gel 15 Gm Gel..Gram.) 15 gm PO Q15M PRN; Protocol PRN Reason: per Hypoglycemia Standing Ord. Piperacillin Sod/Tazobactam (Sod 3.375 gm/ Sodium Chloride) 50 mls @ 100 mls/hr IV Q6H [facility] Last Infusion: 03/08/24 08:57 Dose: Infused Documented By: ELISA Dextrose (D10) 250 mls @ 750 mls/hr IV Q15M PRN; Protocol PRN Reason: per Hypoglycemia Standing Ord. Vancomycin HCl 1,000 mg/ (Sodium Chloride) 270 mls @ 270 mls/hr IV Q12H [facility] Last Infusion: 03/08/24 04:04 Dose: Infused Documented By: SIENA Insulin Glargine (Insulin Glargine,Hum.Rec.Anlog 100 Unit/Ml 10 Ml Vial) 62 unit SUBCUT BEDTIME [facility] Last Admin: 03/07/24 20:48 Dose: 62 unit Documented By: SIENA Insulin Glargine (Insulin Glargine,Hum.Rec.Anlog 100 Unit/Ml 10 Ml Vial) 62 unit SUBCUT DAILY [facility] Last Admin: 03/08/24 08:13 Dose: 62 unit Documented By: ELISA Insulin Human Lispro (Insulin Lispro 100 Unit/Ml 3 Ml Vial) 0 unit SUBCUT QIDACHS [facility]; Protocol Last Admin: 03/08/24 07:32 Dose: Not Given Documented By: ELISA Non-Admin Reason: No Insulin Coverage Lisinopril (Lisinopril 40 Mg Tablet) 40 mg PO DAILY [facility]; Protocol Last Admin: 03/08/24 08:13 Dose: 40 mg Documented By: ELISA Magnesium Hydroxide (Milk Of Magnesia 30 Ml Oral.Susp) 30 ml PO DAILY PRN PRN Reason: Constipation Melatonin (Melatonin 3 Mg Tablet) 6 mg PO BEDTIME PRN PRN Reason: Insomnia Ondansetron HCl (Ondansetron Hcl 4 Mg/2 Ml Vial) 4 mg IVPUSH Q8H PRN PRN Reason: Nausea and Vomiting Pharmacy Consult (Consult Rx Vancomycin Dosing) 1 each MISCELLANE DAILY PRN PRN Reason: Consult order Sodium Chloride (0.9 % Sodium Chloride Flush 3 Ml Syringe) 3 ml IVFLUSH QSHIFT [facility] Last Admin: 03/08/24 08:14 Dose: 3 ml Documented By: ELISA Labs 03/07/24 05:54 03/08/24 06:19 Labs: Laboratory Results - last 24 hr 03/07/24 03/07/24 03/07/24 13:24 16:18 19:54 Hold Purple Top Estim Creat Clear Calc Estimated GFR POC Glucose 254 H 192 H Random Vancomycin 13.4 L 03/08/24 03/08/24 03/08/24 06:19 07:13 11:47 Hold Purple Top SEE NOTE Estim Creat Clear Calc 89.0 Estimated GFR > 60 POC Glucose 109 163 H Random Vancomycin Microbiology Microbiology Results: Microbiology 03/06/24 13:57 Blood Culture - Preliminary Blood - Venous Gram positive cocci 03/06/24 13:55 Blood Culture - Preliminary Blood - Venous Gram positive cocci Assessment and Plan (1) Osteomyelitis of great toe of left foot: Status: Acute Plan Pt is a 58-year-old male with a PMH significant for HTN, HLD, insulin-dependent type 2 diabetes, hx of MRSA osteomyelitis, s/p right BKA, s/p multiple left toe amputations, cold agglutinin disease, and peripheral?peripheral vascular disease on Plavix who presents to the ED from wound care for evaluation of chronic nonhealing left great toe ulcer. Pt will be admitted to the hospital for treatment and further evaluation of osteomyelitis of left great toe. 1.Osteomyelitis of left great toe -vancomycin/Zosyn (3) -general surgery consult recommending amputation -continue antibiotics over weekend. . . NPO after midnight 03/09 -Follow cultures.. Preliminary 2/2 GPC (MRSA in past SS vancomycin) 2.Peripheral vascular disease -hold clopidogrel for surgical procedure 03/09 3.Insulin-dependent type 2 diabetes -acceptable control on current therapies -lispro correctional scale -adjust as indicated 4.HTN -acceptable control on current therapies -follow renals/divalents -adjust as indicated Full Code Lovenox Patient will require ongoing hospitalization for IV antibiotics to treat osteomyelitis of left foot in anticipation of amputation Quality Stroke Does the patient have a stroke diagnosis?: No VTE Prior VTE?: No VTE Risk Level:: Medical - moderate - high VTE Device Contraindication: Treatment Not Indicated VTE Drug Contraindication: N/A - Med Ordered
[2024-03-08] MEDS: Insulin Lispro 100 UNIT/ML 3 ML VIAL SUBCUT ×3 (12:28→20:52)
--- NOTE | 2024-03-08 12:49 | MHC.CM.PN ---
Pt lives with ,they are independent tbd what servies will be needed when dcd ?[facility]
[2024-03-08 13:35] LABS: Vancomycin Random 12.9 mcg/mL (15-20)
--- NOTE | 2024-03-08 14:29 | HE.PHANOTE ---
VANCO DOSE ADJUSTMENT BASED ON SCR AND TROUGH OF 12.9 PATIENT KEPT ON 1000 Q 12H.
--- NOTE | 2024-03-08 14:48 | PM.PNGS ---
Subjective Subjective Date of Service: 03/08/24 Interval history: Uneventful evening. No new left foot issues or complaints. Physical Exam Vital Signs: Vital Signs: Last Vital Signs Temp 97.8 F 03/08/24 07:15 Pulse 69 03/08/24 07:15 Resp 18 03/08/24 07:15 BP 151/69 H 03/08/24 07:15 Pulse Ox 95 03/08/24 07:15 O2 Del Method Room Air 03/08/24 07:15 BMI result Body Mass Index 48.2 Extrem: Other: Dressing was just changed by nurse. Clean dry and intact. Objective Data Active Medications Acetaminophen (Acetaminophen 325 Mg Tablet) 650 mg PO Q6H PRN PRN Reason: Pain, Mild (Pain Scale 1-3), fever or headache Amlodipine Besylate (Amlodipine Besylate 10 Mg Tablet) 10 mg PO BEDTIME [facility]; Protocol Last Admin: 03/07/24 20:51 Dose: 10 mg Documented By: SIEAN Atorvastatin Calcium (Atorvastatin Calcium 10 Mg Tablet) 10 mg PO DAILY [facility] Last Admin: 03/08/24 08:14 Dose: 10 mg Documented By: GODWINEMA Benzonatate (Benzonatate 100 Mg Capsule) 100 mg PO TID PRN PRN Reason: Cough Enoxaparin Sodium (Enoxaparin Sodium 40 Mg/0.4 Ml Syringe) 40 mg SUBCUT Q24H [facility] Last Admin: 03/07/24 15:14 Dose: 40 mg Documented By: ROBERT Glucose (Glucose Gel 15 Gm Gel..Gram.) 15 gm PO Q15M PRN; Protocol PRN Reason: per Hypoglycemia Standing Ord. Piperacillin Sod/Tazobactam (Sod 3.375 gm/ Sodium Chloride) 50 mls @ 100 mls/hr IV Q6H [facility] Last Admin: 03/08/24 14:33 Dose: 100 mls/hr Documented By: ELISA Dextrose (D10) 250 mls @ 750 mls/hr IV Q15M PRN; Protocol PRN Reason: per Hypoglycemia Standing Ord. Vancomycin HCl 1,000 mg/ (Sodium Chloride) 270 mls @ 270 mls/hr IV Q12H [facility] Last Infusion: 03/08/24 04:04 Dose: Infused Documented By: SIENA Insulin Glargine (Insulin Glargine,Hum.Rec.Anlog 100 Unit/Ml 10 Ml Vial) 62 unit SUBCUT BEDTIME [facility] Last Admin: 03/07/24 20:48 Dose: 62 unit Documented By: SIENA Insulin Glargine (Insulin Glargine,Hum.Rec.Anlog 100 Unit/Ml 10 Ml Vial) 62 unit SUBCUT DAILY [facility] Last Admin: 03/08/24 08:13 Dose: 62 unit Documented By: ELISA Insulin Human Lispro (Insulin Lispro 100 Unit/Ml 3 Ml Vial) 0 unit SUBCUT QIDACHS [facility]; Protocol Last Admin: 03/08/24 12:28 Dose: 2 unit Documented By: ELISA Lisinopril (Lisinopril 40 Mg Tablet) 40 mg PO DAILY [facility]; Protocol Last Admin: 03/08/24 08:13 Dose: 40 mg Documented By: ELISA Magnesium Hydroxide (Milk Of Magnesia 30 Ml Oral.Susp) 30 ml PO DAILY PRN PRN Reason: Constipation Melatonin (Melatonin 3 Mg Tablet) 6 mg PO BEDTIME PRN PRN Reason: Insomnia Ondansetron HCl (Ondansetron Hcl 4 Mg/2 Ml Vial) 4 mg IVPUSH Q8H PRN PRN Reason: Nausea and Vomiting Pharmacy Consult (Consult Rx Vancomycin Dosing) 1 each MISCELLANE DAILY PRN PRN Reason: Consult order Sodium Chloride (0.9 % Sodium Chloride Flush 3 Ml Syringe) 3 ml IVFLUSH QSHIFT [facility] Last Admin: 03/08/24 08:14 Dose: 3 ml Documented By: ELISA Labs 03/07/24 05:54 03/08/24 06:19 Labs: Laboratory Results - last 24 hr 03/07/24 03/07/24 03/08/24 16:18 19:54 06:19 Hold Purple Top SEE NOTE Estim Creat Clear Calc 89.0 Estimated GFR > 60 POC Glucose 254 H 192 H Random Vancomycin 03/08/24 03/08/24 03/08/24 07:13 11:47 13:04 Hold Purple Top Estim Creat Clear Calc Estimated GFR POC Glucose 109 163 H Random Vancomycin 12.9 L Microbiology Microbiology Results: Microbiology 03/06/24 13:57 Blood Culture - Preliminary Blood - Venous Gram positive cocci 03/06/24 13:55 Blood Culture - Preliminary Blood - Venous Gram positive cocci Procedures Date of Service Date of Service: 03/08/24 Progress Note: A&P Assessment and plan (1) Osteomyelitis of great toe of left foot: Status: Acute (2) Diabetic foot infection: Status: Acute Plan Patient is tentatively scheduled for amputation on Sunday with Dr. Abdi. Continue current plan. Time Spent With Patient Time: Total time managing care of this patient today ____ minutes. Quality Stroke Does the patient have a stroke diagnosis?: No VTE Prior VTE?: No VTE Risk Level:: Medical - moderate - high VTE Device Contraindication: Treatment Not Indicated VTE Drug Contraindication: N/A - Med Ordered
[2024-03-08] MEDS: Enoxaparin Sodium 40 MG/0.4 ML SYRINGE SUBCUT (15:20)
[2024-03-08 15:32] VITALS: BP 163/72; PULSE 76; RESP 18; TEMP 36.6; O2SAT 94
[2024-03-08 16:01] LABS: Glucose, Whole Blood 220 mg/dL (60-115)
[2024-03-08 19:47] VITALS: BP 159/70; PULSE 83; RESP 18; TEMP 36.6; O2SAT 93
[2024-03-08 20:24] LABS: Glucose, Whole Blood 215 mg/dL (60-115)
[2024-03-08] MEDS: amLODIPine Besylate 10 MG TABLET PO (20:51)
[2024-03-09] MEDS: Piperacillin Sodium/Tazobactam 3.375 GM in 0.9 % Sodium Chloride 50 ML IV ×3 (02:09→15:01)
[2024-03-09] MEDS: vancomycin HCL 1,000 MG in 0.9 % Sodium Chloride 250 ML 270 MG IV ×2 (02:53→15:48)
[2024-03-09 04:00] VITALS: BP 149/65; PULSE 74; RESP 18; TEMP 36.4; O2SAT 94
[2024-03-09 06:52] LABS: Creatinine Clr Calc Pharmacy 104.2; Estimated Glomerular Filt Rate > 60
[2024-03-09 07:29] VITALS: BP 164/74; PULSE 67; RESP 24; TEMP 36.1; O2SAT 94
[2024-03-09 07:43] LABS: Glucose, Whole Blood 71 mg/dL (60-115)
[2024-03-09] MEDS: Atorvastatin Calcium 10 MG TABLET PO (08:10)
[2024-03-09] MEDS: Insulin Glargine,Hum.rec.anlog 100 UNIT/ML 10 ML VIAL 62 UNIT SUBCUT ×2 (08:11→22:11)
[2024-03-09] MEDS: 0.9 % Sodium Chloride Flush 3 ML SYRINGE IVFLUSH ×3 (08:11→15:04)
[2024-03-09] MEDS: lisinopriL 40 MG TABLET PO (08:11)
--- NOTE | 2024-03-09 11:32 | P.PNIM_ITS ---
Subjective Subjective Date of Service: 03/09/24 Interval History: Remains afebrile and pain-free. No acute issues Review of Systems Denies chest pain Denies shortness of breath Denies nausea vomiting diarrhea Denies fever chills Physical Exam 2 Vital Signs: Vital Signs: Last Vital Signs Temp 97.0 F 03/09/24 07:29 Pulse 67 03/09/24 07:29 Resp 24 H 03/09/24 07:29 BP 164/74 H 03/09/24 07:29 Pulse Ox 94 03/09/24 07:29 O2 Del Method Room Air 03/09/24 07:29 BMI result Body Mass Index 48.2 Const: Other: Awake alert comfortable Resp: Other: Clear to auscultation bilaterally no rales rhonchi or wheezes Cardio: Other: No S4; positive S1-S2; no S3 murmurs rubs or gallops GI: Other: Soft nontender nondistended normoactive bowel sounds Extrem: Other: Essentially no change in diabetic foot ulcer since admission Objective Data Active Medications Acetaminophen (Acetaminophen 325 Mg Tablet) 650 mg PO Q6H PRN PRN Reason: Pain, Mild (Pain Scale 1-3), fever or headache Amlodipine Besylate (Amlodipine Besylate 10 Mg Tablet) 10 mg PO BEDTIME [facility]; Protocol Last Admin: 03/08/24 20:51 Dose: 10 mg Documented By: SIENA Atorvastatin Calcium (Atorvastatin Calcium 10 Mg Tablet) 10 mg PO DAILY [facility] Last Admin: 03/09/24 08:10 Dose: 10 mg Documented By: RENATO Benzonatate (Benzonatate 100 Mg Capsule) 100 mg PO TID PRN PRN Reason: Cough Enoxaparin Sodium (Enoxaparin Sodium 40 Mg/0.4 Ml Syringe) 40 mg SUBCUT Q24H [facility] Last Admin: 03/08/24 15:20 Dose: 40 mg Documented By: COTEMA Glucose (Glucose Gel 15 Gm Gel..Gram.) 15 gm PO Q15M PRN; Protocol PRN Reason: per Hypoglycemia Standing Ord. Piperacillin Sod/Tazobactam (Sod 3.375 gm/ Sodium Chloride) 50 mls @ 100 mls/hr IV Q6H [facility] Last Infusion: 03/09/24 08:47 Dose: Infused Documented By: RENATO Dextrose (D10) 250 mls @ 750 mls/hr IV Q15M PRN; Protocol PRN Reason: per Hypoglycemia Standing Ord. Vancomycin HCl 1,000 mg/ (Sodium Chloride) 270 mls @ 270 mls/hr IV Q12H [facility] Last Infusion: 03/09/24 04:01 Dose: Infused Documented By: SIENA Insulin Glargine (Insulin Glargine,Hum.Rec.Anlog 100 Unit/Ml 10 Ml Vial) 62 unit SUBCUT BEDTIME [facility] Last Admin: 03/08/24 20:52 Dose: 62 unit Documented By: SIENA Insulin Glargine (Insulin Glargine,Hum.Rec.Anlog 100 Unit/Ml 10 Ml Vial) 62 unit SUBCUT DAILY [facility] Last Admin: 03/09/24 08:11 Dose: 62 unit Documented By: RENATO Insulin Human Lispro (Insulin Lispro 100 Unit/Ml 3 Ml Vial) 0 unit SUBCUT QIDACHS [facility]; Protocol Last Admin: 03/09/24 08:03 Dose: Not Given Documented By: RENATO Non-Admin Reason: No Insulin Coverage Lisinopril (Lisinopril 40 Mg Tablet) 40 mg PO DAILY [facility]; Protocol Last Admin: 03/09/24 08:11 Dose: 40 mg Documented By: RENATO Magnesium Hydroxide (Milk Of Magnesia 30 Ml Oral.Susp) 30 ml PO DAILY PRN PRN Reason: Constipation Melatonin (Melatonin 3 Mg Tablet) 6 mg PO BEDTIME PRN PRN Reason: Insomnia Ondansetron HCl (Ondansetron Hcl 4 Mg/2 Ml Vial) 4 mg IVPUSH Q8H PRN PRN Reason: Nausea and Vomiting Pharmacy Consult (Consult Rx Vancomycin Dosing) 1 each MISCELLANE DAILY PRN PRN Reason: Consult order Sodium Chloride (0.9 % Sodium Chloride Flush 3 Ml Syringe) 3 ml IVFLUSH QSHIFT [facility] Last Admin: 03/09/24 08:11 Dose: 3 ml Documented By: RENATO Labs 03/07/24 05:54 03/09/24 06:21 Labs: Laboratory Results - last 24 hr 03/08/24 03/08/24 03/08/24 11:47 13:04 15:54 Hold Purple Top Estim Creat Clear Calc Estimated GFR POC Glucose 163 H 220 H Random Vancomycin 12.9 L 07/03/09/24 03/09/24 20:15 06:21 07:34 Hold Purple Top SEE NOTE Estim Creat Clear Calc 104.2 Estimated GFR > 60 POC Glucose 215 H 71 Random Vancomycin Microbiology Microbiology Results: Microbiology 03/06/24 13:57 Blood Culture - Preliminary Blood - Venous Streptococcus viridans group 03/06/24 13:55 Blood Culture - Preliminary Blood - Venous Streptococcus viridans group Assessment and Plan (1) Osteomyelitis of great toe of left foot: Status: Acute Plan Pt is a 58-year-old male with a PMH significant for HTN, HLD, insulin-dependent type 2 diabetes, hx of MRSA osteomyelitis, s/p right BKA, s/p multiple left toe amputations, cold agglutinin disease, and peripheral?peripheral vascular disease on Plavix who presents to the ED from wound care for evaluation of chronic nonhealing left great toe ulcer. Pt will be admitted to the hospital for treatment and further evaluation of osteomyelitis of left great toe. 1.Osteomyelitis of left great toe -vancomycin/Zosyn (4) -general surgery consult recommending amputation -continue antibiotics over weekend. . . NPO after midnight 03/09 -Follow cultures.. Preliminary 2/2 GPC (strep viridians) 2.Peripheral vascular disease -hold clopidogrel for surgical procedure 03/09 3.Insulin-dependent type 2 diabetes -acceptable control on current therapies -lispro correctional scale -adjust as indicated 4.HTN -acceptable control on current therapies -follow renals/divalents -adjust as indicated Full Code Lovenox Patient will require ongoing hospitalization for IV antibiotics to treat osteomyelitis of left foot in anticipation of amputation Quality Stroke Does the patient have a stroke diagnosis?: No VTE Prior VTE?: No VTE Risk Level:: Medical - moderate - high VTE Device Contraindication: Treatment Not Indicated VTE Drug Contraindication: N/A - Med Ordered
[2024-03-09 11:37] LABS: Glucose, Whole Blood 135 mg/dL (60-115)
--- NOTE | 2024-03-09 14:22 | P.PNGS_ITS ---
Subjective Subjective Date of Service: 03/09/24 Interval history: Uneventful day. Patient waiting for amputation for tomorrow. No new questions Physical Exam 2 Vital Signs: Vital Signs: Last Vital Signs Temp 97.0 F 03/09/24 07:29 Pulse 67 03/09/24 07:29 Resp 24 H 03/09/24 07:29 BP 164/74 H 03/09/24 07:29 Pulse Ox 94 03/09/24 07:29 O2 Del Method Room Air 03/09/24 07:29 BMI result Body Mass Index 48.2 Extrem: Other: Right lower extremity prosthetic device. Left foot dressing clean dry and intact Objective Data Active Medications Acetaminophen (Acetaminophen 325 Mg Tablet) 650 mg PO Q6H PRN PRN Reason: Pain, Mild (Pain Scale 1-3), fever or headache Amlodipine Besylate (Amlodipine Besylate 10 Mg Tablet) 10 mg PO BEDTIME [facility]; Protocol Last Admin: 03/08/24 20:51 Dose: 10 mg Documented By: SIENA Atorvastatin Calcium (Atorvastatin Calcium 10 Mg Tablet) 10 mg PO DAILY [facility] Last Admin: 03/09/24 08:10 Dose: 10 mg Documented By: RENATO Benzonatate (Benzonatate 100 Mg Capsule) 100 mg PO TID PRN PRN Reason: Cough Enoxaparin Sodium (Enoxaparin Sodium 40 Mg/0.4 Ml Syringe) 40 mg SUBCUT Q24H [facility] Last Admin: 03/08/24 15:20 Dose: 40 mg Documented By: GODWINEMA Glucose (Glucose Gel 15 Gm Gel..Gram.) 15 gm PO Q15M PRN; Protocol PRN Reason: per Hypoglycemia Standing Ord. Piperacillin Sod/Tazobactam (Sod 3.375 gm/ Sodium Chloride) 50 mls @ 100 mls/hr IV Q6H [facility] Last Infusion: 03/09/24 08:47 Dose: Infused Documented By: RENATO Dextrose (D10) 250 mls @ 750 mls/hr IV Q15M PRN; Protocol PRN Reason: per Hypoglycemia Standing Ord. Vancomycin HCl 1,000 mg/ (Sodium Chloride) 270 mls @ 270 mls/hr IV Q12H [facility] Last Infusion: 03/09/24 04:01 Dose: Infused Documented By: SIENA Insulin Glargine (Insulin Glargine,Hum.Rec.Anlog 100 Unit/Ml 10 Ml Vial) 62 unit SUBCUT BEDTIME [facility] Last Admin: 03/08/24 20:52 Dose: 62 unit Documented By: SIENA Insulin Glargine (Insulin Glargine,Hum.Rec.Anlog 100 Unit/Ml 10 Ml Vial) 62 unit SUBCUT DAILY [facility] Last Admin: 03/09/24 08:11 Dose: 62 unit Documented By: RENATO Insulin Human Lispro (Insulin Lispro 100 Unit/Ml 3 Ml Vial) 0 unit SUBCUT QIDACHS [facility]; Protocol Last Admin: 03/09/24 11:42 Dose: Not Given Documented By: RENATO Non-Admin Reason: No Insulin Coverage Lisinopril (Lisinopril 40 Mg Tablet) 40 mg PO DAILY [facility]; Protocol Last Admin: 03/09/24 08:11 Dose: 40 mg Documented By: RENATO Magnesium Hydroxide (Milk Of Magnesia 30 Ml Oral.Susp) 30 ml PO DAILY PRN PRN Reason: Constipation Melatonin (Melatonin 3 Mg Tablet) 6 mg PO BEDTIME PRN PRN Reason: Insomnia Ondansetron HCl (Ondansetron Hcl 4 Mg/2 Ml Vial) 4 mg IVPUSH Q8H PRN PRN Reason: Nausea and Vomiting Pharmacy Consult (Consult Rx Vancomycin Dosing) 1 each MISCELLANE DAILY PRN PRN Reason: Consult order Sodium Chloride (0.9 % Sodium Chloride Flush 3 Ml Syringe) 3 ml IVFLUSH QSHIFT [facility] Last Admin: 03/09/24 08:11 Dose: 3 ml Documented By: RENATO Labs 03/07/24 05:54 03/09/24 06:21 Labs: Laboratory Results - last 24 hr 03/08/24 03/08/24 03/09/24 15:54 20:15 06:21 Hold Purple Top SEE NOTE Estim Creat Clear Calc 104.2 Estimated GFR > 60 POC Glucose 220 H 215 H 03/09/24 03/09/24 07:34 11:28 Hold Purple Top Estim Creat Clear Calc Estimated GFR POC Glucose 71 135 H Microbiology Microbiology Results: Microbiology 03/06/24 13:57 Blood Culture - Preliminary Blood - Venous Streptococcus viridans group 03/06/24 13:55 Blood Culture - Preliminary Blood - Venous Streptococcus viridans group Procedures Date of Service Date of Service: 03/09/24 Progress Note: A&P Assessment and plan (1) Osteomyelitis of great toe of left foot: Status: Acute (2) Diabetic foot infection: Status: Acute Plan For surgery with Dr. Abdi tomorrow Time Spent With Patient Time: Total time managing care of this patient today ____ minutes. Quality Stroke Does the patient have a stroke diagnosis?: No VTE Prior VTE?: No VTE Risk Level:: Medical - moderate - high VTE Device Contraindication: Treatment Not Indicated VTE Drug Contraindication: N/A - Med Ordered
[2024-03-09] MEDS: Enoxaparin Sodium 40 MG/0.4 ML SYRINGE SUBCUT (15:02)
[2024-03-09 15:29] VITALS: BP 174/77; PULSE 71; RESP 18; TEMP 36.4; O2SAT 95
[2024-03-09 16:15] LABS: Glucose, Whole Blood 203 mg/dL (60-115)
[2024-03-09] MEDS: Insulin Lispro 100 UNIT/ML 3 ML VIAL SUBCUT ×2 (16:39→22:12)
[2024-03-09 17:46] VITALS: BP 162/71; PULSE 74
[2024-03-09 19:21] VITALS: BP 174/73; PULSE 77; RESP 18; TEMP 36.6; O2SAT 94
[2024-03-09 20:26] LABS: Glucose, Whole Blood 179 mg/dL (60-115)
[2024-03-09 22:10] VITALS: BP 174/73
[2024-03-09] MEDS: amLODIPine Besylate 10 MG TABLET PO (22:10)
[2024-03-10] VITALS (12 sets, daily range): BP systolic 120–169; BP diastolic 66–81; PULSE 70–99; RESP 16–20; TEMP 36.2–36.8; O2SAT 91–98
[2024-03-10] MEDS: Piperacillin Sodium/Tazobactam 3.375 GM in 0.9 % Sodium Chloride 50 ML IV ×5 (00:36→23:40)
[2024-03-10] MEDS: vancomycin HCL 1,000 MG in 0.9 % Sodium Chloride 250 ML 270 MG IV (03:07)
[2024-03-10 06:08] LABS: MANUAL DIFF FLAG NO
[2024-03-10 06:17] LABS: Prothrombin Time 12.6 SEC (11.1-13.3)
[2024-03-10 06:38] LABS: Basophils Percent Auto 0.3 % (0-2); Eosinophils Absolute Auto 0.2 X10*3/uL (0.0-0.4); Eosinophils Percent Auto 1.7 % (0-4); Hematocrit 44.4 % (42.0-52.0); Hemoglobin 14.6 g/dl (14.0-18.0); Imm Gran Abs Auto 0.16 X10*3/uL (0.00-0.03); Imm Gran Pct Auto 1.2 % (0.0-0.4); Lymphocytes Absolute Auto 1.4 X10*3/uL (1.2-4.9); Lymphocytes Percent Auto 10.4 % (20-40); Mean Corpuscular HGB Conc 32.9 g/dl (31.0-36.0); Mean Corpuscular Hemoglobin 28.9 pg (27.0-33.0); Mean Corpuscular Volume 87.7 fL (80.0-98.0); Mean Platelet Volume 11.3 fL (9.4-12.4); Monocytes Percent Auto 7.5 % (2-11); Neutrophils Absolute Auto 10.4 x10*3/uL (2.0-8.3); Neutrophils Percent Auto 78.9 % (45-73); Platelet Count 283 X10*3/uL (160-400); Red Blood Count 5.06 X10*6/uL (4.60-5.80); Red Cell Distribution Width 13.2 % (11.0-16.0); White Blood Count 13.3 X10*3/uL (4.8-10.8)
[2024-03-10 06:42] LABS: Alanine Aminotransferase 49 U/L (0-40); Albumin Level 3.2 g/dL (3.5-5.0); Alkaline Phosphatase 130 U/L (39-117); Anion Gap 15 (12-20); Aspartate Amino Transferase 30 U/L (5-37); Bilirubin Total 0.7 mg/dL (0.0-1.0); Blood Urea Nitrogen 17 mg/dL (9-16); Calcium 9.6 mg/dL (8.4-10.2); Carbon Dioxide 24 mmol/L (22-29); Chloride 104 mmol/L (96-108); Creatinine Clr Calc Pharmacy 98.6; Estimated Glomerular Filt Rate > 60; Glucose Fasting 117 mg/dL (60-99); Potassium 4.5 mmol/L (3.3-5.1); Sodium 138 mmol/L (135-145); Total Protein 7.2 g/dL (6.5-8.0)
[2024-03-10 07:19] LABS: Glucose, Whole Blood 103 mg/dL (60-115)
[2024-03-10] MEDS: Atorvastatin Calcium 10 MG TABLET PO (08:35)
[2024-03-10] MEDS: 0.9 % Sodium Chloride Flush 3 ML SYRINGE IVFLUSH ×3 (08:36→20:56)
--- NOTE | 2024-03-10 10:58 | MHC.CM.PN ---
PER MD ROUNDS PATIENT TO OR TODAY FOR AMP. CM WILL AWAIT POST OP PT EVAL FOR DISPO.
--- NOTE | 2024-03-10 11:13 | P.PNIM_ITS ---
Subjective Subjective Date of Service: 03/10/24 Interval History: Being followed for right great toe infection. NPO for right toe amputations scheduled for today by General surgery, offers no acute complaints denies pain, no lightheadedness, no dizziness, no fevers, no chills. Review of Systems All other systems reviewed and are negative Physical Exam 2 Vital Signs: Vital Signs: Last Vital Signs Temp 98.1 F 03/10/24 07:01 Pulse 80 03/10/24 07:01 Resp 17 03/10/24 07:01 BP 161/76 H 03/10/24 07:01 Pulse Ox 92 03/10/24 07:01 O2 Del Method Room Air 03/10/24 07:01 BMI result Body Mass Index 48.2 Objective Data Active Medications Acetaminophen (Acetaminophen 325 Mg Tablet) 650 mg PO Q6H PRN PRN Reason: Pain, Mild (Pain Scale 1-3), fever or headache Amlodipine Besylate (Amlodipine Besylate 10 Mg Tablet) 10 mg PO BEDTIME [facility]; Protocol Last Admin: 03/09/24 22:10 Dose: 10 mg Documented By: NITA Atorvastatin Calcium (Atorvastatin Calcium 10 Mg Tablet) 10 mg PO DAILY [facility] Last Admin: 03/10/24 08:35 Dose: 10 mg Documented By: RENATO Benzonatate (Benzonatate 100 Mg Capsule) 100 mg PO TID PRN PRN Reason: Cough Enoxaparin Sodium (Enoxaparin Sodium 40 Mg/0.4 Ml Syringe) 40 mg SUBCUT Q24H [facility] Last Admin: 03/09/24 15:02 Dose: 40 mg Documented By: RENATO Glucose (Glucose Gel 15 Gm Gel..Gram.) 15 gm PO Q15M PRN; Protocol PRN Reason: per Hypoglycemia Standing Ord. Dextrose (D10) 250 mls @ 750 mls/hr IV Q15M PRN; Protocol PRN Reason: per Hypoglycemia Standing Ord. Vancomycin HCl 1,000 mg/ (Sodium Chloride) 270 mls @ 270 mls/hr IV Q12H [facility] Last Infusion: 03/10/24 04:10 Dose: Infused Documented By: NITA Piperacillin Sod/Tazobactam (Sod 3.375 gm/ Sodium Chloride) 50 mls @ 100 mls/hr IV Q6H [facility] Last Infusion: 03/10/24 05:57 Dose: Infused Documented By: NITA Insulin Glargine (Insulin Glargine,Hum.Rec.Anlog 100 Unit/Ml 10 Ml Vial) 62 unit SUBCUT BEDTIME [facility] Last Admin: 03/09/24 22:11 Dose: 62 unit Documented By: NITA Insulin Glargine (Insulin Glargine,Hum.Rec.Anlog 100 Unit/Ml 10 Ml Vial) 62 unit SUBCUT DAILY [facility] Last Admin: 03/10/24 08:40 Dose: Not Given Documented By: RENATO Non-Admin Reason: Physician Held Med Insulin Human Lispro (Insulin Lispro 100 Unit/Ml 3 Ml Vial) 0 unit SUBCUT QIDACHS [facility]; Protocol Last Admin: 03/10/24 07:54 Dose: Not Given Documented By: RENATO Non-Admin Reason: No Insulin Coverage Lisinopril (Lisinopril 40 Mg Tablet) 40 mg PO DAILY [facility]; Protocol Last Admin: 03/10/24 08:28 Dose: Not Given Documented By: RENATO Non-Admin Reason: planned for OR Magnesium Hydroxide (Milk Of Magnesia 30 Ml Oral.Susp) 30 ml PO DAILY PRN PRN Reason: Constipation Melatonin (Melatonin 3 Mg Tablet) 6 mg PO BEDTIME PRN PRN Reason: Insomnia Ondansetron HCl (Ondansetron Hcl 4 Mg/2 Ml Vial) 4 mg IVPUSH Q8H PRN PRN Reason: Nausea and Vomiting Pharmacy Consult (Consult Rx Vancomycin Dosing) 1 each MISCELLANE DAILY PRN PRN Reason: Consult order Sodium Chloride (0.9 % Sodium Chloride Flush 3 Ml Syringe) 3 ml IVFLUSH QSHIFT [facility] Last Admin: 03/10/24 08:36 Dose: 3 ml Documented By: RENATO Labs 03/10/24 05:09 03/10/24 05:09 Labs: Laboratory Results - last 24 hr 03/09/24 03/09/24 03/09/24 11:28 16:08 20:22 MCV MCH MCHC RDW Plt Count MPV Immature Gran % (Auto) Neut % (Auto) Lymph % (Auto) [place] % (Auto) Eos % (Auto) Baso % (Auto) Lymph # (Auto) [place] # (Auto) Eos # (Auto) Baso # (Auto) Abs Immat Gran (auto) Absolute Neuts (auto) Absolute Nucleated RBC Nucleated RBC % (auto) PT INR Anion Gap Estim Creat Clear Calc Estimated GFR POC Glucose 135 H 203 H 179 H Fasting Glucose Calcium Total Bilirubin AST ALT Alkaline Phosphatase Total Protein Albumin 03/10/24 03/10/24 05:09 07:05 MCV 87.7 MCH 28.9 MCHC 32.9 RDW 13.2 Plt Count 283 MPV 11.3 Immature Gran % (Auto) 1.2 H Neut % (Auto) 78.9 H Lymph % (Auto) 10.4 L [place] % (Auto) 7.5 Eos % (Auto) 1.7 Baso % (Auto) 0.3 Lymph # (Auto) 1.4 [place] # (Auto) 1.0 Eos # (Auto) 0.2 Baso # (Auto) 0.0 Abs Immat Gran (auto) 0.16 H Absolute Neuts (auto) 10.4 H Absolute Nucleated RBC 0.000 Nucleated RBC % (auto) 0.0 PT 12.6 INR 1.0 Anion Gap 15 Estim Creat Clear Calc 98.6 Estimated GFR > 60 POC Glucose 103 Fasting Glucose 117 H Calcium 9.6 Total Bilirubin 0.7 AST 30 ALT 49 H Alkaline Phosphatase 130 H Total Protein 7.2 Albumin 3.2 L Microbiology Microbiology Results: Microbiology 03/06/24 13:55 Blood Culture - Preliminary Blood - Venous Streptococcus viridans group 03/06/24 13:57 Blood Culture - Preliminary Blood - Venous Streptococcus viridans group Assessment and Plan (1) Osteomyelitis of great toe of left foot: Status: Acute Plan Pt is a 58-year-old male with a PMH significant for HTN, HLD, insulin-dependent type 2 diabetes, hx of MRSA osteomyelitis, s/p right BKA, s/p multiple left toe amputations, cold agglutinin disease, and peripheral?peripheral vascular disease on Plavix who presents to the ED from wound care for evaluation of chronic nonhealing left great toe ulcer. Pt will be admitted to the hospital for treatment and further evaluation of osteomyelitis of left great toe. 1.Osteomyelitis of left great toe NPO for left toe amputation WBC trending down, stable electrolytes and renal function, on IV vancomycin/Zosyn (5) Blood cultures 2/2 positive for Streptococcus viridans , will DC vancomycin 2.Peripheral vascular disease -hold clopidogrel for surgical procedure 3.Insulin-dependent type 2 diabetes -acceptable control on current therapies, blood sugar 103 this a.m., hold Lantus since patient NPO -on Lantus and lispro correctional scale -adjust as indicated 4.HTN -continue Norvasc and lisinopril, follow BP closely 5. Hyperlipidemia continue statin Full Code Lovenox Patient will require ongoing hospitalization for IV antibiotics to treat osteomyelitis of left foot / scheduled for amputation today Quality Stroke Does the patient have a stroke diagnosis?: No VTE Prior VTE?: No VTE Risk Level:: Medical - moderate - high VTE Device Contraindication: Treatment Not Indicated VTE Drug Contraindication: N/A - Med Ordered
[2024-03-10 11:48] LABS: Glucose, Whole Blood 103 mg/dL (60-115)
--- NOTE | 2024-03-10 11:49 | MHC.SHP ---
Pre-Procedural Eval Section A - 24 Hr Update-Section A only Date of Service: 03/10/24 The patient is an INPATIENT: Yes Section B - Complete if H&P > 30 days Chief Complaint: Osteomyelitis of left great toe Allergies: Allergies Allergy/AdvReac Type Severity Reaction Status Date / Time aspirin Allergy Severe ANAPHYLAXIS, Verified 03/10/24 11:32 eyes red,swollen Plan Diagnosis/Plan: Unchanged I have reviewed the history and physical and performed a pertinent physical examination on my patient. No changes have occurred unless specified. Time Spent With Patient Time: Total time managing care of this patient today ____ minutes.
--- NOTE | 2024-03-10 11:51 | PC.NURSE ---
Patient arrived to preop. One PRN angio intact, #20 left FA. Site asymptomatic.
--- NOTE | 2024-03-10 11:56 | HO.ANESPROP2 ---
HPI - Anesthesia Eval Consult details Narrative: 58 yo M presenting for left great toe amputation PMFSH Active Problems Active Problems: All Active Problems Osteomyelitis of great toe of left foot (Acute) Diabetic foot infection (Acute) Osteomyelitis of ankle and foot (Acute) Screening for prostate cancer (Acute) Screening for colon cancer (Acute) Adult general medical exam (Acute) History of amputation of toe (Acute) Hydronephrosis (Acute) Ureter filling defect (Acute) Hx of right BKA (Acute) Pressure ulcer of left foot (Acute) S/P BKA (below knee amputation) (Acute) Osteomyelitis (Acute) Diabetes mellitus (Acute) PAD (peripheral artery disease) (Acute) Past Medical History Medical History Cold agglutinin disease No pertinent family history Peripheral neuropathy History of wound infection PAD (peripheral artery disease) Morbid obesity Hypertension Diabetes mellitus Family History Family History Mother Diabetes Father Blood infection Family history of mental disorder Maternal Grandmother Diabetes Paternal Grandmother Family history of mental disorder Family history of problems with anesthesia: No Surgical History Surgical History (Updated 03/10/24 @ 11:35 by Annabelle Ron RN) H/O cystoscopy H/O hand surgery Hx of right BKA History of amputation of toe (12/14/21) S/P debridement (~01/2017) History of amputation of toe (~06/2017) History of amputation of toe (~02/23/20) History of Problems with Anesthesia: No Social History Social History Household Members: Spouse Housing: House Do you presently have visiting nurse or other home services: No Alcohol intake: current Alcohol intake frequency: a few times a week Patient Tobacco Use Status: Never used Tobacco e-Cigarette/Vaping Use: Never Used Second Hand Smoke Exposure: No service: No Current occupational status: employed Current occupation: [employer] Cognitive needs: No Hearing needs: No Vision needs: No Meds Allergies Allergy/AdvReac Type Severity Reaction Status Date / Time aspirin Allergy Severe ANAPHYLAXIS, Verified 03/10/24 11:32 eyes red,swollen Active Medications: Current Medications Acetaminophen (Acetaminophen 325 Mg Tablet) 650 mg PO Q6H PRN PRN Reason: Pain, Mild (Pain Scale 1-3), fever or headache Amlodipine Besylate (Amlodipine Besylate 10 Mg Tablet) 10 mg PO BEDTIME [facility]; Protocol Last Admin: 03/09/24 22:10 Dose: 10 mg Atorvastatin Calcium (Atorvastatin Calcium 10 Mg Tablet) 10 mg PO DAILY [facility] Last Admin: 03/10/24 08:35 Dose: 10 mg Benzonatate (Benzonatate 100 Mg Capsule) 100 mg PO TID PRN PRN Reason: Cough Enoxaparin Sodium (Enoxaparin Sodium 40 Mg/0.4 Ml Syringe) 40 mg SUBCUT Q24H [facility] Last Admin: 03/09/24 15:02 Dose: 40 mg Glucose (Glucose Gel 15 Gm Gel..Gram.) 15 gm PO Q15M PRN; Protocol PRN Reason: per Hypoglycemia Standing Ord. Dextrose (D10) 250 mls @ 750 mls/hr IV Q15M PRN; Protocol PRN Reason: per Hypoglycemia Standing Ord. Piperacillin Sod/Tazobactam (Sod 3.375 gm/ Sodium Chloride) 50 mls @ 100 mls/hr IV Q6H [facility] Last Admin: 03/10/24 11:21 Dose: 100 mls/hr Insulin Glargine (Insulin Glargine,Hum.Rec.Anlog 100 Unit/Ml 10 Ml Vial) 62 unit SUBCUT BEDTIME [facility] Last Admin: 03/09/24 22:11 Dose: 62 unit Insulin Glargine (Insulin Glargine,Hum.Rec.Anlog 100 Unit/Ml 10 Ml Vial) 62 unit SUBCUT DAILY [facility] Last Admin: 03/10/24 08:40 Dose: Not Given Insulin Human Lispro (Insulin Lispro 100 Unit/Ml 3 Ml Vial) 0 unit SUBCUT QIDACHS [facility]; Protocol Last Admin: 03/10/24 07:54 Dose: Not Given Lisinopril (Lisinopril 40 Mg Tablet) 40 mg PO DAILY [facility]; Protocol Last Admin: 03/10/24 08:28 Dose: Not Given Magnesium Hydroxide (Milk Of Magnesia 30 Ml Oral.Susp) 30 ml PO DAILY PRN PRN Reason: Constipation Melatonin (Melatonin 3 Mg Tablet) 6 mg PO BEDTIME PRN PRN Reason: Insomnia Ondansetron HCl (Ondansetron Hcl 4 Mg/2 Ml Vial) 4 mg IVPUSH Q8H PRN PRN Reason: Nausea and Vomiting Sodium Chloride (0.9 % Sodium Chloride Flush 3 Ml Syringe) 3 ml IVFLUSH QSHIFT [facility] Last Admin: 03/10/24 08:36 Dose: 3 ml Home Medications ?Medication ?Instructions ?Recorded ?Confirmed ?Last Taken ?Type insulin glargine U-300 conc 300 78 unit subcut BID 03/06/24 03/06/24 03/06/24 History unit/mL (1.5 mL) subcutaneous pen (Toujeo SoloStar U-300 Insulin) insulin lispro 100 unit/mL See Rx Instructions .Route .COMPLEX 03/06/24 03/06/24 03/06/24 History subcutaneous pen (Humalog KwikPen (U-100) Insulin) Exam Exam Date and Time: March 10, 2024 1155 Height,Weight and Vital Signs: Height 5 ft 8 in Weight 143.789 kg Last Vital Signs Temp 98.2 F 03/10/24 11:36 Pulse 70 03/10/24 11:36 Resp 16 03/10/24 11:36 BP 169/80 H 03/10/24 11:36 Pulse Ox 98 03/10/24 11:36 O2 Del Method Room Air 03/10/24 11:36 Pertinent Lab Results Pertinent Lab Results: Laboratory Tests 03/06/24 03/06/24 03/06/24 11:48 14:35 16:09 WBC 22.6 H RBC 5.29 Hgb 15.1 Hct 45.4 MCV 85.8 MCH 28.5 MCHC 33.3 RDW 12.9 Plt Count 275 MPV 11.4 Immature Gran % (Auto) 0.6 H Neut % (Auto) 87.7 H Lymph % (Auto) 5.1 L [place] % (Auto) 6.3 Eos % (Auto) 0.0 Baso % (Auto) 0.3 Lymph # (Auto) 1.2 [place] # (Auto) 1.4 H Eos # (Auto) 0.0 Baso # (Auto) 0.1 Abs Immat Gran (auto) 0.13 H Absolute Neuts (auto) 19.9 H Absolute Nucleated RBC 0.000 Nucleated RBC % (auto) 0.0 ESR 47 H Hold Purple Top PT INR Sodium 134 L Potassium 4.9 Chloride 99 Carbon Dioxide 23 Anion Gap 17 BUN 18 H Creatinine 1.16 Estim Creat Clear Calc 94.4 Estimated GFR > 60 POC Glucose 154 H Random Glucose 261 H Fasting Glucose Lactic Acid TNP Calcium 9.5 Total Bilirubin 1.3 H AST 40 H ALT 57 H Alkaline Phosphatase 144 H C-Reactive Protein 23.85 H Total Protein 7.7 Albumin 3.5 Random Vancomycin 03/06/24 03/07/24 03/07/24 21:03 05:54 07:28 WBC 18.1 H RBC 5.00 Hgb 14.4 Hct 43.3 MCV 86.6 MCH 28.8 MCHC 33.3 RDW 13.1 Plt Count 291 MPV 11.1 Immature Gran % (Auto) Neut % (Auto) Lymph % (Auto) [place] % (Auto) Eos % (Auto) Baso % (Auto) Lymph # (Auto) [place] # (Auto) Eos # (Auto) Baso # (Auto) Abs Immat Gran (auto) Absolute Neuts (auto) Absolute Nucleated RBC 0.000 Nucleated RBC % (auto) 0.0 ESR Hold Purple Top PT INR Sodium 136 Potassium 4.2 Chloride 103 Carbon Dioxide 23 Anion Gap 14 BUN 21 H Creatinine 1.30 Estim Creat Clear Calc 84.2 Estimated GFR 56 POC Glucose 150 H 123 H Random Glucose 128 H Fasting Glucose Lactic Acid Calcium 9.6 Total Bilirubin AST ALT Alkaline Phosphatase C-Reactive Protein Total Protein Albumin Random Vancomycin 03/07/24 03/07/24 03/07/24 09:19 11:20 13:24 WBC RBC Hgb Hct MCV MCH MCHC RDW Plt Count MPV Immature Gran % (Auto) Neut % (Auto) Lymph % (Auto) [place] % (Auto) Eos % (Auto) Baso % (Auto) Lymph # (Auto) [place] # (Auto) Eos # (Auto) Baso # (Auto) Abs Immat Gran (auto) Absolute Neuts (auto) Absolute Nucleated RBC Nucleated RBC % (auto) ESR Hold Purple Top PT INR Sodium Potassium Chloride Carbon Dioxide Anion Gap BUN Creatinine Estim Creat Clear Calc Estimated GFR POC Glucose 262 H 312 H Random Glucose Fasting Glucose Lactic Acid Calcium Total Bilirubin AST ALT Alkaline Phosphatase C-Reactive Protein Total Protein Albumin Random Vancomycin 13.4 L 03/07/24 03/07/24 03/08/24 16:18 19:54 06:19 WBC RBC Hgb Hct MCV MCH MCHC RDW Plt Count MPV Immature Gran % (Auto) Neut % (Auto) Lymph % (Auto) [place] % (Auto) Eos % (Auto) Baso % (Auto) Lymph # (Auto) [place] # (Auto) Eos # (Auto) Baso # (Auto) Abs Immat Gran (auto) Absolute Neuts (auto) Absolute Nucleated RBC Nucleated RBC % (auto) ESR Hold Purple Top SEE NOTE PT INR Sodium Potassium Chloride Carbon Dioxide Anion Gap BUN Creatinine 1.23 Estim Creat Clear Calc 89.0 Estimated GFR > 60 POC Glucose 254 H 192 H Random Glucose Fasting Glucose Lactic Acid Calcium Total Bilirubin AST ALT Alkaline Phosphatase C-Reactive Protein Total Protein Albumin Random Vancomycin 03/08/24 03/08/24 03/08/24 07:13 11:47 13:04 WBC RBC Hgb Hct MCV MCH MCHC RDW Plt Count MPV Immature Gran % (Auto) Neut % (Auto) Lymph % (Auto) [place] % (Auto) Eos % (Auto) Baso % (Auto) Lymph # (Auto) [place] # (Auto) Eos # (Auto) Baso # (Auto) Abs Immat Gran (auto) Absolute Neuts (auto) Absolute Nucleated RBC Nucleated RBC % (auto) ESR Hold Purple Top PT INR Sodium Potassium Chloride Carbon Dioxide Anion Gap BUN Creatinine Estim Creat Clear Calc Estimated GFR POC Glucose 109 163 H Random Glucose Fasting Glucose Lactic Acid Calcium Total Bilirubin AST ALT Alkaline Phosphatase C-Reactive Protein Total Protein Albumin Random Vancomycin 12.9 L 03/08/24 03/08/24 03/09/24 15:54 20:15 06:21 WBC RBC Hgb Hct MCV MCH MCHC RDW Plt Count MPV Immature Gran % (Auto) Neut % (Auto) Lymph % (Auto) [place] % (Auto) Eos % (Auto) Baso % (Auto) Lymph # (Auto) [place] # (Auto) Eos # (Auto) Baso # (Auto) Abs Immat Gran (auto) Absolute Neuts (auto) Absolute Nucleated RBC Nucleated RBC % (auto) ESR Hold Purple Top SEE NOTE PT INR Sodium Potassium Chloride Carbon Dioxide Anion Gap BUN Creatinine 1.05 Estim Creat Clear Calc 104.2 Estimated GFR > 60 POC Glucose 220 H 215 H Random Glucose Fasting Glucose Lactic Acid Calcium Total Bilirubin AST ALT Alkaline Phosphatase C-Reactive Protein Total Protein Albumin Random Vancomycin 03/09/24 03/09/24 03/09/24 07:34 11:28 16:08 WBC RBC Hgb Hct MCV MCH MCHC RDW Plt Count MPV Immature Gran % (Auto) Neut % (Auto) Lymph % (Auto) [place] % (Auto) Eos % (Auto) Baso % (Auto) Lymph # (Auto) [place] # (Auto) Eos # (Auto) Baso # (Auto) Abs Immat Gran (auto) Absolute Neuts (auto) Absolute Nucleated RBC Nucleated RBC % (auto) ESR Hold Purple Top PT INR Sodium Potassium Chloride Carbon Dioxide Anion Gap BUN Creatinine Estim Creat Clear Calc Estimated GFR POC Glucose 71 135 H 203 H Random Glucose Fasting Glucose Lactic Acid Calcium Total Bilirubin AST ALT Alkaline Phosphatase C-Reactive Protein Total Protein Albumin Random Vancomycin 03/09/24 03/10/24 03/10/24 20:22 05:09 07:05 WBC 13.3 H RBC 5.06 Hgb 14.6 Hct 44.4 MCV 87.7 MCH 28.9 MCHC 32.9 RDW 13.2 Plt Count 283 MPV 11.3 Immature Gran % (Auto) 1.2 H Neut % (Auto) 78.9 H Lymph % (Auto) 10.4 L [place] % (Auto) 7.5 Eos % (Auto) 1.7 Baso % (Auto) 0.3 Lymph # (Auto) 1.4 [place] # (Auto) 1.0 Eos # (Auto) 0.2 Baso # (Auto) 0.0 Abs Immat Gran (auto) 0.16 H Absolute Neuts (auto) 10.4 H Absolute Nucleated RBC 0.000 Nucleated RBC % (auto) 0.0 ESR Hold Purple Top PT 12.6 INR 1.0 Sodium 138 Potassium 4.5 Chloride 104 Carbon Dioxide 24 Anion Gap 15 BUN 17 H Creatinine 1.11 Estim Creat Clear Calc 98.6 Estimated GFR > 60 POC Glucose 179 H 103 Random Glucose Fasting Glucose 117 H Lactic Acid Calcium 9.6 Total Bilirubin 0.7 AST 30 ALT 49 H Alkaline Phosphatase 130 H C-Reactive Protein Total Protein 7.2 Albumin 3.2 L Random Vancomycin 03/10/24 11:44 WBC RBC Hgb Hct MCV MCH MCHC RDW Plt Count MPV Immature Gran % (Auto) Neut % (Auto) Lymph % (Auto) [place] % (Auto) Eos % (Auto) Baso % (Auto) Lymph # (Auto) [place] # (Auto) Eos # (Auto) Baso # (Auto) Abs Immat Gran (auto) Absolute Neuts (auto) Absolute Nucleated RBC Nucleated RBC % (auto) ESR Hold Purple Top PT INR Sodium Potassium Chloride Carbon Dioxide Anion Gap BUN Creatinine Estim Creat Clear Calc Estimated GFR POC Glucose 103 Random Glucose Fasting Glucose Lactic Acid Calcium Total Bilirubin AST ALT Alkaline Phosphatase C-Reactive Protein Total Protein Albumin Random Vancomycin Airway Mallampati Class: II TM Dist: >3cm Neck ROM: Full Loose/Missing/Broken Teeth: Yes (multiple missing teeth but otherwise nothing loose or chipped) Heart: S1S2 Lungs: CTAB Assessment and Plan Assessment Anesthesia Assessment: Anesthesia Plan Discussed and Chart Reviewed Final Anesthetic Review Family History of Problems with Anesthesia: No History of Problems with Anesthesia: No NPO: Yes ASA Class: III Final Preanesthetic Review: No Changes in Pt Med Stat, Meds/Allgs Chart Reviewed, Consent Obtained/Reviewed and Anes Risks/Benef Reviewed Patient Risk: Intermediate Procedure Risk: Low Anesthetic Plan Anesthetic Plan: GA and Agree w/ Assess. and Plan Disposition: Standard PACU
--- NOTE | 2024-03-10 11:58 | PC.NURSE ---
Patient in preop, one hoop earring unable to be removed, left ear. Dr. Clarice torres. [facility] waiver signed.
--- NOTE | 2024-03-10 12:04 | PC.NURSE ---
Patient in preop. 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 Dr. Oneil at bedside. Aware, no new orders.
--- NOTE | 2024-03-10 13:13 | P.OP_ITS ---
Operative Note Operative Note Date of Service: 03/10/24 Narrative: Preoperative diagnosis: Osteomyelitis and gangrene right great toe Postoperative diagnosis: Same Procedure: Right great toe amputation Surgeon: Ernesto Abdi MD Geospatial Scientist: Carmen Diego PA-C, Michel North, MS-3 Anesthesia: General plus digital block Indications for procedure: 58-year-old male patient with a previous history of right BKA and low left amputation of 2nd through 5th toes now presenting with gangrene and purulent discharge from the left great toe. Foot x-ray confirmed osteomyelitis involving the distal phalanx. Operative findings: Obviously infected left great toe with gangrenous overlying skin and foul-smelling discharge. Specimen: Right great toe Estimated blood loss: 20 mL Complications: None Procedure details: An oblique incision was made between the webspace of the 1st and 2nd toe extending obliquely towards the medial surface of the 1st metatarsal head. The incision was continued along the plantar surface. This was continued using electrocautery down to the proximal phalanx and distal metatarsal head. Electrocautery was then used to expose the metatarsal head approximally 3 cm proximally. Hemostasis was assured using electrocautery. A periosteal elevator was then used to further expose the distal metatarsal. Bone saw was then used to divide the distal metatarsal. Remaining soft tissue was then using electrocautery. Hemostasis was again assured using electrocautery. Wounds were then irrigated with saline solution and suctioned dry. Wounds were then packed with Betadine soaked fluff gauze followed by dry fluff gauze. This was then covered with a Kerlix followed by Jasiel bandage. The patient tolerated the procedure well. Sponge, instrument, needle counts reported as correct. The patient was transferred to PACU in stable condition.
--- NOTE | 2024-03-10 15:10 | HO.WOUND ---
Wound consult received for Left great toe wound - chart review reveals set for OR for amputation. TT with Dr Samayoa confirmed no need to inpatient wound care nurse to see patient. Will re-consult if topical recommendations are needed.
[2024-03-10] MEDS: Enoxaparin Sodium 40 MG/0.4 ML SYRINGE SUBCUT (16:08)
[2024-03-10 16:21] LABS: Glucose, Whole Blood 164 mg/dL (60-115)
[2024-03-10] MEDS: Insulin Lispro 100 UNIT/ML 3 ML VIAL SUBCUT ×2 (17:18→20:58)
[2024-03-10 20:34] LABS: Glucose, Whole Blood 295 mg/dL (60-115)
[2024-03-10] MEDS: amLODIPine Besylate 10 MG TABLET PO (20:56)
[2024-03-10] MEDS: Insulin Glargine,Hum.rec.anlog 100 UNIT/ML 10 ML VIAL 62 UNIT SUBCUT (20:57)
[2024-03-11 04:00] VITALS: BP 166/74; PULSE 73; RESP 16; TEMP 36.6; O2SAT 94
[2024-03-11] MEDS: Piperacillin Sodium/Tazobactam 3.375 GM in 0.9 % Sodium Chloride 50 ML IV ×3 (05:00→17:38)
[2024-03-11 07:02] LABS: Anion Gap 13 (12-20); Blood Urea Nitrogen 16 mg/dL (9-16); Calcium 9.7 mg/dL (8.4-10.2); Carbon Dioxide 26 mmol/L (22-29); Chloride 101 mmol/L (96-108); Estimated Glomerular Filt Rate > 60; Glucose Random 186 mg/dL (60-115); Potassium 5.4 mmol/L (3.3-5.1); Sodium 135 mmol/L (135-145)
[2024-03-11 07:20] LABS: Hemoglobin 14.2 g/dl (14.0-18.0); Mean Corpuscular Volume 87.8 fL (80.0-98.0); Platelet Count 299 X10*3/uL (160-400)
[2024-03-11 07:25] LABS: Glucose, Whole Blood 153 mg/dL (60-115)
--- NOTE | 2024-03-11 07:40 | P.PNGS_ITS ---
Subjective Subjective Date of Service: 03/11/24 Interval history: POD #1 status post left great toe amputation. Patient reports no foot pain at this time. Physical Exam 2 Vital Signs: Vital Signs: Last Vital Signs Temp 97.9 F 03/11/24 04:00 Pulse 73 03/11/24 04:00 Resp 16 03/11/24 04:00 BP 166/74 H 03/11/24 04:00 Pulse Ox 94 03/11/24 04:00 O2 Del Method Room Air 03/11/24 04:00 O2 Flow Rate 2 03/10/24 13:21 BMI result Body Mass Index 48.2 Const: General: no acute distress Nutritional Appearance: well nourished Orientation/consciousness: patient oriented x3 Resp: Effort & Inspection: normal respiratory effort Skin: Other: Warm, dry, no rash Neuro: General: patient oriented x3 Extrem: Other: Dressings changed to left foot. Moderate amount of bloody discharge on dressings. Wounds repacked with Betadine-soaked 4 x 4 gauze followed by dry gauze, ABD, Kerlix and Jasiel bandage. Erythema much improved and no evidence of abscess at this time. Ankle/foot/toe images: 1. Transmetatarsal amputation Objective Data Active Medications Acetaminophen (Acetaminophen 325 Mg Tablet) 650 mg PO Q6H PRN PRN Reason: Pain, Mild (Pain Scale 1-3), fever or headache Amlodipine Besylate (Amlodipine Besylate 10 Mg Tablet) 10 mg PO BEDTIME [facility]; Protocol Last Admin: 03/10/24 20:56 Dose: 10 mg Documented By: NITA Atorvastatin Calcium (Atorvastatin Calcium 10 Mg Tablet) 10 mg PO DAILY [facility] Last Admin: 03/10/24 08:35 Dose: 10 mg Documented By: RENATO Benzonatate (Benzonatate 100 Mg Capsule) 100 mg PO TID PRN PRN Reason: Cough Enoxaparin Sodium (Enoxaparin Sodium 40 Mg/0.4 Ml Syringe) 40 mg SUBCUT Q24H [facility] Last Admin: 03/10/24 16:08 Dose: 40 mg Documented By: RENATO Glucose (Glucose Gel 15 Gm Gel..Gram.) 15 gm PO Q15M PRN; Protocol PRN Reason: per Hypoglycemia Standing Ord. Hydromorphone HCl (Hydromorphone Hcl 0.5 Mg/0.5 Ml Syringe) 0.5 mg IVPUSH Q3H PRN; Protocol PRN Reason: Pain, Severe (Pain Scale 7-10) Dextrose (D10) 250 mls @ 750 mls/hr IV Q15M PRN; Protocol PRN Reason: per Hypoglycemia Standing Ord. Piperacillin Sod/Tazobactam (Sod 3.375 gm/ Sodium Chloride) 50 mls @ 100 mls/hr IV Q6H [facility] Last Infusion: 03/11/24 05:42 Dose: Infused Documented By: NITA Insulin Glargine (Insulin Glargine,Hum.Rec.Anlog 100 Unit/Ml 10 Ml Vial) 62 unit SUBCUT BEDTIME [facility] Last Admin: 03/10/24 20:57 Dose: 62 unit Documented By: NITA Insulin Glargine (Insulin Glargine,Hum.Rec.Anlog 100 Unit/Ml 10 Ml Vial) 62 unit SUBCUT DAILY [facility] Last Admin: 03/10/24 08:40 Dose: Not Given Documented By: RENATO Non-Admin Reason: Physician Held Med Insulin Human Lispro (Insulin Lispro 100 Unit/Ml 3 Ml Vial) 0 unit SUBCUT QIDACHS [facility]; Protocol Last Admin: 03/10/24 20:58 Dose: 6 unit Documented By: NITA Lisinopril (Lisinopril 40 Mg Tablet) 40 mg PO DAILY [facility]; Protocol Last Admin: 03/10/24 08:28 Dose: Not Given Documented By: RENATO Non-Admin Reason: planned for OR Magnesium Hydroxide (Milk Of Magnesia 30 Ml Oral.Susp) 30 ml PO DAILY PRN PRN Reason: Constipation Melatonin (Melatonin 3 Mg Tablet) 6 mg PO BEDTIME PRN PRN Reason: Insomnia Ondansetron HCl (Ondansetron Hcl 4 Mg/2 Ml Vial) 4 mg IVPUSH Q8H PRN PRN Reason: Nausea and Vomiting Oxycodone HCl (Oxycodone Hcl Immed Release 5 Mg Tablet) 5 mg PO Q6H PRN PRN Reason: Pain, Moderate(Pain Scale 4-6) Sodium Chloride (0.9 % Sodium Chloride Flush 3 Ml Syringe) 3 ml IVFLUSH QSHIFT [facility] Last Admin: 03/10/24 20:56 Dose: 3 ml Documented By: NITA Labs 03/11/24 05:48 03/11/24 05:48 Labs: Laboratory Results - last 24 hr 03/10/24 03/10/24 03/10/24 11:44 16:14 20:29 MCV MCH MCHC RDW Plt Count MPV Absolute Nucleated RBC Nucleated RBC % (auto) Anion Gap Estim Creat Clear Calc Estimated GFR POC Glucose 103 164 H 295 H Random Glucose Calcium 03/11/24 03/11/24 05:48 07:20 MCV 87.8 MCH 29.0 MCHC 33.0 RDW 13.0 Plt Count 299 MPV 11.0 Absolute Nucleated RBC 0.000 Nucleated RBC % (auto) 0.0 Anion Gap 13 Estim Creat Clear Calc 92.0 Estimated GFR > 60 POC Glucose 153 H Random Glucose 186 H Calcium 9.7 Microbiology Microbiology Results: Microbiology 03/06/24 13:57 Blood Culture - Preliminary Blood - Venous Streptococcus viridans group 03/06/24 13:55 Blood Culture - Preliminary Blood - Venous Streptococcus viridans group Procedures Date of Service Date of Service: 03/11/24 Progress Note: A&P Assessment and plan (1) Osteomyelitis of great toe of left foot: Status: Acute Plan Pod 1 following left great toe amputation. Patient tolerated the procedure well. Wounds are open and packed with Betadine soaked gauze. Twice daily dressing changes have been requested. Will need wound care consultation for discharge VNA Will continue to monitor Time Spent With Patient Time: Total time managing care of this patient today ____ minutes. Quality Stroke Does the patient have a stroke diagnosis?: No VTE Prior VTE?: No VTE Risk Level:: Medical - moderate - high VTE Device Contraindication: Treatment Not Indicated VTE Drug Contraindication: N/A - Med Ordered
[2024-03-11 07:42] VITALS: BP 152/70; PULSE 66; RESP 18; TEMP 36.6; O2SAT 93
[2024-03-11] MEDS: Insulin Glargine,Hum.rec.anlog 100 UNIT/ML 10 ML VIAL 62 UNIT SUBCUT ×2 (08:05→20:34)
[2024-03-11] MEDS: lisinopriL 40 MG TABLET PO (08:05)
[2024-03-11] MEDS: Atorvastatin Calcium 10 MG TABLET PO (08:05)
[2024-03-11] MEDS: Insulin Lispro 100 UNIT/ML 3 ML VIAL SUBCUT ×4 (08:05→20:34)
[2024-03-11] MEDS: 0.9 % Sodium Chloride Flush 3 ML SYRINGE IVFLUSH ×2 (08:06→15:28)
--- NOTE | 2024-03-11 09:14 | MHC.CM.PN ---
Patient will require new VNA on dc for SN/wound care. Patient prefers [facility]. will assist w/ wound care on days VNA is not available and has help w/ wound care in the past. Referral sent via [facility]. Awaiting response.
--- NOTE | 2024-03-11 10:18 | HO.POSTANES ---
Post Anesthesia Evaluation Post Anesthesia Evaluation Date of Service: 03/10/24 Vital Signs: Vital Signs Temp Pulse Resp BP Pulse Ox O2 Del Method O2 Flow Rate 03/11/24 07:42 97.9 F 66 18 152/70 H 93 Room Air 94 03/11/24 04:00 97.9 F 73 16 166/74 H 94 Room Air 03/10/24 23:24 97.4 F 70 16 149/67 H 93 Room Air Anesthesia: General Mental Status: Awake Pain Control: Satisfactory Nausea/Vomiting: None Hydration: Adequate Anesthesia-Related Issues: No Anes. Related Issues
[2024-03-11 11:15] LABS: Glucose, Whole Blood 194 mg/dL (60-115)
[2024-03-11 12:00] VITALS: BP 151/92; PULSE 69; RESP 16; TEMP 36.3; O2SAT 96
--- NOTE | 2024-03-11 14:37 | HO.WOUND ---
Wound Consult: Initial 58yr old?Male admitted to [facility] on 03/06/24 - See progress notes and H&P for detailed history.? New wound consult placed for discharge planning for wound care. ? Patient agreeable to assessment and photo documentation.? Chart review reveals provider has orders twice daily betadine soaked gauze packing. Patient will likely benefit from outpt follow up with Outpt wound clinic patient reports he is agreeable to this as well and reports he has been a patient there in the past prior to his Right Leg amputation. Left Foot Amputation site POD#1 Etiology: ?Amputation site Measurements: 4cm x 4cm x 2cm Wound Bed: marbled wound bed with red moist tissue and yellow slough Drainage / Odor: malodor noted - carlin and bloody drainage noted - moderate amount Edges: ? well defined and unattached Amaris wound: ?mild erythema - No Induration, Fluctuance or Warmth noted Pain: denies pain Goals of Treatment: ? While inpatient may continue with provider orders for betadine however at time of d/c recommend Durafiber AG packing and follow up with outpt wound clinic. May will likely need VNA services at time of d/c. Recommendations: 1. Turn and Reposition every 2 hours and as needed for patient comfort.? Use pillows or wedges to support off loading positions. 2. Off Load all bony prominences with use of pillows and heel boots if needed.? Apply Preventative foams where needed. ? 3. Monitor for incontinence and moisture control, use barrier creams when needed for prevention and treatment. 4. Provide adequate and supplemental nutrition.? 5. Order or Continue low air loss mattress. 6. When applicable maintain blood glucose levels per Providers order. 7. Left Foot - Elevate Left Leg - Cleanse and irrigate with NS. Apply skin prep wipe to periwound. Lightly pack wound bed with Durafiber AG, cover with dry gauze, ABD pad and gauze wrap. Change every other day. Recommend follow up out patient Wound Clinic at [address] [place] [phone] and to call for an appointment at time of discharge. [phone].? Re-consult wound care Nurse for wound deterioration or wound changes.
[2024-03-11 15:26] VITALS: BP 176/66; PULSE 68; RESP 18; TEMP 36.3; O2SAT 97
[2024-03-11] MEDS: Enoxaparin Sodium 40 MG/0.4 ML SYRINGE SUBCUT (15:28)
[2024-03-11 16:12] LABS: Glucose, Whole Blood 264 mg/dL (60-115)
--- NOTE | 2024-03-11 17:09 | P.PNIM_ITS ---
Subjective Subjective Date of Service: 03/11/24 Interval History: Being followed for left great toe infection status post left great toe amputation on 03/10, offers no acute complaints. Concern about poorly controlled blood sugars at home. Denies fever, no chills, no nausea, no vomiting tolerating diet, no diarrhea no other acute issues overnight. Review of Systems All other system reviewed and are negative. Physical Exam 2 Vital Signs: Vital Signs: Last Vital Signs Temp 97.3 F 03/11/24 15:26 Pulse 68 03/11/24 15:26 Resp 18 03/11/24 15:26 BP 176/66 H 03/11/24 15:26 Pulse Ox 97 03/11/24 15:26 O2 Del Method Room Air 03/11/24 15:26 O2 Flow Rate 94 03/11/24 07:42 BMI result Body Mass Index 48.2 Const: Other: General awake alert x3, in no acute distress. Anicteric sclera Neck no JVD. CVS regular rate rhythm, Respiratory lungs clear to auscultation, no respiratory distress Gastrointestinal abdomen soft, non tender, bowel sounds audible Extremities rt bka, left foot dressing in place Neuro non focal Skin warm and dry Psych appropriate affect Objective Data Active Medications Acetaminophen (Acetaminophen 325 Mg Tablet) 650 mg PO Q6H PRN PRN Reason: Pain, Mild (Pain Scale 1-3), fever or headache Amlodipine Besylate (Amlodipine Besylate 10 Mg Tablet) 10 mg PO BEDTIME [facility]; Protocol Last Admin: 03/10/24 20:56 Dose: 10 mg Documented By: NITA Atorvastatin Calcium (Atorvastatin Calcium 10 Mg Tablet) 10 mg PO DAILY [facility] Last Admin: 03/11/24 08:05 Dose: 10 mg Documented By: LITO Benzonatate (Benzonatate 100 Mg Capsule) 100 mg PO TID PRN PRN Reason: Cough Enoxaparin Sodium (Enoxaparin Sodium 40 Mg/0.4 Ml Syringe) 40 mg SUBCUT Q24H [facility] Last Admin: 03/11/24 15:28 Dose: 40 mg Documented By: ELIGIO Glucose (Glucose Gel 15 Gm Gel..Gram.) 15 gm PO Q15M PRN; Protocol PRN Reason: per Hypoglycemia Standing Ord. Hydromorphone HCl (Hydromorphone Hcl 0.5 Mg/0.5 Ml Syringe) 0.5 mg IVPUSH Q3H PRN; Protocol PRN Reason: Pain, Severe (Pain Scale 7-10) Dextrose (D10) 250 mls @ 750 mls/hr IV Q15M PRN; Protocol PRN Reason: per Hypoglycemia Standing Ord. Piperacillin Sod/Tazobactam (Sod 3.375 gm/ Sodium Chloride) 50 mls @ 100 mls/hr IV Q6H [facility] Last Infusion: 03/11/24 12:45 Dose: Infused Documented By: LITO Insulin Glargine (Insulin Glargine,Hum.Rec.Anlog 100 Unit/Ml 10 Ml Vial) 62 unit SUBCUT BEDTIME [facility] Last Admin: 03/10/24 20:57 Dose: 62 unit Documented By: NITA Insulin Glargine (Insulin Glargine,Hum.Rec.Anlog 100 Unit/Ml 10 Ml Vial) 62 unit SUBCUT DAILY [facility] Last Admin: 03/11/24 08:05 Dose: 62 unit Documented By: LITO Insulin Human Lispro (Insulin Lispro 100 Unit/Ml 3 Ml Vial) 0 unit SUBCUT QIDACHS [facility]; Protocol Last Admin: 03/11/24 12:02 Dose: 2 unit Documented By: LITO Lisinopril (Lisinopril 40 Mg Tablet) 40 mg PO DAILY [facility]; Protocol Last Admin: 03/11/24 08:05 Dose: 40 mg Documented By: LITO Magnesium Hydroxide (Milk Of Magnesia 30 Ml Oral.Susp) 30 ml PO DAILY PRN PRN Reason: Constipation Melatonin (Melatonin 3 Mg Tablet) 6 mg PO BEDTIME PRN PRN Reason: Insomnia Ondansetron HCl (Ondansetron Hcl 4 Mg/2 Ml Vial) 4 mg IVPUSH Q8H PRN PRN Reason: Nausea and Vomiting Oxycodone HCl (Oxycodone Hcl Immed Release 5 Mg Tablet) 5 mg PO Q6H PRN PRN Reason: Pain, Moderate(Pain Scale 4-6) Sodium Chloride (0.9 % Sodium Chloride Flush 3 Ml Syringe) 3 ml IVFLUSH QSHIFT [facility] Last Admin: 03/11/24 15:28 Dose: 3 ml Documented By: MEMEQC Labs 03/11/24 05:48 03/11/24 05:48 Labs: Laboratory Results - last 24 hr 03/10/24 03/11/24 03/11/24 20:29 05:48 07:20 MCV 87.8 MCH 29.0 MCHC 33.0 RDW 13.0 Plt Count 299 MPV 11.0 Absolute Nucleated RBC 0.000 Nucleated RBC % (auto) 0.0 Anion Gap 13 Estim Creat Clear Calc 92.0 Estimated GFR > 60 POC Glucose 295 H 153 H Random Glucose 186 H Calcium 9.7 03/11/24 03/11/24 11:06 16:07 MCV MCH MCHC RDW Plt Count MPV Absolute Nucleated RBC Nucleated RBC % (auto) Anion Gap Estim Creat Clear Calc Estimated GFR POC Glucose 194 H 264 H Random Glucose Calcium Microbiology Microbiology Results: Microbiology 03/06/24 13:57 Blood Culture - Preliminary Blood - Venous Streptococcus viridans group 03/06/24 13:55 Blood Culture - Preliminary Blood - Venous Streptococcus viridans group Assessment and Plan (1) Osteomyelitis of great toe of left foot: Status: Acute Plan Pt is a 58-year-old male with a PMH significant for HTN, HLD, insulin-dependent type 2 diabetes, hx of MRSA osteomyelitis, s/p right BKA, s/p multiple left toe amputations, cold agglutinin disease, and peripheral?peripheral vascular disease on Plavix who presents to the ED from wound care for evaluation of chronic nonhealing left great toe ulcer. Pt will be admitted to the hospital for treatment and further evaluation of osteomyelitis of left great toe. 1.Osteomyelitis of left great toe Status post left great toe amputation POD#1 Good pain control Seen by Dr. Abdi he recommend twice daily dressing changes and wound care consult WBC trending down, stable electrolytes and renal function, on IV Zosyn started on 03/06, IV vancomycin discontinued on 03/10. Blood cultures 2/2 positive for Streptococcus viridans, will need 2 weeks of antibiotics. PT eval prior to discharge 2.Peripheral vascular disease -will resume clopidogrel, was held for surgical procedure 3.Insulin-dependent type 2 diabetes -acceptable control on current therapies, -on Lantus 62u bid and lispro correctional scale,adjust as indicated. 4.HTN -continue Norvasc and lisinopril, follow BP closely 5. Hyperlipidemia continue statin 6. Acute hyperkalemia question hemolyzed specimen will follow BMP 7. Morbid obesity recommend to follow low-calorie diet. Full Code Lovenox Patient will require ongoing hospitalization for IV antibiotics for strep viridans bacteremia and postop care for left great toe amputation. Quality Stroke Does the patient have a stroke diagnosis?: No VTE Prior VTE?: No VTE Risk Level:: Medical - moderate - high VTE Device Contraindication: Treatment Not Indicated VTE Drug Contraindication: N/A - Med Ordered
--- NOTE | 2024-03-11 17:54 | PC.NURSE ---
Pt's BP at 1526 was 176/66, Dr. Samayoa aware.
[2024-03-11 19:04] VITALS: BP 164/70; PULSE 61; RESP 20; TEMP 36.4; O2SAT 96
[2024-03-11 20:12] LABS: Glucose, Whole Blood 209 mg/dL (60-115)
[2024-03-11] MEDS: amLODIPine Besylate 10 MG TABLET PO (20:34)
[2024-03-11 23:36] VITALS: BP 156/82; PULSE 63; RESP 18; TEMP 36.6; O2SAT 95
[2024-03-12] MEDS: Piperacillin Sodium/Tazobactam 3.375 GM in 0.9 % Sodium Chloride 50 ML IV ×3 (00:09→12:10)
[2024-03-12 03:23] VITALS: BP 165/67; PULSE 69; RESP 18; TEMP 36.4; O2SAT 94
[2024-03-12 07:39] VITALS: BP 176/76; PULSE 71; RESP 17; TEMP 36.2; O2SAT 94
[2024-03-12 07:45] LABS: Glucose, Whole Blood 103 mg/dL (60-115)
--- NOTE | 2024-03-12 08:04 | PM.PNGS ---
Subjective Subjective Date of Service: 03/12/24 Interval history: Patient with no complaints this morning. Physical Exam Vital Signs: Vital Signs: Last Vital Signs Temp 97.2 F 03/12/24 07:39 Pulse 71 03/12/24 07:39 Resp 17 03/12/24 07:39 BP 176/76 H 03/12/24 07:39 Pulse Ox 94 03/12/24 07:39 O2 Del Method Room Air 03/12/24 07:39 O2 Flow Rate 94 03/11/24 07:42 BMI result Body Mass Index 48.2 Const: General: comfortable Nutritional Appearance: well nourished Orientation/consciousness: patient oriented x3 Limitations: no limitations Resp: Effort & Inspection: normal respiratory effort Neuro: General: patient oriented x3 Extrem: Other: Dressings changed to left foot. New granulation noted. New dressings applied including silver alginate, fluff gauze, ABD, Kerlix, and Jasiel bandage. Patient tolerated well. Small amount erythema remains on the childress. No erythema noted in the foot. Objective Data Active Medications Acetaminophen (Acetaminophen 325 Mg Tablet) 650 mg PO Q6H PRN PRN Reason: Pain, Mild (Pain Scale 1-3), fever or headache Amlodipine Besylate (Amlodipine Besylate 10 Mg Tablet) 10 mg PO BEDTIME [facility]; Protocol Last Admin: 03/11/24 20:34 Dose: 10 mg Documented By: GABRIELA Atorvastatin Calcium (Atorvastatin Calcium 10 Mg Tablet) 10 mg PO DAILY [facility] Last Admin: 03/11/24 08:05 Dose: 10 mg Documented By: LITO Benzonatate (Benzonatate 100 Mg Capsule) 100 mg PO TID PRN PRN Reason: Cough Clopidogrel Bisulfate (Clopidogrel Bisulfate 75 Mg Tablet) 75 mg PO DAILY [facility] Enoxaparin Sodium (Enoxaparin Sodium 40 Mg/0.4 Ml Syringe) 40 mg SUBCUT Q24H [facility] Last Admin: 03/11/24 15:28 Dose: 40 mg Documented By: ELIGIO Glucose (Glucose Gel 15 Gm Gel..Gram.) 15 gm PO Q15M PRN; Protocol PRN Reason: per Hypoglycemia Standing Ord. Hydromorphone HCl (Hydromorphone Hcl 0.5 Mg/0.5 Ml Syringe) 0.5 mg IVPUSH Q3H PRN; Protocol PRN Reason: Pain, Severe (Pain Scale 7-10) Dextrose (D10) 250 mls @ 750 mls/hr IV Q15M PRN; Protocol PRN Reason: per Hypoglycemia Standing Ord. Piperacillin Sod/Tazobactam (Sod 3.375 gm/ Sodium Chloride) 50 mls @ 100 mls/hr IV Q6H [facility] Last Infusion: 03/12/24 06:02 Dose: Infused Documented By: GABRIELA Insulin Glargine (Insulin Glargine,Hum.Rec.Anlog 100 Unit/Ml 10 Ml Vial) 62 unit SUBCUT BEDTIME [facility] Last Admin: 03/11/24 20:34 Dose: 62 unit Documented By: GABRIELA Insulin Glargine (Insulin Glargine,Hum.Rec.Anlog 100 Unit/Ml 10 Ml Vial) 62 unit SUBCUT DAILY [facility] Last Admin: 03/11/24 08:05 Dose: 62 unit Documented By: LITO Insulin Human Lispro (Insulin Lispro 100 Unit/Ml 3 Ml Vial) 0 unit SUBCUT QIDACHS [facility]; Protocol Last Admin: 03/12/24 07:50 Dose: Not Given Documented By: BRIANNE Non-Admin Reason: No Insulin Coverage Lisinopril (Lisinopril 40 Mg Tablet) 40 mg PO DAILY [facility]; Protocol Last Admin: 03/11/24 08:05 Dose: 40 mg Documented By: LITO Magnesium Hydroxide (Milk Of Magnesia 30 Ml Oral.Susp) 30 ml PO DAILY PRN PRN Reason: Constipation Melatonin (Melatonin 3 Mg Tablet) 6 mg PO BEDTIME PRN PRN Reason: Insomnia Ondansetron HCl (Ondansetron Hcl 4 Mg/2 Ml Vial) 4 mg IVPUSH Q8H PRN PRN Reason: Nausea and Vomiting Oxycodone HCl (Oxycodone Hcl Immed Release 5 Mg Tablet) 5 mg PO Q6H PRN PRN Reason: Pain, Moderate(Pain Scale 4-6) Sodium Chloride (0.9 % Sodium Chloride Flush 3 Ml Syringe) 3 ml IVFLUSH QSHIFT [facility] Last Admin: 03/11/24 23:14 Dose: Not Given Documented By: GABRIELA Non-Admin Reason: Previously Administered Labs 03/11/24 05:48 03/11/24 05:48 Labs: Laboratory Results - last 24 hr 03/11/24 03/11/24 03/11/24 11:06 16:07 20:08 POC Glucose 194 H 264 H 209 H 03/12/24 07:41 POC Glucose 103 Microbiology Microbiology Results: Microbiology 03/06/24 13:57 Blood Culture - Preliminary Blood - Venous Streptococcus viridans group 03/06/24 13:55 Blood Culture - Preliminary Blood - Venous Streptococcus viridans group Procedures Date of Service Date of Service: 03/12/24 Progress Note: A&P Assessment and plan (1) Osteomyelitis of great toe of left foot: Status: Acute Plan 58-year-old male patient status post amputation of the left great toe. Wounds are clean and granulating. We will stop Betadine dressings and start with silver alginate. Will need continued daily dressing changes. Plan wound care center follow-up upon discharge. Time Spent With Patient Time: Total time managing care of this patient today ____ minutes. Quality Stroke Does the patient have a stroke diagnosis?: No VTE Prior VTE?: No VTE Risk Level:: Medical - moderate - high VTE Device Contraindication: Treatment Not Indicated VTE Drug Contraindication: N/A - Med Ordered
[2024-03-12] MEDS: Insulin Glargine,Hum.rec.anlog 100 UNIT/ML 10 ML VIAL 62 UNIT SUBCUT ×2 (08:12→20:48)
[2024-03-12] MEDS: lisinopriL 40 MG TABLET PO (08:12)
[2024-03-12] MEDS: Clopidogrel Bisulfate 75 MG TABLET PO (08:12)
[2024-03-12] MEDS: Atorvastatin Calcium 10 MG TABLET PO (08:12)
[2024-03-12] MEDS: 0.9 % Sodium Chloride Flush 3 ML SYRINGE IVFLUSH ×2 (08:13→15:34)
[2024-03-12 09:24] LABS: Anion Gap 14 (12-20); Blood Urea Nitrogen 14 mg/dL (9-16); Calcium 9.4 mg/dL (8.4-10.2); Carbon Dioxide 27 mmol/L (22-29); Chloride 101 mmol/L (96-108); Creatinine Clr Calc Pharmacy 103.3; Estimated Glomerular Filt Rate > 60; Glucose Random 163 mg/dL (60-115); Potassium 4.8 mmol/L (3.3-5.1); Sodium 137 mmol/L (135-145)
[2024-03-12 09:33] LABS: Hematocrit 44.1 % (42.0-52.0); Hemoglobin 14.4 g/dl (14.0-18.0); Mean Corpuscular HGB Conc 32.7 g/dl (31.0-36.0); Mean Corpuscular Hemoglobin 28.6 pg (27.0-33.0); Mean Corpuscular Volume 87.7 fL (80.0-98.0); Mean Platelet Volume 10.5 fL (9.4-12.4); Platelet Count 315 X10*3/uL (160-400); Red Blood Count 5.03 X10*6/uL (4.60-5.80); Red Cell Distribution Width 12.8 % (11.0-16.0); White Blood Count 14.4 X10*3/uL (4.8-10.8)
--- NOTE | 2024-03-12 11:21 | P.PNIM_ITS ---
Subjective Subjective Date of Service: 03/12/24 Interval History: pain controlled Physical Exam 2 Vital Signs: Vital Signs: Last Vital Signs Temp 97.2 F 03/12/24 07:39 Pulse 71 03/12/24 07:39 Resp 17 03/12/24 07:39 BP 176/76 H 03/12/24 07:39 Pulse Ox 94 03/12/24 07:39 O2 Del Method Room Air 03/12/24 07:39 O2 Flow Rate 94 03/11/24 07:42 BMI result Body Mass Index 48.2 Const: Other: General awake alert x3, in no acute distress. Anicteric sclera Neck no JVD. CVS regular rate rhythm, Respiratory lungs clear to auscultation, no respiratory distress Gastrointestinal abdomen soft, non tender, bowel sounds audible Extremities rt bka, left foot dressing in place Neuro non focal Skin warm and dry Psych appropriate affect Objective Data Active Medications Acetaminophen (Acetaminophen 325 Mg Tablet) 650 mg PO Q6H PRN PRN Reason: Pain, Mild (Pain Scale 1-3), fever or headache Amlodipine Besylate (Amlodipine Besylate 10 Mg Tablet) 10 mg PO BEDTIME [facility]; Protocol Last Admin: 03/11/24 20:34 Dose: 10 mg Documented By: GABRIELA Atorvastatin Calcium (Atorvastatin Calcium 10 Mg Tablet) 10 mg PO DAILY [facility] Last Admin: 03/12/24 08:12 Dose: 10 mg Documented By: BRIANNE Benzonatate (Benzonatate 100 Mg Capsule) 100 mg PO TID PRN PRN Reason: Cough Clopidogrel Bisulfate (Clopidogrel Bisulfate 75 Mg Tablet) 75 mg PO DAILY [facility] Last Admin: 03/12/24 08:12 Dose: 75 mg Documented By: BRIANNE Enoxaparin Sodium (Enoxaparin Sodium 40 Mg/0.4 Ml Syringe) 40 mg SUBCUT Q24H [facility] Last Admin: 03/11/24 15:28 Dose: 40 mg Documented By: ELIGIO Glucose (Glucose Gel 15 Gm Gel..Gram.) 15 gm PO Q15M PRN; Protocol PRN Reason: per Hypoglycemia Standing Ord. Hydromorphone HCl (Hydromorphone Hcl 0.5 Mg/0.5 Ml Syringe) 0.5 mg IVPUSH Q3H PRN; Protocol PRN Reason: Pain, Severe (Pain Scale 7-10) Dextrose (D10) 250 mls @ 750 mls/hr IV Q15M PRN; Protocol PRN Reason: per Hypoglycemia Standing Ord. Piperacillin Sod/Tazobactam (Sod 3.375 gm/ Sodium Chloride) 50 mls @ 100 mls/hr IV Q6H [facility] Last Infusion: 03/12/24 06:02 Dose: Infused Documented By: GABRIELA Insulin Glargine (Insulin Glargine,Hum.Rec.Anlog 100 Unit/Ml 10 Ml Vial) 62 unit SUBCUT BEDTIME [facility] Last Admin: 03/11/24 20:34 Dose: 62 unit Documented By: GABRIELA Insulin Glargine (Insulin Glargine,Hum.Rec.Anlog 100 Unit/Ml 10 Ml Vial) 62 unit SUBCUT DAILY [facility] Last Admin: 03/12/24 08:12 Dose: 62 unit Documented By: BRIANNE Insulin Human Lispro (Insulin Lispro 100 Unit/Ml 3 Ml Vial) 0 unit SUBCUT QIDACHS [facility]; Protocol Last Admin: 03/12/24 07:50 Dose: Not Given Documented By: BRIANNE Non-Admin Reason: No Insulin Coverage Lisinopril (Lisinopril 40 Mg Tablet) 40 mg PO DAILY [facility]; Protocol Last Admin: 03/12/24 08:12 Dose: 40 mg Documented By: BRIANNE Magnesium Hydroxide (Milk Of Magnesia 30 Ml Oral.Susp) 30 ml PO DAILY PRN PRN Reason: Constipation Melatonin (Melatonin 3 Mg Tablet) 6 mg PO BEDTIME PRN PRN Reason: Insomnia Ondansetron HCl (Ondansetron Hcl 4 Mg/2 Ml Vial) 4 mg IVPUSH Q8H PRN PRN Reason: Nausea and Vomiting Oxycodone HCl (Oxycodone Hcl Immed Release 5 Mg Tablet) 5 mg PO Q6H PRN PRN Reason: Pain, Moderate(Pain Scale 4-6) Sodium Chloride (0.9 % Sodium Chloride Flush 3 Ml Syringe) 3 ml IVFLUSH QSHIFT [facility] Last Admin: 03/12/24 08:13 Dose: 3 ml Documented By: BRIANNE Labs 03/12/24 08:45 03/12/24 08:45 Labs: Laboratory Results - last 24 hr 03/11/24 03/11/24 03/12/24 16:07 20:08 07:41 MCV MCH MCHC RDW Plt Count MPV Absolute Nucleated RBC Nucleated RBC % (auto) Anion Gap Estim Creat Clear Calc Estimated GFR POC Glucose 264 H 209 H 103 Random Glucose Calcium 03/12/24 08:45 MCV 87.7 MCH 28.6 MCHC 32.7 RDW 12.8 Plt Count 315 MPV 10.5 Absolute Nucleated RBC 0.000 Nucleated RBC % (auto) 0.0 Anion Gap 14 Estim Creat Clear Calc 103.3 Estimated GFR > 60 POC Glucose Random Glucose 163 H Calcium 9.4 Microbiology Microbiology Results: Microbiology 03/06/24 13:57 Blood Culture - Preliminary Blood - Venous Streptococcus viridans group 03/06/24 13:55 Blood Culture - Preliminary Blood - Venous Streptococcus viridans group Assessment and Plan (1) Osteomyelitis of great toe of left foot: Status: Acute Plan 58M PMH significant for HTN, HLD, insulin-dependent type 2 diabetes, hx of MRSA osteomyelitis, s/p right BKA, s/p multiple left toe amputations, cold agglutinin disease, and peripheral?peripheral vascular disease on Plavix who presented to the ED from wound care for evaluation of chronic nonhealing left great toe ulcer Osteomyelitis of left great toe complicated by strep viridans bacteremia Status post left great toe amputation POD#2 Good pain control Seen by Dr. Abdi he recommend twice daily dressing changes and wound care consult WBC trending down, stable electrolytes and renal function, on IV Zosyn started on 03/06, IV vancomycin discontinued on 03/10. ID eval Peripheral vascular disease statin plavix Insulin-dependent type 2 diabetes Lantus 62u bid and lispro correctional scale,adjust as indicated. HTN continue Norvasc and lisinopril Hyperlipidemia continue statin Acute hyperkalemia resolved Morbid obesity recommend to follow low-calorie diet. Full Code Lovenox reason for continued hospitalization: iv abx for bactermia, id eval Quality Stroke Does the patient have a stroke diagnosis?: No VTE Prior VTE?: No VTE Risk Level:: Medical - moderate - high VTE Device Contraindication: Treatment Not Indicated VTE Drug Contraindication: N/A - Med Ordered
[2024-03-12 11:25] LABS: Glucose, Whole Blood 178 mg/dL (60-115)
[2024-03-12] MEDS: Insulin Lispro 100 UNIT/ML 3 ML VIAL SUBCUT ×3 (12:10→20:47)
--- NOTE | 2024-03-12 13:10 | MHC.CM.PN ---
Per MD rounds patient not medically cleared for dc. Awaiting ID eval, ? 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 Referral sent to [facility] to run benefits. Patient has had PICC/IV abx in the past and assisted. CM will continue to follow.
[2024-03-12] MEDS: Enoxaparin Sodium 40 MG/0.4 ML SYRINGE SUBCUT (15:33)
[2024-03-12] MEDS: cefTRIAXone sodium 2 GM in 0.9 % Sodium Chloride 50 ML IV (15:33)
[2024-03-12 15:45] VITALS: BP 194/83; PULSE 65; RESP 18; TEMP 36.2; O2SAT 96
[2024-03-12 16:02] LABS: Glucose, Whole Blood 215 mg/dL (60-115)
--- NOTE | 2024-03-12 16:20 | W.PM.IDCN ---
History of Present Illness Data of Consult Service Date: 03/12/24 Requesting physician: Johnnie Aldana Primary Care Provider: Reece Ann MD HPI Reason for consult: OM left great toe He presents with ulcer/discomfort left great toe. He has no fever or chills. He has strep mitis/strep anginosus from area. He has right BKA. I had seen him in past. Review of Systems Review of Systems: Yes all other systems are reviewed and are negative PMFSH Past Medical History Medical History Cold agglutinin disease No pertinent family history Peripheral neuropathy History of wound infection PAD (peripheral artery disease) Morbid obesity Hypertension Diabetes mellitus Family History Family History Mother Diabetes Father Blood infection Family history of mental disorder Maternal Grandmother Diabetes Paternal Grandmother Family history of mental disorder Family history: reviewed and not pertinent Surgical History Surgical History H/O cystoscopy H/O hand surgery Hx of right BKA History of amputation of toe (12/14/21) S/P debridement (~01/2017) History of amputation of toe (~06/2017) History of amputation of toe (~02/23/20) Social History Social History Household Members: Spouse Housing: House Do you presently have visiting nurse or other home services: No Alcohol intake: current Alcohol intake frequency: a few times a week Patient Tobacco Use Status: Never used Tobacco e-Cigarette/Vaping Use: Never Used Second Hand Smoke Exposure: No service: No Current occupational status: employed 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 Cognitive needs: No Hearing needs: No Vision needs: No Meds Allergies Allergy/AdvReac Type Severity Reaction Status Date / Time aspirin Allergy Severe ANAPHYLAXIS, Verified 03/10/24 11:32 eyes red,swollen Active Medications: Current Medications Acetaminophen (Acetaminophen 325 Mg Tablet) 650 mg PO Q6H PRN PRN Reason: Pain, Mild (Pain Scale 1-3), fever or headache Amlodipine Besylate (Amlodipine Besylate 10 Mg Tablet) 10 mg PO BEDTIME [facility]; Protocol Last Admin: 03/11/24 20:34 Dose: 10 mg Atorvastatin Calcium (Atorvastatin Calcium 10 Mg Tablet) 10 mg PO DAILY [facility] Last Admin: 03/12/24 08:12 Dose: 10 mg Benzonatate (Benzonatate 100 Mg Capsule) 100 mg PO TID PRN PRN Reason: Cough Clopidogrel Bisulfate (Clopidogrel Bisulfate 75 Mg Tablet) 75 mg PO DAILY [facility] Last Admin: 03/12/24 08:12 Dose: 75 mg Enoxaparin Sodium (Enoxaparin Sodium 40 Mg/0.4 Ml Syringe) 40 mg SUBCUT Q24H [facility] Last Admin: 03/12/24 15:33 Dose: 40 mg Glucose (Glucose Gel 15 Gm Gel..Gram.) 15 gm PO Q15M PRN; Protocol PRN Reason: per Hypoglycemia Standing Ord. Hydromorphone HCl (Hydromorphone Hcl 0.5 Mg/0.5 Ml Syringe) 0.5 mg IVPUSH Q3H PRN; Protocol PRN Reason: Pain, Severe (Pain Scale 7-10) Dextrose (D10) 250 mls @ 750 mls/hr IV Q15M PRN; Protocol PRN Reason: per Hypoglycemia Standing Ord. Ceftriaxone Sodium 2 gm/ (Sodium Chloride) 50 mls @ 100 mls/hr IV Q24H [facility] Last Infusion: 03/12/24 16:08 Dose: Infused Insulin Glargine (Insulin Glargine,Hum.Rec.Anlog 100 Unit/Ml 10 Ml Vial) 62 unit SUBCUT BEDTIME [facility] Last Admin: 03/11/24 20:34 Dose: 62 unit Insulin Glargine (Insulin Glargine,Hum.Rec.Anlog 100 Unit/Ml 10 Ml Vial) 62 unit SUBCUT DAILY [facility] Last Admin: 03/12/24 08:12 Dose: 62 unit Insulin Human Lispro (Insulin Lispro 100 Unit/Ml 3 Ml Vial) 0 unit SUBCUT QIDACHS [facility]; Protocol Last Admin: 03/12/24 12:10 Dose: 2 unit Lisinopril (Lisinopril 40 Mg Tablet) 40 mg PO DAILY [facility]; Protocol Last Admin: 03/12/24 08:12 Dose: 40 mg Magnesium Hydroxide (Milk Of Magnesia 30 Ml Oral.Susp) 30 ml PO DAILY PRN PRN Reason: Constipation Melatonin (Melatonin 3 Mg Tablet) 6 mg PO BEDTIME PRN PRN Reason: Insomnia Ondansetron HCl (Ondansetron Hcl 4 Mg/2 Ml Vial) 4 mg IVPUSH Q8H PRN PRN Reason: Nausea and Vomiting Oxycodone HCl (Oxycodone Hcl Immed Release 5 Mg Tablet) 5 mg PO Q6H PRN PRN Reason: Pain, Moderate(Pain Scale 4-6) Sodium Chloride (0.9 % Sodium Chloride Flush 3 Ml Syringe) 3 ml IVFLUSH QSHIFT [facility] Last Admin: 03/12/24 15:34 Dose: 3 ml Home Medications ?Medication ?Instructions ?Recorded ?Confirmed ?Last Taken ?Type insulin glargine U-300 conc 300 78 unit subcut BID 03/06/24 03/06/24 03/06/24 History unit/mL (1.5 mL) subcutaneous pen (Toujeo SoloStar U-300 Insulin) insulin lispro 100 unit/mL See Rx Instructions .Route .COMPLEX 03/06/24 03/06/24 03/06/24 History subcutaneous pen (Humalog KwikPen (U-100) Insulin) Physical Exam Vital Signs: Vital Signs: Last Vital Signs Temp 97.2 F 03/12/24 15:45 Pulse 65 03/12/24 15:45 Resp 18 03/12/24 15:45 BP 194/83 H 03/12/24 15:45 Pulse Ox 96 03/12/24 15:45 O2 Del Method Room Air 03/12/24 15:45 O2 Flow Rate 94 03/11/24 07:42 BMI result Body Mass Index 48.2 Const: General: cooperative HEENT: Head: Yes normal to inspection Face and sinus: Yes normal facial exam Mouth: Normal oral and palatal mucosa present Teeth and gingiva: dentition normal Eyes: General: appearance normal, both eyes and all related structures Pupils: Equal, round and reactive pupils present Resp: Effort & Inspection: normal respiratory effort Cardio: Rate: regular rate Rhythm: regular rhythm GI: Palpation (GI): Soft to palpation and nontender : General: Yes no CVA tenderness Back/Spine/Pelvis: Back: no CVA tenderness Skin: General skin exam: no rashes or lesions noted Neuro: General: moves all extremities Cranial nerves: Yes Equal, round and reactive pupils present Extrem: Other: right BKA left foot bandaged,great toe removed General: Yes normal to inspection Psych: Appearance: grossly normal Results Labs 03/12/24 08:45 03/12/24 08:45 Labs: Short CBC 03/12/24 Range/Units 08:45 WBC 14.4 H (4.8-10.8) X10*3/uL Hgb 14.4 (14.0-18.0) g/dl Hct 44.1 (42.0-52.0) % Plt Count 315 (160-400) X10*3/uL BMP 03/12/24 08:45 Sodium 137 Potassium 4.8 Chloride 101 Carbon Dioxide 27 BUN 14 Creatinine 1.06 Calcium 9.4 Microbiology Microbiology Results: Microbiology 03/06/24 13:57 Blood - Venous Blood Culture - Final Streptococcus mitis/oralis Streptococcus anginosus 03/06/24 13:55 Blood - Venous Blood Culture - Final Streptococcus mitis/oralis Streptococcus anginosus Assessment and Plan (1) Osteomyelitis of great toe of left foot: Status: Acute He has OM area removed Foot still at risk. Would give CTX 4 weeks for bacteremia strep bernardino Would check echo.
[2024-03-12 20:00] VITALS: BP 160/70; PULSE 65; RESP 14; TEMP 36.5; O2SAT 94
[2024-03-12 20:17] LABS: Glucose, Whole Blood 225 mg/dL (60-115)
[2024-03-12] MEDS: amLODIPine Besylate 10 MG TABLET PO (20:48)
[2024-03-12 23:27] VITALS: BP 132/78; PULSE 68; RESP 14; TEMP 36.2; O2SAT 98
--- NOTE | 2024-03-13 | ECG_ITS ---
Test Reason : cardiolog ordered EKG. Blood Pressure : / mmHG Vent. Rate : 064 BPM Atrial Rate : 064 BPM P-R Int : 152 ms QRS Dur : 100 ms QT Int : 384 ms P-R-T Axes : 035 020 054 degrees QTc Int : 396 ms Normal sinus rhythm Normal ECG When compared with ECG of 14-DEC-2021 10:42, No significant change was found Referred By: Jose Carlos Whitfield Electronically Signed By:Jose Carlos Whitfield
[2024-03-13 03:53] VITALS: BP 130/60; PULSE 66; RESP 16; TEMP 36.4; O2SAT 95
[2024-03-13 06:39] LABS: Anion Gap 13 (12-20); Blood Urea Nitrogen 15 mg/dL (9-16); Calcium 9.3 mg/dL (8.4-10.2); Carbon Dioxide 29 mmol/L (22-29); Chloride 100 mmol/L (96-108); Creatinine Clr Calc Pharmacy 99.5; Estimated Glomerular Filt Rate > 60; Glucose Fasting 140 mg/dL (60-99); Potassium 4.9 mmol/L (3.3-5.1); Sodium 137 mmol/L (135-145)
[2024-03-13 06:40] LABS: Hematocrit 44.1 % (42.0-52.0); Hemoglobin 14.5 g/dl (14.0-18.0); Mean Corpuscular HGB Conc 32.9 g/dl (31.0-36.0); Mean Corpuscular Hemoglobin 28.6 pg (27.0-33.0); Mean Platelet Volume 10.6 fL (9.4-12.4); Platelet Count 316 X10*3/uL (160-400); Red Blood Count 5.07 X10*6/uL (4.60-5.80); Red Cell Distribution Width 12.9 % (11.0-16.0); White Blood Count 14.3 X10*3/uL (4.8-10.8)
--- NOTE | 2024-03-13 07:00 | CA_ITS ---
Transthoracic Echocardiogram Patient (Last, First, Middle): Sincere Hodges, Gender: Male Date of : 1965 Age: 58 Procedure Date: 03/13/2024 Procedure Type: Transthoracic Echocardiogram Location: S3E Height: 172.72 cm Weight: 143.79 kg BSA: 2.49 m2 Heart Rate: bpm BP: 140 / 72 mmHg Certified Pathology Assistant: LAN Referring MD: Johnnie Aldana MD Symptoms: viridans bactermia Study Quality: Technically Difficult, contrast Conclusions: - Technically difficult study. - Poor visualization of the valves. Consider POLI if clinically suspecting endocarditis. - On contrast images there is small filling defect in the apex which is likely prominent trabeculation but cannot rule out thrombus. We will do additional imaging. - The apex segment is hypokinetic. Findings Procedure Information The study quality is limited by patients body habitus. Left Ventricle Normal left ventricular cavity size. The left ventricular systolic function is normal. The visually estimated ejection fraction is between 55-60%. There is evidence of regional wall motion abnormalities. Diastolic function is indeterminate on the basis of available data. Wall Motion Rest Echo Findings The apex segment is hypokinetic. Right Ventricle Normal right ventricular cavity size and systolic function. Atria The left atrium was not well visualized. The right atrium is normal in size. Aortic Valve The aortic valve was not well visualized. There is no aortic valve stenosis. There is no aortic valve regurgitation. Mitral Valve The mitral valve appears normal. There is mild mitral annular calcification. There is no mitral valve regurgitation. There is no mitral valve stenosis. Pulmonic Valve The pulmonic valve was not well visualized. Tricuspid Valve The tricuspid valve was not well visualized. Tricuspid regurgitation envelope is inadequate for calculation of right ventricular systolic pressure. Normal right atrial pressure. Great Vessels All visible segments of the aorta are normal in size. Venous The inferior vena cava is normal in size and collapses greater than 50% with inspiration. Pericardium/Pleural There is no evidence of pericardial effusion. Measurements 2D Linear Measurements LVOT Diam: 2.30 3.0+(-)1.3 cm Mitral Valve MV Pk E: 1.14 MV PK A: 1.19 MV Decel Time: 262.00 E/A: 1.00 E'Lateral: 9.03 E'Medial: 5.66 E/E' Med: 20.10 E/E' Lat: 12.60 PHT: 77.00 MVA PHT: 2.[address] [place]: 4.36 Aortic Valve AoV Pk Harmeet: 1.29 AoV Mn Harmeet: 0.94 AoV VTI: 0.28 AoV Pk Grad: 7.00 Aov Mn Grad: 4.00 SUN Cont.VTI: 3.31 LVOT LVOT Pk Harmeet: 0.99 LVOT Mn Harmeet: 0.66 LVOT VTI: 0.22 LVOT Pk Grad: 4.00 LVOT Mn Grad: 2.00 LVOT Diam: 2.30 LVOT Area: 4.15 Diastolic Function MV Pk E: 1.14 MV Pk A: 1.19 E/A: 1.00 E'Medial: 5.66 E/E' Med: 20.10 E' Laterial: 9.03 E/E' Lat: 12.60 Right Ventricle TAPSE (mm): 31.00 TVS' Harmeet: 13.40 Tricuspid Valve RA Press: 3.00 Great Vessels Aorta Ao Asc: 3.40 2.1-3.4 cm Updated in Other Vendor System with Status of Final Jose Carlos Whitfield MD electronically signed on 03/13/2024 4:23:48 PM with status of Final
[2024-03-13 07:08] VITALS: BP 140/72; PULSE 66; RESP 20; TEMP 36.8; O2SAT 95
[2024-03-13 07:47] LABS: Glucose, Whole Blood 136 mg/dL (60-115)
[2024-03-13] MEDS: Atorvastatin Calcium 10 MG TABLET PO (08:10)
[2024-03-13] MEDS: lisinopriL 40 MG TABLET PO (08:10)
[2024-03-13] MEDS: Clopidogrel Bisulfate 75 MG TABLET PO (08:10)
[2024-03-13] MEDS: Insulin Glargine,Hum.rec.anlog 100 UNIT/ML 10 ML VIAL 62 UNIT SUBCUT ×2 (08:12→20:59)
[2024-03-13] MEDS: 0.9 % Sodium Chloride Flush 3 ML SYRINGE IVFLUSH ×2 (08:12→16:39)
--- NOTE | 2024-03-13 08:58 | P.PNIM_ITS ---
Subjective Subjective Date of Service: 03/13/24 Interval History: pain controlled Physical Exam 2 Vital Signs: Vital Signs: Last Vital Signs Temp 98.2 F 03/13/24 07:08 Pulse 66 03/13/24 07:08 Resp 20 03/13/24 07:08 BP 140/72 H 03/13/24 07:08 Pulse Ox 95 03/13/24 07:08 O2 Del Method Room Air 03/13/24 07:08 O2 Flow Rate 94 03/11/24 07:42 BMI result Body Mass Index 48.2 Const: General: cooperative HEENT: Head: Yes normal to inspection Face and sinus: Yes normal facial exam Mouth: Normal oral and palatal mucosa present Teeth and gingiva: d entition normal Eyes: General: appearance normal, both eyes and all related structures P upils: Equal, round and reactive pupils present Resp: Effort & Inspection: normal respiratory effort Cardio: Rate: regular rate Rhythm: regular rhythm GI: Palpation (GI): Soft to palpation and nontender : General: Yes no CVA tenderness Back/Spine/Pelvis: Back: no CVA tenderness Skin: General skin exam: no rashes or lesions noted Neuro: General: moves all extremities Cranial nerves: Yes Equal, round and reactive pupils present Extrem: Other: right BKA left foot bandaged,great toe removed General: Yes normal to inspection Psych: Appearance: grossly normal Objective Data Active Medications Acetaminophen (Acetaminophen 325 Mg Tablet) 650 mg PO Q6H PRN PRN Reason: Pain, Mild (Pain Scale 1-3), fever or headache Amlodipine Besylate (Amlodipine Besylate 10 Mg Tablet) 10 mg PO BEDTIME [facility]; Protocol Last Admin: 03/12/24 20:48 Dose: 10 mg Documented By: GABRIELA Atorvastatin Calcium (Atorvastatin Calcium 10 Mg Tablet) 10 mg PO DAILY [facility] Last Admin: 03/13/24 08:10 Dose: 10 mg Documented By: BRIANNE Benzonatate (Benzonatate 100 Mg Capsule) 100 mg PO TID PRN PRN Reason: Cough Clopidogrel Bisulfate (Clopidogrel Bisulfate 75 Mg Tablet) 75 mg PO DAILY [facility] Last Admin: 03/13/24 08:10 Dose: 75 mg Documented By: BRIANNE Enoxaparin Sodium (Enoxaparin Sodium 40 Mg/0.4 Ml Syringe) 40 mg SUBCUT Q24H [facility] Last Admin: 03/12/24 15:33 Dose: 40 mg Documented By: BRIANNE Glucose (Glucose Gel 15 Gm Gel..Gram.) 15 gm PO Q15M PRN; Protocol PRN Reason: per Hypoglycemia Standing Ord. Hydromorphone HCl (Hydromorphone Hcl 0.5 Mg/0.5 Ml Syringe) 0.5 mg IVPUSH Q3H PRN; Protocol PRN Reason: Pain, Severe (Pain Scale 7-10) Dextrose (D10) 250 mls @ 750 mls/hr IV Q15M PRN; Protocol PRN Reason: per Hypoglycemia Standing Ord. Ceftriaxone Sodium 2 gm/ (Sodium Chloride) 50 mls @ 100 mls/hr IV Q24H [facility] Last Infusion: 03/12/24 16:08 Dose: Infused Documented By: BRIANNE Insulin Glargine (Insulin Glargine,Hum.Rec.Anlog 100 Unit/Ml 10 Ml Vial) 62 unit SUBCUT BEDTIME [facility] Last Admin: 03/12/24 20:48 Dose: 62 unit Documented By: GABRIELA Insulin Glargine (Insulin Glargine,Hum.Rec.Anlog 100 Unit/Ml 10 Ml Vial) 62 unit SUBCUT DAILY [facility] Last Admin: 03/13/24 08:12 Dose: 62 unit Documented By: BRIANNE Insulin Human Lispro (Insulin Lispro 100 Unit/Ml 3 Ml Vial) 0 unit SUBCUT QIDACHS [facility]; Protocol Last Admin: 03/13/24 07:50 Dose: Not Given Documented By: BRIANNE Non-Admin Reason: No Insulin Coverage Lisinopril (Lisinopril 40 Mg Tablet) 40 mg PO DAILY [facility]; Protocol Last Admin: 03/13/24 08:10 Dose: 40 mg Documented By: BRIANNE Magnesium Hydroxide (Milk Of Magnesia 30 Ml Oral.Susp) 30 ml PO DAILY PRN PRN Reason: Constipation Melatonin (Melatonin 3 Mg Tablet) 6 mg PO BEDTIME PRN PRN Reason: Insomnia Ondansetron HCl (Ondansetron Hcl 4 Mg/2 Ml Vial) 4 mg IVPUSH Q8H PRN PRN Reason: Nausea and Vomiting Oxycodone HCl (Oxycodone Hcl Immed Release 5 Mg Tablet) 5 mg PO Q6H PRN PRN Reason: Pain, Moderate(Pain Scale 4-6) Sodium Chloride (0.9 % Sodium Chloride Flush 3 Ml Syringe) 3 ml IVFLUSH QSHIFT [facility] Last Admin: 03/13/24 08:12 Dose: 3 ml Documented By: BRIANNE Labs 03/13/24 05:29 03/13/24 05:29 Labs: Laboratory Results - last 24 hr 03/12/24 03/12/24 03/12/24 08:45 11:15 15:58 MCV 87.7 MCH 28.6 MCHC 32.7 RDW 12.8 Plt Count 315 MPV 10.5 Absolute Nucleated RBC 0.000 Nucleated RBC % (auto) 0.0 Anion Gap 14 Estim Creat Clear Calc 103.3 Estimated GFR > 60 POC Glucose 178 H 215 H Random Glucose 163 H Fasting Glucose Calcium 9.4 03/12/24 03/13/24 03/13/24 20:13 05:29 07:13 MCV 87.0 MCH 28.6 MCHC 32.9 RDW 12.9 Plt Count 316 MPV 10.6 Absolute Nucleated RBC 0.000 Nucleated RBC % (auto) 0.0 Anion Gap 13 Estim Creat Clear Calc 99.5 Estimated GFR > 60 POC Glucose 225 H 136 H Random Glucose Fasting Glucose 140 H Calcium 9.3 Microbiology Microbiology Results: Microbiology 03/06/24 13:57 Blood Culture - Final Blood - Venous Streptococcus mitis/oralis Streptococcus anginosus 03/06/24 13:55 Blood Culture - Final Blood - Venous Streptococcus mitis/oralis Streptococcus anginosus Assessment and Plan (1) Osteomyelitis of great toe of left foot: Status: Acute Plan 58M PMH significant for HTN, HLD, insulin-dependent type 2 diabetes, hx of MRSA osteomyelitis, s/p right BKA, s/p multiple left toe amputations, cold agglutinin disease, and peripheral?peripheral vascular disease on Plavix who presented to the ED from wound care for evaluation of chronic nonhealing left great toe ulcer Osteomyelitis of left great toe complicated by strep viridans bacteremia Status post left great toe amputation POD#3 Good pain control Seen by Dr. Abdi he recommend twice daily dressing changes and wound care consult ID appreciated, follow up repeat culture from 03/12/24, echo if negative plan for 4 weeks iv rocephin 2gm daily (end 04/09/24) plan for picc 03/14/24 if remains negative Peripheral vascular disease statin plavix Insulin-dependent type 2 diabetes Lantus 62u bid and lispro correctional scale,adjust as indicated. HTN continue Norvasc and lisinopril Hyperlipidemia continue statin Acute hyperkalemia resolved Morbid obesity recommend to follow low-calorie diet. Full Code Lovenox reason for continued hospitalization: iv abx for bactermia Quality Stroke Does the patient have a stroke diagnosis?: No VTE Prior VTE?: No VTE Risk Level:: Medical - moderate - high VTE Device Contraindication: Treatment Not Indicated VTE Drug Contraindication: N/A - Med Ordered
--- NOTE | 2024-03-13 11:19 | PM.PNGS ---
Subjective Subjective Date of Service: 03/13/24 Interval history: Patient with no complaints this morning. Physical Exam Vital Signs: Vital Signs: Last Vital Signs Temp 98.2 F 03/13/24 07:08 Pulse 66 03/13/24 07:08 Resp 20 03/13/24 07:08 BP 140/72 H 03/13/24 07:08 Pulse Ox 95 03/13/24 07:08 O2 Del Method Room Air 03/13/24 07:08 O2 Flow Rate 94 03/11/24 07:42 BMI result Body Mass Index 48.2 Const: General: comfortable Nutritional Appearance: well nourished Orientation/consciousness: patient oriented x3 Limitations: no limitations Resp: Effort & Inspection: normal respiratory effort Neuro: General: patient oriented x3 Objective Data Active Medications Acetaminophen (Acetaminophen 325 Mg Tablet) 650 mg PO Q6H PRN PRN Reason: Pain, Mild (Pain Scale 1-3), fever or headache Amlodipine Besylate (Amlodipine Besylate 10 Mg Tablet) 10 mg PO BEDTIME [facility]; Protocol Last Admin: 03/12/24 20:48 Dose: 10 mg Documented By: GABRIELA Atorvastatin Calcium (Atorvastatin Calcium 10 Mg Tablet) 10 mg PO DAILY [facility] Last Admin: 03/13/24 08:10 Dose: 10 mg Documented By: BRIANNE Benzonatate (Benzonatate 100 Mg Capsule) 100 mg PO TID PRN PRN Reason: Cough Clopidogrel Bisulfate (Clopidogrel Bisulfate 75 Mg Tablet) 75 mg PO DAILY [facility] Last Admin: 03/13/24 08:10 Dose: 75 mg Documented By: BRIANNE Enoxaparin Sodium (Enoxaparin Sodium 40 Mg/0.4 Ml Syringe) 40 mg SUBCUT Q24H [facility] Last Admin: 03/12/24 15:33 Dose: 40 mg Documented By: BRIANNE Glucose (Glucose Gel 15 Gm Gel..Gram.) 15 gm PO Q15M PRN; Protocol PRN Reason: per Hypoglycemia Standing Ord. Hydromorphone HCl (Hydromorphone Hcl 0.5 Mg/0.5 Ml Syringe) 0.5 mg IVPUSH Q3H PRN; Protocol PRN Reason: Pain, Severe (Pain Scale 7-10) Dextrose (D10) 250 mls @ 750 mls/hr IV Q15M PRN; Protocol PRN Reason: per Hypoglycemia Standing Ord. Ceftriaxone Sodium 2 gm/ (Sodium Chloride) 50 mls @ 100 mls/hr IV Q24H [facility] Last Infusion: 03/12/24 16:08 Dose: Infused Documented By: BRIANNE Insulin Glargine (Insulin Glargine,Hum.Rec.Anlog 100 Unit/Ml 10 Ml Vial) 62 unit SUBCUT BEDTIME [facility] Last Admin: 03/12/24 20:48 Dose: 62 unit Documented By: GABRIELA Insulin Glargine (Insulin Glargine,Hum.Rec.Anlog 100 Unit/Ml 10 Ml Vial) 62 unit SUBCUT DAILY [facility] Last Admin: 03/13/24 08:12 Dose: 62 unit Documented By: BRIANNE Insulin Human Lispro (Insulin Lispro 100 Unit/Ml 3 Ml Vial) 0 unit SUBCUT QIDACHS [facility]; Protocol Last Admin: 03/13/24 07:50 Dose: Not Given Documented By: BRIANNE Non-Admin Reason: No Insulin Coverage Lisinopril (Lisinopril 40 Mg Tablet) 40 mg PO DAILY [facility]; Protocol Last Admin: 03/13/24 08:10 Dose: 40 mg Documented By: BRIANNE Magnesium Hydroxide (Milk Of Magnesia 30 Ml Oral.Susp) 30 ml PO DAILY PRN PRN Reason: Constipation Melatonin (Melatonin 3 Mg Tablet) 6 mg PO BEDTIME PRN PRN Reason: Insomnia Ondansetron HCl (Ondansetron Hcl 4 Mg/2 Ml Vial) 4 mg IVPUSH Q8H PRN PRN Reason: Nausea and Vomiting Oxycodone HCl (Oxycodone Hcl Immed Release 5 Mg Tablet) 5 mg PO Q6H PRN PRN Reason: Pain, Moderate(Pain Scale 4-6) Sodium Chloride (0.9 % Sodium Chloride Flush 3 Ml Syringe) 3 ml IVFLUSH QSHIFT [facility] Last Admin: 03/13/24 08:12 Dose: 3 ml Documented By: BRIANNE Labs 03/13/24 05:29 03/13/24 05:29 Labs: Laboratory Results - last 24 hr 03/12/24 03/12/24 03/12/24 11:15 15:58 20:13 MCV MCH MCHC RDW Plt Count MPV Absolute Nucleated RBC Nucleated RBC % (auto) Anion Gap Estim Creat Clear Calc Estimated GFR POC Glucose 178 H 215 H 225 H Fasting Glucose Calcium 03/13/24 03/13/24 05:29 07:13 MCV 87.0 MCH 28.6 MCHC 32.9 RDW 12.9 Plt Count 316 MPV 10.6 Absolute Nucleated RBC 0.000 Nucleated RBC % (auto) 0.0 Anion Gap 13 Estim Creat Clear Calc 99.5 Estimated GFR > 60 POC Glucose 136 H Fasting Glucose 140 H Calcium 9.3 Microbiology Microbiology Results: Microbiology 03/06/24 13:57 Blood Culture - Final Blood - Venous Streptococcus mitis/oralis Streptococcus anginosus 03/06/24 13:55 Blood Culture - Final Blood - Venous Streptococcus mitis/oralis Streptococcus anginosus Procedures Date of Service Date of Service: 03/13/24 Progress Note: A&P Assessment and plan (1) Osteomyelitis of great toe of left foot: Status: Acute Plan 58-year-old male patient status post amputation of the left great toe. Wounds are clean and granulating. We will change to Santyl dressings followed by fluff gauze, Kerlix and Jasiel bandage. Awaiting repeat blood cultures to determine if long-term IV antibiotics required. Plan wound care center follow-up upon discharge. Time Spent With Patient Time: Total time managing care of this patient today ____ minutes. Quality Stroke Does the patient have a stroke diagnosis?: No VTE Prior VTE?: No VTE Risk Level:: Medical - moderate - high VTE Device Contraindication: Treatment Not Indicated VTE Drug Contraindication: N/A - Med Ordered
[2024-03-13 11:54] LABS: Glucose, Whole Blood 217 mg/dL (60-115)
[2024-03-13 12:00] VITALS: BP 110/70; PULSE 66; RESP 20; TEMP 36.9; O2SAT 94
[2024-03-13] MEDS: Insulin Lispro 100 UNIT/ML 3 ML VIAL SUBCUT ×3 (12:18→20:59)
--- NOTE | 2024-03-13 13:31 | HO.WOUND ---
Wound Consult: Follow up 58yr old?[place] [facility] - See progress notes and H&P for detailed history.? Wound consult follow up for left foot amp site. ? Patient agreeable to assessment and photo documentation.? Patient will likely benefit from outpt follow up with Outpt wound clinic patient reports he is agreeable to this as well and reports he has been a patient there in the past prior to his Right Leg amputation. 03/11/24 03/13/24 Etiology: ?Amputation site Measurements: 4cm x 8cm x 2cm Wound Bed: marbled wound bed with yellow carlin velasquez moist slough Drainage / Odor: malodor noted - carlin and bloody drainage noted - moderate amount Edges: ? well defined and unattached Amaris wound: ?mild erythema - No Induration, Fluctuance or Warmth noted - DP pulse by doppler only Pain: denies pain Goals of Treatment: ? Santly for enzymatic debridement - discussed at bedside with Dr. Abdi he is in agreement Recommendations: 1. Turn and Reposition every 2 hours and as needed for patient comfort.? Use pillows or wedges to support off loading positions. 2. Off Load all bony prominences with use of pillows and heel boots if needed.? Apply Preventative foams where needed. ? 3. Monitor for incontinence and moisture control, use barrier creams when needed for prevention and treatment. 4. Provide adequate and supplemental nutrition.? 5. Order or Continue low air loss mattress. 6. When applicable maintain blood glucose levels per Providers order. 7. Left Foot - Elevate Left Leg - Cleanse and irrigate with NS. Apply skin prep wipe to periwound. Lightly pack wound bed with Santly impregnated gauze, cover with NS moist gauze, dry gauze ABD pad and gauze wrap. Change Daily. Recommend follow up out patient Wound Clinic at [address] [place] [id number] and to call for an appointment at time of discharge. [phone].? Re-consult wound care Nurse for wound deterioration or wound changes.
[2024-03-13] MEDS: cefTRIAXone sodium 2 GM in 0.9 % Sodium Chloride 50 ML IV (15:04)
[2024-03-13 15:31] VITALS: BP 148/64; PULSE 65; RESP 16; TEMP 36.4; O2SAT 96
[2024-03-13 16:27] LABS: Glucose, Whole Blood 237 mg/dL (60-115)
[2024-03-13] MEDS: Enoxaparin Sodium 40 MG/0.4 ML SYRINGE SUBCUT (16:38)
[2024-03-13 20:00] VITALS: BP 132/90; PULSE 88; RESP 18; TEMP 36.6; O2SAT 94
[2024-03-13 20:23] LABS: Glucose, Whole Blood 265 mg/dL (60-115)
[2024-03-13] MEDS: amLODIPine Besylate 10 MG TABLET PO (20:56)
[2024-03-13] MEDS: Acetaminophen 325 MG TABLET 650 MG PO (20:58)
[2024-03-13 23:10] VITALS: BP 136/58; PULSE 65; RESP 14; TEMP 36.4; O2SAT 96
[2024-03-14 03:24] VITALS: BP 150/72; PULSE 87; RESP 16; TEMP 36.5; O2SAT 95
[2024-03-14 06:21] LABS: Anion Gap 11 (12-20); Blood Urea Nitrogen 17 mg/dL (9-16); Calcium 9.5 mg/dL (8.4-10.2); Carbon Dioxide 28 mmol/L (22-29); Chloride 101 mmol/L (96-108); Creatinine Clr Calc Pharmacy 104.2; Estimated Glomerular Filt Rate > 60; Glucose Fasting 146 mg/dL (60-99); Potassium 4.2 mmol/L (3.3-5.1); Sodium 136 mmol/L (135-145)
[2024-03-14 06:46] LABS: Hematocrit 43.4 % (42.0-52.0); Hemoglobin 14.5 g/dl (14.0-18.0); Mean Corpuscular HGB Conc 33.4 g/dl (31.0-36.0); Mean Corpuscular Hemoglobin 28.8 pg (27.0-33.0); Mean Corpuscular Volume 86.1 fL (80.0-98.0); Mean Platelet Volume 10.6 fL (9.4-12.4); Platelet Count 313 X10*3/uL (160-400); Red Blood Count 5.04 X10*6/uL (4.60-5.80); Red Cell Distribution Width 12.7 % (11.0-16.0); White Blood Count 14.6 X10*3/uL (4.8-10.8)
--- NOTE | 2024-03-14 07:00 | CA_ITS ---
Transthoracic Echocardiogram Patient (Last, First, Middle): Sincere Hodges, Gender: Male Date of : 1965 Age: 58 Procedure Date: 03/14/2024 Procedure Type: Transthoracic Echocardiogram Location: S3E Height: 172.72 cm Weight: 143.79 kg BSA: 2.49 m2 Heart Rate: bpm [employer]ovolta[employer] Installer: TO Referring MD: Jose Carlos Whitfield MD Symptoms: assess apex, use contrast. ?Thrombus Study Quality: Technically Difficult/Contrast Conclusions: - The apex segment is hypokinetic. - No apical thrombus. Findings Procedure Information Contrast agent, definity, is being given per protocol without apparent complications. Left Ventricle Normal left ventricular cavity size. The left ventricular systolic function is normal. The visually estimated ejection fraction is between 55-60%. There is evidence of regional wall motion abnormalities. Wall Motion Rest Echo Findings The apex segment is hypokinetic. Prior Study Comparison No significant change compared to prior study dated: 03/13/2024. Updated in Other Vendor System with Status of Final Jose Carlos Whitfield MD electronically signed on 03/15/2024 11:27:54 AM with status of Final
[2024-03-14 07:30] VITALS: BP 154/72; PULSE 59; RESP 17; TEMP 36.4; O2SAT 95
[2024-03-14 07:39] LABS: Glucose, Whole Blood 149 mg/dL (60-115)
[2024-03-14] MEDS: lisinopriL 40 MG TABLET PO (08:47)
[2024-03-14] MEDS: Insulin Glargine,Hum.rec.anlog 100 UNIT/ML 10 ML VIAL 62 UNIT SUBCUT (08:47)
[2024-03-14] MEDS: Atorvastatin Calcium 10 MG TABLET PO (08:47)
[2024-03-14] MEDS: Clopidogrel Bisulfate 75 MG TABLET PO (08:47)
[2024-03-14] MEDS: 0.9 % Sodium Chloride Flush 3 ML SYRINGE IVFLUSH (08:49)
--- NOTE | 2024-03-14 08:57 | P.CONCA_ITS ---
History of Present Illness History of Present Illness Date of Service: 03/14/24 Requesting physician: Johnnie Aldana Chief complaint: Osteomyelitis of left great toe Narrative: 58-year-old gentleman with known history of uncontrolled diabetes and previous right below-knee amputation and peripheral vascular disease presenting for cellulitis and osteomyelitis and underwent amputation of the great toe. He had streptococcal bacteremia and underwent echocardiography with concern of endocarditis. Echo was quite limited and the valves were not well-visualized but on apical views left ventricular apex appeared to be hypokinetic and there was a density noticed there with concern for thrombus. It was thickening with LV contraction and suspicion was that it can be trabeculation but we were not sure. He had repeat echocardiography done this morning with limited views of the apex and clearly there is no thrombus there and just prominent trabeculation was noted. [place] did appear to be mildly hypokinetic. He is denying any chest discomfort or shortness of breath. He has never had any cardiovascular issues in the past. EKG is also fairly normal and has no dynamic changes or old infarct. [facility] Past Medical History Medical History Cold agglutinin disease No pertinent family history Peripheral neuropathy History of wound infection PAD (peripheral artery disease) Morbid obesity Hypertension Diabetes mellitus Family History Family History Mother Diabetes Father Blood infection Family history of mental disorder Maternal Grandmother Diabetes Paternal Grandmother Family history of mental disorder Family history: reviewed and not pertinent Surgical History Surgical History H/O cystoscopy H/O hand surgery Hx of right BKA History of amputation of toe (12/14/21) S/P debridement (~01/2017) History of amputation of toe (~06/2017) History of amputation of toe (~02/23/20) Social History Social History Household Members: Spouse Housing: House Do you presently have visiting nurse or other home services: No Alcohol intake: current Alcohol intake frequency: a few times a week Patient Tobacco Use Status: Never used Tobacco e-Cigarette/Vaping Use: Never Used Second Hand Smoke Exposure: No service: No Current occupational status: employed 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 Cognitive needs: No Hearing needs: No Vision needs: No Meds Allergies Allergy/AdvReac Type Severity Reaction Status Date / Time aspirin Allergy Severe ANAPHYLAXIS, Verified 03/10/24 11:32 eyes red,swollen Active Medications: Current Medications Acetaminophen (Acetaminophen 325 Mg Tablet) 650 mg PO Q6H PRN PRN Reason: Pain, Mild (Pain Scale 1-3), fever or headache Last Admin: 03/13/24 20:58 Dose: 650 mg Amlodipine Besylate (Amlodipine Besylate 10 Mg Tablet) 10 mg PO BEDTIME JAMIE; Protocol Last Admin: 03/13/24 20:56 Dose: 10 mg Atorvastatin Calcium (Atorvastatin Calcium 10 Mg Tablet) 10 mg PO DAILY [facility] Last Admin: 03/14/24 08:47 Dose: 10 mg Benzonatate (Benzonatate 100 Mg Capsule) 100 mg PO TID PRN PRN Reason: Cough Clopidogrel Bisulfate (Clopidogrel Bisulfate 75 Mg Tablet) 75 mg PO DAILY [facility] Last Admin: 03/14/24 08:47 Dose: 75 mg Collagenase (Collagenase Clostridium Hist. 30 Gm Tube) 1 appl TOPICAL DAILY JAMIE; Protocol Enoxaparin Sodium (Enoxaparin Sodium 40 Mg/0.4 Ml Syringe) 40 mg SUBCUT Q24H [facility] Last Admin: 03/13/24 16:38 Dose: 40 mg Glucose (Glucose Gel 15 Gm Gel..Gram.) 15 gm PO Q15M PRN; Protocol PRN Reason: per Hypoglycemia Standing Ord. Hydromorphone HCl (Hydromorphone Hcl 0.5 Mg/0.5 Ml Syringe) 0.5 mg IVPUSH Q3H PRN; Protocol PRN Reason: Pain, Severe (Pain Scale 7-10) Dextrose (D10) 250 mls @ 750 mls/hr IV Q15M PRN; Protocol PRN Reason: per Hypoglycemia Standing Ord. Ceftriaxone Sodium 2 gm/ (Sodium Chloride) 50 mls @ 100 mls/hr IV Q24H [facility] Last Infusion: 03/13/24 15:37 Dose: Infused Insulin Glargine (Insulin Glargine,Hum.Rec.Anlog 100 Unit/Ml 10 Ml Vial) 62 unit SUBCUT BEDTIME JAMIE Last Admin: 03/13/24 20:59 Dose: 62 unit Insulin Glargine (Insulin Glargine,Hum.Rec.Anlog 100 Unit/Ml 10 Ml Vial) 62 unit SUBCUT DAILY [facility] Last Admin: 03/14/24 08:47 Dose: 62 unit Insulin Human Lispro (Insulin Lispro 100 Unit/Ml 3 Ml Vial) 0 unit SUBCUT QIDACHS [facility]; Protocol Last Admin: 03/14/24 07:36 Dose: Not Given Lisinopril (Lisinopril 40 Mg Tablet) 40 mg PO DAILY [facility]; Protocol Last Admin: 03/14/24 08:47 Dose: 40 mg Magnesium Hydroxide (Milk Of Magnesia 30 Ml Oral.Susp) 30 ml PO DAILY PRN PRN Reason: Constipation Melatonin (Melatonin 3 Mg Tablet) 6 mg PO BEDTIME PRN PRN Reason: Insomnia Ondansetron HCl (Ondansetron Hcl 4 Mg/2 Ml Vial) 4 mg IVPUSH Q8H PRN PRN Reason: Nausea and Vomiting Oxycodone HCl (Oxycodone Hcl Immed Release 5 Mg Tablet) 5 mg PO Q6H PRN PRN Reason: Pain, Moderate(Pain Scale 4-6) Sodium Chloride (0.9 % Sodium Chloride Flush 3 Ml Syringe) 3 ml IVFLUSH QSHIFT [facility] Last Admin: 03/14/24 08:49 Dose: 3 ml Home Medications ?Medication ?Instructions ?Recorded ?Confirmed ?Last Taken ?Type insulin glargine U-300 conc 300 78 unit subcut BID 03/06/24 03/06/24 03/06/24 History unit/mL (1.5 mL) subcutaneous pen (Toujeo SoloStar U-300 Insulin) insulin lispro 100 unit/mL See Rx Instructions .Route .COMPLEX 03/06/24 03/06/24 03/06/24 History subcutaneous pen (Humalog KwikPen (U-100) Insulin) Physical Exam 2 Vital Signs: Vital Signs: Last Vital Signs Temp 97.5 F 03/14/24 07:30 Pulse 59 03/14/24 07:30 Resp 17 03/14/24 07:30 BP 154/72 H 03/14/24 07:30 Pulse Ox 95 03/14/24 07:30 O2 Del Method Room Air 03/14/24 07:30 O2 Flow Rate 94 03/11/24 07:42 BMI result Body Mass Index 48.2 GENERAL APPEARANCE: in no acute distress, pleasant. NECK: no carotid bruit, no jugular venous distention. SKIN: no suspicious lesions, warm and dry. HEART: no murmurs, regular rate and rhythm. LUNGS: clear to auscultation bilaterally. ABDOMEN: soft, nontender. EXTREMITIES: no edema. right sided below knee amputation with prosthesis. PERIPHERAL PULSES: equal. NEUROLOGIC: No gross deficits, AAO X 3 Objective Labs and Meds 03/14/24 05:00 03/14/24 05:00 Lab results: Laboratory Results - last 24 hr 03/13/24 03/13/24 03/13/24 11:48 16:21 19:38 WBC RBC Hgb Hct MCV MCH MCHC RDW Plt Count MPV Absolute Nucleated RBC Nucleated RBC % (auto) Sodium Potassium Chloride Carbon Dioxide Anion Gap BUN Creatinine Estim Creat Clear Calc Estimated GFR POC Glucose 217 H 237 H 265 H Fasting Glucose Calcium 03/14/24 03/14/24 05:00 07:35 WBC 14.6 H RBC 5.04 Hgb 14.5 Hct 43.4 MCV 86.1 MCH 28.8 MCHC 33.4 RDW 12.7 Plt Count 313 MPV 10.6 Absolute Nucleated RBC 0.000 Nucleated RBC % (auto) 0.0 Sodium 136 Potassium 4.2 Chloride 101 Carbon Dioxide 28 Anion Gap 11 L BUN 17 H Creatinine 1.05 Estim Creat Clear Calc 104.2 Estimated GFR > 60 POC Glucose 149 H Fasting Glucose 146 H Calcium 9.5 Assessment and Plan (1) Abnormal echocardiogram: Status: Acute Plan 58-year-old gentleman with streptococcal bacteremia who underwent echocardiography which raise concern for apical hypokinesis and apical thrombus. On repeat imaging there is no definitive evidence of thrombus and I think he has prominent trabeculation in the apex. There is some hypokinesis of the apex. He does not have any anginal symptoms but has been a longstanding diabetic and has risk factors for coronary disease. No indication for anticoagulation. We will arrange an outpatient stress test for him. Procedures Date of Service Date of Service: 03/14/24
--- NOTE | 2024-03-14 10:05 | P.PNIM_ITS ---
Subjective Subjective Date of Service: 03/14/24 Interval History: pain controlled Physical Exam 2 Vital Signs: Vital Signs: Last Vital Signs Temp 97.5 F 03/14/24 07:30 Pulse 59 03/14/24 07:30 Resp 17 03/14/24 07:30 BP 154/72 H 03/14/24 07:30 Pulse Ox 95 03/14/24 07:30 O2 Del Method Room Air 03/14/24 07:30 O2 Flow Rate 94 03/11/24 07:42 BMI result Body Mass Index 48.2 GENERAL APPEARANCE: in no acute distress, pleasant. NECK: no carotid bruit, no jugular venous distention. SKIN: no suspicious lesions, warm and dry. HEART: no murmurs, regular rate and rhythm. LUNGS: clear to auscultation bilaterally. ABDOMEN: soft, nontender. EXTREMITIES: no edema. PERIPHERAL PULSES: equal. NEUROLOGIC: No gross deficits, AAO X 3 Objective Data Active Medications Acetaminophen (Acetaminophen 325 Mg Tablet) 650 mg PO Q6H PRN PRN Reason: Pain, Mild (Pain Scale 1-3), fever or headache Last Admin: 03/13/24 20:58 Dose: 650 mg Documented By: ELIGIO Amlodipine Besylate (Amlodipine Besylate 10 Mg Tablet) 10 mg PO BEDTIME JAMIE; Protocol Last Admin: 03/13/24 20:56 Dose: 10 mg Documented By: ELIGIO Atorvastatin Calcium (Atorvastatin Calcium 10 Mg Tablet) 10 mg PO DAILY [facility] 234 BEDS AT [facility] Last Admin: 03/14/24 08:47 Dose: 10 mg Documented By: BRIANNE Benzonatate (Benzonatate 100 Mg Capsule) 100 mg PO TID PRN PRN Reason: Cough Clopidogrel Bisulfate (Clopidogrel Bisulfate 75 Mg Tablet) 75 mg PO DAILY [facility]S INCLUDE 234 BEDS AT THE [facility] Last Admin: 03/14/24 08:47 Dose: 75 mg Documented By: BRIANNE Collagenase (Collagenase Clostridium Hist. 30 Gm Tube) 1 appl TOPICAL DAILY JAMIE; Protocol Enoxaparin Sodium (Enoxaparin Sodium 40 Mg/0.4 Ml Syringe) 40 mg SUBCUT Q24H COUNTS INCLUDE 234 BEDS AT THE [facility] Last Admin: 03/13/24 16:38 Dose: 40 mg Documented By: BRIANNE Glucose (Glucose Gel 15 Gm Gel..Gram.) 15 gm PO Q15M PRN; Protocol PRN Reason: per Hypoglycemia Standing Ord. Hydromorphone HCl (Hydromorphone Hcl 0.5 Mg/0.5 Ml Syringe) 0.5 mg IVPUSH Q3H PRN; Protocol PRN Reason: Pain, Severe (Pain Scale 7-10) Dextrose (D10) 250 mls @ 750 mls/hr IV Q15M PRN; Protocol PRN Reason: per Hypoglycemia Standing Ord. Ceftriaxone Sodium 2 gm/ (Sodium Chloride) 50 mls @ 100 mls/hr IV Q24H COUNTS INCLUDE 234 BEDS AT THE [facility] Last Infusion: 03/13/24 15:37 Dose: Infused Documented By: BRIANNE Insulin Glargine (Insulin Glargine,Hum.Rec.Anlog 100 Unit/Ml 10 Ml Vial) 62 unit SUBCUT BEDTIME COUNTS INCLUDE 234 BEDS AT THE [facility] Last Admin: 03/13/24 20:59 Dose: 62 unit Documented By: ELIGIO Insulin Glargine (Insulin Glargine,Hum.Rec.Anlog 100 Unit/Ml 10 Ml Vial) 62 unit SUBCUT DAILY [facility]S INCLUDE 234 BEDS AT THE [facility] Last Admin: 03/14/24 08:47 Dose: 62 unit Documented By: BRIANNE Insulin Human Lispro (Insulin Lispro 100 Unit/Ml 3 Ml Vial) 0 unit SUBCUT QIDACHS COUNTS INCLUDE 234 BEDS AT THE [facility]; Protocol Last Admin: 03/14/24 07:36 Dose: Not Given Documented By: BRIANNE Non-Admin Reason: No Insulin Coverage Lisinopril (Lisinopril 40 Mg Tablet) 40 mg PO DAILY COUNTS INCLUDE 234 BEDS AT THE [facility]; Protocol Last Admin: 03/14/24 08:47 Dose: 40 mg Documented By: BRIANNE Magnesium Hydroxide (Milk Of Magnesia 30 Ml Oral.Susp) 30 ml PO DAILY PRN PRN Reason: Constipation Melatonin (Melatonin 3 Mg Tablet) 6 mg PO BEDTIME PRN PRN Reason: Insomnia Ondansetron HCl (Ondansetron Hcl 4 Mg/2 Ml Vial) 4 mg IVPUSH Q8H PRN PRN Reason: Nausea and Vomiting Oxycodone HCl (Oxycodone Hcl Immed Release 5 Mg Tablet) 5 mg PO Q6H PRN PRN Reason: Pain, Moderate(Pain Scale 4-6) Sodium Chloride (0.9 % Sodium Chloride Flush 3 Ml Syringe) [facility] Admin: 03/14/24 08:49 Dose: 3 ml Documented By: BRIANNE Labs 03/14/24 05:00 03/14/24 05:00 Labs: Laboratory Results - last 24 hr 03/13/24 03/13/24 03/13/24 11:48 16:21 19:38 MCV MCH MCHC RDW Plt Count MPV Absolute Nucleated RBC Nucleated RBC % (auto) Anion Gap Estim Creat Clear Calc Estimated GFR POC Glucose 217 H 237 H 265 H Fasting Glucose Calcium 03/14/24 03/14/24 05:00 07:35 MCV 86.1 MCH 28.8 MCHC 33.4 RDW 12.7 Plt Count 313 MPV 10.6 Absolute Nucleated RBC 0.000 Nucleated RBC % (auto) 0.0 Anion Gap 11 L Estim Creat Clear Calc 104.2 Estimated GFR > 60 POC Glucose 149 H Fasting Glucose 146 H Calcium 9.5 Microbiology Microbiology Results: Microbiology 03/12/24 14:45 Blood Culture - Preliminary Blood - Venous No growth after 24 hours. 03/12/24 14:45 Blood Culture - Preliminary Blood - Venous No growth after 24 hours. Assessment and Plan (1) Osteomyelitis of great toe of left foot: Status: Acute Plan 58M PMH significant for HTN, HLD, insulin-dependent type 2 diabetes, hx of MRSA osteomyelitis, s/p right BKA, s/p multiple left toe amputations, cold agglutinin disease, and peripheral?peripheral vascular disease on Plavix who presented to the ED from wound care for evaluation of chronic nonhealing left great toe ulcer Osteomyelitis of left great toe complicated by strep viridans bacteremia Status post left great toe amputation POD#3 Good pain control Seen by Dr. Abdi he recommend twice daily dressing changes and wound care consult ID appreciated, follow up repeat culture from 03/12/24, echo if negative plan for 4 weeks iv rocephin 2gm daily (end 04/09/24) plan for picc 03/14/24 if remains negative Peripheral vascular disease statin plavix Insulin-dependent type 2 diabetes Lantus 62u bid and lispro correctional scale,adjust as indicated. HTN continue Norvasc and lisinopril Hyperlipidemia continue statin Acute hyperkalemia resolved Morbid obesity recommend to follow low-calorie diet. Full Code Lovenox reason for continued hospitalization: iv abx for bactermia Quality Stroke Does the patient have a stroke diagnosis?: No VTE Prior VTE?: No VTE Risk Level:: Medical - moderate - high VTE Device Contraindication: Treatment Not Indicated VTE Drug Contraindication: N/A - Med Ordered
--- NOTE | 2024-03-14 10:11 | PM.DS ---
DS: Providers Provider Date of Service: 03/14/24 Date of admission: 03/06/24 15:25 Primary care physician: Reece Ann MD Consults: 03/06/24 15:29 Consult to General Surgery Routine Consulting Provider: [facility] [place] [facility] Surgeons Reason for consultation: Osteomyelitis of left great toe 03/11/24 08:25 Consult to Wound Care Routine Reason for consultation: left great tore amp 03/11/24 08:30 Consult to Infectious Diseases Routine Consulting Provider: [facility] [place] [facility] Reason for consultation: gm pos bacteremia Has provider been notified: No 03/13/24 16:53 Consult to Cardiology Routine Consulting Provider: [facility] [place] [facility] Reason for consultation: wma on echo DS: Diagnosis Discharge Diagnosis (1) Osteomyelitis of great toe of left foot: Status: Acute DS: Summary Hospital Course Hospital Course: from initial hpi: 58-year-old male with a PMH significant for HTN, HLD, insulin-dependent type 2 diabetes, hx of MRSA osteomyelitis, s/p right BKA, s/p multiple left toe amputations, cold agglutinin disease, and peripheral?peripheral vascular disease on Plavix who presents to the ED from wound care for evaluation of chronic nonhealing left great toe ulcer. Pt reports saw Dr. Ramírez on 01/17/24 and left leg and foot were doing well. A few days later noticed a blood blister on the bottom of his left great toe that soon popped and drained. Pt then began treating wound with silver alginate dressing and other wound supplies left over from previous foot ulcers and amputations. States wound did well up until 1.5 weeks ago when it ?blew up? with erythema, toe discoloration, and copious amounts of purulent, foul-smelling discharge. Patient called Wound Care Clinic but could not get an appointment until this morning, where they immediately redirected him to the ED after a quick assessment of the toe. Reports minimal, intermittent pain in the foot he rates a 2/10. No other acute medical complaints. Denies fever or chills. No nausea, vomiting, diarrhea, abdominal pain. Denies chest pain/pressure, palpitations. No shortness a breath or difficulty breathing. In the ED pt was afebrile but with elevated heart rate of 93 and initially hypertensive up to 170/66. Labs were significant for leukocytosis of 22.6, ESR 47, bilirubin 1.3, AST 40, ALT 57, alk-phos 144, and C-reactive protein 23.85. Left foot x-ray showed acute osteomyelitis of the great toe distal phalanx with an overlying soft tissue wound. Pt was treated with Zosyn in the ED. Pt will be admitted to the hospital for treatment and further evaluation of osteomyelitis of left great toe. hospital course: Patient was admitted for osteomyelitis of the left 1st toe complicated by Streptococcus viridans bacteremia. He underwent left great toe amputation. Postop period was unremarkable. Will continue follow-up with Wound Care. Was treated with IV ceftriaxone and blood cultures cleared from 03/12/2024. We will continue ceftriaxone 2 g daily via PICC line until 04/09/2024. Echocardiogram was done which did not reveal any vegetation, it did show some regional wall motion abnormality. Was seen by Cardiology who recommended outpatient follow-up for stress test. For peripheral vascular disease was continued on Plavix and statin. For diabetes was continued on basal bolus insulin. For hypertension was continued on amlodipine and lisinopril. For hyperlipidemia was continue statin. For acute hyperkalemia this was transient and resolved. For morbid obesity weight loss recommended. Patient is medically stable be discharged home. Time Attestation Discharge Coordination Time (in mins): 37 Quality: Safe Use of Opioids Does Pt have an Active Cancer Diagnosis on the Problem List?: No Quality: Stroke Does the patient have a stroke diagnosis?: No Physical Exam Vital Signs: Vital Signs: Last Vital Signs Temp 97.5 F 03/14/24 07:30 Pulse 59 03/14/24 07:30 Resp 17 03/14/24 07:30 BP 154/72 H 03/14/24 07:30 Pulse Ox 95 03/14/24 07:30 O2 Del Method Room Air 03/14/24 07:30 O2 Flow Rate 94 03/11/24 07:42 BMI result Body Mass Index 48.2 GENERAL APPEARANCE: in no acute distress, pleasant. NECK: no carotid bruit, no jugular venous distention. SKIN: no suspicious lesions, warm and dry. HEART: no murmurs, regular rate and rhythm. LUNGS: clear to auscultation bilaterally. ABDOMEN: soft, nontender. EXTREMITIES: no edema. PERIPHERAL PULSES: equal. NEUROLOGIC: No gross deficits, AAO X 3 DS: Data Data Completed and Pending Completed studies during hospitalization [Text1]: Pending at discharge 03/10/24 12:45 Surgical [PTH] Routine Procedures Detachment at Right Lower Leg, Mid, Open Approach (06/13/21) Drainage of Right Foot Skin, External Approach (03/31/21) Excision of Right Tarsal, Open Approach (03/31/21) Excision of Right Tibia, Open Approach (03/15/21) Insertion of Infusion Device into Superior Vena Cava, Percutaneous Approach (03/15/21) Labs on day of discharge: Laboratory Results - last 24 hr 03/13/24 03/13/24 03/13/24 11:48 16:21 19:38 WBC RBC Hgb Hct MCV MCH MCHC RDW Plt Count MPV Absolute Nucleated RBC Nucleated RBC % (auto) Sodium Potassium Chloride Carbon Dioxide Anion Gap BUN Creatinine Estim Creat Clear Calc Estimated GFR POC Glucose 217 H 237 H 265 H Fasting Glucose Calcium 03/14/24 03/14/24 05:00 07:35 WBC 14.6 H RBC 5.04 Hgb 14.5 Hct 43.4 MCV 86.1 MCH 28.8 MCHC 33.4 RDW 12.7 Plt Count 313 MPV 10.6 Absolute Nucleated RBC 0.000 Nucleated RBC % (auto) 0.0 Sodium 136 Potassium 4.2 Chloride 101 Carbon Dioxide 28 Anion Gap 11 L BUN 17 H Creatinine 1.05 Estim Creat Clear Calc 104.2 Estimated GFR > 60 POC Glucose 149 H Fasting Glucose 146 H Calcium 9.5 Preliminary micro results at discharge 03/12/24 14:45 Blood Culture - Preliminary Blood - Venous No growth after 24 hours. 03/12/24 14:45 Blood Culture - Preliminary Blood - Venous No growth after 24 hours. Discharge Plan Discharge Anticipated Discharge Date/Time: 03/14/24 10:06 Patient Disposition: Home Health Service Discharge Diagnosis: viridans bacteremia, dfu Referrals: Reece Ann MD [Primary Care Provider] - 1 Week Carmen Arevalo MD [Physician] - 1 Month Aurelia Gambino MD [Physician] - 1 Week Discharge Medications: New ceftriaxone 2 gram Recon Soln 2 g IV Q24H Qty: 0 0RF Continued (DME) FreeStyle Lite Strips Strip See Rx Instructions .ROUTE .MEDSUPPLY Qty: 400 5RF Rx Instructions: tid to quid testing of glucose levels, 90 insulin glargine U-300 conc [Toujeo SoloStar U-300 Insulin] 300 unit/mL (1.5 mL) insulin pen 78 unit subcut BID insulin lispro [Humalog KwikPen Insulin] 100 unit/mL insulin pen See Rx Instructions .ROUTE .COMPLEX Rx Instructions: subcutaneously 3 times a day; 120-150: 5 units, 151-160: 6 units, 161-170: 7 units, 171-180: 8 units, 181-190: 9 units, 191-200: 10 units, 201 or greater: 12 units (DME) pen needle, diabetic [BD Ultra-Fine Short Pen Needle] 31 gauge x 5/16 needle See Rx Instructions .Route Qty: 500 4RF Rx Instructions: Use to inject As directed insulin 5 times a day, as directed, 90 days lisinopril 40 mg tablet 40 mg PO DAILY 90 Days Qty: 90 3RF amlodipine 10 mg tablet 10 mg PO BEDTIME 90 Days Qty: 90 2RF simvastatin 20 mg tablet 20 mg PO BEDTIME 90 Days Qty: 90 2RF (DME) blood-glucose meter [FreeStyle [place] Lite] Kit See Rx Instructions .Route Qty: 1 0RF Rx Instructions: As directed (DME) lancets [FreeStyle Lancets] 28 gauge misc See Rx Instructions .ROUTE .MEDSUPPLY Qty: 100 0RF Rx Instructions: tid to qid glucose checks clopidogrel 75 mg tablet 75 mg PO DAILY 90 Days Qty: 90 3RF Discharge Orders: Discharge Order (Routine); Ordered 03/14/24 Ordered By: Johnnie Aldana Diet: Diabetic diet Activity on Discharge: As tolerated Stand Alone Forms: Patient Portal Discharge page Print Language: Georgian Activity Restrictions/Additional Instructions: Topical Wound Care Recommendations: Left Foot - Elevate Left Leg - Cleanse and irrigate with NS. Apply skin prep wipe to periwound. Lightly pack wound bed with Santly impregnated gauze, cover with NS moist gauze, dry gauze ABD pad and gauze wrap. Change Daily. Recommend follow up out patient Wound Clinic at [address] [place] [id number] and to call for an appointment at time of discharge. [phone].? .? Care Plan Goals: recovery Health Concerns: viridans bacteremia, s/p LLE 1st toe amp, wma on echo Plan of Treatment: 4 weeks iv ceftriaxone follow up ID, follow up wound care, outpatient stress test with cardiology Assessment: see above Discharge Date/Time: 03/14/24 17:36
--- NOTE | 2024-03-14 10:43 | W.MHC.F2F ---
Service Date Service Date: 03/14/24 Encounter Date of encounter: 03/14/24 Reasons for Services Signs and symptoms assessed: s/p toe amp, difficulty walking Reason for fpc: administration of IV, SQ, or IM injection Homebound: Leaving the home is medically contraindicated at this time without the asist of a device and/or another person due th the listed conditions above and below. Reason homebound: unsteady gait / fall risk Certification: Based on the above findings, I certify that this patient is confined to the home and needs intermittent fpc care, physical therapy and/or speech therapy, or continues to need occupational therapy. The patient is under my care, and I have initiated the establishment of the plan of care. The patient will be followed by a physician who will periodically review the plan of care. Time Spent With Patient Time: Total time managing care of this patient today ____ minutes.
[2024-03-14 11:31] LABS: Glucose, Whole Blood 209 mg/dL (60-115)
[2024-03-14] MEDS: Insulin Lispro 100 UNIT/ML 3 ML VIAL SUBCUT (12:08)
[2024-03-14] MEDS: Collagenase Clostridium Hist. 30 GM TUBE 1 APPL TOPICAL (13:20)
--- NOTE | 2024-03-14 15:51 | MHC.CM.PN ---
Second IMM given 03/14. Pt is medically cleared for discharge home with new [facility] services and [facility]. Pt currently getting PICC line placement and will discharge home via lyft after first dose of ceftriaxone is given.
--- NOTE | 2024-03-14 16:13 | HO.PICC ---
PICC Line Insertion NPICC Diagnosis: Foot infection Indication: [facility] antibiotics Pertinent Labs: Reviewed Technique: Following informed consent including risks, benefits and alternatives and using sterile technique including cap and mask, sterile gown, glove and drape, the right arm was prepped and draped in the usual sterile fashion of full barrier technique with CHG. Following completion of Point Comfort Protocol the skin and soft tissues were anesthetized with 1% Lidocaine plain. Using ultrasound guidance, the right basilic vein access was obtained in a single attempt by this RN after 2 attepts by Jaren Willis RN. Over an 0.018 wire through peel-away sheath, a 4 lebanese single lumen PASV PICC line was positioned. Catheter length is 47 cm internal length, the external length is at the 0 cm external kirk, for a total trimmed length of 47 cm. The procedure was performed in S272. Tip verification was performed by Todd Riggs with Sherlock 3CG. Tip located in SVC. Ultrasound was used to document vein patency and for needle entry. A formal ultrasound picture and cardiac rhythm strip was recorded. Vascular Inspector [employer]ed [employer] has released the line for use and it is currently dressed with a StatLock, Tegaderm, and CHG disc. Verification has been performed for blood return and line patency. Arm Circumference: 34 cm Equipment: [email or web address] PowerPICC Solo Catheter with sherlock 3 CG Tip Catheter Type: 4 lebanese single lumen PASV PICC Lot #: [id number]
[2024-03-14] MEDS: cefTRIAXone sodium 2 GM in 0.9 % Sodium Chloride 50 ML IV (16:24)
[2024-03-14 16:44] LABS: Glucose, Whole Blood 238 mg/dL (60-115)
== END 2024-03-14 17:36 | disposition home health service (06) | DRG 617 ==
LOC: HO.ED 13:48 → HO.EDOVER 15:47 → HO.S3 03-07 08:06
PROVIDERS: Hospitalist; Registered Nurse Emergency; Surgery; Admitting Provider Student in an Organized Health Care Education/Training Program; Emergency Provider Emergency Medicine; PCP Family Medicine; Visit Provider Internal Medicine
PROC: 0Y6P0Z0 Detachment at Right 1st Toe, Complete, Open Approach (ICD-10-PCS; principal; 2024-03-10 12:10)
DX: E11.69 Type 2 diabetes mellitus with other specified complication (principal); E11.52 Type 2 diabetes mellitus with diabetic peripheral angiopathy with gangrene; Z68.42 Body mass index [BMI] 45.0-49.9, adult; R78.81 Bacteremia; M86.172 Other acute osteomyelitis, left ankle and foot; E11.42 Type 2 diabetes mellitus with diabetic polyneuropathy; E66.01 Morbid (severe) obesity due to excess calories; E87.5 Hyperkalemia; E78.5 Hyperlipidemia, unspecified; R93.1 Abnormal findings on diagnostic imaging of heart and coronary circulation; I10 Essential (primary) hypertension; B95.4 Other streptococcus as the cause of diseases classified elsewhere; Z89.511 Acquired absence of right leg below knee; Z86.14 Personal history of Methicillin resistant Staphylococcus aureus infection; Z79.4 Long term (current) use of insulin; Z79.02 Long term (current) use of antithrombotics/antiplatelets; Z79.899 Other long term (current) drug therapy
CPT/HCPCS: 36415; 36573; 73630; 80048; 80053; 80202; 82565; 82947; 85025; 85027; 85610; 85652; 86140; 87040; 87077; 87186; 87205; 88305; 88311; 93005; 93306; 93308; 99285; C1751; J0696; J1650; J2250; J2405; J2543; J2704; J2795; J3010; J3370; J3371; Q9957

== ENCOUNTER 2024-03-06 15:25 | Outpatient (BNV) | payer MEDICARE, SELFPAY | END 2024-03-14 07:00 | PROVIDERS: Admitting Provider Student in an Organized Health Care Education/Training Program; Emergency Provider Emergency Medicine; PCP Family Medicine; Visit Provider Internal Medicine Cardiovascular Disease | DX: I51.89 Other ill-defined heart diseases (principal); R93.1 Abnormal findings on diagnostic imaging of heart and coronary circulation | CPT/HCPCS: 93308 ==

== ENCOUNTER 2024-03-06 15:25 | Outpatient (BNV) | payer MEDICARE, SELFPAY | END 2024-03-13 07:00 | PROVIDERS: Admitting Provider Student in an Organized Health Care Education/Training Program; Emergency Provider Emergency Medicine; PCP Family Medicine; Visit Provider Internal Medicine Cardiovascular Disease | DX: R93.1 Abnormal findings on diagnostic imaging of heart and coronary circulation (principal) | CPT/HCPCS: 93010; 93306 ==

== ENCOUNTER → 2024-03-06 15:25 | Outpatient (BNV) | payer MEDICARE, SELFPAY | PROVIDERS: Admitting Provider Student in an Organized Health Care Education/Training Program; Emergency Provider Emergency Medicine; PCP Family Medicine; Visit Provider Internal Medicine | DX: M86.9 Osteomyelitis, unspecified (principal) | CPT/HCPCS: 99222 ==

== ENCOUNTER → 2024-03-06 15:25 | Outpatient (BNV) | payer MEDICARE, SELFPAY | PROVIDERS: Admitting Provider Student in an Organized Health Care Education/Training Program; Emergency Provider Emergency Medicine; PCP Family Medicine; Visit Provider Student in an Organized Health Care Education/Training Program | DX: M86.9 Osteomyelitis, unspecified (principal) | CPT/HCPCS: 99223; 99232; 99233; 99239; G0180 ==

== ENCOUNTER → 2024-03-06 15:25 | Outpatient (BNV) | payer MEDICARE, SELFPAY | PROVIDERS: Admitting Provider Student in an Organized Health Care Education/Training Program; Emergency Provider Emergency Medicine; PCP Family Medicine; Visit Provider Internal Medicine Cardiovascular Disease | DX: R93.1 Abnormal findings on diagnostic imaging of heart and coronary circulation (principal) | CPT/HCPCS: 99223 ==

== ENCOUNTER → 2024-03-06 15:25 | Outpatient (BNV) | payer MEDICARE, SELFPAY | PROVIDERS: Admitting Provider Student in an Organized Health Care Education/Training Program; Emergency Provider Emergency Medicine; PCP Family Medicine; Visit Provider Surgery | DX: M86.9 Osteomyelitis, unspecified (principal) | CPT/HCPCS: 28810; 99024; 99222; 99232 ==

== ENCOUNTER 2024-03-26 13:19 | Outpatient (REF) | payer MEDICARE, SELFPAY ==
[2024-03-26 13:23] LABS: MANUAL DIFF FLAG NO
[2024-03-26 14:04] LABS: Basophils Absolute Auto 0.1 X10*3/uL (0.0-0.2); Basophils Percent Auto 0.5 % (0-2); Eosinophils Absolute Auto 0.1 X10*3/uL (0.0-0.4); Eosinophils Percent Auto 0.7 % (0-4); Hematocrit 41.6 % (42.0-52.0); Imm Gran Abs Auto 0.04 X10*3/uL (0.00-0.03); Imm Gran Pct Auto 0.4 % (0.0-0.4); Lymphocytes Absolute Auto 1.5 X10*3/uL (1.2-4.9); Lymphocytes Percent Auto 13.4 % (20-40); Mean Corpuscular HGB Conc 33.7 g/dl (31.0-36.0); Mean Corpuscular Hemoglobin 28.6 pg (27.0-33.0); Mean Corpuscular Volume 84.9 fL (80.0-98.0); Mean Platelet Volume 11.9 fL (9.4-12.4); Monocytes Absolute Auto 0.9 X10*3/uL (0.1-1.2); Monocytes Percent Auto 7.7 % (2-11); Neutrophils Absolute Auto 8.5 x10*3/uL (2.0-8.3); Neutrophils Percent Auto 77.3 % (45-73); Platelet Count 221 X10*3/uL (160-400); Red Cell Distribution Width 13.1 % (11.0-16.0)
[2024-03-26 14:07] LABS: Blood Urea Nitrogen 13 mg/dL (9-16); Estimated Glomerular Filt Rate > 60
== END 2024-03-26 13:20 | disposition home or self-care (01) ==
LOC: HO.LNP 13:19
PROVIDERS: Visit Provider Internal Medicine
DX: M86.172 Other acute osteomyelitis, left ankle and foot (principal)
CPT/HCPCS: 82565; 84520; 85025

== ENCOUNTER 2024-03-28 09:05 | Outpatient (AMB) | payer MEDICARE, SELFPAY ==
--- NOTE | 2024-03-28 09:08 | MHC.OFFVIS ---
Vital Signs 03/28/24 09:15 Height 5 ft 8 in Weight 332 lb BMI 50.5 BP 147/69 H Blood Pressure Location Lt brachial Position Sitting Pulse 100 Intake Visit Reasons: s/p toe amputation Intake Note: Patient is seen in office for post op assessment post left great toe amputation. Pt c/o: has VNA coming in weekly, admits to some discharge Medical Assistant Ob Gyn Required: No Accompanied by: Self / Same As Patient Allergies aspirin Allergy (Severe, Verified 03/28/24 09:15) ANAPHYLAXIS, eyes red,swollen Medication List - Last Reconciled 03/28/24 by Ernesto Abdi MD amlodipine 10 mg PO BEDTIME 90 days blood sugar diagnostic (FreeStyle Lite Strips) tid to quid testing of glucose levels, 90 blood-glucose meter (FreeStyle [place] Lite kit) As directed ceftriaxone 2 grams IV Q24H clopidogrel 75 mg PO DAILY 90 days insulin glargine U-300 conc (Toujeo SoloStar U-300 Insulin) 78 units subcut BID insulin lispro (Humalog KwikPen (U-100) Insulin) subcutaneously 3 times a day; 120-150: 5 units, 151-160: 6 units, 161-170: 7 units, 171-180: 8 units, 181-190: 9 units, 191-200: 10 units, 201 or greater: 12 units lancets (FreeStyle Lancets) tid to qid glucose checks lisinopril 40 mg PO DAILY 90 days pen needle, diabetic (BD Ultra-Fine Short Pen Needle) Use to inject As directed insulin 5 times a day, as directed, 90 days simvastatin 20 mg PO BEDTIME 90 days HPI Comments Details: Patient returns following amputation of his left great toe. He had previously undergone amputation of the 2nd through 5th toes as well as a right BKA. Denies any new symptoms. His has been changing the dressing daily. He ran out of the [employer] and is currently using a wet-to-dry dressing. 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 Peripheral neuropathy History of wound infection PAD (peripheral artery disease) Morbid obesity Hypertension Diabetes mellitus Surgical History (Updated 03/28/24 @ 09:17 by CRIS Muniz) History of amputation of left great toe (03/10/24) H/O cystoscopy H/O hand surgery Hx of right BKA History of amputation of toe (12/14/21) S/P debridement (~01/2017) History of amputation of toe (~06/2017) History of amputation of toe (~02/23/20) Family History Mother Diabetes Father Blood infection Family history of mental disorder Maternal Grandmother Diabetes Paternal Grandmother Family history of mental disorder Social History Household Members: Spouse Housing: House Do you presently have visiting nurse or other home services: No Alcohol intake: current Alcohol intake frequency: a few times a week Patient Tobacco Use Status: Never used Tobacco e-Cigarette/Vaping Use: Never Used Second Hand Smoke Exposure: No service: No Current occupational status: employed Current occupation: [employer] Cognitive needs: No Hearing needs: No Vision needs: No Physical Exam Vital Signs: Last Vital Signs Pulse 100 03/28/24 09:15 BP 147/69 H 03/28/24 09:15 BMI result Body Mass Index 50.5 Const General: comfortable Nutritional Appearance: well nourished Orientation/consciousness: patient oriented x3 Resp Effort & Inspection: normal respiratory effort Neuro General: patient oriented x3 Extrem Other: Dressings changed to left foot. Open wound at base of great toe with some granulation tissue noted at the margins. There is some necrotic tissue noted at the medial surface measuring approximately 2 x 2 cm which was excised using a scissors. This was the subcutaneous tissue and muscle layer. Wounds were dressed with silver alginate followed by fluff gauze and 4 in Harriet. Assessment & Plan Assessment & Plan (1) Osteomyelitis of great toe of left foot: Code(s): M86.9 - Osteomyelitis, unspecified Category: Medical Plan Patient returns for wound check following amputation of the left great toe. He is due to see wound care next week. He is no longer using the Santyl as he ran out. He will use the silver alginate which she has at home already pending his wound care visit. He will follow-up in our office in approximately 1 month. He will continue the IV antibiotics as previously prescribed. Coding Level of Care Code Global (48498) Diagnoses Osteomyelitis of great toe of left foot M86.9
[2024-03-28 09:15] VITALS: BP 147/69; PULSE 100; BMI 50.5
== END 2024-03-28 09:28 | disposition home or self-care (01) ==
PROVIDERS: PCP Family Medicine; Visit Provider Surgery
DX: M86.9 Osteomyelitis, unspecified (principal)
CPT/HCPCS: 99024

== ENCOUNTER → 2024-03-28 09:05 | Outpatient (BNVA) | payer MEDICARE, SELFPAY | PROVIDERS: PCP Family Medicine; Visit Provider Surgery | DX: S91.102A Unspecified open wound of left great toe without damage to nail, initial encounter (principal); T87.89 Other complications of amputation stump; M86.9 Osteomyelitis, unspecified; X58.XXXA Exposure to other specified factors, initial encounter; Y93.9 Activity, unspecified; Y92.9 Unspecified place or not applicable; Y99.9 Unspecified external cause status; Z89.511 Acquired absence of right leg below knee; Z89.412 Acquired absence of left great toe; Z89.429 Acquired absence of other toe(s), unspecified side; Z79.2 Long term (current) use of antibiotics | CPT/HCPCS: 99212 ==

== ENCOUNTER 2024-04-07 14:24 | Outpatient (AMB) | payer MEDICARE, SELFPAY ==
[2024-04-07 15:09] VITALS: PULSE 105; TEMP 36.9; O2SAT 95; BMI 51.7
--- NOTE | 2024-04-07 15:09 | A.OFFVIS_ITS ---
Vital Signs 3 04/07/24 15:09 Height 5 ft 8 in Weight 340 lb BMI 51.7 Pulse 105 H Pulse Source Pulse Oximeter Temp 98.5 F Temp Source Oral Pulse Oximetry (%) 95 Intake Visit Reasons: [facility] picc line end 04/09 osteo bacteremia Allergies aspirin Allergy (Severe, Verified 04/07/24 15:09) ANAPHYLAXIS, eyes red,swollen HPI HPI [facility] picc line end 04/09 osteo bacteremia: Details: He has OM left great toe. He was started on Ceftriaxone on 03/12 strep mitis. He has felt better. 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 Peripheral neuropathy History of wound infection PAD (peripheral artery disease) Morbid obesity Hypertension Diabetes mellitus Surgical History History of amputation of left great toe (03/10/24) H/O cystoscopy H/O hand surgery Hx of right BKA History of amputation of toe (12/14/21) S/P debridement (~01/2017) History of amputation of toe (~06/2017) History of amputation of toe (~02/23/20) Family History Mother Diabetes Father Blood infection Family history of mental disorder Maternal Grandmother Diabetes Paternal Grandmother Family history of mental disorder Social History Household Members: Spouse Housing: House Do you presently have visiting nurse or other home services: No Alcohol intake: current Alcohol intake frequency: a few times a week Patient Tobacco Use Status: Never used Tobacco e-Cigarette/Vaping Use: Never Used Second Hand Smoke Exposure: No service: No Current occupational status: employed 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 Cognitive needs: No Hearing needs: No Vision needs: No Review of Systems Const All systems reviewed & are unremarkable except as noted in HPI and below Physical Exam Vital Signs: Last Vital Signs Temp 98.5 F 04/07/24 15:09 Pulse 105 H 04/07/24 15:09 Pulse Ox 95 04/07/24 15:09 BMI result Body Mass Index 51.7 Const General: cooperative Orientation/consciousness: patient oriented x3 HEENT Head: Yes normal to inspection Mouth: Normal oral and palatal mucosa present Eyes General: appearance normal, both eyes and all related structures Pupils: Equal, round and reactive pupils present Resp Effort & Inspection: normal respiratory effort Cardio Rate: regular rate Rhythm: regular rhythm GI Palpation (GI): Soft to palpation and nontender General: Yes no CVA tenderness Back/Spine/Pelvis Back: no CVA tenderness Skin General skin exam: no rashes or lesions noted Neuro General: patient oriented x3 Cranial nerves: Yes CN's II-XII intact bilaterally and Yes Equal, round and reactive pupils present Extrem General: Yes normal to inspection Psych Appearance: grossly normal Assessment & Plan Assessment & Plan (1) Screening for prostate cancer: Code(s): Z12.5 - Encounter for screening for malignant neoplasm of prostate Category: Medical Plan: na (2) Osteomyelitis of great toe of left foot: Comment: He has received antibiotics for maximum benefit Code(s): M86.9 - Osteomyelitis, unspecified Category: Medical Plan: Would give po Doxycycline Continue see Wound Care. See as needed. Orders: Orders 2 IR cvc remove any age 0804/07/24 Z12.5 - Encounter for screening for malignant neoplasm of prostate, M86.9 - Osteomyelitis, unspecified Medications: New 2 doxycycline hyclate 100 mg PO BID 60 caps 0RF 30 days Coding Level of Care Code Est Pt Level 3 (88686) Diagnoses Screening for prostate cancer Z12.5 Osteomyelitis of great toe of left foot M86.9
== END 2024-04-07 15:21 | disposition home or self-care (01) ==
LOC: HO.HID 14:24
PROVIDERS: PCP Family Medicine; Visit Provider Internal Medicine
DX: Z12.5 Encounter for screening for malignant neoplasm of prostate (principal); M86.9 Osteomyelitis, unspecified
CPT/HCPCS: 99213

== ENCOUNTER → 2024-04-07 14:24 | Outpatient (BNVA) | payer MEDICARE, SELFPAY | PROVIDERS: PCP Family Medicine; Visit Provider Internal Medicine | DX: Z12.5 Encounter for screening for malignant neoplasm of prostate (principal); M86.9 Osteomyelitis, unspecified | CPT/HCPCS: 99212 ==

== ENCOUNTER 2024-05-05 13:13 | Outpatient (AMB) | payer MEDICARE, SELFPAY ==
[2024-05-05 13:12] VITALS: PULSE 84; TEMP 36.8; O2SAT 98; BMI 52.8
--- NOTE | 2024-05-05 13:12 | MHC.OFFVIS ---
Vital Signs 05/05/24 13:12 Height 5 ft 8 in Weight 347 lb BMI 52.8 Pulse 84 Pulse Source Pulse Oximeter Temp 98.2 F Temp Source Oral Pulse Oximetry (%) 98 Oxygen Delivery Method Room Air Intake Visit Reasons: follow up 1 month wound bacteremia Allergies aspirin Allergy (Severe, Verified 05/05/24 13:13) ANAPHYLAXIS, eyes red,swollen HPI HPI follow up 1 month wound bacteremia: Details: He has left foot great toe OM and has PICC line. He has finished IV antibiotics and took two weeks po Doxycycline and had nausea and vomiting with this and then stopped. He says that his foot feels well. 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 Peripheral neuropathy History of wound infection PAD (peripheral artery disease) Morbid obesity Hypertension Diabetes mellitus Surgical History History of amputation of left great toe (03/10/24) H/O cystoscopy H/O hand surgery Hx of right BKA History of amputation of toe (12/14/21) S/P debridement (~01/2017) History of amputation of toe (~06/2017) History of amputation of toe (~02/23/20) Family History Mother Diabetes Father Blood infection Family history of mental disorder Maternal Grandmother Diabetes Paternal Grandmother Family history of mental disorder Social History Household Members: Spouse Housing: House Do you presently have visiting nurse or other home services: No Alcohol intake: current Alcohol intake frequency: a few times a week Patient Tobacco Use Status: Never used Tobacco e-Cigarette/Vaping Use: Never Used Second Hand Smoke Exposure: No service: No Current occupational status: employed 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 Cognitive needs: No Hearing needs: No Vision needs: No Review of Systems Const All systems reviewed & are unremarkable except as noted in HPI and below Physical Exam Vital Signs: Last Vital Signs Temp 98.2 F 05/05/24 13:12 Pulse 84 05/05/24 13:12 Pulse Ox 98 05/05/24 13:12 Oxygen Delivery Method Room Air 05/05/24 13:12 BMI result Body Mass Index 52.8 Const Other: General: cooperative Orientation/consciousness: patient oriented x3 HEENT Head: Yes normal to inspection Mouth: Normal oral and palatal mucosa present Eyes General: appearance normal, both eyes and all related structures Pupils: Equal, round and reactive pupils present Resp Effort & Inspection: normal respiratory effort Cardio Rate: regular rate Rhythm: regular rhythm GI Palpation (GI): Soft to palpation and nontender General: Yes no CVA tenderness Back/Spine/Pelvis Back: no CVA tenderness Skin General skin exam: no rashes or lesions noted Neuro General: patient oriented x3 Cranial nerves: Yes CN's II-XII intact bilaterally and Yes Equal, round and reactive pupils present Extrem Other: foot open large area granulating tissue Psych Appearance: grossly normal Assessment & Plan Assessment & Plan (1) Osteomyelitis of great toe of left foot: Comment: He has received antibiotics for maximum benefit Code(s): M86.9 - Osteomyelitis, unspecified Category: Medical Plan: Hopefully plan for closure of large skin defect otherwise prognosis quite poor for limb salvage. Patient is aware and will follow with Surgery. See if needed and no further benefit antibiotic therapy at this time. Coding Level of Care Code Est Pt Level 3 (12087) Diagnoses Osteomyelitis of great toe of left foot M86.9
== END 2024-05-05 14:03 | disposition home or self-care (01) ==
LOC: HO.HID 13:13
PROVIDERS: PCP Family Medicine; Visit Provider Internal Medicine
DX: M86.9 Osteomyelitis, unspecified (principal)
CPT/HCPCS: 99213

== ENCOUNTER → 2024-05-05 13:13 | Outpatient (BNVA) | payer MEDICARE, SELFPAY | PROVIDERS: PCP Family Medicine; Visit Provider Internal Medicine | DX: M86.9 Osteomyelitis, unspecified (principal); Z79.2 Long term (current) use of antibiotics; Z95.828 Presence of other vascular implants and grafts | CPT/HCPCS: 99212 ==

== ENCOUNTER 2024-05-09 09:21 | Outpatient (AMB) | payer MEDICARE, SELFPAY ==
--- NOTE | 2024-05-09 09:22 | A.OFFVIS_ITS ---
Vital Signs 05/09/24 09:23 Height 5 ft 8 in Weight 154 lb BMI 23.4 Intake Visit Reasons: 1 mth s/p toe amputation Intake Note: Patient is seen in office for one month follow up visit, post left toe amputation. Pt c/o: sees wound center weekly, starting next week will be bi-weekly, admits to discharge less than before Record Retrieval Specialist Required: No Accompanied by: Self / Same As Patient Allergies aspirin Allergy (Severe, Verified 05/09/24 09:23) ANAPHYLAXIS, eyes red,swollen HPI Comments Details: Patient returns for wound check following amputation of the left great toe on 03/10/2024. [facility] his being seen now every other week. Current dressing includes silver alginate followed by dry sterile dressings applied every other day. He is allowed to take a shower as well. He feels well and denies any new ongoing symptoms. 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 Peripheral neuropathy History of wound infection PAD (peripheral artery disease) Morbid obesity Hypertension Diabetes mellitus Surgical History History of amputation of left great toe (03/10/24) H/O cystoscopy H/O hand surgery Hx of right BKA History of amputation of toe (12/14/21) S/P debridement (~01/2017) History of amputation of toe (~06/2017) History of amputation of toe (~02/23/20) Family History Mother Diabetes Father Blood infection Family history of mental disorder Maternal Grandmother Diabetes Paternal Grandmother Family history of mental disorder Social History Household Members: Spouse Housing: House Do you presently have visiting nurse or other home services: No Alcohol intake: current Alcohol intake frequency: a few times a week Patient Tobacco Use Status: Never used Tobacco e-Cigarette/Vaping Use: Never Used Second Hand Smoke Exposure: No service: No Current occupational status: employed 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 It now measures 8 x 4 cm with minimal tunneling in the lower aspect. There is no necrotic or nonviable tissue appreciated. No debridement is required at this time. New silver alginate was applied followed by dry sterile dressings. Assessment & Plan Assessment & Plan (1) Osteomyelitis of great toe of left foot: Comment: He has received antibiotics for maximum benefit Code(s): M86.9 - Osteomyelitis, unspecified Category: Medical Plan Patient returns following amputation of the left great toe. He continues with wound care and is currently using silver alginate. There is evidence of good granulation tissue at the wound base. Wound now measures 8 x 4 cm. He will continue with the wound care management and return approximately 2 months. He is welcome to return sooner for any new concerns. Coding Level of Care Code Global (65481) Diagnoses Osteomyelitis of great toe of left foot M86.9
[2024-05-09 09:23] VITALS: BMI 23.4
== END 2024-05-09 09:39 | disposition home or self-care (01) ==
PROVIDERS: PCP Family Medicine; Visit Provider Surgery
DX: M86.9 Osteomyelitis, unspecified (principal)
CPT/HCPCS: 99024

== ENCOUNTER → 2024-05-09 09:21 | Outpatient (BNVA) | payer MEDICARE, SELFPAY | PROVIDERS: PCP Family Medicine; Visit Provider Surgery | DX: Z47.81 Encounter for orthopedic aftercare following surgical amputation (principal); Z89.412 Acquired absence of left great toe; Z87.39 Personal history of other diseases of the musculoskeletal system and connective tissue | CPT/HCPCS: 99212 ==

== ENCOUNTER 2024-05-29 10:27 | Outpatient (AMB) | payer MEDICARE, SELFPAY ==
--- NOTE | 2024-05-29 10:38 | A.OFFPC_ITS ---
Vital Signs 05/29/24 10:40 Height 5 ft 8 in Weight 343 lb 2 oz BMI 52.2 BP 154/69 H Blood Pressure Location Lt brachial Position Sitting Respiration 16 Pulse 62 Pulse Source Pulse Oximeter Temp 98.2 F Temp Source Temporal Artery Scan Pulse Oximetry (%) 98 Oxygen Delivery Method Room Air Intake Visit Reasons: Follow up DM Intake Note: /U DM Allergies aspirin Allergy (Severe, Verified 05/29/24 10:39) ANAPHYLAXIS, eyes red,swollen Tobacco use date assessed: 11/29/23 Dental Screening Dental Screen Date: 11/29/23 HPI Follow up DM HPI Details 58 y/o male presents to / diabetes. Date of admission 03/06/2024 Date of discharge 03/14/2024 Patient noted increasing erythema swelling and pain with discharge at left great toe. Went to the emergency department. Significant leukocytosis and imaging showed osteomyelitis. Patient underwent amputation of right great toe. He has been on IV ceftriaxone. Cardiac imaging, echocardiogram showed?hypokinesis?at?[facility]?but did not show any valvular vegetations. Was seen by Cardiology while admitted and they advised a nuclear stress test as an outpatient. This?is?ordered?but?has?not?been?scheduled?or?performed. Being followed by wound care and undergoing dressing changes. Patient is type 2 insulin-dependent diabetic on Toujeo and bolus insulin. Has been seen by infectious disease. Being followed by surgeon, Dr. Abdi. Wound continuing to heal. helps with dressing changes. Continues to / with wound care. A1c today 8.1% Has recorded morning blood sugars as low as in the mid 50s. He reports morning blood sugars typically sit in 70s-100s. He is on Toujeo 78 units b.i.d, Humalog. A1c had been high and was at 8.4% at last office visit check in November. Blood pressure today 154/69, 62p. He is on amlodipine 10mg, lisinopril 40mg daily. Denies any chest pain/discomfort today. Had not been able to do the stress test due to his foot. HPI Comments History of Present Illness Details Documentation assistance for Reece Ann MD, was provided by Enrrique Arnold,? Tooling Supervisor on 05/29/2024 at 11:35 AM EST. I, Dr. Ann, have read, o bserved, and verified documentation. 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 Peripheral neuropathy History of wound infection PAD (peripheral artery disease) Morbid obesity Hypertension Diabetes mellitus Surgical History History of amputation of left great toe (03/10/24) H/O cystoscopy H/O hand surgery Hx of right BKA History of amputation of toe (12/14/21) S/P debridement (~01/2017) History of amputation of toe (~06/2017) History of amputation of toe (~02/23/20) Family History Mother Diabetes Father Blood infection Family history of mental disorder Maternal Grandmother Diabetes Paternal Grandmother Family history of mental disorder Social History Household Members: Spouse Housing: House Do you presently have visiting nurse or other home services: No Alcohol intake: current Alcohol intake frequency: a few times a week Patient Tobacco Use Status: Never used Tobacco e-Cigarette/Vaping Use: Never Used Second Hand Smoke Exposure: No service: No Current occupational status: employed 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 Sincere Hagan, Lillian Adamson, Arthur Zuniga and colleagues, with an educational aleksandar from [employer]. Review of Systems Const Denies chills, Denies fatigue, Denies fever(s), Denies headache(s) and Denies weakness ENT Denies dizziness and Denies headache(s) Card Denies dyspnea Resp Denies cough, Denies dyspnea, Denies wheezing and Denies other (shortness of breath) Musc Denies numbness and Denies tingling Neuro Denies dizziness, Denies headache(s), Denies numbness, Denies tingling and Denies weakness Psych Denies anxiety and Denies depression Endo Denies fatigue Aller/Immun Denies wheezing Physical exam (Primary Care) Vital Signs: Last Vital Signs Temp 98.2 F 05/29/24 10:40 Pulse 62 05/29/24 10:40 Resp 16 05/29/24 10:40 BP 154/69 H 05/29/24 10:40 Pulse Ox 98 05/29/24 10:40 Oxygen Delivery Method Room Air 05/29/24 10:40 BMI result Body Mass Index 52.2 Tobacco/Smoking Status: Tobacco use Status Tobacco use date assessed 11/29/23 05/29/24 10:48 Patient Tobacco Use Status Never used Tobacco 05/29/24 10:48 e-Cigarette/Vaping Use Never Used 05/29/24 10:48 Thrive Assessment: Date of Thrive Assessment Date Thrive assessed 03/08/24 05/29/24 10:48 Const General: well developed; No acute distress Nutritional Appearance: well nourished Orientation/consciousness: patient oriented x3 HENMT Head: Yes normocephalic and Yes atraumatic Eyes General: appearance normal, both eyes and all related structures Pupils: Equal, round and reactive pupils present EOM: EOMs intact bilaterally Resp Effort & Inspection: normal respiratory effort Auscultation: clear to auscultation bilaterally Cardio Rate: regular rate Rhythm: regular rhythm Heart sounds: S1 normal heart sound present, S2 normal heart sound present, no gallops, no murmurs and no rubs Neuro General: patient oriented x3 and gait normal Cranial nerves: Yes Equal, round and reactive pupils present Psych Affect: normal affect Coding Level of Care Code Est Pt Level 4 (14353) Diagnoses Diabetes mellitus E11.9 Osteomyelitis of great toe of left foot M86.9 Hypertension I10 Abnormal echocardiogram R93.1 Assessment & Plan Assessment & Plan (1) Diabetes mellitus: Code(s): E11.9 - Type 2 diabetes mellitus without complications Category: Medical Plan: A1 c?improved?slightly?from?8.4%?to?8.1%?and?patient?notes?that?blood?sugars?have?b een?better?controlled?lately?but?he?is?also?noticing?hypoglycemic?episodes. Had?referred?patient?to?endocrine?in?the?[place]?but?he?says?he?has?not?been?contacted. Referred?him?back?to?endocrinology No?change?to?diabetes?regimen?today (2) Osteomyelitis of great toe of left foot: Comment: He has received antibiotics for maximum benefit Code(s): M86.9 - Osteomyelitis, unspecified Category: Medical Plan: Toe?is?healing.??Currently?under?dressing?and?getting?dressing?changes?as?prescr ibed. Has?appointment?with?wound?care Has?upcoming?appointment?with?surgeon?for?follow-up He?has?completed?antibiotics?including?ceftriaxone?and?doxycycline (3) Hypertension: Code(s): I10 - Essential (primary) hypertension Category: Medical Plan: Blood?pressures?have?been?to?high Adding?hydrochlorothiazide?to?his?blood?pressure?medication?regimen (4) Abnormal echocardiogram: Code(s): R93.1 - Abnormal findings on diagnostic imaging of heart and coronary circulation Category: Medical Plan: Hypokinesis?at?[facility]?had?ordered?a?nuclear?stress?test?with pharmacologic?stress Patient?had?declined?to?do?this?because?he?felt?he?would?need?to?walk?on?a?tread mill More?recently,?he?says?his?surgeon?has?told?him?he?may?walk Advised?he?contact?Cardiology?to?reschedule?this Orders: Referrals Nurse Navigator Referral E11.9 - Type 2 diabetes mellitus without complications, E16.2 - Hypoglycemia, unspecified, Z79.4 - detention (current) use of insulin Endocrinology Referral E11.9 - Type 2 diabetes mellitus without complications, E16.2 - Hypoglycemia, unspecified, Z79.4 - detention (current) use of insulin Medications: New hydrochlorothiazide 12.5 mg PO QAM 90 days 90 tabs 2RF
[2024-05-29 10:40] VITALS: BP 154/69; PULSE 62; RESP 16; TEMP 36.8; O2SAT 98; BMI 52.2
== END 2024-05-29 11:35 | disposition home or self-care (01) ==
PROVIDERS: PCP Family Medicine; Visit Provider Family Medicine
DX: E11.9 Type 2 diabetes mellitus without complications (principal); M86.9 Osteomyelitis, unspecified; I10 Essential (primary) hypertension; R93.1 Abnormal findings on diagnostic imaging of heart and coronary circulation; Z79.4 Long term (current) use of insulin

== ENCOUNTER → 2024-05-29 10:27 | Outpatient (BNVA) | payer MEDICARE, SELFPAY | PROVIDERS: PCP Family Medicine; Visit Provider Family Medicine | DX: E11.9 Type 2 diabetes mellitus without complications (principal); M86.9 Osteomyelitis, unspecified; I10 Essential (primary) hypertension; R93.1 Abnormal findings on diagnostic imaging of heart and coronary circulation; Z79.4 Long term (current) use of insulin | CPT/HCPCS: 83036; 99212 ==

== ENCOUNTER 2024-06-12 08:56 | Outpatient (AMB) | payer MEDICARE, SELFPAY ==
--- NOTE | 2024-06-12 08:24 | A.OFFVIS_ITS ---
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 Most recent HbA1c: 8.1%, 05/29/2024 Random Glucose- 267mg/dL, Today Installer Required: No Accompanied by: Self / Same As Patient Allergies aspirin Allergy (Severe, Verified 05/29/24 10:39) ANAPHYLAXIS, eyes red,swollen Medication List - Last Reconciled 06/12/24 by Luma Trinidad NP amlodipine 10 mg PO BEDTIME 90 days blood sugar diagnostic (FreeStyle Lite Strips) tid to quid testing of glucose levels, 90 blood-glucose meter (FreeStyle Paicines Lite kit) As directed clopidogrel 75 mg PO DAILY 90 days hydrochlorothiazide 12.5 mg PO QAM 90 days insulin glargine U-300 conc (Toujeo SoloStar U-300 Insulin) 78 units (0.26 mL) subcut BID 30 days insulin lispro (Humalog KwikPen (U-100) Insulin) subcutaneously 3 times a day; 120-150: 7 units, 151-160: 8 units, 161-170: 9 units, 171-180: 10 units, 181- 190: 11 units, 191-200: 12 units, 201 or greater: 14 units 30 days lancets (FreeStyle Lancets) tid to qid glucose checks lisinopril 40 mg PO DAILY 90 days pen needle, diabetic (BD Ultra-Fine Short Pen Needle) Use to inject As directed insulin 5 times a day, as directed, 90 days simvastatin 20 mg PO BEDTIME 90 days HPI Comments Details: 58 YO Male who is seen in consultation for T2DM at the request of PCP. Initially diagnosed with T2DM early 40's Was initially started on treatment with:metformin wasn't effective, Lantus 52 units which was changed to Tresiba which resulted in increase of A1C, back on Lantus and then switched to Toujeo. HE believes the Toujeo is not working as well with Lantus Current regimen: TOUJEO 78 UNITS BID Humalog tid 5-12 units starting at 120 Reports low sugars rare Treats lows with 1-2 tablets [Checks] sugar after to ensure it is rising. Most recent A1C 8.1% on 05/29/24 down from prior 8.4% on 11/29/23 Family history of T2DM in daughter, mother, grandfather Has eyes checked yearly, last eye exam February 2024 Has seen retinal specialist: very mild change and did not recommend f/u . Has f/u with Opth 06/2024. 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 Microalbumin 445 11/2023 eGFR >60 Unremarkable renal ultrasound 2022 h/o hydronephrosis Has HLD, on statin. Last LDL 65 as measured on 11/2023 Has PVD followed by vascular. Right BKA 2020, 5 toe amputations s/p stenting 2020 Duplex 2023 mild PVD H/o diabetic ulcers h/o osteomyelitis Followed by wound center @[place] twice monthly with improving wound left foot. He declined exam today. changes dressings. Denies CAD. h/o streptococcal bacteremia Cardiology recommended outpatient stress test. 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 Fib 4 screen for MASH Fibrosis excluded score 0.82 Kinza 0-1 Next screen due 03/05/2026 PFSH Medical History Cold agglutinin disease No pertinent family history Peripheral neuropathy History of wound infection PAD (peripheral artery disease) Morbid obesity Hypertension Diabetes mellitus Surgical History History of amputation of left great toe (03/10/24) H/O cystoscopy H/O hand surgery Hx of right BKA History of amputation of toe (12/14/21) S/P debridement (~01/2017) History of amputation of toe (~06/2017) History of amputation of toe (~02/23/20) Family History Mother Diabetes Father Blood infection Family history of mental disorder Maternal Grandmother Diabetes Paternal Grandmother Family history of mental disorder Social History Household Members: Spouse Housing: House Do you presently have visiting nurse or other home services: No Alcohol intake: current Alcohol intake frequency: a few times a week Patient Tobacco Use Status: Never used Tobacco e-Cigarette/Vaping Use: Never Used Second Hand Smoke Exposure: No service: No Current occupational status: employed 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 Absence of acromegalic features. Neck exam reve als nl size thyroid about 15 gms. No thyroid nodules palpable. No carotid bruits present. Lungs CTA. Heart S1 S2, Reg R/R. No M/R/ G. Skin exam reveals absence of vitiligo or acanthosis nigricans. Abdominal exam reveals Soft NT/ND with NA BS. No organomegaly present. Const General: cooperative Nutritional Appearance: overweight Orientation/consciousness: oriented to person, oriented to place and oriented to time Neck Other: . Neck: Yes normal visual inspection and Yes no lymphadenopathy Thyroid: Thyroid normal Cardio Jugular venous distension: no JVD Rate: regular rate Rhythm: regular rhythm Heart sounds: S1 normal heart sound present and S2 normal heart sound present Skin Other: no areas of lipodystrophy abdomenno acanthosis nigracans Neuro General: oriented to person, oriented to place and oriented to time Extrem Other: prosthetic right leg left foot not examined patient declined Results Reviewed Results Reviewed: Laboratory Last Values Glucose (Clinic) 267 mg/dL (60-115) H 06/12/24 09:16 Assessment & Plan Assessment & Plan (1) Insulin dependent type 2 diabetes mellitus: Code(s): E11.9 - Type 2 diabetes mellitus without complications; Z79.4 - 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 Will start patient on Mounjaro 2.5mg and increase dose monthly as tolerated. He was counseled of all side effects of SGLT-2 inhibitors: nausea, vomiting leading to dehydration, constipation, diarrhea, headache, rare pancreatitis, rare gallbladde attack, contraindicated in family h/o MEN. He has small gallstones on CT 2021 but has not had a known gallbladder attack. He is aware that this is a risk and agree to risk. He was counseled to decrease dose of short acting by 50% if he has any lows. Will order a Freestyle cam 3 as patient has failure to achieve target A!C and is on basal/bolus insulin. He was counseled on need to achieve target A1C to lower risk of progression of diabetic complications. Medications: New tirzepatide (Mounjaro) 2.5 mg (0.5 mL) subcut QWEEK 4 weeks 2 mL 6RF blood-glucose sensor (FreeStyle Cam 3 Plus Sensor device) As directed 3 ea 11RF Changed From insulin lispro (Humalog KwikPen (U-100) Insulin) subcutaneously 3 times a day; 120-150: 5 units, 151-160: 6 units, 161-170: 7 units, 171-180: 8 units, 181-190: 9 units, 191-200: 10 units, 201 or greater: 12 units 30 mL 0RF To insulin lispro (Humalog KwikPen (U-100) Insulin) subcutaneously 3 times a day; 120-150: 7 units, 151-160: 8 units, 161-170: 9 units, 171-180: 10 units, 181-190: 11 units, 191-200: 12 units, 201 or greater: 14 units 30 days 30 mL 11RF Coding Level of Care Code New Pt Level 5 (87928) Complex EM visit Add On G2211 Diagnoses Insulin dependent type 2 diabetes mellitus E11.9; Z79.4 Time Spent (min) 60 Comment face to face, chart review, lab review documentation
[2024-06-12 09:04] VITALS: BP 138/84; PULSE 74; BMI 51.6
[2024-06-12 09:26] LABS: Glucose, Whole Blood 267 mg/dL (60-115)
== END 2024-06-12 09:59 | disposition home or self-care (01) ==
LOC: HO.ENCR 08:56
PROVIDERS: PCP Family Medicine; Visit Provider Nurse Practitioner Adult Health
DX: E11.9 Type 2 diabetes mellitus without complications (principal); Z79.4 Long term (current) use of insulin
CPT/HCPCS: 99205; G2211

== ENCOUNTER → 2024-06-12 08:56 | Outpatient (BNVA) | payer MEDICARE, SELFPAY | PROVIDERS: PCP Family Medicine; Visit Provider Nurse Practitioner Adult Health | DX: E11.42 Type 2 diabetes mellitus with diabetic polyneuropathy (principal); Z79.4 Long term (current) use of insulin | CPT/HCPCS: 82947; 99202 ==

== ENCOUNTER 2024-07-18 08:51 | Outpatient (AMB) | payer MEDICARE, SELFPAY ==
--- NOTE | 2024-07-18 08:57 | MHC.OFFVIS ---
Vital Signs 07/18/24 08:59 Height 5 ft 8 in Weight 339 lb 4 oz BMI 51.6 Pulse 72 Intake Visit Reasons: 2 mth s/p toe amputation Intake Note: Patient is seen in office for 2 month follow up visit, post left toe amputation. Pt c/o: sees wound center every other, minimal discharge, denies any other concerns Volcanologist Required: No Accompanied by: Self / Same As Patient Allergies aspirin Allergy (Severe, Verified 07/18/24 08:59) ANAPHYLAXIS, eyes red,swollen HPI Comments Details: 58-year-old male patient returning for wound check after amputation of left toes now with open wound. He continues with wound care center Q 2 weeks. He is using silver alginate followed by dry sterile dressings. He feels well and feels the wound is slowly closing. [facility] Medical History Cold agglutinin disease No pertinent family history Peripheral neuropathy History of wound infection PAD (peripheral artery disease) Morbid obesity Hypertension Diabetes mellitus Surgical History History of amputation of left great toe (03/10/24) H/O cystoscopy H/O hand surgery Hx of right BKA History of amputation of toe (12/14/21) S/P debridement (~01/2017) History of amputation of toe (~06/2017) History of amputation of toe (~02/23/20) Family History Mother Diabetes Father Blood infection Family history of mental disorder Maternal Grandmother Diabetes Paternal Grandmother Family history of mental disorder Social History Household Members: Spouse Housing: House Do you presently have visiting nurse or other home services: No Alcohol intake: current Alcohol intake frequency: a few times a week Patient Tobacco Use Status: Never used Tobacco e-Cigarette/Vaping Use: Never Used Second Hand Smoke Exposure: No service: No Current occupational status: employed 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 There is no necrotic or nonviable tissue appreciated. Callus on the plantar surface was excised with an area of 5 x 1 cm. New silver alginate was applied followed by dry sterile dressings. Ulceration noted on the lateral foot at the outer step measuring approximately 2 cm in diameter. This was also dressed with silver alginate and dry sterile dressings. Assessment & Plan Assessment & Plan (1) Diabetic foot infection: Code(s): E11.628 - Type 2 diabetes mellitus with other skin complications; L08.9 - Local infection of the skin and subcutaneous tissue, unspecified Category: Medical (2) History of amputation of toe: Code(s): Z89.429 - Acquired absence of other toe(s), unspecified side Category: Surgical Plan 58-year-old male patient status post amputation of left great toe with an open wound. He will continue with wound care management and return approximately 2 months for follow-up examination. She is welcome to call sooner for any new concerns. Coding Level of Care Code Est Pt Level 3 (93307) Diagnoses Diabetic foot infection E11.628; L08.9 History of amputation of toe Z89.429
[2024-07-18 08:59] VITALS: PULSE 72; BMI 51.6
== END 2024-07-18 09:33 | disposition home or self-care (01) ==
PROVIDERS: PCP Family Medicine; Visit Provider Surgery
DX: E11.621 Type 2 diabetes mellitus with foot ulcer (principal); L08.9 Local infection of the skin and subcutaneous tissue, unspecified; Z89.429 Acquired absence of other toe(s), unspecified side
CPT/HCPCS: 97597; 99213

== ENCOUNTER → 2024-07-18 08:51 | Outpatient (BNVA) | payer MEDICARE, SELFPAY | PROVIDERS: PCP Family Medicine; Visit Provider Surgery | DX: E11.628 Type 2 diabetes mellitus with other skin complications (principal); T87.89 Other complications of amputation stump; L08.9 Local infection of the skin and subcutaneous tissue, unspecified; S91.102A Unspecified open wound of left great toe without damage to nail, initial encounter; X58.XXXA Exposure to other specified factors, initial encounter; Y93.9 Activity, unspecified; Y92.9 Unspecified place or not applicable; Y99.9 Unspecified external cause status; Z89.412 Acquired absence of left great toe | CPT/HCPCS: 97597; 99212 ==

== ENCOUNTER 2024-07-24 08:26 | Outpatient (AMB) | payer MEDICARE, SELFPAY ==
[2024-07-24 08:32] VITALS: BP 128/78; PULSE 95; BMI 51.3
--- NOTE | 2024-07-24 08:32 | A.OFFVIS_ITS ---
Vital Signs 07/24/24 08:32 Height 5 ft 8 in Weight 337 lb 4.916 oz BMI 51.3 BP 128/78 Blood Pressure Location Rt brachial Position Sitting Pulse 95 Pulse Source Pulse Oximeter Intake Visit Reasons: DM Intake Note: Patient presents today for a follow-up on Type 2 Diabetes Mellitus: Last Diabetic eye exam was on: 11/2023, next appt jun 22 Last Podiatry exam was on: Does not see a Clearing Supervisor Most recent HbA1c: 8.1%, 05/29/2024 Random Glucose- 221 mg/dL, Today Certified Peer Specialist Required: No Accompanied by: Self / Same As Patient Allergies aspirin Allergy (Severe, Verified 07/24/24 08:45) ANAPHYLAXIS, eyes red,swollen HPI Comments Details: 58 YO Male who is seen in consultation for T2DM at the request of PCP. Initially diagnosed with T2DM early 40's Current medications: Trulicity 0.75 (has been on this x four weeks), TOUJEO 78 UNITS BID, Humalog tid 5-12 units starting at 120 Past medications: Lantus 52 units which was changed to Tresiba which resulted in increase of A1C, back on Lantus and then switched to Toujeo. HE believes the Toujeo is not working as well with Lantus. Tried metformin in past-was not effect Denies interval hypoglycemia. Treats lows with 1-2 tablets [Checks] sugar after to ensure it is rising. Most recent A1C 8.1% on 05/29/24 down from prior 8.4% on 11/29/23. Still has traditional glucometer. Did not bring today. Hopes to get CGM Family history of T2DM in daughter, mother, grandfather Has eyes checked yearly, last eye exam February 2024 Has seen retinal specialist: very mild change and did not recommend f/u . Has f/u with Opth 06/2024. 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 Microalbumin 445 11/2023 eGFR >60 Unremarkable renal ultrasound 2022 h/o hydronephrosis Has HLD, on statin. Last LDL 65 as measured on 11/2023 Has PVD followed by vascular. Right BKA 2020, 5 toe amputations s/p stenting 2020 Duplex 2023 mild PVD H/o diabetic ulcers h/o osteomyelitis Followed by wound center @[facility] twice monthly with improving wound left foot. He declined exam today. changes dressings. Denies CAD. h/o streptococcal bacteremia Cardiology recommended outpatient stress test. 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 Fib 4 screen for MASH Fibrosis excluded score 0.82 Kinza 0-1 Next screen due 03/05/2026 ROS CONSTITUTIONAL: Denies weight loss, fever and chills. HEENT: Denies changes in vision and hearing. RESPIRATORY: Denies SOB and cough. CV: Denies palpitations and CP GI: Denies abdominal pain, nausea, vomiting and diarrhea. : Denies dysuria and urinary frequency. MSK: Denies new myalgia and joint pain. SKIN: Denies rash and pruritus. NEUROLOGICAL: Denies headache PSYCHIATRIC: Denies recent changes in mood. PHYSICAL EXAM: GENERAL: Alert and oriented x 3. NAD EYES: EOMI. Anicteric. HENT: Moist mucous membranes. No scleral icterus. No cervical lymphadenopathy. LUNGS: Clear to auscultation bilaterally. CARDIOVASCULAR: Regular rate and rhythm. No murmur. No JVD. ABDOMEN: Soft, non-tender +bs EXTREMITIES: No edema. Non-tender. SKIN: No rashes or lesions. Warm. NEUROLOGIC: No focal neurological deficits. CN II-XII grossly intact PSYCHIATRIC: Cooperative. Appropriate mood and affect [facility] Medical History Cold agglutinin disease No pertinent family history Peripheral neuropathy History of wound infection PAD (peripheral artery disease) Morbid obesity Hypertension Diabetes mellitus Surgical History History of amputation of left great toe (03/10/24) H/O cystoscopy H/O hand surgery Hx of right BKA History of amputation of toe (12/14/21) S/P debridement (~01/2017) History of amputation of toe (~06/2017) History of amputation of toe (~02/23/20) Family History Mother Diabetes Father Blood infection Family history of mental disorder Maternal Grandmother Diabetes Paternal Grandmother Family history of mental disorder Social History Household Members: Spouse Housing: House Do you presently have visiting nurse or other home services: No Alcohol intake: current Alcohol intake frequency: a few times a week Patient Tobacco Use Status: Never used Tobacco e-Cigarette/Vaping Use: Never Used Second Hand Smoke Exposure: No service: No Current occupational status: employed 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 Does reports some improvement in glucose. No SE. Increase trulicity to 1.5mg weekly. Return in 5 weeks. 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 insulin Trulicity (dulaglutide) 1.5 mg (0.5 mL) subcut QWEEK 2 mL 3RF NS E11.9 - Type 2 diabetes mellitus without complications, Z79.4 - service technician copier (current) use of insulin Changed From blood-glucose sensor (FreeStyle Cam 3 Plus Sensor device) As directed 3 ea 11RF E11.9 - Type 2 diabetes mellitus without complications, Z79.4 - 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
[2024-07-24 08:39] LABS: Glucose, Whole Blood 221 mg/dL (60-115)
== END 2024-07-24 08:57 | disposition home or self-care (01) ==
PROVIDERS: PCP Family Medicine; Visit Provider Internal Medicine
DX: E11.9 Type 2 diabetes mellitus without complications (principal); Z79.4 Long term (current) use of insulin

== ENCOUNTER → 2024-07-24 08:26 | Outpatient (BNVA) | payer MEDICARE, SELFPAY | PROVIDERS: PCP Family Medicine; Visit Provider Internal Medicine | DX: E11.9 Type 2 diabetes mellitus without complications (principal); Z79.4 Long term (current) use of insulin | CPT/HCPCS: 82947; 99212 ==

== ENCOUNTER 2024-07-25 09:25 | Outpatient (REF) | payer MEDICARE, SELFPAY ==
[2024-07-25 11:12] LABS: MANUAL DIFF FLAG NO
[2024-07-25 11:31] LABS: Anion Gap 13 (12-20); Blood Urea Nitrogen 17 mg/dL (9-16); C Reactive Protein 2.12 mg/dL (< or = 0.50); Calcium 9.5 mg/dL (8.4-10.2); Carbon Dioxide 26 mmol/L (22-29); Chloride 101 mmol/L (96-108); Estimated Glomerular Filt Rate > 60; Glucose Random 201 mg/dL (60-115); Potassium 4.1 mmol/L (3.3-5.1); Sodium 136 mmol/L (135-145)
[2024-07-25 11:35] LABS: Estimated Average Glucose 183 mg/dL; Total Hemoglobin (HGBA1C) 3988.6375 umol/L
[2024-07-25 11:38] LABS: Basophils Percent Auto 0.3 % (0-2); Eosinophils Absolute Auto 0.1 X10*3/uL (0.0-0.4); Eosinophils Percent Auto 0.6 % (0-4); Hemoglobin 15.5 g/dl (14.0-18.0); Imm Gran Abs Auto 0.05 X10*3/uL (0.00-0.03); Imm Gran Pct Auto 0.5 % (0.0-0.4); Lymphocytes Absolute Auto 1.9 X10*3/uL (1.2-4.9); Lymphocytes Percent Auto 17.8 % (20-40); Mean Corpuscular Hemoglobin 29.4 pg (27.0-33.0); Mean Corpuscular Volume 85.2 fL (80.0-98.0); Mean Platelet Volume 11.8 fL (9.4-12.4); Monocytes Absolute Auto 0.7 X10*3/uL (0.1-1.2); Monocytes Percent Auto 6.1 % (2-11); Neutrophils Absolute Auto 8.1 x10*3/uL (2.0-8.3); Neutrophils Percent Auto 74.7 % (45-73); Platelet Count 232 X10*3/uL (160-400); Red Blood Count 5.28 X10*6/uL (4.60-5.80); Red Cell Distribution Width 12.9 % (11.0-16.0); White Blood Count 10.8 X10*3/uL (4.8-10.8)
[2024-07-25 11:39] LABS: Mean Corpuscular HGB Conc 34.4 g/dl (31.0-36.0)
[2024-07-25 11:43] LABS: Erythrocyte Sedimentation Rate 2 MM/HR (0-15)
== END 2024-07-25 09:26 | disposition home or self-care (01) ==
LOC: HO.WFDLDS 09:25
PROVIDERS: Visit Provider Surgery
DX: E11.621 Type 2 diabetes mellitus with foot ulcer (principal); L97.525 Non-pressure chronic ulcer of other part of left foot with muscle involvement without evidence of necrosis; T81.31XS Disruption of external operation (surgical) wound, not elsewhere classified, sequela
CPT/HCPCS: 36415; 80048; 83036; 84134; 85025; 85652; 86140

== ENCOUNTER 2024-08-28 10:13 | Outpatient (AMB) | payer MEDICARE, OTHER, SELFPAY ==
[2024-08-28 10:22] VITALS: BP 122/74; PULSE 82; BMI 51.6
--- NOTE | 2024-08-28 10:22 | A.OFFVIS_ITS ---
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 Reports trulicity is hundreds of dollars per month so he stopped it as of a week and a half ago Past medications: Lantus 52 units which was changed to Tresiba which resulted in increase of A1C, back on Lantus and then switched to Toujeo. He believes the Toujeo is not working as well with Lantus. Tried metformin in past-was not effect Most recent A1C 8 on 07/25. 8.1% on 05/29/24 down from prior 8.4% on 11/29/23. Still has traditional glucometer. Was told his CGM was being sent out. Reports fasting BG 120s-130s fasting since increasing the trulicity. No hypoglycemia Family history of T2DM in daughter, mother, grandfather Has eyes checked yearly, last eye exam February 2024 Has seen retinal specialist: very mild change and did not recommend f/u . Has f/u with Opth 06/2024. 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 Microalbumin 445 11/2023 eGFR >60 Unremarkable renal ultrasound 2022 h/o hydronephrosis Has HLD, on statin. Last LDL 65 as measured on 11/2023 Has PVD followed by vascular. Right BKA 2020, 5 toe amputations s/p stenting 2020 Duplex 2023 mild PVD H/o diabetic ulcers h/o osteomyelitis Followed by wound center @[facility] twice monthly with improving wound left foot. He declined exam today. changes dressings. Denies CAD. h/o streptococcal bacteremia Cardiology recommended outpatient stress test. 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 Fib 4 screen for MASH Fibrosis excluded score 0.82 Kinza 0-1 Next screen due 03/05/2026 ROS CONSTITUTIONAL: Denies weight loss, fever and chills. HEENT: Denies changes in vision and hearing. RESPIRATORY: Denies SOB and cough. CV: Denies palpitations and CP GI: Denies abdominal pain, nausea, vomiting and diarrhea. : Denies dysuria and urinary frequency. MSK: Denies new myalgia and joint pain. SKIN: Denies rash and pruritus. NEUROLOGICAL: Denies headache PSYCHIATRIC: Denies recent changes in mood. PHYSICAL EXAM: GENERAL: Alert and oriented x 3. NAD EYES: EOMI. Anicteric. HENT: Moist mucous membranes. No scleral icterus. No cervical lymphadenopathy. LUNGS: Clear to auscultation bilaterally. CARDIOVASCULAR: Regular rate and rhythm. No murmur. No JVD. ABDOMEN: Soft, non-tender +bs EXTREMITIES: No edema. Non-tender. SKIN: No rashes or lesions. Warm. NEUROLOGIC: No focal neurological deficits. CN II-XII grossly intact PSYCHIATRIC: Cooperative. Appropriate mood and affect [facility] Medical History Cold agglutinin disease No pertinent family history Peripheral neuropathy History of wound infection PAD (peripheral artery disease) Morbid obesity Hypertension Diabetes mellitus Surgical History History of amputation of left great toe (03/10/24) H/O cystoscopy H/O hand surgery Hx of right BKA History of amputation of toe (12/14/21) S/P debridement (~01/2017) History of amputation of toe (~06/2017) History of amputation of toe (~02/23/20) Family History Mother Diabetes Father Blood infection Family history of mental disorder Maternal Grandmother Diabetes Paternal Grandmother Family history of mental disorder Social History Household Members: Spouse Housing: House Do you presently have visiting nurse or other home services: No Alcohol intake: current Alcohol intake frequency: a few times a week Patient Tobacco Use Status: Never used Tobacco e-Cigarette/Vaping Use: Never Used Second Hand Smoke Exposure: No service: No Current occupational status: employed 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 Will try to send rybelsus-hopefully copay is cheaper Follow up in 2 months-A1C due at that time Medications: New semaglutide (Rybelsus) 7 mg PO DAILY 90 tabs 3RF Coding Level of Care Code Est Pt Level 4 (56279) Diagnoses Insulin dependent type 2 diabetes mellitus E11.9; Z79.4
[2024-08-28 10:31] LABS: Glucose, Whole Blood 242 mg/dL (60-115)
== END 2024-08-28 10:54 | disposition home or self-care (01) ==
PROVIDERS: PCP Family Medicine; Visit Provider Internal Medicine
DX: E11.9 Type 2 diabetes mellitus without complications (principal); Z79.4 Long term (current) use of insulin

== ENCOUNTER → 2024-08-28 10:13 | Outpatient (BNVA) | payer MEDICARE, OTHER, SELFPAY | PROVIDERS: PCP Family Medicine; Visit Provider Internal Medicine | DX: E11.9 Type 2 diabetes mellitus without complications (principal); Z79.4 Long term (current) use of insulin | CPT/HCPCS: 82947; 99212 ==

== ENCOUNTER 2024-09-19 08:55 | Outpatient (AMB) | payer MEDICARE, SELFPAY ==
[2024-09-19 09:06] VITALS: BP 148/64; PULSE 83; BMI 52.1
--- NOTE | 2024-09-19 09:06 | MHC.OFFVIS ---
Vital Signs 09/19/24 09:06 Height 5 ft 8 in Weight 343 lb BMI 52.1 BP 148/64 H Blood Pressure Location Rt brachial Position Sitting Pulse 83 Intake Visit Reasons: 2 mth s/p toe amputation Intake Note: Patient here s/p Osteomyelitis and gangrene left great toe. Surgery: 03-10-2024 Patient reports wound care visits every 2wks. Denies oozing, pain, redness. Washes with saline. Business Analysis Consultant Required: No Accompanied by: Self / Same As Patient Allergies aspirin Allergy (Severe, Verified 09/19/24 09:09) ANAPHYLAXIS, eyes red,swollen HPI Comments Details: 58-year-old male patient returning for wound check after amputation of left toes now with open wound. He continues with wound care center Q 2 weeks. He is using alternating Dakin solution and saline every other day to the open wound. He feels the wounds continue to improve. He is continue with [facility] care management at [facility]. [facility], LATER [facility] Medical History Cold agglutinin disease No pertinent family history Peripheral neuropathy History of wound infection PAD (peripheral artery disease) Morbid obesity Hypertension Diabetes mellitus Surgical History History of amputation of left great toe (03/10/24) H/O cystoscopy H/O hand surgery Hx of right BKA History of amputation of toe (12/14/21) S/P debridement (~01/2017) History of amputation of toe (~06/2017) History of amputation of toe (~02/23/20) Family History Mother Diabetes Father Blood infection Family history of mental disorder Maternal Grandmother Diabetes Paternal Grandmother Family history of mental disorder Social History Household Members: Spouse Housing: House Do you presently have visiting nurse or other home services: No Alcohol intake: current Alcohol intake frequency: a few times a week Patient Tobacco Use Status: Never used Tobacco e-Cigarette/Vaping Use: Never Used Second Hand Smoke Exposure: No service: No Current occupational status: employed 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 There is no necrotic or nonviable tissue appreciated. Area of granulation measures 3 x 0.7 cm. No new ulceration is identified. Assessment & Plan Assessment & Plan (1) Diabetic foot infection: Code(s): E11.628 - Type 2 diabetes mellitus with other skin complications; L08.9 - Local infection of the skin and subcutaneous tissue, unspecified Category: Medical (2) History of amputation of toe: Code(s): Z89.429 - Acquired absence of other toe(s), unspecified side Category: Surgical Plan 59-year-old male patient status post amputation of left great toe with an open wound. He will continue with wound care management and return as needed for problems. Coding Level of Care Code Global (77733) Diagnoses Diabetic foot infection E11.628; L08.9 History of amputation of toe Z89.429
== END 2024-09-19 09:16 | disposition home or self-care (01) ==
PROVIDERS: PCP Family Medicine; Visit Provider Surgery
DX: E11.621 Type 2 diabetes mellitus with foot ulcer (principal); L08.9 Local infection of the skin and subcutaneous tissue, unspecified; Z89.429 Acquired absence of other toe(s), unspecified side
CPT/HCPCS: 99213

== ENCOUNTER → 2024-09-19 08:55 | Outpatient (BNVA) | payer MEDICARE, SELFPAY | PROVIDERS: PCP Family Medicine; Visit Provider Surgery | DX: E11.628 Type 2 diabetes mellitus with other skin complications (principal); I10 Essential (primary) hypertension; L08.9 Local infection of the skin and subcutaneous tissue, unspecified; Z47.81 Encounter for orthopedic aftercare following surgical amputation; Z89.422 Acquired absence of other left toe(s) | CPT/HCPCS: 99212 ==

== ENCOUNTER → 2024-09-19 10:40 | Outpatient (AMB) | payer MEDICARE, SELFPAY ==
--- NOTE | 2024-09-19 10:43 | A.OFFPC_ITS ---
Vital Signs 09/19/24 10:50 Height 5 ft 8 in Weight 344 lb 2 oz BMI 52.3 BP 140/70 H Blood Pressure Location Lt brachial Position Sitting Respiration 14 Pulse 78 Pulse Source Pulse Oximeter Temp 97.9 F Temp Source Oral Pulse Oximetry (%) 96 Oxygen Delivery Method Room Air Intake Visit Reasons: f/u diabetes, chronic conditions Intake Note: follow dm Allergies aspirin Allergy (Severe, Verified 09/19/24 10:48) ANAPHYLAXIS, eyes red,swollen Tobacco use date assessed: 11/29/23 Dental Screening Dental Screen Date: 11/29/23 HPI f/u diabetes, chronic conditions HPI Details 59 y/o male presents to f/u diabetes, hy pertension, chronic conditions. Blood pressure today 140/70, 78p. He is on hydrochlorothiazide 12.5mg, lisinopril 40mg, amlodipine 10mg. Last A1c in July 8.1%. Had been having difficulty with Trulicity so Endocrinology had switched this to Rybelsus. He has not been able to get this yet. HPI Comments History of Present Illness Details Documentation assistance for Reece Ann MD, was provided by Enrrique Arnold,? Motorcycle Delivery Driver on 09/19/2024 at 11:11 AM EST. I, Dr. Ann, have read, o bserved, and verified documentation. ?? PFSH Medical History Cold agglutinin disease No pertinent family history Peripheral neuropathy History of wound infection PAD (peripheral artery disease) Morbid obesity Hypertension Diabetes mellitus Surgical History History of amputation of left great toe (03/10/24) H/O cystoscopy H/O hand surgery Hx of right BKA History of amputation of toe (12/14/21) S/P debridement (~01/2017) History of amputation of toe (~06/2017) History of amputation of toe (~02/23/20) Family History Mother Diabetes Father Blood infection Family history of mental disorder Maternal Grandmother Diabetes Paternal Grandmother Family history of mental disorder Social History Household Members: Spouse Housing: House Do you presently have visiting nurse or other home services: No Alcohol intake: current Alcohol intake frequency: a few times a week Patient Tobacco Use Status: Never used Tobacco e-Cigarette/Vaping Use: Never Used Second Hand Smoke Exposure: No service: No Current occupational status: employed 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 1. Little interest or pleasure in doing things: not at all 2. Feeling down, depressed, or hopeless: not at all 3. Trouble falling or staying asleep, or sleeping too much: not at all 4. Feeling tired or having little energy: not at all 5. Poor appetite or overeating: not at all 6. Feeling bad about yourself - or that you are a failure or have let yourself or your family down: not at all 7. Trouble concentrating on things, such as reading the newspaper or watching television: not at all 8. Moving or speaking so slowly that other people could have noticed. Or the opposite - being so fidgety or restless that you have been moving around a lot more than usual: not at all 9. Thoughts that you would be better off or of hurting yourself in some way: not at all Total score: 0 Source: Developed by Drs. Sincere Hagan, Arthur Galaviz and colleagues, with an educational aleksandar from [employer]. Thrive Questionnaire Date Thrive assessed: 09/19/24 I am a: Patient What is your living situation today?: I have a steady place to live THRIVE Score: 0 ANNETTE-7 AMB Questionnaire ANNETTE-7 Date ANNETTE - 7 assessed: 11/29/23 Source: Developed by Drs. Sincere Hagan, Arthur Galaviz and colleagues, with an educational aleksandar from [employer]. Review of Systems Const Denies chills, Denies fatigue, Denies fever(s), Denies headache(s) and Denies weakness ENT Denies dizziness and Denies headache(s) Card Denies chest pain, Denies lightheadedness, Denies dyspnea and Denies other (Palpitations) Resp Denies cough, Denies dyspnea, Denies wheezing and Denies other ( shortness of breath) Musc Denies numbness and Denies tingling Neuro Denies dizziness, Denies headache(s), Denies numbness, Denies tingling, Denies paresthesias and Denies weakness Psych Denies anxiety and Denies depression Endo Denies fatigue Aller/Immun Denies wheezing Physical exam (Primary Care) Vital Signs: Last Vital Signs Temp 97.9 F 09/19/24 10:50 Pulse 78 09/19/24 10:50 Resp 14 09/19/24 10:50 BP 140/70 H 09/19/24 10:50 Pulse Ox 96 09/19/24 10:50 Oxygen Delivery Method Room Air 09/19/24 10:50 BMI result Body Mass Index 52.3 Tobacco/Smoking Status: Tobacco use Status Tobacco use date assessed 11/29/23 09/19/24 10:45 Patient Tobacco Use Status Never used Tobacco 09/19/24 10:45 e-Cigarette/Vaping Use Never Used 09/19/24 10:45 PHQ-9: PHQ-9 Score PHQ-9: Total score 0 09/19/24 11:07 Thrive Assessment: Date of Thrive Assessment Date Thrive assessed 09/19/24 09/19/24 10:45 Const General: no acute distress and well developed Nutritional Appearance: well nourished Orientation/consciousness: patient oriented x3 [facility] Head: Yes normocephalic and Yes atraumatic Eyes General: appearance normal, both eyes and all related structures Pupils: Equal, round and reactive pupils present EOM: EOMs intact bilaterally Resp Effort & Inspection: normal respiratory effort Auscultation: clear to auscultation bilaterally Cardio Rate: regular rate Rhythm: regular rhythm Heart sounds: S1 normal heart sound present, S2 normal heart sound present, no gallops, no murmurs and no rubs Neuro General: patient oriented x3 and gait normal Cranial nerves: Yes Equal, round and reactive pupils present Psych Affect: normal affect Coding Level of Care Code Est Pt Level 4 (72998) Diagnoses Diabetes mellitus E11.9 Hypertension I10 Assessment & Plan Assessment & Plan (1) Diabetes mellitus: Code(s): E11.9 - Type 2 diabetes mellitus without complications Category: Medical Plan: A1c?in?July?was?8.1%.??Goal?is?less?than?7.0% Endocrinology?has?send?a?script?for?Rybesus?but?he?has?not?able?to?get?this?yet. He?has?been?off?his?Trulicity?for?about?5?weeks?now. He?feels?that?payment?for?Rybelsus?should?go?through?soon so?no?changes?to?his?regimen?were?made?today. Follow-up?with?endocrinology. He?can?let?me?know?if?there?is?any?problem?getting?new?medication?or?there?is?fu rther?extension?in?the?time - would?discuss?other?temporary?treatments?or?adjustments?to?his?current?regimen. Also?reviewed?his?ophthalmology?report?with?him.??Some?diabetic?retinopathy. We?discusse d?that?as?we?work?on?getting?better?control,?we?should?consider?tight?control?of ?his?blood?sugars.. (2) Hypertension: Code(s): I10 - Essential (primary) hypertension Category: Medical Plan: Blood?pressure?is?high?today.??It?has?been?better?controll ed?since?May?when?we?added?some?hydrochlorothiazide. His??has?a?blood?pressure?monitor?and?advised?him?to?check?it?at?home. He?will?let?me?know?if?blood?pressures?are?elevated?at?home?he?could ?adjust?his?medication?if?needed. No?medication?changes?made?today
== END | disposition home or self-care (01) ==
PROVIDERS: PCP Family Medicine; Visit Provider Family Medicine

== ENCOUNTER 2024-12-25 07:59 | Outpatient (AMB) | payer MEDICARE, SELFPAY ==
--- NOTE | 2024-12-25 08:04 | MHC.PC.OV ---
Vital Signs 12/25/24 08:10 12/25/24 08:55 Height 5 ft 8 in Weight 342 lb 8 oz BMI 52.1 BP 197/86 H 200/94 H Blood Pressure Location Lt brachial Rt brachial Position Sitting Sitting Respiration 16 Pulse 82 Pulse Source Pulse Oximeter Pulse Oximetry (%) 98 Oxygen Delivery Method Room Air Intake Visit Reasons: CPE/dm and htn per dr desouza Intake Note: Physical. Patient left without getting EKG. He had enough between the insurance issue and the appt being scheduled incorrectly. Speaker Wirer Required: No Allergies aspirin Allergy (Severe, Verified 12/25/24 08:08) ANAPHYLAXIS, eyes red,swollen Medication List - Last Reconciled 12/25/24 by Keily Rojas PA-C amlodipine 10 mg PO BEDTIME 90 days blood sugar diagnostic (FreeStyle Lite Strips) tid to quid testing of glucose levels, 90 blood-glucose meter (FreeStyle [place] Lite kit) As directed clopidogrel 75 mg PO DAILY 90 days FreeStyle Cam 3 Plus Sensor (blood-glucose sensor) Every 14 days NS FreeStyle Cam 3 Larsen (blood-glucose,ambulance assistant,cont) As directed NS Humalog KwikPen Insulin (insulin lispro) subcutaneously; 120-150 take 5 units, 151-160 6 units 161-170; 7 UNITS , 171-180; 8 UNITS, 181-190; 9 UNITS, 191-200; 10 UNITS, 201 OR GREATER; 12 UNITS NS hydrochlorothiazide 12.5 mg PO QAM 90 days insulin glargine U-300 conc (Toujeo SoloStar U-300 Insulin) 78 units (0.26 mL) subcut BID 30 days lancets (FreeStyle Lancets) tid to qid glucose checks lisinopril 40 mg PO DAILY 90 days pen needle, diabetic (BD Ultra-Fine Short Pen Needle) Use to inject As directed insulin 5 times a day, as directed, 90 days simvastatin 20 mg PO BEDTIME 90 days Tobacco use date assessed: 12/25/24 Dental Screening Dental Screen Date: 12/25/24 Did you have a dental visit in the last 12 months?: No Did you have a dental problem in the last 6 months where you did not have access to dental care?: No Was dental information given to patient?: Patient declined HPI CPE/dm and htn per dr desouza HPI Details Patient is a 59-year-old male who presents today for a physical exam. He is followed by Dr. Ann as his PCP. He is very frustrated today and states that he needs forms filled out. He recently was kicked off of his insurance plan because he did not have proper documentation regarding chronic medical issues. Endo: Diabetes is currently being managed by endocrinology. Last A1c was 8. He is currently on Rybelsus 7 mg daily, Toujeo 78 units twice a day, Humalog sliding scale. Denies any hypoglycemic events. He is not scheduled yet for a follow up with endocrinology. States that he has to do this because the last appointment was canceled. -rybelsus was never picked up because he states that this lift truck mechanic did not go through and it was unclear regarding the craig. -trulicity caused nausea at high doses and became expensive. -up-to-date eye exam 2024, has cataracts -he does have complications including peripheral arterial disease, previous osteomyelitis and is s/p right BKA CV: Blood pressure today in the office is 200/94. He is currently on hydrochlorothiazide 12.5 mg daily, lisinopril 40 mg daily and amlodipine 10 mg daily. He states he is compliant with this medication. Cholesterol has been managed with simvastatin 20 mg. Last LDL was 68. Overdue for labs. He denies any chest pain, shortness on breath or palpitations Uro: Has a history of hydronephrosis Vasc: follows with Dr. 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 family history Peripheral neuropathy History of wound infection PAD (peripheral artery disease) Morbid obesity Hypertension Diabetes mellitus Surgical History History of amputation of left great toe (03/10/24) H/O cystoscopy H/O hand surgery Hx of right BKA History of amputation of toe (12/14/21) S/P debridement (~01/2017) History of amputation of toe (~06/2017) History of amputation of toe (~02/23/20) Family History Mother Diabetes Father Blood infection Family history of mental disorder Maternal Grandmother Diabetes Paternal Grandmother Family history of mental disorder Social History Household Members: Spouse Housing: House Do you presently have visiting nurse or other home services: No Alcohol intake: current Alcohol intake frequency: a few times a week Patient Tobacco Use Status: Never used Tobacco e-Cigarette/Vaping Use: Never Used Second Hand Smoke Exposure: No service: No Current occupational status: employed 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 Sincere Hagan, Lillian Adamson, Arthur Zuniga and colleagues, with an educational aleksandar from [employer]. Physical exam (Primary Care) Tobacco/Smoking Status: Tobacco use Status Tobacco use date assessed 11/29/23 12/25/24 08:04 Patient Tobacco Use Status Never used Tobacco 12/25/24 08:04 e-Cigarette/Vaping Use Never Used 12/25/24 08:04 Thrive Assessment: Date of Thrive Assessment Date Thrive assessed 09/19/24 12/25/24 08:04 Const Orientation/consciousness: patient oriented x3 HENMT Ears: hearing grossly normal bilaterally and TM's normal bilaterally General nose exam: No nasal polyps present Face and sinus: Yes sinuses nontender Mouth: Normal oral and palatal mucosa present Eyes EOM: EOMs intact bilaterally Neck Neck: Yes full ROM and Yes no lymphadenopathy Thyroid: Thyroid normal Chest Chest palpation & inspection: normal inspection of the chest Resp Auscultation: clear to auscultation bilaterally Cardio Rate: regular rate Rhythm: regular rhythm Heart sounds: S1 normal heart sound present and S2 normal heart sound present GI Other: Soft, nontender Auscultation: normal bowel sounds Rectal Exam - Male: Yes deferred General: Yes no CVA tenderness Back/Spine/Pelvis Other: Nontender Back: no CVA tenderness Skin General skin exam: no rashes or lesions noted Neuro General: patient oriented x3, gait normal and CN's II-XI intact bilaterally Extrem Other: Right BKA noted General: Yes normal to inspection and Yes full ROM Results Reviewed Results Reviewed: Laboratory Tests 11/19/23 07/25/24 08:30 09:32 WBC 10.8 RBC 5.28 Hgb 15.5 Hct 45.0 Plt Count 232 Sodium 136 Potassium 4.1 Chloride 101 Carbon Dioxide 26 Anion Gap 13 BUN 17 H Creatinine 1.03 Estimated GFR > 60 Hemoglobin A1c % 8.0 H Calcium 9.5 Triglycerides 102 Cholesterol 123 LDL Cholesterol, Calc 65 HDL Cholesterol 38 L PSA Screen 0.24 Coding Level of Care Code Est Pt Level 3 (95679) Est Pt Prev Care 40-64y(99160) Diagnoses Adult general medical exam Z00.00 Hypertension I10 PAD (peripheral artery disease) I73.9 Hx of right BKA Z89.511 Insulin dependent type 2 diabetes mellitus E11.9; Z79.4 Assessment & Plan Assessment & Plan (1) Adult general medical exam: Code(s): Z00.00 - Encounter for general adult medical examination without abnormal findings Category: Medical Plan: Health maintenance reviewed Labs ordered Cologuard ordered PSA ordered (2) Hypertension: Code(s): I10 - Essential (primary) hypertension Category: Medical Plan: Very elevated today Patient asymptomatic. Attempted to get an EKG however he refused and stormed out of the office stating that he was ?done with everyone ?. He did state also that the next time he came here he would probably bring the police with him because he was that upset. I did offer to complete his paperwork today if he could bring me in the paperwork. I did not get a chance to adjust medication or speak with him prior to him leaving. I did contact the deck officer. (3) PAD (peripheral artery disease): Comment: 05/11/2021 right SFA atherectomy and stent Dr. Ramírez 06/13/2021 - right below-knee amputation Dr. Ramírez 12/14/2021 - left 2nd toe amputation Dr. Abdi 03/01/2022 - diagnostic angiogram within normal limits Dr. Ramírez Code(s): I73.9 - Peripheral vascular disease, unspecified Category: Medical Plan: Following with vascular (4) Hx of right BKA: Code(s): Z89.511 - Acquired absence of right leg below knee Category: Surgical Plan: As above. Noted (5) Insulin dependent type 2 diabetes mellitus: Code(s): E11.9 - Type 2 diabetes mellitus without complications; Z79.4 - technician terminal and repeater (current) use of insulin Category: Medical Plan: I have ordered Ozempic. We discussed risks and benefits and adverse effects of the medication. Diabetic labs ordered. Advised patient to follow up with endocrinology and I reminded him that he did not have an appointment scheduled. Orders: Orders Comprehensive Met. Panel Today E11.9 - Type 2 diabetes mellitus without complications, I10 - Essential (primary) hypertension, I73.9 - Peripheral vascular disease, unspecified, Z79.4 - technician terminal and repeater (current) use of insulin, Z89.511 - Acquired absence of right leg below knee Lipid Panel Today E11.9 - Type 2 diabetes mellitus without complications, I10 - Essential (primary) hypertension, I73.9 - Peripheral vascular disease, unspecified, Z79.4 - intermediate (current) use of insulin, Z89.511 - Acquired absence of right leg below knee Prostate Specific Antigen Scr Today E11.9 - Type 2 diabetes mellitus without complications, I10 - Essential (primary) hypertension, I73.9 - Peripheral vascular disease, unspecified, Z01.89 - Encounter for other specified special examinations, Z79.4 - intermediate (current) use of insulin, Z89.511 - Acquired absence of right leg below knee Microalbumin, Random (w Creat) Today E11.9 - Type 2 diabetes mellitus without complications, I10 - Essential (primary) hypertension, I73.9 - Peripheral vascular disease, unspecified, Z79.4 - technician terminal and repeater (current) use of insulin, Z89.511 - Acquired absence of right leg below knee Hemoglobin A1c Today E11.9 - Type 2 diabetes mellitus without complications, I10 - Essential (primary) hypertension, I73.9 - Peripheral vascular disease, unspecified, R73.01 - Impaired fasting glucose, Z79.4 - technician terminal and repeater (current) use of insulin, Z89.511 - Acquired absence of right leg below knee Complete Blood Count Auto Diff Today E11.9 - Type 2 diabetes mellitus without complications, I10 - Essential (primary) hypertension, I73.9 - Peripheral vascular disease, unspecified, Z79.4 - intermediate (current) use of insulin, Z89.511 - Acquired absence of right leg below knee TSH reflex Free T4 Today E11.9 - Type 2 diabetes mellitus without complications, I10 - Essential (primary) hypertension, I73.9 - Peripheral vascular disease, unspecified, Z79.4 - intermediate (current) use of insulin, Z89.511 - Acquired absence of right leg below knee Referrals Cologuard Test Z12.11 - Encounter for screening for malignant neoplasm of colon Medications: New semaglutide (Ozempic) 0.25 mg (0.368 mL) subcut QWEEK 3 mL 3RF
[2024-12-25 08:10] VITALS: BP 197/86; PULSE 82; RESP 16; O2SAT 98; BMI 52.1
[2024-12-25 08:55] VITALS: BP 200/94
== END 2024-12-25 09:16 | disposition home or self-care (01) ==
LOC: HO.HMCFM 08:00
PROVIDERS: PCP Family Medicine; Visit Provider Physician Assistant
DX: Z00.00 Encounter for general adult medical examination without abnormal findings (principal); E11.51 Type 2 diabetes mellitus with diabetic peripheral angiopathy without gangrene; Z89.511 Acquired absence of right leg below knee; Z79.4 Long term (current) use of insulin; I10 Essential (primary) hypertension; I73.9 Peripheral vascular disease, unspecified

== ENCOUNTER → 2024-12-25 07:59 | Outpatient (BNVA) | payer MEDICARE, SELFPAY | PROVIDERS: PCP Family Medicine; Visit Provider Physician Assistant | DX: Z00.00 Encounter for general adult medical examination without abnormal findings (principal); I10 Essential (primary) hypertension; I73.9 Peripheral vascular disease, unspecified; E11.9 Type 2 diabetes mellitus without complications; Z89.511 Acquired absence of right leg below knee; Z79.4 Long term (current) use of insulin | CPT/HCPCS: 99212; 99396 ==